=== PATIENT | male | born 1945 | race Hispanic/Latino ===

== ENCOUNTER 2018-02-21 10:23 | Emergency (ER) | payer MEDICARE, MEDICAID ==
[2018-02-21 11:20] LABS: #Basophils 0.1 thou/uL (0.0-0.2); #Eosinphils 3.5 thou/uL (0.0-0.7); #Lymphocytes 2.1 thou/uL (1.20-3.40); #Monocytes 1.3 thou/uL (0.11-0.59); #Neutrophils 7.5 thou/uL (1.40-6.50); %Basophils 0.5 % (0.0-1.0); %Eosinophils 24.3 % (0.0-10.0); %Lymphocytes 14.6 % (21.0-51.0); %Monocytes 8.7 % (0.0-10.0); %Neutrophils 51.9 % (42.0-75.0); Hemoglobin 12.7 g/dL (14.0-18.0); Mean Corpuscular HGB CONC 33.9 g/dL (32.0-36.0); Mean Corpuscular Hemoglobin 29.4 pg (27.0-31.0); Mean Corpuscular Volume 86.8 fl (80.0-94.0); Mean Platelet Volume 8.6 fL (7.4-10.4); Platelet Count 269 thou/uL (130-400); RBC Distribution Width 12.1 % (11.5-14.5); Red Blood Cell (RBC) Count 4.31 mill/uL (4.70-6.10); White Blood Cell (WBC) Count 14.5 thou/uL (4.8-10.8)
[2018-02-21 11:48] LABS: ALT (SGPT) 11 U/L (8-55); AST (SGOT) 15 U/L (5-34); Albumin 3.9 g/dL (3.4-4.8); Alkaline Phosphatase 111 U/L (40-150); Anion Gap 11 mmol/L (10-20); BUN (Urea Nitrogen) 25 mg/dL (8.4-25.7); Bilirubin, Total 0.4 mg/dL (0.2-1.2); Calc. Creatinine Clearance 0 mL/min (70-130); Calcium 9.2 mg/dL (7.8-10.44); Carbon Dioxide 23 mmol/L (23-31); Chloride 106 mmol/L (98-107); Estimated GFR-MDRD 76; Globulin 4.1 g/dL (2.4-3.5); Glucose 124 mg/dL (80-115); Sodium 136 mmol/L (136-145)
== END 2018-02-21 14:20 | disposition home or self-care (01) ==
LOC: ERS 10:23
DX: R19.7 Diarrhea, unspecified (principal); I10 Essential (primary) hypertension; I25.2 Old myocardial infarction; Z79.82 Long term (current) use of aspirin; Z86.73 Personal history of transient ischemic attack (TIA), and cerebral infarction without residual deficits
CPT/HCPCS: 36415; 80053; 82274; 83630; 85025; 87045; 87046; 87324; 87449; 87899; 99284

== ENCOUNTER 2019-02-19 14:50 | Inpatient (IN) | payer MEDICARE, MEDICAID ==
[~2019-02-19 14:50] MED LIST: ISOVUE-370 76%-LOCM 1 ML ONE
--- NOTE | 2019-02-19 16:05 | CT ---
CT THORACIC SPINE WITHOUT CONTRAST: 02/19/19 HISTORY: Patient was cleaning the yard yesterday. Now experiencing significant pain. COMPARISON: None. TECHNIQUE: A noncontrast CT of the thoracic spine is performed in the axial plane. FINDINGS: There appear to be chronic changes involving multiple end plates throughout the thoracic spine due to degenerative disc disease. Multilevel sclerosis and Schmorl's nodes are identified. There is exubera nt osteophyte formation, greatest at the T10-T11 level. There is irregularity involving the end plat es, likely on the basis of degenerative change. There is no significant paraspinal hematoma or swelli ng. Overall, no acute fractures of the thoracic spine. There are varying degrees of central canal nedra nosis and foraminal narrowing due to degenerative change. Evaluation is limited by technique. There a ppears to be at least mild to moderate central canal stenosis at T10-T11. Neural foramina appear to b e grossly patent. Limited evaluation of the mediastinum by the lack of IV contrast. Atherosclerosis of a nonaneurysmal aorta as well as coronary calcifications are identified. No definite mediastinal mass, lymphadenopath y, or hematoma. Surgically absent gallbladder. Dependent atelectatic changes in the lung parenchyma. IMPRESSION: 1. No definite thoracic spine fracture. 2. Extensive multilevel degenerative disc disease with end plate changes and osteophyte formatio n. There appears to be at least to moderate central canal stenosis at T10-T11. Barring any contraindi cations, further evaluation with nonemergent thoracic spine MRI can be performed. POS: [facility]
--- NOTE | 2019-02-19 16:11 | CT ---
CT PELVIS WITHOUT CONTRAST 02/19/19 HISTORY: Left flank pain. Difficulty getting up. Patient did a lot of yard work yesterday. FINDINGS: Slightly prominent urinary bladder. The prostate gland is enlarged. Encouraged spontaneous voiding. C onsider evaluating postvoid residuals to assess for possible bladder outlet syndrome secondary to emily ign prostatic hypertrophy. There is no pelvic mass, lymphadenopathy, free air or free fluid. Extensiv e vascular calcifications are noted. There are degenerative changes in the sacroiliac joints. The left and right sacral ala are preserved. There is pseudoarthrosis of the left and right aspects of the L5 vertebral body with the sacrum. Obturator ring, iliac wing are intact. No bony pelvic fracture. Both femoral heads are maintained. Mi ld loss of joint space height bilaterally. The presacral fat is preserved. The visualized gluteal muscles and overlying soft tissue are unremark able. IMPRESSION: 1. Chronic changes and degenerative changes as described above. 2. No fracture. 3. Prominent urinary bladder. Encourage spontaneous voiding and assess for postvoid residual. 4. Enlarged prostate gland. POS: [facility]
--- NOTE | 2019-02-19 16:21 | CT ---
[facility] lumbar spine noncontrast: 02/19/2019 HISTORY: Acute onset left lumbar radiculopathy. COMPARISON: None FINDINGS: Counting of the ribs on the concurrent CT of the thoracic spine demonstrate 12 paired ribs, and 6 non rib-bearing lumbar type vertebrae. For the purposes of this report, the first nonrib-bearing vertebra will be designated as L1. Consequently, the largest lumbar type vertebra at the lumbosacral junction will be designated as L6. L6 is fused with S1 sacral alar. There is a dextroscoliosis of the lumbar spine with apex of curvature at approximately L3. There are large bridging osteophytes at multiple le vels protruding into the prevertebral space. Urinary bladder is distended. There is multilevel degene rative disc disease, ranging from mild at L5 6 to moderate at multiple levels to severe at L3-4 where there is prominent vacuum disc phenomenon and prominent sclerosis at the left, concave side of the s coliotic curvature. The spinal canal is diffusely small in caliber on a congenital basis due to devel opmentally short pedicles. This is exacerbated by lumbar spondylosis. T12-L1: Mild to moderate central stenosis mostly on developmental basis. [id number] bilateral n eural foraminal stenosis. L1-2: Mild to moderate central stenosis. Moderate bilateral neural foraminal stenosis. L2-3: Thickening of ligamentum flavum plus diffuse disc bulge. Severe central spinal canal stenosis. Moderate right neural foraminal stenosis. Severe left neural foraminal stenosis. L3-4: Severe bilateral facet DJD. Slight grade 1 anterolisthesis of L3 on L4. Prominent diffuse disc bulge. Moderate ligamentum flavum thickening. Ossification at the posterior aspect of spinal canal. E xtremely severe central spinal canal stenosis. Severe bilateral neural foraminal stenosis. L4-5: Moderate ligamentum flavum thickening. Prominent diffuse disc bulge. Mild right facet DJD. Mode rate left facet DJD. Extremely severe central spinal canal stenosis. Severe bilateral neural foramina l stenosis. L5-6: Diffuse disc bulge. Superimposed central and right paracentral and lateral disc herniation. The re is severe central spinal canal stenosis. Moderate ligamentum flavum thickening. Severe bilateral n eural foraminal stenosis. Moderate right facet DJD. Mild left facet DJD. L6-S1: Development of a small caliber spinal canal without exacerbation. No acquired neural foraminal stenosis. IMPRESSION: 1. Severe lumbar spondylosis with multilevel degenerative disc disease and facet osteoarthrosis. 2. Dextroscoliosis. 3. Several levels of extremely severe central spinal canal stenosis due to spondylosis superimposed o n developmentally small caliber spinal canal. 4. Several levels of severe neural foraminal stenosis. 5. Distended urinary bladder, raising the possibility of cauda equina syndrome.
[2019-02-19 17:05] LABS: #Basophils 0.1 thou/uL (0.0-0.2); #Eosinphils 2.7 thou/uL (0.0-0.7); #Lymphocytes 2.5 thou/uL (1.20-3.40); #Monocytes 0.6 thou/uL (0.11-0.59); %Basophils 0.7 % (0.0-1.0); %Eosinophils 20.5 % (0.0-10.0); %Lymphocytes 19.7 % (21.0-51.0); %Monocytes 4.7 % (0.0-10.0); %Neutrophils 54.4 % (42.0-75.0); Hemoglobin 11.9 g/dL (14.0-18.0); Mean Corpuscular HGB CONC 32.2 g/dL (32.0-36.0); Mean Corpuscular Hemoglobin 29.1 pg (27.0-31.0); Mean Corpuscular Volume 90.3 fL (78.0-98.0); Mean Platelet Volume 9.2 fL (7.4-10.4); Platelet Count 300 thou/uL (130-400); RBC Distribution Width 11.9 % (11.5-14.5); White Blood Cell (WBC) Count 12.9 thou/uL (4.8-10.8)
[2019-02-19 17:27] LABS: ALT (SGPT) 8 U/L (8-55); AST (SGOT) 13 U/L (5-34); Albumin 3.7 g/dL (3.4-4.8); Alkaline Phosphatase 95 U/L (40-150); Anion Gap 12 mmol/L (10-20); BUN (Urea Nitrogen) 16 mg/dL (8.4-25.7); Bilirubin, Total 0.3 mg/dL (0.2-1.2); Calc. Creatinine Clearance 0 mL/min (70-130); Calcium 9.4 mg/dL (7.8-10.44); Carbon Dioxide 28 mmol/L (23-31); Chloride 105 mmol/L (98-107); Estimated GFR-MDRD 79; Globulin 3.9 g/dL (2.4-3.5); Glucose 94 mg/dL (83-110); Potassium 4.8 mmol/L (3.5-5.1); Protein, Total 7.6 g/dL (5.8-8.1); Sodium 140 mmol/L (136-145)
[2019-02-19] MEDS ORDERED: Ketorolac Tromethamine 30 MG/ML VIAL ONE (18:13)
[2019-02-19 18:28] LABS: Bilirubin Negative (Negative); Blood, Urine Negative (Negative); Clarity CLEAR (Clear); Glucose, Urine (Dipstick) Negative (Negative); Leukocyte Negative (Negative); Nitrite Negative (Negative); Protein, Urine (Dipstick) 30 mg/dL (Neg-Trace); Specific Gravity, Urine 1.011 (1.002-1.036); pH, Urine 6.5 (5.0-9.0)
[2019-02-19 18:31] LABS: Bacteria/HPF None Seen HPF (None Seen); Hyaline Casts/LPF 0-3 HYALINE CAST LPF (0-3 Hyaline); RBC/HPF None Seen HPF (0-3); Squamous Epithelial None Seen HPF (0-3); WBC/HPF None Seen HPF (0-3)
--- NOTE | 2019-02-19 18:51 | CT ---
CT ARTERIOGRAM CHEST WITH IV CONTRAST AND 3D MIP IMAGING CT ARTERIOGRAM ABDOMEN WITH IV CONTRAST AND 3D MIP IMAGING 02/19/19 HISTORY: Chest and back pain. Abdomen pain. FINDINGS: There is good contrast opacification of the pulmonary arteries and the aorta with normal branching of the great vessels. Moderate calcification throughout the arterial structures, including coronary art eries. Prominent calcification at the origin of the superior mesenteric artery with short segment focus of h igh grade stenosis. Flow is seen more distally. Inferior mesenteric artery is enlarged. Renal arterie s contain calcification without significant stenosis evident. Tiny nonspecific subpleural nodule is noted at the right anterior lung base. Prominent degenerative changes throughout the thoracolumbar spine. Please see separate report. Gallbl adder is surgically absent. IMPRESSION: No evidence of aortic dissection or aneurysm. 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 POS: [facility]
--- NOTE | 2019-02-19 19:53 | ULT ---
VENOUS DUPLEX SONOGRAM RIGHT LOWER EXTREMITY 02/19/19 HISTORY: Right leg pain and edema. FINDINGS: The right common femoral vein and greater saphenous junction were evaluated along with the femoral, d eep femoral, popliteal, and posterior tibial veins. There is good color and spectral doppler flow, co mpression, and augmentation. IMPRESSION: No sonographic evidence of DVT within the right lower extremity. POS: [facility]
[2019-02-19] MEDS ORDERED: Ondansetron PF 4 MG/2 ML Vial IVP PRN (21:21)
[2019-02-19] MEDS ORDERED: Ondansetron ODT 4 MG TAB SL PRN (21:21)
[2019-02-19] MEDS ORDERED: Acetaminophen 325 MG TAB PO PRN (21:21)
[2019-02-19 22:41] VITALS: BMI 21.7
--- NOTE | 2019-02-20 07:19 | CT ---
CT HEAD NONCONTRAST: Date: 02/19/19 COMPARISON: 12/27/11. INDICATION: TIA, CVA, with history of pain. Right facial droop, slurred speech, and right-sided weakness. FINDINGS: There is moderate to severe chronic ischemic disease of the cerebral white matter, progressive from p rior exam. No intracranial hemorrhage, mass effect, or midline shift. There are cavitary lacunar infa rctions of each thalamus. There is scattered paranasal sinus mucosal thickening. IMPRESSION: Moderate to severe chronic ischemic disease with superimposed bilateral lacunar infarctions. No acute intracranial hemorrhage or mass effect. POS: [facility]
--- NOTE | 2019-02-20 07:51 | HP ---
PRIMARY CARE DOCTOR: [facility]. CODE STATUS: Full code. TIME OF EVALUATION: 9:00 p.m. CHIEF COMPLAINT: Slurred speech and generalized weakness. HISTORY OF PRESENT ILLNESS: This is a 73-year-old male patient with past medical history of stroke, hypertension, coronary artery disease, status post acute HI, and diabetes, came to the hospital after having an episode of slurred speech, generalized weakness, with no clear triggers and no alleviating factors. Symptoms were present when the patient woke up in the morning, symptoms have probably getting better. The patient has a history of previous stroke and also has a history of right footdrop that resolved. The patient also has some associated right-sided flank pain. Symptoms were reported as severe on presentation is getting better during the day. REVIEW OF SYSTEMS: CONSTITUTIONAL: No fever, chills, or generalized weakness. RESPIRATORY: No cough, sputum production, or shortness of breath. CARDIOVASCULAR: No chest pain or palpitation. GASTROINTESTINAL: No nausea. No vomiting, diarrhea, or abdominal pain. OPERATOR/ASSISTANT FOREMAN: The patient has slurred speech, slow mentation, difficulty finding words that happened early in the morning. GENITOURINARY: No burning on urination. EXTREMITIES: No leg swelling. All other systems were reviewed and negative except for the findings mentioned above. PAST MEDICAL HISTORY: As mentioned in the HPI. SURGICAL HISTORY: Cholecystectomy. PSYCHIATRIC HISTORY: Denies psych history. FAMILY HISTORY: Reviewed and non contributory to current presentation. SOCIAL HISTORY: The patient drinks socially. No drug use. No smoking history. Lives at home with family. KNOWN ALLERGIES: No known drug allergies reported. MEDICATIONS: Unable to obtain. PHYSICAL EXAMINATION: VITAL SIGNS: On presentation, blood pressure 164/71 with heart rate 50, respiratory rate was 18, temperature 98.6, pain was 4, oxygen saturation was 99 on room air. GENERAL APPEARANCE: The patient is alert, oriented, not in acute distress. HEENT: Eyes, normal conjunctivae. Moist oral mucosa. Anicteric. No JVD. RESPIRATORY: Bilateral air entry. No rales. No wheezes. Symmetric expansion. CARDIOVASCULAR: Normal rate, regular rhythm. No murmurs. No gallop. No edema. ABDOMEN: Soft. Normal bowel sounds. MUSCULOSKELETAL: Baseline range of motion and strength. No tenderness. SKIN: Warm, intact. No pallor. No rash. No redness. Peripheral pulses are present. Capillary refill seems to be intact. NEURO: The patient has right footdrop. No evidence of any new focal weakness during my examination. Symptoms seems to have been improved as per when compared with what family is reporting. Cranial nerves seems to be intact. PSYCH: The patient is in good mood. No anxiety. Optimal judgment. EKG: The patient has sinus bradycardia with first-degree AV block, heart rate 45, LA 240, QRS 104, QT corrected 378. RADIOLOGY: The patient received lumbar spine CT that show severe lumbar spondylosis, multilevel degenerative disk disease, facet osteoarthritis, dextroscoliosis, several level of extremely severe central and spinal canal stenosis due to spondylosis superimposed development small caliber spinal canal, several levels of severe neuroforaminal stenosis, distended urinary bladder raising the possibility of cauda equina syndrome. CT pelvis without contrast. The patient has chronic changes within degenerative changes as described above. No fracture. Prominent urinary bladder, encourage spontaneous voiding and assess for post- void residual, enlarged prostate gland. Thoracic spine CT. No definite thoracic spine fractures, extensive multilevel degenerative disk disease and endplate changes and osteophyte formation. There appears to be a least moderate central canal stenosis at T10 and T11, barring contradications, further evaluation with nonemergent thoracic spine MRI can be performed. CT dissection was done. The patient has no evidence of aortic dissection, had a region of atherosclerosis with short-segment focus of high-grade stenosis involving the origin of the superior mesenteric artery. No sonographic evidence of DVT within the right lower extremity. CT head was done. CT head report was called. The patient has multiple subacute infarct seen as per radiology report. LABORATORY DATA: The labs are reviewed. The patient has a white count of 12.9, hemoglobin 11.9, MCV 90.3, platelet count 300. Chemistry; sodium 140, potassium 4.8, chloride 105, carbon dioxide 28, BUN 16, creatinine 0.94, GFR 79, glucose 94, AST 13, ALT 8, alkaline phosphatase 95. Troponin was 0.010. Serum total protein 7.6, albumin 3.7. Urine was done and was negative. ASSESSMENT AND PLAN: The patient has been placed in the hospital with the following medical problems: 1. Subacute stroke as seen on the CAT scan, we will do a stroke protocol, we will follow neurology recommendations. follow work up, treat accordingly. 2. Possible cauda equina syndrome. The patient has urinary retention, also have some severe spinal stenosis, unclear if the symptoms are from the stroke or from the spinal stenosis. We will consult Neurosurgery for any further recommendation. 3. Leukocytosis of unclear etiology 12.9. We will monitor. No evidence of any infection at this point. 4. Uncontrolled hypertension on presentation, blood pressure was 164 systolic, reconcile home medications. We will adjust treatment as needed. 5. History of coronary artery disease with previous history of acute HI. Reconcile home medications once updated. We will adjust treatment as needed. 6. DVT prophylaxis Job ID: [id number] [facility]
[2019-02-20 08:16] LABS: Anion Gap 11 mmol/L (10-20); BUN (Urea Nitrogen) 17 mg/dL (8.4-25.7); Calc. Creatinine Clearance 66 mL/min (70-130); Calcium 9.2 mg/dL (7.8-10.44); Carbon Dioxide 27 mmol/L (23-31); Cardiac Risk 3.8 (Less than 4.5); Chloride 104 mmol/L (98-107); Cholesterol 192 mg/dl (< 200 Desired); Eosinophils 29 % (0-10); Estimated GFR-MDRD 82; Glucose 105 mg/dL (83-110); HDL Cholesterol 50 mg/dL (>60 Neg Risk); Hemoglobin 12.4 g/dL (14.0-18.0); LDL Cholesterol, Calculated 123 mg/dL; Lymphocytes 12 % (21-51); MDiff Complete? YES; Mean Corpuscular Volume 87.8 fL (78.0-98.0); Mean Platelet Volume 9.5 fL (7.4-10.4); Monocytes 3 % (0-10); Neutrophil 56 % (42-75); Platelet Count 301 thou/uL (130-400); Platelet Morphology Comment Appears Adequate; Potassium 4.3 mmol/L (3.5-5.1); Red Blood Cell (RBC) Count 4.26 mill/uL (4.70-6.10); Sodium 138 mmol/L (136-145); Triglycerides 96 mg/dL (Less than 150); White Blood Cell (WBC) Count 11.1 thou/uL (4.8-10.8)
[2019-02-20] MEDS ORDERED: Enoxaparin Sodium 40 MG/0.4 ML SYRINGE SC SCH (09:00)
[2019-02-20] MEDS ORDERED: Prevnar 13-Val Conj/PF 0.5 ML SYRINGE IM ONE (09:00)
[2019-02-20] MEDS ORDERED: Aspirin 325 mg Enteric Coated Tablet PO SCH (09:00)
--- NOTE | 2019-02-20 11:06 | MRI ---
[facility] lumbar spine noncontrast: 02/20/2019 HISTORY: Acute onset left lumbar radiculopathy. Low back pain. Urinary retention. COMPARISON: No prior MRIs of the lumbar spine. FINDINGS: Counting of the ribs on the recent CT of the thoracic spine demonstrate 12 paired ribs, and 6 nonrib- bearing lumbar type vertebrae. For the purposes of this report, the first nonrib-bearing vertebra bonnie l be designated as L1. Consequently, the lowest lumbar type vertebra at the lumbosacral junction will be designated as L6. L6 is fused with S1 sacral alar. There is a dextroscoliosis of the lumbar spine with apex of curvature at approximately L3. There are large bridging osteophytes at multiple levels protruding into the prevertebral space. Urinary bladder is distended. There is multilevel degenerativ e disc disease, ranging from mild at L5-6 to moderate at multiple levels, to severe at L3-4 where the re is prominent vacuum disc phenomenon, mixed Modic type I, 2, and 3 changes, and prominent sclerosis at the left, concave side of the scoliotic curvature. The spinal canal is diffusely small in caliber on a congenital basis due to developmentally short pedicles. This is exacerbated by lumbar spondylos is. T12-L1: Included on sagittal images but not axial images. Mild to moderate central stenosis mostly on developmental basis. At least moderate bilateral neural foraminal stenosis. L1-2: Mild to moderate central stenosis. Moderate bilateral neural foraminal stenosis. Conus medullar is terminates at upper L2 level. L2-3: Thickening of ligamentum flavum plus diffuse disc bulge. Moderate-severe central spinal canal s tenosis. Moderate right neural foraminal stenosis. Severe left neural foraminal stenosis. L3-4: Severe bilateral facet DJD. Slight grade 1 anterolisthesis of L3 on L4. Prominent diffuse disc bulge. Moderate ligamentum flavum thickening. Ossification at the posterior aspect of spinal canal. E xtremely severe central spinal canal stenosis. Moderate to severe right neural foraminal stenosis. Ve ry severe left neural foraminal stenosis. L4-5: Moderate ligamentum flavum thickening. Prominent diffuse disc bulge. Mild right facet DJD. Mode rate left facet DJD. Extremely severe central spinal canal stenosis. Moderate to severe right neural foraminal stenosis. Very severe left neural foraminal stenosis. L5-6: Diffuse disc bulge. Superimposed central and right paracentral and lateral disc herniation. The re is severe central spinal canal stenosis, and severe lateral recess stenosis bilaterally. Moderate ligamentum flavum thickening. Extremely severe right neural foraminal stenosis. Moderate to severe le ft neural foraminal stenosis. Moderate right facet DJD. Mild left facet DJD. L6-S1: developmentally small caliber spinal canal without exacerbation. No acquired neural foraminal stenosis. Developmentally somewhat hypoplastic facet joints. IMPRESSION: 1. Severe lumbar spondylosis with multilevel degenerative disc disease and facet osteoarthrosis. 2. Dextroscoliosis. 3. Several levels of extremely severe central spinal canal stenosis due to spondylosis superimposed o n developmentally small caliber spinal canal. 4. Several levels of severe neural foraminal stenosis. 5. Distended urinary bladder, suspicious for cauda equina syndrome.
--- NOTE | 2019-02-20 11:17 | MRI ---
[facility] BRAIN WITHOUT CONTRAST: HISTORY: TIA COMPARISON: 12/28/2011 CORRELATION: CT scan from same date. FINDINGS: No restricted diffusion is seen. There are multiple foci of T2 prolongation in the periventricular wh ite matter, consistent with chronic small vessel ischemic disease. The ventricular size is appropriat e and the basilar cisterns are patent. No evidence of acute infarct, hemorrhage, midline shift or abnormal extra-axial fluid collections is seen. There is mucosal disease in the paranasal sinuses. IMPRESSION: No evidence of acute intracranial process.
--- NOTE | 2019-02-20 12:59 | CON ---
DATE OF CONSULTATION: ATTENDING PHYSICIAN: Royal Mejia MD. HISTORY OF PRESENT ILLNESS: The patient is a 73-year-old male with a past medical history of hypertension, prior CVAs, coronary artery disease with prior PA, who presented to the emergency department last night for generalized weakness and slurred speech. The patient reports that the prior weekend he has been working in his yard raking leaves and doing other activities. The following day, he reports he felt very weak, he was having difficulty getting out of bed and ambulating throughout his house. His family also reports that they noticed some changes in his speech, so he was brought to the emergency department last night for further evaluation. Much of these symptoms had improved by this time, but he continues to complain of some weakness in his lower extremities, particularly in the right leg as well as difficulty ambulating. The patient does report that he has had a gradual and progressive history over the last year of progressive weakness in his legs, particularly on the right leg. He reports he has been unable to flex or extend his right foot in approximately 1 year. He previously used a cane for ambulation, but has been primarily using his walker for the past year. He denies any changes in his bowel or bladder habits; however, he was noted to have urinary retention of 600 mL during his admission and [place] catheter was placed. The patient was evaluated with a noncontrast MRI of the lumbar spine, which is notable for multilevel degenerative changes as well as scoliosis with severe central canal stenosis at L3-L4, L4-L5 , and L5-L6, we are calling this transitional segment. PAST MEDICAL HISTORY: Hypertension, coronary artery disease, prior PA, diabetes , CVA. PAST SURGICAL HISTORY: Cholecystectomy. SOCIAL HISTORY: The patient lives with home with his family. He drinks socially. He does not use any drugs. ALLERGIES: HE HAS NO KNOWN DRUG ALLERGIES. MEDICATIONS: The patient was unable to provide a medication list. He denies any anticoagulant use in the last 2 weeks. He was previously taking 81 mg aspirin daily. PHYSICAL EXAMINATION: VITAL SIGNS: Temperature is 98.0, pulse is 63, respiration rate is 17. The patient is 95% on room air. BP is 147/60. CONSTITUTIONAL: Awake, alert, in no acute distress. HEENT: Head, normocephalic and atraumatic. Eyes, PERRLA. Extraocular movements intact. ENT; oral mucosa is pink, intact, and moist. The patient has normal voice. RESPIRATORY: Symmetric chest expansion. No evidence of dyspnea. CARDIOVASCULAR: Regular rate and rhythm. MUSCULOSKELETAL: Free active range of motion of the upper extremities. No focal motor weakness of the upper extremities. No reflex asymmetry in the lower extremities. The patient is unable to dorsi or plantar flex the right foot. He does have 5/5 strength with hip flexion and extension, and flexion and extension of the knee. He has normal reflexes in the lower extremities. Negative Gonsalez. Negative clonus. NEURO: A and O x4. The patient has right footdrop. ASSESSMENT: This is a 73-year-old male with progressive lower extremity weakness, right greater than left, with acute exacerbation of these symptoms and development of urinary retention after working in the yard. His lumbar MRI is notable for multilevel degenerative changes and significant central canal stenosis at L3-L4, L4-L5, and L5-L6 - the patient has a transitional segment. PLAN: Pt has significant multilevel degenerative disease and central canal stenosis. I will review these findings with Dr. Mejia who will also see the patient. We will plan to keep the patient off any anticoagulants at this time. Pt did get aspirin earlier today but will discontinue at this time. Pt is also complicated by significant cardiac history which may require additional clearance by cardiology if surgery was entertained. Job ID: [id number] [facility]
[2019-02-20] MEDS ORDERED: Acetaminophen 500 MG TAB PO PRN (13:06)
[2019-02-20] MEDS ORDERED: Lorazepam 2 MG/ML VIAL SLOW IVP SCH (13:15)
--- NOTE | 2019-02-20 19:03 | PRG ---
DATE OF SERVICE: 02/20/2019 SUBJECTIVE: The patient is a 73-year-old male with past medical history significant for prior CVAs, history of CAD and [place], and hypertension, who presented to the hospital with a host of complaints including temporary slurred speech, back pain, generalized weakness. The patient has undergone extensive imaging of the back and spine, and has been admitted with severe central spinal canal stenosis and question of cauda equina syndrome. His speech is back to normal today. He has had no chest pain or shortness of breath. He denies any dizziness at this time. He has no back pain at this time. OBJECTIVE: VITAL SIGNS: Blood pressure 147/76, pulse is 70, O2 saturation is 95% on room air. Pulse is 55, temperature afebrile. GENERAL: The patient is a male, resting comfortably. No acute distress. Appears stated age. HEENT: Head is atraumatic and normocephalic. Extraocular movements intact. Mucous membranes are moist. NECK: No JVD. No carotid bruits. Trachea is midline. No lymphadenopathy. CV: S1 and S2. Regular rhythm. Mildly bradycardic. Soft systolic murmur grade 1/6. LUNGS: Regular respiratory rate and pattern. Clear to auscultation bilaterally. ABDOMEN: Positive bowel sounds. Soft, nontender. NEUROLOGIC: Patient's cranial nerves 2 through 12 are grossly intact. He has + 5/5 strength in both upper extremities bilaterally. Right foot shows 1/5 strength, findings consistent with right footdrop. 5/5 strength on the left. EXTREMITIES : He has no edema. +2 DP pulses bilaterally. SKIN: Warm and dry. No obvious rashes. LABORATORY DATA: White blood cell count 11.1, hemoglobin 12.4, hematocrit 37.4, sodium 138, potassium 4.3, carbon dioxide 27, BUN 17, creatinine 0.91, GFR 82. AST 13, ALT 8, alkaline phosphatase 95. Troponin is negative. Cholesterol 192, LDL 123, HDL 50, triglycerides are 96. ASSESSMENT: 1. Severe central spinal canal stenosis due to spondylosis, question of cauda equina syndrome, Neurology consulted. 2. Right footdrop. 3. Dextroscoliosis. 4. Urinary retention, question of obstructive versus neurogenic, patient currently refusing [place] placement. 5. Prior cerebrovascular accident. No evidence of stroke this admission. 6. History of coronary artery disease and myocardial infarction. 7. Asymptomatic sinus bradycardia. 8. Hypertension. PLAN: Holding all antiplatelets and anticoagulation at this time for possible surgical intervention. We will add amlodipine for blood pressure control. The patient has a residual 600 mL urinary retention per bladder scan, and has adamantly refused [place] placement. He is continuing to void some. Findings explained to the patient's family and questions answered. Further recommendations based on hospital course. Neurology consult is pending. Job ID: [id number] MTDD
[2019-02-20] MEDS: Atorvastatin Calcium 40 MG TAB PO SCH (21:06)
--- NOTE | 2019-02-20 23:18 | CON ---
DATE OF CONSULTATION: 02/20/2019 CONSULTING PHYSICIAN: Hospitalist Service. IMPRESSION: 1. Severe spinal stenosis with bilateral lower extremity weakness, right greater than left. 2. History of transient ischemic attacks. PLAN: 1. Restart aspirin and a statin. 2. Consult Surgery for opinion on lumbar decompression. HISTORY OF PRESENT ILLNESS: Mr. Camarena is a 73-year-old gentleman who has been having some chronic lower back pain. He has noted some increasing weakness in his right leg. He did not really appreciate any in the left. He has developed a footdrop over the last 2 or 3 weeks, he is a bit vague as to the rate of progression. He was being seen at the [facility]. He had been off all his medications. He decided to come to the emergency room for evaluation. His MRI of the brain shows some extensive white matter ischemic changes that are chronic, but no acute changes were present. MRI of the lumbar spine showed moderate to severe central canal stenosis at L3-L4 and L4-L5. There is mild central stenosis at L5-S1. There is right foraminal stenosis at L5-S1, that looks severe. His laboratory studies were unremarkable. Cholesterol measure ratio of 3.8. PAST MEDICAL HISTORY: Hypertension, coronary artery disease, and diabetes. SOCIAL HISTORY: No tobacco use. FAMILY HISTORY: Noncontributory. MEDICATIONS: None. ALLERGIES: NONE. REVIEW OF SYSTEMS: Ten system review of systems is otherwise negative. PHYSICAL EXAMINATION: GENERAL: He is a thin, elderly man, sitting up in the bed, in no distress. VITAL SIGNS: Stable. He has been afebrile. HEENT: Pupils are equal. Conjunctivae clear. He is without dentition. Normocephalic and atraumatic. NECK: Supple. No lymphadenopathy. EXTREMITIES: No cyanosis, clubbing, or edema. NEUROLOGIC: He is alert and cooperative. Speech is fluent and clear. Cranial nerves II through XII are intact. Motor exam showed good strength in both upper extremities. Lower extremity testing showed good knee extension bilaterally. He had a complete paralysis of movement below the knee on the right. His strength on the left was in the range of 3+/5 for both ankle flexion and plantar flexion. Gait was not tested. No tremor. Dysmetria is present. No abnormal movements were seen. 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 He has no acute neurologic event. He should reestablish treatment of his underlying issues. We will get Neurosurgery's opinion. Job ID: [id number]
[2019-02-21 09:00] LABS: Prothrombin Time 13.7 SEC (12.0-14.7)
[2019-02-21 09:01] LABS: PTT 35.7 SEC (22.9-36.1)
[2019-02-21] MEDS: Amlodipine 5 MG TAB PO SCH (09:35)
[2019-02-21] MEDS ORDERED: Sodium Chloride 0.65% Nasal 44 ML BOT EA NARE PRN (10:53)
[2019-02-21] MEDS ORDERED: HYDROcodone/Acetaminophen 5/325 mg Tablet PO PRN (10:53)
[2019-02-21] MEDS ORDERED: Labetalol HCl 100 MG/20 ML VIAL SLOW IVP PRN (10:53)
[2019-02-21] MEDS ORDERED: Eucerin (Mineral Oil/Petrolatum,White) 30 gm Jar TOP PRN (10:53)
[2019-02-21] MEDS ORDERED: Diabetic Tussin 200 MG/10 ML UDCUP PO PRN (10:53)
[2019-02-21] MEDS ORDERED: Loperamide HCl 2 MG CAP PO PRN (10:53)
[2019-02-21] MEDS ORDERED: Cepastat Lozenges 1 LOZ PO PRN (10:53)
[2019-02-21] MEDS ORDERED: Artificial Tears 18 DROP/0.9 ML EA EYE PRN (10:53)
[2019-02-21] MEDS ORDERED: hydrALAZINE 20 MG/ML VIAL SLOW IVP PRN (10:53)
[2019-02-21] MEDS ORDERED: Senokot S 8.6-50 MG TAB PO PRN (10:53)
[2019-02-21] MEDS ORDERED: Bisacodyl 5 MG TAB PO PRN (10:53)
[2019-02-21] MEDS ORDERED: Loratadine 10 MG TAB PO PRN (10:53)
[2019-02-21] MEDS ORDERED: Temazepam 15 MG CAP PO PRN (10:53)
--- NOTE | 2019-02-21 10:54 | PDOC.PN ---
- Subjective Encounter Start Date: 02/21/19 Encounter Start Time: 09:40 -: old records requested/rev Patient seen and examined. No new complaints. No overnight events - Objective Resuscitation Status - Order Detail: 02/19/19 22:08 Resuscitation Status Routine Resuscitation Status: FULL: Full Resuscitation MAR Reviewed: Yes Vital Signs & Weight: Vital Signs (12 hours) Temp Pulse Resp BP BP Pulse Ox 02/21/19 09:35 58 L 139/68 02/21/19 07:50 96 02/21/19 07:40 97.6 F 58 L 14 139/68 96 02/21/19 04:00 97.6 F 68 16 157/74 H 97 02/21/19 00:00 99.2 F 74 16 134/59 L 96 Weight Weight 138 lb 11.2 oz I&O: 02/20/19 02/21/19 02/22/19 06:59 06:59 06:59 Intake Total 400 Output Total 500 Balance -100 Result Diagrams: 02/20/19 07:29 02/20/19 07:29 Radiology Reviewed by me: Yes (all test reviewed) EKG Reviewed by me: Yes Phys Exam - Physical Examination Constitutional: NAD HEENT: PERRLA, moist MMs, sclera anicteric Neck: no JVD, supple Respiratory: no wheezing, no rales, no rhonchi Cardiovascular: RRR, no significant murmur, no rub Gastrointestinal: soft, non-tender, no distention, positive bowel sounds Musculoskeletal: no edema, pulses present Neurological: non-focal, normal sensation Lymphatic: no nodes Psychiatric: normal affect, A&O x 3 Skin: no rash, normal turgor Dx/Plan (1) Acute urinary retention Code(s): R33.8 - OTHER RETENTION OF URINE Status: Acute (2) BPH (benign prostatic hyperplasia) Code(s): N40.0 - BENIGN PROSTATIC HYPERPLASIA WITHOUT LOWER URINRY TRACT SYMP Status: Chronic (3) CAD (coronary artery disease) Code(s): I25.10 - ATHSCL HEART DISEASE OF [place] CORONARY ARTERY W/O ANG PCTRS Status: Chronic (4) Dextroscoliosis Code(s): M41.80 - OTHER FORMS OF SCOLIOSIS, SITE UNSPECIFIED Status: Chronic (5) Hypertension Code(s): I10 - ESSENTIAL (PRIMARY) HYPERTENSION Status: Chronic (6) Lumbar spinal stenosis Code(s): M48.061 - SPINAL STENOSIS, LUMBAR REGION WITHOUT NEUROGENIC MICK Status: Chronic - Plan cont current plan of care, plan discussed w/ family, PT/OT * neurosurgery will decide about surgery * medication reviewed as below * symptomatic treatment * discussed with son * continue PT * add flomax. Review of Systems - Review of Systems ENT: negative: Ear Pain, Ear Discharge, Nose Pain, Nose Discharge, Nose Congestion, Mouth Pain, Mouth Swelling, Throat Pain, Throat Swelling, Other Respiratory: negative: Cough, Dry, Shortness of Breath, Hemoptysis, SOB with Excertion, Pleuritic Pain, Sputum, Wheezing Cardiovascular: negative: chest pain, palpitations, orthopnea, paroxysmal nocturnal dyspnea, edema, light headedness, other Gastrointestinal: negative: Nausea, Vomiting, Abdominal Pain, Diarrhea, Constipation, Melena, Hematochezia, Other Genitourinary: Retention Musculoskeletal: Back Pain. negative: Neck Pain, Shoulder Pain, Arm Pain, Hand Pain, Leg Pain, Foot Pain, Other - Medications/Allergies Allergies/Adverse Reactions: Allergies Allergy/AdvReac Type Severity Reaction Status Date / Time No Known Allergies Allergy Verified 02/19/19 22:41 Medications: Current Medications Acetaminophen (Tylenol) 650 mg PO Q4H PRN PRN Reason: Headache/Fever or Pain Stop: 02/24/19 06:56 Acetaminophen (Tylenol) 1,000 mg PO Q6H PRN PRN Reason: Mild Pain (1-3) Amlodipine Besylate (Norvasc) 5 mg PO DAILY [facility] Last Admin: 02/21/19 09:35 Dose: 5 mg Atorvastatin Calcium (Lipitor) 40 mg PO HS [facility] Last Admin: 02/20/19 21:06 Dose: 40 mg Ondansetron HCl (Zofran) 4 mg IVP Q6H PRN PRN Reason: Nausea/Vomiting Stop: 02/24/19 06:56 Ondansetron HCl (Zofran Odt) 4 mg SL Q6H PRN PRN Reason: Nausea/Vomiting Stop: 02/23/19 06:56 Sodium Chloride (Flush - Normal Saline) 10 ml IVF PRN PRN PRN Reason: Saline Flush
[2019-02-21] MEDS ORDERED: Tamsulosin HCl 0.4 MG CAP PO SCH (11:00)
--- NOTE | 2019-02-21 12:32 | PRG ---
DATE OF SERVICE: 02/21/2019 The patient is seen and examined. I agree with Bernadette Chirinos's evaluation on 02/20/2019. The patient is a 73-year-old man, who was admitted for constellation of symptoms including progressive walking dysfunction and specifically right leg weakness. He has been evaluated by Medicine and by Neurology and has been found to have lumbar stenosis. No other specific intracranial and neurologic abnormalities were identified by Neurology. The patient's MRI scan shows relatively profound lumbar stenosis from L3 to L6. It should be noted that the patient has an extra lumbar segment. IMPRESSION AND PLAN: I believe the patient would benefit from decompressive laminectomy from L3 to L6 and I discussed the indication risks, benefits, and alternatives of this procedure with him. He expressed understanding. All questions were answered and he wishes to proceed. We will plan to proceed on Sunday. We will hold aspirin until after the surgery. We will defer to the Primary Service regarding preoperative cardiac clearance and whether a Cardiology consult is required. Job ID: [id number]
[2019-02-21] MEDS: Atorvastatin Calcium 40 MG TAB PO SCH (20:55)
[2019-02-22] MEDS: Tamsulosin HCl 0.4 MG CAP PO SCH (08:43)
[2019-02-22] MEDS: Amlodipine 5 MG TAB PO SCH (08:43)
--- NOTE | 2019-02-22 10:15 | PDOC.PN ---
- Subjective Encounter Start Date: 02/22/19 Encounter Start Time: 07:10 Patient seen and examined. No new complaints. No overnight events - Objective Resuscitation Status - Order Detail: 02/19/19 22:08 Resuscitation Status Routine Resuscitation Status: FULL: Full Resuscitation MAR Reviewed: Yes Vital Signs & Weight: Vital Signs (12 hours) Temp Pulse Resp BP BP Pulse Ox 02/22/19 08:43 68 158/77 H 02/22/19 07:50 98.4 F 68 20 158/77 H 97 02/22/19 04:00 97.7 F 65 16 162/67 H 98 02/22/19 00:00 97.9 F 69 16 130/65 93 L Weight Weight 138 lb 11.2 oz I&O: 02/21/19 02/22/19 02/23/19 06:59 06:59 06:59 Intake Total 400 900 300 Output Total 500 200 Balance -100 700 300 Result Diagrams: 02/20/19 07:29 02/20/19 07:29 EKG Reviewed by me: Yes Phys Exam - Physical Examination Constitutional: NAD HEENT: PERRLA, moist MMs, sclera anicteric Neck: no JVD, supple Respiratory: no wheezing, no rales, no rhonchi Cardiovascular: RRR, no significant murmur, no rub Gastrointestinal: soft, non-tender, no distention, positive bowel sounds Musculoskeletal: no edema, pulses present Neurological: non-focal, normal sensation Lymphatic: no nodes Psychiatric: normal affect Skin: no rash, normal turgor Dx/Plan (1) Acute urinary retention Code(s): R33.8 - OTHER RETENTION OF URINE Status: Acute (2) BPH (benign prostatic hyperplasia) Code(s): N40.0 - BENIGN PROSTATIC HYPERPLASIA WITHOUT LOWER URINRY TRACT SYMP Status: Chronic (3) CAD (coronary artery disease) Code(s): I25.10 - ATHSCL HEART DISEASE OF [place] CORONARY ARTERY W/O ANG PCTRS Status: Chronic (4) Dextroscoliosis Code(s): M41.80 - OTHER FORMS OF SCOLIOSIS, SITE UNSPECIFIED Status: Chronic (5) Hypertension Code(s): I10 - ESSENTIAL (PRIMARY) HYPERTENSION Status: Chronic (6) Lumbar spinal stenosis Code(s): M48.061 - SPINAL STENOSIS, LUMBAR REGION WITHOUT NEUROGENIC MICK Status: Chronic - Plan cont current plan of care * surgery on Sunday * cardiology consult for pre operative evaluation * medication reviewed as below * symptomatic treatment. Review of Systems - Review of Systems ENT: negative: Ear Pain, Ear Discharge, Nose Pain, Nose Discharge, Nose Congestion, Mouth Pain, Mouth Swelling, Throat Pain, Throat Swelling, Other Respiratory: negative: Cough, Dry, Shortness of Breath, Hemoptysis, SOB with Excertion, Pleuritic Pain, Sputum, Wheezing Cardiovascular: negative: chest pain, palpitations, orthopnea, paroxysmal nocturnal dyspnea, edema, light headedness, other Gastrointestinal: negative: Nausea, Vomiting, Abdominal Pain, Diarrhea, Constipation, Melena, Hematochezia, Other Genitourinary: negative: Dysuria, Frequency, Incontinence, Hematuria, Retention , Other Musculoskeletal: negative: Neck Pain, Shoulder Pain, Arm Pain, Back Pain, Hand Pain, Leg Pain, Foot Pain, Other Skin: negative: Rash, Lesions, Gus, Bruising, Other - Medications/Allergies Allergies/Adverse Reactions: Allergies Allergy/AdvReac Type Severity Reaction Status Date / Time No Known Allergies Allergy Verified 02/19/19 22:41 Medications: Current Medications Acetaminophen (Tylenol) 1,000 mg PO Q6H PRN PRN Reason: Mild Pain (1-3) Last Admin: 02/22/19 08:43 Dose: 1,000 mg Hydrocodone Bitart/Acetaminophen ([place] 5/325) 1 tab PO Q4H PRN PRN Reason: Moderate Pain (4-6) Amlodipine Besylate (Norvasc) 5 mg PO DAILY [facility] Last Admin: 02/22/19 08:43 Dose: 5 mg Artificial Tears (Tears Naturale) 2 drop EA EYE PRN PRN PRN Reason: Dry Eyes Atorvastatin Calcium (Lipitor) 40 mg PO HS [facility] Last Admin: 02/21/19 20:55 Dose: 40 mg Bisacodyl (Dulcolax) 10 mg PO DAILYPRN PRN PRN Reason: Constipation Guaifenesin (Robitussin Sf) 200 mg PO Q4H PRN PRN Reason: Cough Hydralazine HCl (Apresoline) 10 mg SLOW IVP Q4H PRN PRN Reason: SBP > 180 and HR < 70 Cefazolin Sodium/Dextrose 2 gm (/ Device) 50 mls @ 100 mls/hr IVPB ONCALL-OR WILMA Stop: 02/25/19 10:14 Labetalol HCl (Normodyne) 20 mg SLOW IVP Q4H PRN PRN Reason: SBP > 180 and HR >/= 70 Loperamide HCl (Imodium) 2 mg PO PRN PRN PRN Reason: Diarrhea/Loose Stools Loratadine (Claritin) 10 mg PO DAILYPRN PRN PRN Reason: Sinus Symptoms Mineral Oil/White Petrolatum (Eucerin Cream) 0 gm TOP BIDPRN PRN PRN Reason: Dry Skin Ondansetron HCl (Zofran) 4 mg IVP Q6H PRN PRN Reason: Nausea/Vomiting Stop: 02/24/19 06:56 Ondansetron HCl (Zofran Odt) 4 mg SL Q6H PRN PRN Reason: Nausea/Vomiting Stop: 02/23/19 06:56 Senna/Docusate Sodium (Senokot S) 2 tab PO BID PRN PRN Reason: Constipation Sodium Chloride (Flush - Normal Saline) 10 ml IVF PRN PRN PRN Reason: Saline Flush Sodium Chloride ([place] Nasal [place] 0.65%) 0 ml EA NARE QIDPRN PRN PRN Reason: Nasal Congestion Tamsulosin HCl (Flomax) 0.4 mg PO DAILY [facility] Last Admin: 02/22/19 08:43 Dose: 0.4 mg Temazepam (Restoril) 15 mg PO HSPRN PRN PRN Reason: Insomnia Throat Lozenges (Cepastat Lozenges) 1 curly PO Q2H PRN PRN Reason: Sore Throat
--- NOTE | 2019-02-22 12:46 | CON ---
DATE OF CONSULTATION: 02/22/2019 REASON FOR CONSULTATION: Preoperative evaluation. HISTORY OF PRESENT ILLNESS: Mr. Camarena is a very pleasant 73-year-old gentleman, who is [place]-speaking mostly, who comes to the hospital for what appears to be slurred speech, but he also has lower extremity weakness. He was eventually diagnosed with TIA and severe spinal stenosis with bilateral lower extremity weakness, the right greater than the left, so he is scheduled to have a lumbar decompression on Sunday. He tells me that he has a history of heart attacks in the past. When I asked him when was his last heart attack, he told me it was about 5 years ago here at [facility]. I am looking back at the records and there is no record of this. He tells me that he has had probably 5 heart attacks in the past and I asked him if he has ever had a heart catheterization, he tells me he has never had a stent to his heart, he has never had a heart catheterization, he has never had any procedure like that. I cannot find any evidence of him having any procedures or cardiac issues in the hospital. When I looked back at his records, he has been in the hospital several times. He has had alcohol abuse in the past. Not a smoker. He has been diagnosed with hypertension in the past and has had multiple strokes. He had been on hydrochlorothiazide at one point. He does have a family history of MIs, but never has been documented that he had a personal history of [place]. I think this was perpetuated on an ER note, that said he had a personal history of multiple MIs, this is unclear at this time. Either way, he currently denies any chest pain, tightness, or pressure. No shortness of breath, so he has no active cardiac issues at this time. Most recently, his echocardiogram that was done just 2 days ago showed an EF of 55% to 60% with no major valvular abnormality, only a calcified aortic valve with no significant stenosis or regurgitation. PAST MEDICAL HISTORY: 1. Hypertension. 2. Questionable history of coronary artery disease. 3. Type-2 diabetes. SOCIAL HISTORY: Former alcohol use. No tobacco or drugs. FAMILY HISTORY: History of early coronary artery disease in family members and MIs. OUTPATIENT MEDICATIONS: None. ALLERGIES: NO KNOWN DRUG ALLERGIES. REVIEW OF SYSTEMS: A 12-point review of systems was done and was negative unless stated in history of present illness. PHYSICAL EXAMINATION: VITAL SIGNS: Temperature 98.4, pulse 68, respiratory rate 20, saturating 97% on room air, and blood pressure 158/77. GENERAL: Awake, alert, and oriented x3. No distress. HEENT: Normocephalic, atraumatic. NECK: Supple. LUNGS: Clear. CARDIOVASCULAR: S1 and S2. No S3 or S4. No murmurs. ABDOMEN: Soft. Positive bowel sounds. EXTREMITIES: No edema. SKIN: Warm and dry. LABORATORY AND DIAGNOSTIC DATA: Laboratory work was reviewed. CBC with a white count of 11, hemoglobin of 12, hematocrit of 37, and platelet count of 301. Coags were reviewed. Chemistries were reviewed. Troponin was negative x2, undetectable actually. Triglycerides of 96, cholesterol total 192, LDL of 123, and HDL of 50. UA was unremarkable. ASSESSMENT: 1. Preoperative evaluation. 2. Medication noncompliance. 3. History of alcohol use. PLAN: The patient is at intermediate risk for an intermediate risk procedure. I do not see any evidence of him having had any MIs in the past. His LV is normal without any evidence of previous MIs. I do not see anywhere on his notes that he has had an [place] in the past. It changed from one note in 2011, where he had a family history of MIs and then on an ER visit note, it changed to personal history of multiple MIs. I think this may not be true and may just have been perpetuated in the notes since then. Otherwise, at this time, he should be able to undergo said procedure, intermediate risk for an intermediate risk procedure. Thank you for letting us to participate in the care of your patient. We will follow. Job ID: [id number]
[2019-02-22] MEDS: Atorvastatin Calcium 40 MG TAB PO SCH (20:07)
--- NOTE | 2019-02-22 20:53 | EKG ---
Test Reason : ER INDICATION Blood Pressure : / mmHG Vent. Rate : 045 BPM Atrial Rate : 045 BPM P-R Int : 240 ms QRS Dur : 104 ms QT Int : 438 ms P-R-T Axes : 063 -11 017 degrees QTc Int : 378 ms Marked sinus bradycardia with 1st degree A-V block Abnormal ECG Confirmed by GISELLE ESCOBEDO DO ([id number]), subeditor TANIA BRAVO ([id number] on 02/22/2019 8:53:15 PM Referred By: Confirmed By:GISELLE ESCOBEDO DO
[2019-02-23] MEDS: Amlodipine 5 MG TAB PO SCH (08:38)
[2019-02-23] MEDS: Tamsulosin HCl 0.4 MG CAP PO SCH (08:38)
--- NOTE | 2019-02-23 10:45 | PDOC.PN ---
- Subjective Encounter Start Date: 02/23/19 Encounter Start Time: 07:30 Patient seen and examined. No new complaints. No overnight events - Objective Resuscitation Status - Order Detail: 02/19/19 22:08 Resuscitation Status Routine Resuscitation Status: FULL: Full Resuscitation MAR Reviewed: Yes Vital Signs & Weight: Vital Signs (12 hours) Temp Pulse Resp BP BP Pulse Ox 02/23/19 08:38 50 L 154/66 H 02/23/19 08:30 94 L 02/23/19 07:05 98 F 50 L 16 154/66 H 94 L 02/23/19 03:52 98.5 F 66 18 139/70 98 02/22/19 23:11 98.8 F 70 18 144/68 H 99 02/22/19 22:49 98 Weight Weight 138 lb 11.2 oz I&O: 02/22/19 02/23/19 02/24/19 06:59 06:59 06:59 Intake Total 900 1410 Output Total 200 Balance 700 1410 Result Diagrams: 02/20/19 07:29 02/20/19 07:29 Phys Exam - Physical Examination Constitutional: NAD HEENT: PERRLA, moist MMs, sclera anicteric Neck: no JVD, supple Respiratory: no wheezing, no rales, no rhonchi Cardiovascular: RRR, no significant murmur, no rub Gastrointestinal: soft, non-tender, no distention, positive bowel sounds Musculoskeletal: no edema, pulses present Neurological: non-focal, normal sensation Lymphatic: no nodes Psychiatric: normal affect Skin: no rash, normal turgor Dx/Plan (1) Acute urinary retention Code(s): R33.8 - OTHER RETENTION OF URINE Status: Acute (2) BPH (benign prostatic hyperplasia) Code(s): N40.0 - BENIGN PROSTATIC HYPERPLASIA WITHOUT LOWER URINRY TRACT SYMP Status: Chronic (3) CAD (coronary artery disease) Code(s): I25.10 - ATHSCL HEART DISEASE OF [place] CORONARY ARTERY W/O ANG PCTRS Status: Chronic (4) Dextroscoliosis Code(s): M41.80 - OTHER FORMS OF SCOLIOSIS, SITE UNSPECIFIED Status: Chronic (5) Hypertension Code(s): I10 - ESSENTIAL (PRIMARY) HYPERTENSION Status: Chronic (6) Lumbar spinal stenosis Code(s): M48.061 - SPINAL STENOSIS, LUMBAR REGION WITHOUT NEUROGENIC MICK Status: Chronic - Plan cont current plan of care, PT/OT * medication reviewed as below * symptomatic treatment * tomorrow surgery. Review of Systems - Review of Systems ENT: negative: Ear Pain, Ear Discharge, Nose Pain, Nose Discharge, Nose Congestion, Mouth Pain, Mouth Swelling, Throat Pain, Throat Swelling, Other Respiratory: negative: Cough, Dry, Shortness of Breath, Hemoptysis, SOB with Excertion, Pleuritic Pain, Sputum, Wheezing Cardiovascular: negative: chest pain, palpitations, orthopnea, paroxysmal nocturnal dyspnea, edema, light headedness, other Gastrointestinal: negative: Nausea, Vomiting, Abdominal Pain, Diarrhea, Constipation, Melena, Hematochezia, Other Genitourinary: negative: Dysuria, Frequency, Incontinence, Hematuria, Retention , Other Musculoskeletal: negative: Neck Pain, Shoulder Pain, Arm Pain, Back Pain, Hand Pain, Leg Pain, Foot Pain, Other - Medications/Allergies Allergies/Adverse Reactions: Allergies Allergy/AdvReac Type Severity Reaction Status Date / Time No Known Allergies Allergy Verified 02/19/19 22:41 Medications: Current Medications Acetaminophen (Tylenol) 1,000 mg PO Q6H PRN PRN Reason: Mild Pain (1-3) Last Admin: 02/22/19 08:43 Dose: 1,000 mg Hydrocodone Bitart/Acetaminophen ([place] 5/325) 1 tab PO Q4H PRN PRN Reason: Moderate Pain (4-6) Amlodipine Besylate (Norvasc) 5 mg PO DAILY [facility] Last Admin: 02/23/19 08:38 Dose: 5 mg Artificial Tears (Tears Naturale) 2 drop EA EYE PRN PRN PRN Reason: Dry Eyes Atorvastatin Calcium (Lipitor) 40 mg PO [facility] Last Admin: 02/22/19 20:07 Dose: 40 mg Bisacodyl (Dulcolax) 10 mg PO DAILYPRN PRN PRN Reason: Constipation Guaifenesin (Robitussin Sf) 200 mg PO Q4H PRN PRN Reason: Cough Hydralazine HCl (Apresoline) 10 mg SLOW IVP Q4H PRN PRN Reason: SBP > 180 and HR < 70 Cefazolin Sodium/Dextrose 2 gm (/ Device) 50 mls @ 100 mls/hr IVPB ONCALL-OR WILMA Stop: 02/25/19 10:14 Labetalol HCl (Normodyne) 20 mg SLOW IVP Q4H PRN PRN Reason: SBP > 180 and HR >/= 70 Loperamide HCl (Imodium) 2 mg PO PRN PRN PRN Reason: Diarrhea/Loose Stools Loratadine (Claritin) 10 mg PO DAILYPRN PRN PRN Reason: Sinus Symptoms Mineral Oil/White Petrolatum (Eucerin Cream) 0 gm TOP BIDPRN PRN PRN Reason: Dry Skin Ondansetron HCl (Zofran) 4 mg IVP Q6H PRN PRN Reason: Nausea/Vomiting Stop: 02/24/19 06:56 Senna/Docusate Sodium (Senokot S) 2 tab PO BID PRN PRN Reason: Constipation Sodium Chloride (Flush - Normal Saline) 10 ml IVF PRN PRN PRN Reason: Saline Flush Sodium Chloride ([place] Nasal [place] 0.65%) 0 ml EA NARE QIDPRN PRN PRN Reason: Nasal Congestion Tamsulosin HCl (Flomax) 0.4 mg PO DAILY [facility] Last Admin: 02/23/19 08:38 Dose: 0.4 mg Temazepam (Restoril) 15 mg PO HSPRN PRN PRN Reason: Insomnia Throat Lozenges (Cepastat Lozenges) 1 curly PO Q2H PRN PRN Reason: Sore Throat
[2019-02-23] MEDS: Atorvastatin Calcium 40 MG TAB PO SCH (20:12)
[2019-02-24] MEDS: Amlodipine 5 MG TAB PO SCH (08:14)
[2019-02-24] MEDS: Tamsulosin HCl 0.4 MG CAP PO SCH (08:14)
[2019-02-24] MEDS ORDERED: CEFAZOLIN 2 GM in Premix Bag 1 BAG IVPB SCH (09:45)
--- NOTE | 2019-02-24 10:58 | PDOC.PN ---
- Subjective Encounter Start Date: 02/24/19 Encounter Start Time: 08:10 Patient seen and examined. No new complaints. No overnight events - Objective Resuscitation Status - Order Detail: 02/19/19 22:08 Resuscitation Status Routine Resuscitation Status: FULL: Full Resuscitation MAR Reviewed: Yes Vital Signs & Weight: Vital Signs (12 hours) Temp Pulse Resp BP BP BP Pulse Ox 02/24/19 08:14 56 L 174/79 H 02/24/19 07:41 97.8 F 56 L 20 174/79 H 94 L 02/24/19 04:00 97.8 F 68 20 168/73 H 93 L 02/24/19 00:00 98.3 F 65 20 159/66 H 93 L Weight Weight 138 lb 11.2 oz I&O: 02/23/19 02/24/19 02/25/19 06:59 06:59 06:59 Intake Total 1410 1200 Output Total 425 Balance 1410 775 Result Diagrams: 02/20/19 07:29 02/20/19 07:29 Phys Exam - Physical Examination Constitutional: NAD HEENT: PERRLA, moist MMs, sclera anicteric Neck: no JVD, supple Respiratory: no wheezing, no rales, no rhonchi Cardiovascular: RRR, no significant murmur, no rub Gastrointestinal: soft, non-tender, no distention, positive bowel sounds Musculoskeletal: no edema, pulses present Neurological: non-focal, normal sensation, moves all 4 limbs Lymphatic: no nodes Psychiatric: normal affect Skin: no rash, normal turgor Dx/Plan (1) Acute urinary retention Code(s): R33.8 - OTHER RETENTION OF URINE Status: Acute (2) BPH (benign prostatic hyperplasia) Code(s): N40.0 - BENIGN PROSTATIC HYPERPLASIA WITHOUT LOWER URINRY TRACT SYMP Status: Chronic (3) CAD (coronary artery disease) Code(s): I25.10 - ATHSCL HEART DISEASE OF [place] CORONARY ARTERY W/O ANG PCTRS Status: Chronic (4) Dextroscoliosis Code(s): M41.80 - OTHER FORMS OF SCOLIOSIS, SITE UNSPECIFIED Status: Chronic (5) Hypertension Code(s): I10 - ESSENTIAL (PRIMARY) HYPERTENSION Status: Chronic (6) Lumbar spinal stenosis Code(s): M48.061 - SPINAL STENOSIS, LUMBAR REGION WITHOUT NEUROGENIC MICK Status: Chronic - Plan cont current plan of care, plan discussed w/ family, PT/OT, social studies department chair * medication reviewed as below * symptomatic treatment * today lumbar laminectomy. Review of Systems - Review of Systems Eyes: negative: Pain, Vision Change, Conjunctivae Inflammation, Eyelid Inflammation, Redness, Other ENT: negative: Ear Pain, Ear Discharge, Nose Pain, Nose Discharge, Nose Congestion, Mouth Pain, Mouth Swelling, Throat Pain, Throat Swelling, Other Respiratory: negative: Cough, Dry, Shortness of Breath, Hemoptysis, SOB with Excertion, Pleuritic Pain, Sputum, Wheezing Cardiovascular: negative: chest pain, palpitations, orthopnea, paroxysmal nocturnal dyspnea, edema, light headedness, other Gastrointestinal: negative: Nausea, Vomiting, Abdominal Pain, Diarrhea, Constipation, Melena, Hematochezia, Other Genitourinary: negative: Dysuria, Frequency, Incontinence, Hematuria, Retention , Other Musculoskeletal: negative: Neck Pain, Shoulder Pain, Arm Pain, Back Pain, Hand Pain, Leg Pain, Foot Pain, Other - Medications/Allergies Allergies/Adverse Reactions: Allergies Allergy/AdvReac Type Severity Reaction Status Date / Time No Known Allergies Allergy Verified 02/19/19 22:41 Medications: Current Medications Acetaminophen (Tylenol) 1,000 mg PO Q6H PRN PRN Reason: Mild Pain (1-3) Last Admin: 02/22/19 08:43 Dose: 1,000 mg Hydrocodone Bitart/Acetaminophen ([place] 5/325) 1 tab PO Q4H PRN PRN Reason: Moderate Pain (4-6) Amlodipine Besylate (Norvasc) 5 mg PO DAILY [facility] Last Admin: 02/24/19 08:14 Dose: 5 mg Artificial Tears (Tears Naturale) 2 drop EA EYE PRN PRN PRN Reason: Dry Eyes Atorvastatin Calcium (Lipitor) 40 mg PO HS [facility] Last Admin: 02/23/19 20:12 Dose: 40 mg Bisacodyl (Dulcolax) 10 mg PO DAILYPRN PRN PRN Reason: Constipation Guaifenesin (Robitussin Sf) 200 mg PO Q4H PRN PRN Reason: Cough Hydralazine HCl (Apresoline) 10 mg SLOW IVP Q4H PRN PRN Reason: SBP > 180 and HR < 70 Cefazolin Sodium/Dextrose 2 gm (/ Device) 50 mls @ 100 mls/hr IVPB ONCALL-OR WILMA Stop: 02/25/19 10:14 Labetalol HCl (Normodyne) 20 mg SLOW IVP Q4H PRN PRN Reason: SBP > 180 and HR >/= 70 Loperamide HCl (Imodium) 2 mg PO PRN PRN PRN Reason: Diarrhea/Loose Stools Loratadine (Claritin) 10 mg PO DAILYPRN PRN PRN Reason: Sinus Symptoms Mineral Oil/White Petrolatum (Eucerin Cream) 0 gm TOP BIDPRN PRN PRN Reason: Dry Skin Senna/Docusate Sodium (Senokot S) 2 tab PO BID PRN PRN Reason: Constipation Sodium Chloride (Flush - Normal Saline) 10 ml IVF PRN PRN PRN Reason: Saline Flush Sodium Chloride ([place] Nasal [place] 0.65%) 0 ml EA NARE QIDPRN PRN PRN Reason: Nasal Congestion Tamsulosin HCl (Flomax) 0.4 mg PO DAILY [facility] Last Admin: 02/24/19 08:14 Dose: 0.4 mg Temazepam (Restoril) 15 mg PO HSPRN PRN PRN Reason: Insomnia Throat Lozenges (Cepastat Lozenges) 1 curly PO Q2H PRN PRN Reason: Sore Throat
[2019-02-24] MEDS ORDERED: Sodium Chloride 0.9% 10 ML ONE (12:21)
[2019-02-24] MEDS ORDERED: Fentanyl 250 MCG/5 ML VIAL ONE (12:37)
[2019-02-24] MEDS ORDERED: Morphine 2 MG/ML SYRINGE SLOW IVP PRN (12:45)
[2019-02-24] MEDS ORDERED: Ondansetron HCl/PF 4 MG/2 ML Vial IVP PRN (14:22)
[2019-02-24] MEDS ORDERED: Promethazine HCl 25 MG/ML VIAL IM PRN (14:22)
[2019-02-24] MEDS ORDERED: Promethazine HCl 25 MG/ML VIAL SLOW IVP PRN (14:22)
[2019-02-24] MEDS ORDERED: Fentanyl 100 MCG/2 ML VIAL ONE (14:45)
[2019-02-24] MEDS ORDERED: PROPOFOL 200 MG/20 ML VIAL ONE (16:03)
[2019-02-24] MEDS ORDERED: Glycopyrrolate 0.2 MG/ML 5 ML SYRINGE ONE (16:03)
[2019-02-24] MEDS ORDERED: Lidocaine 1% PF 5 ML VIAL ONE (16:03)
[2019-02-24] MEDS ORDERED: Rocuronium Bromide 10 MG/ML (10ML VIAL) ONE (16:03)
[2019-02-24] MEDS ORDERED: ePHEDrine 50 MG/ML VIAL ONE (16:03)
--- NOTE | 2019-02-24 16:28 | OP ---
DATE OF PROCEDURE: 02/24/2019 REMOTE PILOT OPERATOR: Bernadette Chirinos PA-C PROCEDURE PERFORMED: L3 to L6 laminectomy. DESCRIPTION OF PROCEDURE: The patient was brought to the operating room and intubated. He was rolled in a prone position on gel-filled chest rolls. An incision was made exposing the L3 through L6 and level was confirmed by x-ray. We performed complete L5, complete L4, inferior L3, and superior L6 laminectomies, completely decompressed the neural elements. The wound was extensively irrigated and maximum hemostasis was secured. Vancomycin powder was applied and the wound was closed in anatomic layers. Job ID: [id number]
[2019-02-24] MEDS: Atorvastatin Calcium 40 MG TAB PO SCH (20:22)
[2019-02-24] MEDS: CEFAZOLIN 2 GM in Premix Bag 1 BAG IVPB SCH (22:19)
[2019-02-25] MEDS: CEFAZOLIN 2 GM in Premix Bag 1 BAG IVPB SCH ×3 (05:07→21:17)
--- NOTE | 2019-02-25 06:50 | PRG ---
DATE OF SERVICE: 02/25/2019 SUBJECTIVE: The patient is a 73-year-old male, recent evaluation for progressive leg weakness and found to have severe lumbar stenosis at L3-L6 who underwent L3-L6 laminectomy on 02/24/2019. Following the surgery, he was transitioned to the [facility] floor where his pain has been well controlled with p.o. medications, he is tolerating regular diet without any difficulty. The patient has had some issues with urinary retention since surgery. He is receiving Flomax 0.4 mg daily. He did require one I and O cath overnight. He reports that he feels that his urination is improving as time goes on. He also had a SERGEI drain placed intraoperatively and this had of relatively high output 280 mL overnight. On exam this morning, he is sitting up comfortably. He is awake, alert, in no acute distress. He has free active range of motion of the upper extremities. No focal motor weakness in the lower extremities. He continues to have significant bilateral lower extremity weakness, right greater than left, and this appears unchanged at this time. His dressing has a small amount of dark red blood and there is dark red blood in the SERGEI bulb. We will continue to work on mobilizing the patient here inpatient. SERGEI drain should remain in place at this time. We will continue to monitor the output closely. The patient may benefit from inpatient rehabilitation versus home health PT at some point. Job ID: [id number]
[2019-02-25] MEDS: Tamsulosin HCl 0.4 MG CAP PO SCH (08:40)
[2019-02-25] MEDS: Amlodipine 5 MG TAB PO SCH (08:40)
--- NOTE | 2019-02-25 11:57 | PDOC.PN ---
- Subjective Encounter Start Date: 02/25/19 Encounter Start Time: 08:40 Patient seen and examined. No new complaints. No overnight events - Objective Resuscitation Status - Order Detail: 02/19/19 22:08 Resuscitation Status Routine Resuscitation Status: FULL: Full Resuscitation MAR Reviewed: Yes Vital Signs & Weight: Vital Signs (12 hours) Temp Pulse Resp BP BP BP Pulse Ox 02/25/19 08:40 63 144/61 H 02/25/19 08:11 98.7 F 63 16 114/61 94 L 02/25/19 08:00 94 L 02/25/19 04:31 93 L 02/25/19 03:34 98.4 F 58 L 16 127/64 91 L 02/25/19 00:11 97.9 F 67 16 130/40 L 94 L Weight Weight 138 lb 11.2 oz I&O: 02/24/19 02/25/19 02/26/19 06:59 06:59 06:59 Intake Total 1200 1175 Output Total 425 1145 Balance 775 30 Result Diagrams: 02/20/19 07:29 02/20/19 07:29 Phys Exam - Physical Examination Constitutional: NAD HEENT: PERRLA, moist MMs, sclera anicteric Neck: no JVD, supple Respiratory: no wheezing, no rales, no rhonchi Cardiovascular: RRR, no significant murmur, no rub Gastrointestinal: soft, non-tender, no distention, positive bowel sounds drain in place in back Musculoskeletal: no edema, pulses present Neurological: non-focal, normal sensation Lymphatic: no nodes Psychiatric: normal affect, A&O x 3 Skin: no rash, normal turgor Dx/Plan (1) Acute urinary retention Code(s): R33.8 - OTHER RETENTION OF URINE Status: Acute (2) BPH (benign prostatic hyperplasia) Code(s): N40.0 - BENIGN PROSTATIC HYPERPLASIA WITHOUT LOWER URINRY TRACT SYMP Status: Chronic (3) CAD (coronary artery disease) Code(s): I25.10 - ATHSCL HEART DISEASE OF [place] CORONARY ARTERY W/O ANG PCTRS Status: Chronic (4) Dextroscoliosis Code(s): M41.80 - OTHER FORMS OF SCOLIOSIS, SITE UNSPECIFIED Status: Chronic (5) Hypertension Code(s): I10 - ESSENTIAL (PRIMARY) HYPERTENSION Status: Chronic (6) Lumbar spinal stenosis Code(s): M48.061 - SPINAL STENOSIS, LUMBAR REGION WITHOUT NEUROGENIC MICK Status: Chronic (7) S/P lumbar laminectomy Code(s): Z98.890 - OTHER SPECIFIED POSTPROCEDURAL STATES Status: Acute - Plan cont current plan of care, plan discussed w/ family, PT/OT, adoption social worker * medication reviewed as below * symptomatic treatment * drain care as per surgeon * discharge planning * pain controlled. Review of Systems - Review of Systems ENT: negative: Ear Pain, Ear Discharge, Nose Pain, Nose Discharge, Nose Congestion, Mouth Pain, Mouth Swelling, Throat Pain, Throat Swelling, Other Respiratory: negative: Cough, Dry, Shortness of Breath, Hemoptysis, SOB with Excertion, Pleuritic Pain, Sputum, Wheezing Cardiovascular: negative: chest pain, palpitations, orthopnea, paroxysmal nocturnal dyspnea, edema, light headedness, other Gastrointestinal: negative: Nausea, Vomiting, Abdominal Pain, Diarrhea, Constipation, Melena, Hematochezia, Other Genitourinary: negative: Dysuria, Frequency, Incontinence, Hematuria, Retention , Other Musculoskeletal: negative: Neck Pain, Shoulder Pain, Arm Pain, Back Pain, Hand Pain, Leg Pain, Foot Pain, Other - Medications/Allergies Allergies/Adverse Reactions: Allergies Allergy/AdvReac Type Severity Reaction Status Date / Time No Known Allergies Allergy Verified 02/19/19 22:41 Medications: Current Medications Acetaminophen (Tylenol) 1,000 mg PO Q6H PRN PRN Reason: Mild Pain (1-3) Last Admin: 02/22/19 08:43 Dose: 1,000 mg Hydrocodone Bitart/Acetaminophen ([place] 5/325) 1 tab PO Q4H PRN PRN Reason: Moderate Pain (4-6) Last Admin: 02/24/19 21:38 Dose: 1 tab Amlodipine Besylate (Norvasc) 5 mg PO DAILY [facility] Last Admin: 02/25/19 08:40 Dose: 5 mg Artificial Tears (Tears Naturale) 2 drop EA EYE PRN PRN PRN Reason: Dry Eyes Atorvastatin Calcium (Lipitor) 40 mg PO HS [facility] Last Admin: 02/24/19 20:22 Dose: 40 mg Bisacodyl (Dulcolax) 10 mg PO DAILYPRN PRN PRN Reason: Constipation Guaifenesin (Robitussin Sf) 200 mg PO Q4H PRN PRN Reason: Cough Hydralazine HCl (Apresoline) 10 mg SLOW IVP Q4H PRN PRN Reason: SBP > 180 and HR < 70 Cefazolin Sodium/Dextrose 2 gm (/ Device) 50 mls @ 100 mls/hr IVPB Q8HR [facility] Last Admin: 02/25/19 05:07 Dose: 50 mls Labetalol HCl (Normodyne) 20 mg SLOW IVP Q4H PRN PRN Reason: SBP > 180 and HR >/= 70 Loperamide HCl (Imodium) 2 mg PO PRN PRN PRN Reason: Diarrhea/Loose Stools Loratadine (Claritin) 10 mg PO DAILYPRN PRN PRN Reason: Sinus Symptoms Mineral Oil/White Petrolatum (Eucerin Cream) 0 gm TOP BIDPRN PRN PRN Reason: Dry Skin Morphine Sulfate (Morphine) 2 mg SLOW IVP Q4H PRN PRN Reason: Pain Senna/Docusate Sodium (Senokot S) 2 tab PO BID PRN PRN Reason: Constipation Sodium Chloride (Flush - Normal Saline) 10 ml IVF PRN PRN PRN Reason: Saline Flush Sodium Chloride ([place] Nasal [place] 0.65%) 0 ml EA NARE QIDPRN PRN PRN Reason: Nasal Congestion Tamsulosin HCl (Flomax) 0.4 mg PO DAILY [facility] Last Admin: 02/25/19 08:40 Dose: 0.4 mg Temazepam (Restoril) 15 mg PO HSPRN PRN PRN Reason: Insomnia Throat Lozenges (Cepastat Lozenges) 1 curly PO Q2H PRN PRN Reason: Sore Throat
[2019-02-25] MEDS: Atorvastatin Calcium 40 MG TAB PO SCH (21:17)
[2019-02-26] MEDS: CEFAZOLIN 2 GM in Premix Bag 1 BAG IVPB SCH ×3 (05:24→21:08)
--- NOTE | 2019-02-26 07:35 | PRG ---
DATE OF SERVICE: 02/26/2019 The patient is postoperative day #2, status post L3-L6 laminectomy. His pain has been well-controlled with p.o. medications, he is tolerating regular diet. He is now voiding without any difficulty. He has improved in his lower extremity strength and got up yesterday with physical therapy and was able to walk short distances with his walker. We discussed inpatient rehabilitation versus home with home health. The patient prefers to go home with home health when he is stable. He has a good family support system and Dr. Mejia, I feel that this is an appropriate plan. His SERGEI had 130 mL output overnight. The patient is awake, alert, in no acute distress. His neurologic exam is unchanged and continues to have significant weakness with right foot plantar and dorsiflexion. Will leave SERGEI drain additional day, but I anticipate that will likely be able to be removed tomorrow. The patient may be able to discharge home with home health at that time. Job ID: [id number]
[2019-02-26] MEDS: Tamsulosin HCl 0.4 MG CAP PO SCH (09:00)
[2019-02-26] MEDS: Amlodipine 5 MG TAB PO SCH (09:00)
--- NOTE | 2019-02-26 12:16 | PDOC.PN ---
- Subjective Encounter Start Date: 02/26/19 Encounter Start Time: 08:00 Patient seen and examined. No new complaints. No overnight events - Objective Resuscitation Status - Order Detail: 02/19/19 22:08 Resuscitation Status Routine Resuscitation Status: FULL: Full Resuscitation MAR Reviewed: Yes Vital Signs & Weight: Vital Signs (12 hours) Temp Pulse Resp BP Pulse Ox 02/26/19 04:00 99.1 F 73 20 135/55 L 93 L Weight Weight 138 lb 11.2 oz I&O: 02/25/19 02/26/19 02/27/19 06:59 06:59 06:59 Intake Total 1175 658 Output Total 1145 2600 Balance 30 -1942 Result Diagrams: 02/20/19 07:29 02/20/19 07:29 Phys Exam - Physical Examination Constitutional: NAD HEENT: PERRLA, moist MMs, sclera anicteric Neck: no JVD, supple Respiratory: no wheezing, no rales, no rhonchi Cardiovascular: RRR, no significant murmur, no rub Gastrointestinal: soft, non-tender, no distention, positive bowel sounds Musculoskeletal: no edema, pulses present Neurological: non-focal, normal sensation Lymphatic: no nodes Psychiatric: normal affect Skin: no rash, normal turgor Dx/Plan (1) Acute urinary retention Code(s): R33.8 - OTHER RETENTION OF URINE Status: Acute (2) BPH (benign prostatic hyperplasia) Code(s): N40.0 - BENIGN PROSTATIC HYPERPLASIA WITHOUT LOWER URINRY TRACT SYMP Status: Chronic (3) CAD (coronary artery disease) Code(s): I25.10 - ATHSCL HEART DISEASE OF [place] CORONARY ARTERY W/O ANG PCTRS Status: Chronic (4) Dextroscoliosis Code(s): M41.80 - OTHER FORMS OF SCOLIOSIS, SITE UNSPECIFIED Status: Chronic (5) Hypertension Code(s): I10 - ESSENTIAL (PRIMARY) HYPERTENSION Status: Chronic (6) Lumbar spinal stenosis Code(s): M48.061 - SPINAL STENOSIS, LUMBAR REGION WITHOUT NEUROGENIC MICK Status: Chronic - Plan cont current plan of care, PT/OT, social sciences lecturer * drain for one more day * medication reviewed as below * symptomatic treatment * tomorrow plan for dc to home with home health. Review of Systems - Review of Systems ENT: negative: Ear Pain, Ear Discharge, Nose Pain, Nose Discharge, Nose Congestion, Mouth Pain, Mouth Swelling, Throat Pain, Throat Swelling, Other Respiratory: negative: Cough, Dry, Shortness of Breath, Hemoptysis, SOB with Excertion, Pleuritic Pain, Sputum, Wheezing Cardiovascular: negative: chest pain, palpitations, orthopnea, paroxysmal nocturnal dyspnea, edema, light headedness, other Gastrointestinal: negative: Nausea, Vomiting, Abdominal Pain, Diarrhea, Constipation, Melena, Hematochezia, Other Genitourinary: negative: Dysuria, Frequency, Incontinence, Hematuria, Retention , Other Musculoskeletal: negative: Neck Pain, Shoulder Pain, Arm Pain, Back Pain, Hand Pain, Leg Pain, Foot Pain, Other - Medications/Allergies Allergies/Adverse Reactions: Allergies Allergy/AdvReac Type Severity Reaction Status Date / Time No Known Allergies Allergy Verified 02/19/19 22:41 Medications: Current Medications Acetaminophen (Tylenol) 1,000 mg PO Q6H PRN PRN Reason: Mild Pain (1-3) Last Admin: 02/22/19 08:43 Dose: 1,000 mg Hydrocodone Bitart/Acetaminophen ([place] 5/325) 1 tab PO Q4H PRN PRN Reason: Moderate Pain (4-6) Last Admin: 02/24/19 21:38 Dose: 1 tab Amlodipine Besylate (Norvasc) 5 mg PO DAILY [facility] Last Admin: 02/26/19 09:00 Dose: 5 mg Artificial Tears (Tears Naturale) 2 drop EA EYE PRN PRN PRN Reason: Dry Eyes Atorvastatin Calcium (Lipitor) 40 mg PO [facility] Last Admin: 02/25/19 21:17 Dose: 40 mg Bisacodyl (Dulcolax) 10 mg PO DAILYPRN PRN PRN Reason: Constipation Guaifenesin (Robitussin Sf) 200 mg PO Q4H PRN PRN Reason: Cough Hydralazine HCl (Apresoline) 10 mg SLOW IVP Q4H PRN PRN Reason: SBP > 180 and HR < 70 Cefazolin Sodium/Dextrose 2 gm (/ Device) 50 mls @ 100 mls/hr IVPB Q8HR [facility] Last Admin: 02/26/19 05:24 Dose: 50 mls Labetalol HCl (Normodyne) 20 mg SLOW IVP Q4H PRN PRN Reason: SBP > 180 and HR >/= 70 Loperamide HCl (Imodium) 2 mg PO PRN PRN PRN Reason: Diarrhea/Loose Stools Loratadine (Claritin) 10 mg PO DAILYPRN PRN PRN Reason: Sinus Symptoms Mineral Oil/White Petrolatum (Eucerin Cream) 0 gm TOP BIDPRN PRN PRN Reason: Dry Skin Morphine Sulfate (Morphine) 2 mg SLOW IVP Q4H PRN PRN Reason: Pain Senna/Docusate Sodium (Senokot S) 2 tab PO BID PRN PRN Reason: Constipation Sodium Chloride (Flush - Normal Saline) 10 ml IVF PRN PRN PRN Reason: Saline Flush Sodium Chloride ([place] Nasal [place] 0.65%) 0 ml EA NARE QIDPRN PRN PRN Reason: Nasal Congestion Tamsulosin HCl (Flomax) 0.4 mg PO DAILY [facility] Last Admin: 02/26/19 09:00 Dose: 0.4 mg Temazepam (Restoril) 15 mg PO HSPRN PRN PRN Reason: Insomnia Throat Lozenges (Cepastat Lozenges) 1 curly PO Q2H PRN PRN Reason: Sore Throat
[2019-02-26] MEDS: Atorvastatin Calcium 40 MG TAB PO SCH (21:07)
--- NOTE | 2019-02-27 06:21 | PRG ---
DATE OF SERVICE: 02/27/2019 SUBJECTIVE: The patient is postoperative day #3 status post L3-L6 laminectomy for lumbar stenosis. Following the surgery, he was transitioned back to the [facility] floor where his pain has been well controlled with p.o. medications, he has been tolerating a regular diet. He initially had some urinary retention, but this is improved during his admission course. His SERGEI output has trended down over the last few days and he had only had 70 mL out overnight. We will plan to remove his SERGEI drain this morning. The patient and I discussed inpatient rehabilitation versus home with home health PT. The patient would like to return home and the case management is arranging home health physical therapy. OBJECTIVE: The patient is awake, alert, in no acute distress. He has free active range of motion of all extremities. He does still have weakness with plantar flexion and dorsiflexion of the right foot. He has been ambulating in the department with his walker. PLAN: To remove the patient's SERGEI drain and discontinue his IV antibiotics this morning. From a neurosurgical standpoint, he can be discharged home with home health at any point. Defer any medical issues to the medical team. I will arrange 2-week followup with our office. I have discussed home care precautions. Job ID: [id number]
[2019-02-27] MEDS: CEFAZOLIN 2 GM in Premix Bag 1 BAG IVPB SCH (07:00)
[2019-02-27] MEDS: Tamsulosin HCl 0.4 MG CAP PO SCH (09:15)
[2019-02-27] MEDS: Amlodipine 5 MG TAB PO SCH (09:15)
--- NOTE | 2019-02-27 09:17 | PDOC.PN ---
- Subjective Encounter Start Date: 02/27/19 Encounter Start Time: 07:40 Patient seen and examined. No new complaints. No overnight events - Objective Resuscitation Status - Order Detail: 02/19/19 22:08 Resuscitation Status Routine Resuscitation Status: FULL: Full Resuscitation MAR Reviewed: Yes Vital Signs & Weight: Vital Signs (12 hours) Temp Pulse Resp BP BP Pulse Ox 02/27/19 09:15 72 02/27/19 07:24 99 F 72 16 136/63 91 L 02/27/19 04:17 98.5 F 60 16 161/65 H 92 L 02/27/19 00:05 98.7 F 60 16 133/62 92 L Weight Weight 138 lb 11.2 oz I&O: 02/26/19 02/27/19 02/28/19 06:59 06:59 06:59 Intake Total 658 1300 Output Total 2600 2060 Balance -1942 -760 Result Diagrams: 02/20/19 07:29 02/20/19 07:29 Phys Exam - Physical Examination Constitutional: NAD HEENT: PERRLA, moist MMs, sclera anicteric Neck: no JVD, supple Respiratory: no wheezing, no rales, no rhonchi Cardiovascular: RRR, no significant murmur, no rub Gastrointestinal: soft, non-tender, no distention, positive bowel sounds Musculoskeletal: no edema, pulses present Neurological: non-focal, normal sensation Lymphatic: no nodes Psychiatric: normal affect, A&O x 3 Skin: no rash, normal turgor Dx/Plan (1) Acute urinary retention Code(s): R33.8 - OTHER RETENTION OF URINE Status: Acute (2) BPH (benign prostatic hyperplasia) Code(s): N40.0 - BENIGN PROSTATIC HYPERPLASIA WITHOUT LOWER URINRY TRACT SYMP Status: Chronic (3) CAD (coronary artery disease) Code(s): I25.10 - ATHSCL HEART DISEASE OF [place] CORONARY ARTERY W/O ANG PCTRS Status: Chronic (4) Dextroscoliosis Code(s): M41.80 - OTHER FORMS OF SCOLIOSIS, SITE UNSPECIFIED Status: Chronic (5) Hypertension Code(s): I10 - ESSENTIAL (PRIMARY) HYPERTENSION Status: Chronic (6) Lumbar spinal stenosis Code(s): M48.061 - SPINAL STENOSIS, LUMBAR REGION WITHOUT NEUROGENIC MICK Status: Chronic - Plan cont current plan of care * medication reviewed as below * symptomatic treatment * see discharge jerri. Review of Systems - Review of Systems ENT: negative: Ear Pain, Ear Discharge, Nose Pain, Nose Discharge, Nose Congestion, Mouth Pain, Mouth Swelling, Throat Pain, Throat Swelling, Other Respiratory: negative: Cough, Dry, Shortness of Breath, Hemoptysis, SOB with Excertion, Pleuritic Pain, Sputum, Wheezing Cardiovascular: negative: chest pain, palpitations, orthopnea, paroxysmal nocturnal dyspnea, edema, light headedness, other Gastrointestinal: negative: Nausea, Vomiting, Abdominal Pain, Diarrhea, Constipation, Melena, Hematochezia, Other Genitourinary: negative: Dysuria, Frequency, Incontinence, Hematuria, Retention , Other Musculoskeletal: negative: Neck Pain, Shoulder Pain, Arm Pain, Back Pain, Hand Pain, Leg Pain, Foot Pain, Other - Medications/Allergies Allergies/Adverse Reactions: Allergies Allergy/AdvReac Type Severity Reaction Status Date / Time No Known Allergies Allergy Verified 02/19/19 22:41 Medications: Current Medications Acetaminophen (Tylenol) 1,000 mg PO Q6H PRN PRN Reason: Mild Pain (1-3) Last Admin: 02/22/19 08:43 Dose: 1,000 mg Hydrocodone Bitart/Acetaminophen ([place] 5/325) 1 tab PO Q4H PRN PRN Reason: Moderate Pain (4-6) Last Admin: 02/24/19 21:38 Dose: 1 tab Amlodipine Besylate (Norvasc) 5 mg PO DAILY [facility] Last Admin: 02/27/19 09:15 Dose: 5 mg Artificial Tears (Tears Naturale) 2 drop EA EYE PRN PRN PRN Reason: Dry Eyes Atorvastatin Calcium (Lipitor) 40 mg PO [facility] Last Admin: 02/26/19 21:07 Dose: 40 mg Bisacodyl (Dulcolax) 10 mg PO DAILYPRN PRN PRN Reason: Constipation Guaifenesin (Robitussin Sf) 200 mg PO Q4H PRN PRN Reason: Cough Hydralazine HCl (Apresoline) 10 mg SLOW IVP Q4H PRN PRN Reason: SBP > 180 and HR < 70 Labetalol HCl (Normodyne) 20 mg SLOW IVP Q4H PRN PRN Reason: SBP > 180 and HR >/= 70 Loperamide HCl (Imodium) 2 mg PO PRN PRN PRN Reason: Diarrhea/Loose Stools Loratadine (Claritin) 10 mg PO DAILYPRN PRN PRN Reason: Sinus Symptoms Mineral Oil/White Petrolatum (Eucerin Cream) 0 gm TOP BIDPRN PRN PRN Reason: Dry Skin Morphine Sulfate (Morphine) 2 mg SLOW IVP Q4H PRN PRN Reason: Pain Senna/Docusate Sodium (Senokot S) 2 tab PO BID PRN PRN Reason: Constipation Sodium Chloride (Flush - Normal Saline) 10 ml IVF PRN PRN PRN Reason: Saline Flush Sodium Chloride ([place] Nasal [place] 0.65%) 0 ml EA NARE QIDPRN PRN PRN Reason: Nasal Congestion Tamsulosin HCl (Flomax) 0.4 mg PO DAILY [facility] Last Admin: 02/27/19 09:15 Dose: 0.4 mg Temazepam (Restoril) 15 mg PO HSPRN PRN PRN Reason: Insomnia Throat Lozenges (Cepastat Lozenges) 1 curly PO Q2H PRN PRN Reason: Sore Throat
--- NOTE | 2019-02-27 10:09 | DIS ---
DATE OF ADMISSION: 02/20/2019 DATE OF DISCHARGE: 02/27/2019 PRIMARY CARE PHYSICIAN: [facility] Call Admission. DISCHARGE DISPOSITION: Home with Home Health. PRIMARY DISCHARGE DIAGNOSES: 1. Cauda equina. 2. Status post L3-L6 laminectomy. 3. Acute urinary retention, resolved. SECONDARY DISCHARGE DIAGNOSES: Lumbar spine/stenosis, hypertension, dextroscoliosis, coronary artery disease, benign enlargement of prostate. PRIMARY PROCEDURE/OPERATION: L3-L6 laminectomy. RADIOLOGICAL INVESTIGATION: Lumbar spine CT scan, pelvis CT scan, thoracic spine CT scan, CT dissection, vascular ultrasound, CT brain, MRI brain and lumbar spine MRI, echocardiography. SIGNIFICANT LABORATORY DATA: Hemoglobin 12.4, INR 1.0, and creatinine 0.91. DISCHARGE MEDICATIONS: 1. Amlodipine 5 mg p.o. daily. 2. Aspirin 81 mg p.o. daily. 3. Lipitor 40 mg p.o. at bedtime. 4. Flomax 0.4 mg p.o. daily. CONTRAINDICATION: None. CODE STATUS: Full code. INPATIENT CORPORATE CONCIERGE: Neurology was following while in hospital. Neurosurgeon was consulted while in the hospital. Cardiology was consulted for preoperative clearance. TEST RESULTS PENDING ON DISCHARGE: None. ALLERGIES: NO KNOWN DRUG ALLERGIES. DISCHARGE PLAN: Posthospital, the patient will follow up with primary care physician. HOSPITAL COURSE: A 73-year-old male with above-mentioned medical problem, who was admitted by Dr. Moss. Please see his H and P for further details. The patient was having radicular pain and lower extremity weakness, as well as he had urinary retention. He had bunch of investigation done in the emergency room as well as after admission to find out the problem and ultimately, he was found with lumbar stenosis with cauda equina. The patient was evaluated by neurosurgeon and they also recommended to do surgery. The patient underwent laminectomy and after that, the patient had significant improvement in his condition. The patient does not require any rehab. The patient is going to go home with Home Health. Above-mentioned medication prescription given to him and sent to his pharmacy. The patient is seen and examined at bedside today. Please see my progress note from today for further detail. Job ID: [id number]
[2019-02-27 16:23] VITALS: BP 133/66; TEMP 98.3
== END 2019-02-27 16:20 | disposition home or self-care (01) | DRG 516 ==
LOC: ERS 14:50 → 2SE 19:28 → INTOOBSV 19:28 → 2SE 20:46 → OBSVTOIN 02-20 13:04 → SURG A 02-22 22:43
PROVIDERS: ADMIT Emergency Medicine; ATTEND Emergency Medicine
PROC: 01NB0ZZ Release Lumbar Nerve, Open Approach (ICD-10-PCS; principal; 2019-02-24)
DX: M48.061 Spinal stenosis, lumbar region without neurogenic claudication (principal); G83.4 Cauda equina syndrome; G82.20 Paraplegia, unspecified; M47.816 Spondylosis without myelopathy or radiculopathy, lumbar region; M21.371 Foot drop, right foot; I10 Essential (primary) hypertension; I25.10 Atherosclerotic heart disease of native coronary artery without angina pectoris; E11.9 Type 2 diabetes mellitus without complications; D72.829 Elevated white blood cell count, unspecified; R33.9 Retention of urine, unspecified; M41.86 Other forms of scoliosis, lumbar region; R00.1 Bradycardia, unspecified; N40.1 Benign prostatic hyperplasia with lower urinary tract symptoms; Z91.14 Patient's other noncompliance with medication regimen; Z90.49 Acquired absence of other specified parts of digestive tract; Z86.73 Personal history of transient ischemic attack (TIA), and cerebral infarction without residual deficits
CPT/HCPCS: 36415; 36416; 70450; 70551; 71275; 72128; 72131; 72148; 72192; 76000; 80048; 80053; 80061; 81003; 81015; 84484; 85025; 85610; 85730; 90471; 90662; 90670; 93005; 93306; G0008; G0009; J1650; J1885; J2001; J2704; J3010; J3370; J3490; Q9966

== ENCOUNTER 2019-12-30 11:58 | Outpatient (CLI) | payer MEDICARE, MEDICAID ==
--- NOTE | 2019-12-30 12:23 | RAD ---
XR Foot Rt 3 View STANDARD INDICATION: Cellulitis COMPARISON: None. FINDINGS: Bones: No acute fracture identified. Joints: There is moderate scattered osteoarthrosis of the midfoot and forefoot. Lisfranc alignment: Lisfranc alignment appears within normal limits. Soft tissues: There is scattered Monckeberg calcifications IMPRESSION: No acute osseous abnormality.
== END 2019-12-30 11:59 | disposition home or self-care (01) ==
LOC: BICRAD 11:58
PROVIDERS: ATTEND Family Medicine
DX: L03.115 Cellulitis of right lower limb (principal)
CPT/HCPCS: 36415; 80048; 83036; 85025; 85652; 86140

== ENCOUNTER 2020-01-17 12:18 | Observation (INO) | payer MEDICARE, MEDICAID ==
--- NOTE | 2020-01-17 13:34 | RAD ---
Exam: Right foot 3 views: HISTORY: Right foot swelling and pain COMPARISON: 12/30/2019 FINDINGS: Diffuse soft tissue swelling including dorsal swelling. Prominent arthrosis changes involving the mid foot as well as the first metatarsal phalangeal joint. Inferior calcaneal plantar enthesophyte. Heterogeneous bony demineralization. IMPRESSION: Arthrosis and degenerative change. Bony demineralization. No acute fracture. If there is concern for osteomyelitis, consider nonemergent follow-up MRI.
[2020-01-17 13:44] LABS: Hemoglobin 11.4 g/dL (14.0-18.0); Mean Corpuscular HGB CONC 33.6 g/dL (32.0-36.0); Mean Corpuscular Hemoglobin 29.8 pg (27.0-31.0); Mean Corpuscular Volume 88.8 fL (78.0-98.0); Mean Platelet Volume 9.6 fL (7.4-10.4); Platelet Count 262 thou/uL (130-400); RBC Distribution Width 12.3 % (11.5-14.5); Red Blood Cell (RBC) Count 3.83 mill/uL (4.70-6.10); White Blood Cell (WBC) Count 11.1 thou/uL (4.8-10.8)
[2020-01-17 13:58] LABS: Eosinophils 26 % (0-10); Lymphocytes 20 % (21-51); MDiff Complete? YES; Monocytes 3 % (0-10); Neutrophil 47 % (42-75); Platelet Morphology Comment Appears Adequate; Polychromasia SLIGHT = 2-3 cells (100X) (0-2/hpf); Reactive Lymphocytes 2 % (0-10)
[2020-01-17 14:05] LABS: ALT (SGPT) 7 U/L (8-55); AST (SGOT) 13 U/L (5-34); Albumin 3.8 g/dL (3.4-4.8); Alkaline Phosphatase 82 U/L (40-110); Anion Gap 10 mmol/L (10-20); BUN (Urea Nitrogen) 23 mg/dL (8.4-25.7); Bilirubin, Total 0.2 mg/dL (0.2-1.2); Calc. Creatinine Clearance 0 mL/min (70-130); Calcium 9.2 mg/dL (7.8-10.44); Carbon Dioxide 27 mmol/L (23-31); Chloride 105 mmol/L (98-107); Estimated GFR-MDRD 60; Globulin 3.7 g/dL (2.4-3.5); Glucose 120 mg/dL (83-110); Potassium 4.3 mmol/L (3.5-5.1); Protein, Total 7.5 g/dL (5.8-8.1); Sodium 138 mmol/L (136-145)
[2020-01-17] MEDS ORDERED: Cefepime 2 GM VIAL ONE (14:11)
--- NOTE | 2020-01-17 14:32 | PDOC.FPRHP ---
- History of Present Illness Chief Complaint: R foot swelling History of Present Illness: Pt is a 74 yo male with PMH significant for CVA, CAD s/p [place], HTN, DM II who presents to the emergency department with RLE pain and erythema. He was seen in [facility] clinic recently for his condition and given abx, scheduled for an MRI. His pain, erythema initially became better with abx but upon discontinuation became swollen, painful on admission. He has shooting pains but decreased sensation to touch. He denies fever, chills. [facility] ED Course: In the ED pt was started on cefepime, vanc. He was found to have an incomplete DVT and started on lovenox. - Allergies/Adverse Reactions Allergies Allergy/AdvReac Type Severity Reaction Status Date / Time No Known Allergies Allergy Verified 02/19/19 22:41 - Home Medications Medication Instructions Recorded Confirmed Type Hydrochlorothiazide 12.5 mg PO DAILY 01/17/20 01/17/20 History Lisinopril 10 mg PO DAILY 01/17/20 01/17/20 History metFORMIN [Glucophage] 500 mg PO QAM-WM 01/17/20 01/17/20 History - History PMHx: CAD s/p [place], DM II, HTN, Stroke PSHx: Cholecystectomy, Laminectomy FHx: Mother, Father, Siblings - [place] Social: Denies alcohol, drugs, tobacco - Review of Systems General: denies: fever/chills, weight/appetite/sleep changes Eyes: denies: eye pain, vision changes ENT: denies: nasal congestion, rhinorrhea Respiratory: denies: cough, shortness of breath Cardiovascular: reports: edema. denies: chest pain Gastrointestinal: denies: nausea, vomiting, diarrhea, constipation Genitourinary: denies: incontinence, dysuria Skin: reports: lesions. denies: rashes Musculoskeletal: reports: pain, tenderness Neurological: reports: numbness. denies: syncope Psychological: denies: anxiety, depression - Vital signs BP: 168/78 HR: 62 RR: 18 Tmax: 98.7 Pox: 98% on RA Wt: 63.5 kg - Physical Exam Constitutional: NAD, awake, alert and oriented HEENT: PERRLA, EOMI Neck: FROM, no JVD Chest: no-tender to palpation, no lesions Heart: RRR, normal S1/S2, no edema Lungs: CTAB, no respiratory distress, no wheezing Abdomen: soft, non-tender, bowel sounds present Neurological: CN II-XII intact -Neurological: decreased sensation in bilateral lower extremities -Skin: erythema up to ankle of RLE, decreased sensation, shooting pains, stage I ulcers between 2nd/3rd digits, 3rd/4th digits, 4th/5th digits Heme/Lymphatic: no purpura, no petechia Psychiatric: normal mood and affect, good judgment and insight FMR H&P: Results - Labs Result Diagrams: 01/17/20 13:31 01/17/20 13:31 Lab results: WBC 11.1 thou/uL (4.8-10.8) H 01/17/20 13:31 Hgb 11.4 g/dL (14.0-18.0) L 01/17/20 13:31 Hct 34.0 % (42.0-52.0) L 01/17/20 13:31 MCV 88.8 fL (78.0-98.0) 01/17/20 13:31 Plt Count 262 thou/uL (130-400) 01/17/20 13:31 ESR Westergren 19 mm/hr (Less than 20) 01/17/20 14:00 Sodium 138 mmol/L (136-145) 01/17/20 13:31 Potassium 4.3 mmol/L (3.5-5.1) 01/17/20 13:31 Chloride 105 mmol/L (98-107) 01/17/20 13:31 Carbon Dioxide 27 mmol/L (23-31) 01/17/20 13:31 BUN 23 mg/dL (8.4-25.7) 01/17/20 13:31 Creatinine 1.19 mg/dL (0.7-1.3) 01/17/20 13:31 Glucose 120 mg/dL (83-110) H 01/17/20 13:31 Calcium 9.2 mg/dL (7.8-10.44) 01/17/20 13:31 Total Bilirubin 0.2 mg/dL (0.2-1.2) 01/17/20 13:31 AST 13 U/L (5-34) 01/17/20 13:31 ALT 7 U/L (8-55) L 01/17/20 13:31 Alkaline Phosphatase 82 U/L (40-110) 01/17/20 13:31 Serum Total Protein 7.5 g/dL (5.8-8.1) 01/17/20 13:31 Albumin 3.8 g/dL (3.4-4.8) 01/17/20 13:31 - Radiology Interpretation US - venous Status: report reviewed by me Additional comment: non occlusive DVT in posterior tibial vein Other Status: image reviewed by me Additional comment: Foot xray showed concerns for osteomyelitis FMR H&P: A/P - Problem List (1) DMII (diabetes mellitus, type 2) Current Visit: Yes Status: Acute (2) Charcot foot due to diabetes mellitus Current Visit: Yes Status: Acute Code(s): E11.610 - TYPE 2 DIABETES MELLITUS W DIABETIC NEUROPATHIC ARTHROPATHY (3) Osteomyelitis Current Visit: Yes Status: Acute Code(s): M86.9 - OSTEOMYELITIS, UNSPECIFIED (4) CAD (coronary artery disease) Current Visit: No Status: Chronic Code(s): I25.10 - ATHSCL HEART DISEASE OF [place] CORONARY ARTERY W/O ANG PCTRS (5) Hypertension Current Visit: No Status: Chronic Code(s): I10 - ESSENTIAL (PRIMARY) HYPERTENSION - Plan Pt is a 74 yo male here for: # Osteomyelitis vs Charcot's Foot - MRI pending - LARON pending - Control diabetes - continue cefepime, vanc - tylenol, gabapentin pain control # DVT - below saphinus junction, will not continue anticoag - consider asa # DM - continue home meds # HTN - continue home meds # Hx of CVA - stable # Hx of CAD - stable Fluids: SL Diet: HH VTE: Lovenox Code: Full Dispo: < 48 hr stay FMR H&P: Upper Level - Pertinent history 74 y/o M PMHx DM2, HTN, CAD s/p [place] presents to the ED for right foot pain. He reports the pain has been going on and off for the past month. He took antibiotics for it and it improved a little and the redness went down, but then it has gotten worse since then. He is losing sensation to the plantar aspect of his foot. He denies any fevers or chills. He was seen in clinic recently for this same problem and there was concern for charcot foot and plans for an MRI. In the ED he was given vanc, cefepime, and morphine. - Pertinent findings Vitals: BP: 168/78 HR: 62 RR: 18 Tmax: 98.7 Pox: 98% on RA Wt: 63.5 kg PE: Gen - alert, oriented NAD MSK - swelling in R foot CV - 1+ posterior tibial pulses bilaterally Skin - erythema on R foot, ulceration/skin breakdown in between the 2-3rd, 3-4th , 4-5th toes on R foot Labs: WBC 11.1, Hb 11.4 R foot x-ray: no fracture. Soft tissue swelling, recommend MRI if concern for osteo RLE doppler US: incompletely obstructing thrombus in distal posterior tibial vein - Plan Date/Time: 01/17/20 1432 I, Haily Salamanca MD, PGY-3, have evaluated this patient and agree with findings/ plan as outlined by internet webmaster resident. Pertinent changes/additions are listed here. Charcot Foot vs RLE cellulitis vs osteomyelitis s/p vanc, cefepime, morphine. ESR and CRP WNL. No signs of osteo on x-ray. Doppler US showed incompletely obstructing distal post tibial vein venous thrombus. -Will continue vanc and cefepime -Check R foot MRI -Check LARON -Aspirin for DVT as distal and no indication for th lovenox -Wound care consult DM2 -Continue metformin -Glucose checks -CC diet HTN -Continue home meds CAD s/p [place] -Aspirin Dispo: Obs on medical LOS: < 48 hours
--- NOTE | 2020-01-17 14:39 | ULT ---
EXAM: Right lower extremity venous duplex ultrasound with color and spectral Doppler imaging: HISTORY: Swelling and redness and pain for one month COMPARISON: 02/19/2019 FINDINGS: Exam performed from the groin to the ankle including the visualized greater saphenous, common femoral , superficial femoral, profunda femoral, popliteal, trifurcation, and posterior tibial veins. There is decreased compressibility with some intraluminal thrombus in the distal posterior tibial vei n with some flow. No completely obstructing thrombus. The remainder of the study is unremarkable. IMPRESSION: Evidence for incompletely obstructing thrombus in the distal posterior tibial vein. Findings discussed with Dr. Brower at 2:35 PM CODE CR
[2020-01-17] MEDS ORDERED: Morphine 4 MG/ML VIAL ONE (14:41)
[2020-01-17] MEDS ORDERED: Enoxaparin Sodium 60 MG/0.6 ML SYRINGE ONE (14:41)
[2020-01-17 15:28] LABS: Bacteria/HPF None Seen HPF (None Seen); Bilirubin Negative (Negative); Blood, Urine Negative (Negative); Clarity Clear (Clear); Glucose, Urine (Dipstick) Normal (Negative); Leukocyte Negative Leu/uL (Negative); Nitrite Negative (Negative); Protein, Urine (Dipstick) 50 mg/dL (Neg-Trace); RBC/HPF 0-3 HPF (0-3); Squamous Epithelial 0-3 HPF (0-3); Urobilinogen Normal mg/dL (Less than 2); WBC/HPF 0-3 HPF (0-3)
[2020-01-17] MEDS ORDERED: Dextrose 50% Abboject 50 ML SYRINGE SLOW IVP PRN (16:36)
[2020-01-17] MEDS ORDERED: Dextrose 5% in Water 1,000 ML IV PRN (16:36)
[2020-01-17] MEDS ORDERED: Acetaminophen 325 MG TAB PO PRN (16:36)
[2020-01-17] MEDS ORDERED: HumaLOG 300 UNITS/3 ML VIAL SC PRN ×2 (16:36)
[2020-01-17 16:46] VITALS: BMI 21.4
[2020-01-17] MEDS ORDERED: Acetaminophen 500 MG TAB PO SCH (18:00)
[2020-01-17] MEDS ORDERED: Lisinopril 10 MG TAB PO SCH (18:00)
[2020-01-17] MEDS: Morphine 2 MG/ML SYRINGE SLOW IVP PRN (19:59)
[2020-01-17] MEDS: HYDROcodone/Acetaminophen 5/325 mg Tablet PO PRN (22:04)
--- NOTE | 2020-01-17 22:32 | HP ---
I have examined the patient. I have discussed the case with Dr. Dustin Gonsalez. I agree with his assessment and plan. HISTORY OF PRESENT ILLNESS: Mr. Camarena is a very pleasant 74-year-old male with type 2 diabetes. I first saw Mr. Camarena about 2 weeks ago with minimal swelling and erythema of his right foot. He had no fever, chills, streaking, etc. My concern at that time was for cellulitis versus Charcot's foot. He responded minimally to some oral antibiotics and these were subsequently discontinued. We had set him up for podiatry referral and an MRI of his foot, but these have not yet been done. He presented to the ER today with increased redness and swelling in his right foot. He is still afebrile and having about as much pain as he had before. PHYSICAL EXAMINATION: VITAL SIGNS: His blood pressure is 160/70, his heart rate is 60 and regular. His respirations are 18. He is afebrile. His room air pulse ox is 98%. GENERAL: He is awake, alert, in good spirits. EAR, NOSE, AND THROAT: No erythema or exudate. NECK: Supple. CARDIAC: Heart rhythm regular. No gallop or murmur noted. LUNGS: Clear. No rales or wheezes. ABDOMEN: Flat and soft without guarding or rebound. NEUROLOGIC: No focal deficits. EXTREMITIES: With particular attention to his right foot, the right foot is grossly swollen in the mid forefoot and ankle. He is minimally tender to palpation, slightly warm and slightly erythematous. This swelling and redness extend no further up to just above the ankle. His left foot is normal. Distal pulses are present, but diminished. LABORATORY DATA: CBC; white count 11,100, hemoglobin is 11.4, hematocrit is 34.0 with an MCV of 88.9. Chemistries; sodium 138, potassium 4.3, chloride 105; bicarb 27, BUN 23, creatinine 1.19, glucose is 120. ASSESSMENT: Type 2 diabetes with possible cellulitis of the right foot, possible superficial phlebitis of the right foot, possible Charcot's foot. PLAN: We will admit the patient, begin broad-spectrum antibiotics and get an MRI tomorrow. Further treatment will depend on the findings of these tests. Job ID: [id number]
[2020-01-18] MEDS: Morphine 2 MG/ML SYRINGE SLOW IVP PRN ×2 (00:15→05:18)
[2020-01-18] MEDS: Cefepime 2 GM in Sodium Chloride 0.9% 100 ML IVPB SCH ×2 (02:15→14:45)
[2020-01-18] MEDS: HYDROcodone/Acetaminophen 5/325 mg Tablet PO PRN ×5 (03:19→23:45)
[2020-01-18 05:58] LABS: Anion Gap 15 mmol/L (10-20); BUN (Urea Nitrogen) 20 mg/dL (8.4-25.7); Calc. Creatinine Clearance 65 mL/min (70-130); Calcium 8.9 mg/dL (7.8-10.44); Carbon Dioxide 18 mmol/L (23-31); Chloride 106 mmol/L (98-107); Estimated GFR-MDRD 82; Glucose 95 mg/dL (83-110); Potassium 4.6 mmol/L (3.5-5.1); Sodium 134 mmol/L (136-145)
[2020-01-18 06:46] LABS: Band 1 % (5-11); Eosinophils 17 % (0-10); Hemoglobin 11.5 g/dL (14.0-18.0); Hypochromia SLIGHT = 6-15 cells (100X) (0-5/hpf); Lymphocytes 16 % (21-51); MDiff Complete? YES; Mean Corpuscular HGB CONC 33.4 g/dL (32.0-36.0); Mean Corpuscular Hemoglobin 29.9 pg (27.0-31.0); Mean Corpuscular Volume 89.5 fL (78.0-98.0); Mean Platelet Volume 10.1 fL (7.4-10.4); Monocytes 9 % (0-10); Neutrophil 57 % (42-75); Platelet Count 236 thou/uL (130-400); Platelet Morphology Comment Appears Adequate; RBC Distribution Width 12.4 % (11.5-14.5); Red Blood Cell (RBC) Count 3.86 mill/uL (4.70-6.10); White Blood Cell (WBC) Count 12.6 thou/uL (4.8-10.8)
--- NOTE | 2020-01-18 06:46 | PDOC.FM ---
- Subjective Subjective: Pt is doing well today with occasional foot pain. It is shocking foot pain. He has decreased sensation to the extremity. He otherwise has no complaints. - Objective Vital Signs & Weight: Vital Signs (12 hours) Temp Pulse Resp BP Pulse Ox 01/18/20 03:39 97.7 F 51 L 18 179/73 H 98 01/17/20 23:37 97.5 F L 56 L 18 163/71 H 97 01/17/20 21:10 166/76 H 01/17/20 19:44 98.0 F 57 L 18 191/92 H 98 Weight Weight 62.171 kg I&O: 01/16/20 01/17/20 01/18/20 06:59 06:59 06:59 Intake Total 932 Output Total 775 Balance 157 Result Diagrams: 01/18/20 05:54 01/18/20 05:18 Phys Exam - Physical Examination Constitutional: NAD HEENT: PERRLA, moist MMs Neck: no JVD, full ROM Respiratory: no wheezing, clear to auscultation bilateral Cardiovascular: RRR, no significant murmur Gastrointestinal: soft, non-tender, no distention Musculoskeletal: pulses present trace RLE edema Neurological: moves all 4 limbs decreased sensation to LE Psychiatric: normal affect, A&O x 3 Dx/Plan (1) DMII (diabetes mellitus, type 2) Status: Acute (2) Charcot foot due to diabetes mellitus Code(s): E11.610 - TYPE 2 DIABETES MELLITUS W DIABETIC NEUROPATHIC ARTHROPATHY Status: Acute (3) Osteomyelitis Code(s): M86.9 - OSTEOMYELITIS, UNSPECIFIED Status: Acute (4) CAD (coronary artery disease) Code(s): I25.10 - ATHSCL HEART DISEASE OF [place] CORONARY ARTERY W/O ANG PCTRS Status: Chronic (5) Hypertension Code(s): I10 - ESSENTIAL (PRIMARY) HYPERTENSION Status: Chronic - Plan Plan: Pt is a 74 yo male here for: # Osteomyelitis vs Charcot's Foot vs Cellulitis - MRI pending - LARON needs to be done in outpt due to partial obstructing DVT - Control diabetes - continue cefepime, vanc and if not osteo switch to PO coverage for MSSA, MRSA. Consider doxy, bactrim, or clindamycin - tylenol, gabapentin pain control # DVT - below saphenous vein junction and popliteal space, will not continue anticoag - consider asa # DM - continue home meds # HTN - continue home meds # Hx of CVA - stable # Hx of CAD - stable Fluids: SL Diet: HH VTE: Lovenox Code: Full Dispo: < 48 hr stay
[2020-01-18] MEDS: Hydrochlorothiazide 25 MG TAB PO SCH (07:58)
[2020-01-18] MEDS: Gabapentin 100 MG CAP PO SCH ×3 (08:00→19:52)
[2020-01-18] MEDS: Lisinopril 10 MG TAB PO SCH (08:00)
[2020-01-18] MEDS: Aspirin 325 mg Enteric Coated Tablet PO SCH (08:00)
[2020-01-18] MEDS: metFORMIN 500 MG TAB PO SCH (08:01)
[2020-01-18] MEDS ORDERED: Enoxaparin Sodium 40 MG/0.4 ML SYRINGE SC SCH (09:00)
--- NOTE | 2020-01-18 11:27 | PRG ---
DATE OF SERVICE: 01/18/2020 Mr. Camarena looks and feels much better this morning. The swelling and redness in his foot have greatly diminished. We are awaiting the results of an MRI to determine if there is any evidence of osteo versus Charcot foot. Continue current management for now. Job ID: [id number]
[2020-01-18] MEDS ORDERED: Amlodipine 5 MG TAB PO SCH (14:00)
[2020-01-18] MEDS ORDERED: Morphine 4 MG/ML VIAL ONE (14:15)
--- NOTE | 2020-01-18 14:46 | MRI ---
Exam: Right foot MRI with and without IV contrast: HISTORY: Right foot swelling and pain with clinical concern for osteomyelitis. There is some dorsal soft tissue swelling and subcutaneous fat stranding with a focal area over the s econd metatarsal region. There are some generalized arthrosis changes including the first metatarsal phalangeal joint. There is some increased signal within the intrinsic muscles of the foot, nonspecific but this can be seen in diabetes. Fluid within the flexor hallucis longus tendon sheath. No evidence for osteomyelitis. No evidence for drainable abscess. IMPRESSION: Some focal soft tissue swelling as well as some diffuse subcutaneous edema and fat stranding overlyin g primarily the dorsal aspect of the foot. No evidence for osteomyelitis or drainable abscess. Arthrosis and degenerative change. Evidence for tenosynovitis with fluid within the flexor hallucis l ongus tendon sheath.
[2020-01-18] MEDS ORDERED: Vancomycin HCl 1.25 GM in Sodium Chloride 0.9% 250 ML 250 ML IVPB SCH (15:00)
[2020-01-18] MEDS ORDERED: Morphine 2 MG/ML SYRINGE SLOW IVP SCH (15:15)
[2020-01-18] MEDS ORDERED: hydrALAZINE 20 MG/ML VIAL SLOW IVP PRN (18:13)
[2020-01-18] MEDS ORDERED: Enoxaparin Sodium 60 MG/0.6 ML SYRINGE SC SCH (21:00)
[2020-01-18] MEDS ORDERED: Apixaban 5 MG TAB PO SCH (21:00)
[2020-01-19] MEDS: Cefepime 2 GM in Sodium Chloride 0.9% 100 ML IVPB SCH (03:01)
[2020-01-19 06:21] LABS: Anion Gap 11 mmol/L (10-20); BUN (Urea Nitrogen) 20 mg/dL (8.4-25.7); Calc. Creatinine Clearance 59 mL/min (70-130); Calcium 8.7 mg/dL (7.8-10.44); Carbon Dioxide 25 mmol/L (23-31); Chloride 106 mmol/L (98-107); Estimated GFR-MDRD 74; Glucose 93 mg/dL (83-110); Sodium 138 mmol/L (136-145)
[2020-01-19 06:28] LABS: Hemoglobin 10.6 g/dL (14.0-18.0); Mean Corpuscular HGB CONC 33.1 g/dL (32.0-36.0); Mean Corpuscular Hemoglobin 29.5 pg (27.0-31.0); Mean Platelet Volume 10.1 fL (7.4-10.4); Platelet Count 221 thou/uL (130-400); RBC Distribution Width 12.3 % (11.5-14.5); Red Blood Cell (RBC) Count 3.59 mill/uL (4.70-6.10); White Blood Cell (WBC) Count 11.1 thou/uL (4.8-10.8)
[2020-01-19 06:35] LABS: Eosinophils 28 % (0-10); Lymphocytes 15 % (21-51); MDiff Complete? YES; Monocytes 7 % (0-10); Neutrophil 50 % (42-75); Platelet Morphology Comment Appears Adequate
--- NOTE | 2020-01-19 06:43 | PDOC.FM ---
- Subjective Subjective: Pt is complaining of sharp shooting neuropathic pain this AM. He denies other problems. The pain comes and goes, is not constant. Denies having/seeing a PCP. - Objective MAR Reviewed: Yes Vital Signs & Weight: Vital Signs (12 hours) Temp Pulse Resp BP BP Pulse Ox 01/19/20 03:05 98.5 F 68 18 138/59 L 97 01/18/20 23:40 98.5 F 68 16 103/65 95 01/18/20 19:48 97 01/18/20 19:45 98.0 F 64 18 144/66 H 99 Weight Weight 62.171 kg I&O: 01/17/20 01/18/20 01/19/20 06:59 06:59 06:59 Intake Total 932 2060 Output Total 775 975 Balance 157 1085 Result Diagrams: 01/19/20 05:25 01/19/20 05:25 Phys Exam - Physical Examination Constitutional: NAD Respiratory: no wheezing, clear to auscultation bilateral Cardiovascular: RRR Gastrointestinal: soft, non-tender Musculoskeletal: no edema (pulses weak on LE, R dorsal foot warm and erythematous, MTP joints very TTP) Neurological: non-focal Psychiatric: normal affect, A&O x 3 Dx/Plan (1) Charcot foot due to diabetes mellitus Code(s): E11.610 - TYPE 2 DIABETES MELLITUS W DIABETIC NEUROPATHIC ARTHROPATHY Status: Acute (2) DMII (diabetes mellitus, type 2) Status: Acute (3) BPH (benign prostatic hyperplasia) Code(s): N40.0 - BENIGN PROSTATIC HYPERPLASIA WITHOUT LOWER URINRY TRACT SYMP Status: Chronic (4) CAD (coronary artery disease) Code(s): I25.10 - ATHSCL HEART DISEASE OF [place] CORONARY ARTERY W/O ANG PCTRS Status: Chronic (5) Hypertension Code(s): I10 - ESSENTIAL (PRIMARY) HYPERTENSION Status: Chronic - Plan Plan: Pt is a 74 yo male here for: # Charcot's foot and Cellulitis of R foot. - MRI: no osteomyelitis, soft tissue swelling and subq edema. Arthrosis and degenerative changes along with tenosynovitis of flexor hallucis longus - LARON needs to be done in outpt due to partial obstructing DVT - Control diabetes - d/c vanc and cefepime. Consider doxy, bactrim, or clindamycin for MSSA, MRSA coverage. - tylenol, gabapentin pain control. Titrate gabapentin to effect. # DVT - below saphenous vein junction and popliteal space, will not continue anticoag - consider asa # DM - continue home meds # HTN - continue home meds # Hx of CVA - stable # Hx of CAD - stable Fluids: SL Diet: HH VTE: Lovenox Code: Full Dispo: < 48 hr stay, d/c home likely today. Addendum - Attending - Attending Attestation Date/Time: 01/19/20 3220 I personally evaluated the patient and discussed the management with Dr. Craft I agree with the History, Examination, Assessment and Plan documented above with any addition or exceptions noted below. Patient for dismissal discussed with pt/family at length eliquis therapy x 1 month , po antibiotic and f/u with Ortho/podiatry for consideration offloading Charcot foot with Total contact cast etc. RX for wheelchair, control of diabetes and neurontin with escalating dose adjustment for neuropathic pain. Patient with several family members at bedside advocating for patient to rehab.
[2020-01-19] MEDS: metFORMIN 500 MG TAB PO SCH (07:40)
[2020-01-19] MEDS: Gabapentin 100 MG CAP PO SCH ×2 (07:42→14:58)
[2020-01-19] MEDS: Lisinopril 10 MG TAB PO SCH (07:42)
[2020-01-19] MEDS: HYDROcodone/Acetaminophen 5/325 mg Tablet PO PRN ×2 (07:43→12:37)
[2020-01-19] MEDS: Aspirin 325 mg Enteric Coated Tablet PO SCH (07:45)
[2020-01-19] MEDS: Hydrochlorothiazide 25 MG TAB PO SCH (07:45)
[2020-01-19] MEDS ORDERED: Amlodipine 5 MG TAB PO SCH (09:00)
[2020-01-19] MEDS ORDERED: Apixaban 5 MG TAB PO SCH (09:00)
[2020-01-19] MEDS ORDERED: Doxycycline 100 MG CAP PO SCH ×2 (10:00→21:00)
[2020-01-19 13:39] LABS: Vancomycin, Trough 9.8 ug/mL
[2020-01-19 16:01] VITALS: BP 130/64; TEMP 98.2
[2020-01-26] MEDS ORDERED: Apixaban 5 MG TAB PO SCH (09:00)
== END 2020-01-19 17:01 | disposition home or self-care (01) ==
LOC: ERS 12:18 → T4-A 16:25
PROVIDERS: ADMIT Family Medicine; ATTEND Family Medicine
DX: E11.610 Type 2 diabetes mellitus with diabetic neuropathic arthropathy (principal); L03.115 Cellulitis of right lower limb; I82.441 Acute embolism and thrombosis of right tibial vein; E11.621 Type 2 diabetes mellitus with foot ulcer; L97.511 Non-pressure chronic ulcer of other part of right foot limited to breakdown of skin; I10 Essential (primary) hypertension; I25.10 Atherosclerotic heart disease of native coronary artery without angina pectoris; I25.2 Old myocardial infarction; N40.0 Benign prostatic hyperplasia without lower urinary tract symptoms; Z86.73 Personal history of transient ischemic attack (TIA), and cerebral infarction without residual deficits; Z79.84 Long term (current) use of oral hypoglycemic drugs; Z79.899 Other long term (current) drug therapy
CPT/HCPCS: 73630; 73723; 80048 ×2; 80053; 80202; 82962 ×3; 85025 ×3; 85379; 85652; 86140; 93971; 96365; 96366 ×2; 96367; 96372 ×2; 96375 ×2; 96376 ×2; 97116; 97139 ×4; 99285; G0378 ×4; 36415; 36416; 81003; 81015; J0360; J0692; J1650; J2270; J3370; J3490; J7050

== ENCOUNTER 2020-01-23 10:59 | Inpatient (IN) | payer MEDICARE, MEDICAID ==
[~2020-01-23 10:59] MED LIST changes: -ISOVUE-370 76%-LOCM 1 ML ONE; +Iopamidol-370 76% 500 ML 1 ML ONE
[2020-01-23 12:54] LABS: #Basophils 0.1 thou/uL (0.0-0.2); #Eosinphils 2.7 thou/uL (0.0-0.7); #Monocytes 0.6 thou/uL (0.11-0.59); #Neutrophils 6.6 thou/uL (1.40-6.50); %Basophils 0.6 % (0.0-1.0); %Eosinophils 22.7 % (0.0-10.0); %Lymphocytes 16.7 % (21.0-51.0); %Monocytes 4.9 % (0.0-10.0); %Neutrophils 55.1 % (42.0-75.0); Hemoglobin 10.6 g/dL (14.0-18.0); Mean Corpuscular HGB CONC 34.1 g/dL (32.0-36.0); Mean Corpuscular Hemoglobin 30.6 pg (27.0-31.0); Mean Corpuscular Volume 89.8 fL (78.0-98.0); Mean Platelet Volume 9.3 fL (7.4-10.4); Platelet Count 273 thou/uL (130-400); RBC Distribution Width 12.2 % (11.5-14.5); Red Blood Cell (RBC) Count 3.46 mill/uL (4.70-6.10); White Blood Cell (WBC) Count 11.9 thou/uL (4.8-10.8)
[2020-01-23 13:22] LABS: ALT (SGPT) 17 U/L (8-55); AST (SGOT) 16 U/L (5-34); Albumin 3.6 g/dL (3.4-4.8); Alkaline Phosphatase 79 U/L (40-110); Anion Gap 10 mmol/L (10-20); BUN (Urea Nitrogen) 26 mg/dL (8.4-25.7); Bilirubin, Total 0.2 mg/dL (0.2-1.2); Calc. Creatinine Clearance 0 mL/min (70-130); Calcium 9.2 mg/dL (7.8-10.44); Carbon Dioxide 27 mmol/L (23-31); Chloride 106 mmol/L (98-107); Estimated GFR-MDRD 77; Globulin 3.7 g/dL (2.4-3.5); Glucose 144 mg/dL (83-110); Potassium 4.2 mmol/L (3.5-5.1); Protein, Total 7.3 g/dL (5.8-8.1); Sodium 139 mmol/L (136-145)
--- NOTE | 2020-01-23 13:28 | RAD ---
Right foot 3 views: 01/23/2020 COMPARISON: 01/17/2020 HISTORY: Cellulitis, blood clot FINDINGS: There is atherosclerotic calcification of the mid foot and forefoot. Degenerative changes n oted at the first metatarsal-phalangeal joint. The bones are demineralized. There is enthesophyte formation at the origin of the plantar aponeurosis. Anterior and posterior atherosclerotic calcificat ion noted at the level of the ankle. No acute fracture or dislocation. IMPRESSION: Atherosclerotic disease and degenerative change. No acute fracture or dislocation.
--- NOTE | 2020-01-23 14:48 | PDOC.FPRHP ---
- History of Present Illness Chief Complaint: right foot pain, swelling History of Present Illness: Noah Camarena is a 74 year old M with a PMH of DM2, HTN, PAD, CAD, hx of CVA who presented to the ED with worsening right foot pain, redness and swelling. He was recently discharged from [facility] for similar complaints and treatment of cellulitis. He was discharged on doxy and has been adhering to regimen. During previous hospitalization, he had MRI of foot that showed no osteo, only soft tissue edema and tenosynovitis. His redness, swelling and pain improved during that hospitalization with IV abx. He denies any new fever , chills, chest pain, dyspnea, palpitations, n/v, abd pain. In the ED, he had an elevated CRP and ESR that was higher than prev admission, Lactic acid of 1.1, wbc 11.9. He was started on vanc, cefepime and blood cultures were drawn. - Allergies/Adverse Reactions Allergies Allergy/AdvReac Type Severity Reaction Status Date / Time No Known Allergies Allergy Verified 02/19/19 22:41 - Home Medications Medication Instructions Recorded Confirmed Type Hydrochlorothiazide 12.5 mg PO DAILY 01/17/20 01/23/20 History Lisinopril 10 mg PO DAILY 01/17/20 01/23/20 History metFORMIN [Glucophage] 500 mg PO QAM- 01/17/20 01/23/20 History Acetaminophen [Tylenol Regular 650 mg PO Q4H PRN tab 01/19/20 01/23/20 Rx Strength] Amlodipine [Norvasc] 5 mg PO DAILY tab 01/19/20 01/23/20 Rx Apixaban [Eliquis] 5 mg PO BID #60 tab 01/19/20 01/23/20 Rx Apixaban [Eliquis] 10 mg PO BID #13 tab 01/19/20 01/23/20 Rx Aspirin [Adult Aspirin Regimen] 81 mg PO DAILY #30 tab 01/19/20 01/23/20 Rx Doxycycline [Vibramycin] 100 mg PO BID 14 Days #28 cap 01/19/20 01/23/20 Rx Gabapentin [Neurontin] 200 mg PO TID 30 Days #180 cap 01/19/20 01/23/20 Rx Acetaminophen With Codeine 1 tablet PO Q6HR PRN 01/23/20 01/23/20 History [Tylenol with Codeine #3] - History PMHx: hx of CVA, CAD s/p CO, HTN, DM, BPH PSHx: cholecystectomy, laminectomy FHx: CAD Social: denies drugs, alcohol, tobacco - Review of Systems General: denies: fever/chills, weight/appetite/sleep changes, fatigue Eyes: denies: eye pain, vision changes ENT: denies: nasal congestion, rhinorrhea Respiratory: denies: cough, congestion, shortness of breath Cardiovascular: denies: chest pain, palpitation, edema Gastrointestinal: denies: nausea, vomiting, diarrhea Genitourinary: denies: incontinence, dysuria Skin: reports: rashes, other (redness, swelling of distal right foot) Musculoskeletal: reports: pain, tenderness. denies: stiffness Neurological: denies: numbness, syncope, seizure Psychological: denies: anxiety, depression - Vital signs BP: 145/57 HR: 57 RR: 19 Tmax: 98.7 Pox: 99% on RA Wt: 63 kg - Physical Exam Constitutional: NAD, awake, alert and oriented HEENT: normocephalic and atraumatic, PERRLA, EOMI, normal nasal mucosa, MMM Neck: supple, FROM, trachea midline, no LAD, no JVD Chest: no-tender to palpation Heart: RRR, normal S1/S2, no murmurs/rubs/gallops -Heart: diminished dorsalis pedis pulses Lungs: CTAB, no respiratory distress, good air movement, no rales/rhonchi, no wheezing Abdomen: soft, non-tender, bowel sounds present, no masses/distention Musculoskeletal: normal structure, normal tone -Musculoskeletal: unable to move toes and foot at ankle, states has been present for last several months. Neurological: no focal deficit, CN II-XII intact Skin: capillary refill <2 seconds -Skin: right erythema around lateral 3 digits on right foot, erythema and ttp extends up to mid foot, no fluctuance Heme/Lymphatic: no unusual bruising or bleeding, no purpura, no petechia Psychiatric: normal mood and affect, good judgment and insight, intact recent and remote memory FMR H&P: Results - Labs Result Diagrams: 01/24/20 05:53 01/24/20 05:53 Lab results: WBC 11.9 thou/uL (4.8-10.8) H 01/23/20 12:41 Hgb 10.6 g/dL (14.0-18.0) L 01/23/20 12:41 Hct 31.0 % (42.0-52.0) L 01/23/20 12:41 MCV 89.8 fL (78.0-98.0) 01/23/20 12:41 Plt Count 273 thou/uL (130-400) 01/23/20 12:41 Neutrophils % 55.1 % (42.0-75.0) 01/23/20 12:41 ESR Westergren 52 mm/hr (Less than 20) 01/23/20 12:40 Sodium 139 mmol/L (136-145) 01/23/20 12:41 Potassium 4.2 mmol/L (3.5-5.1) 01/23/20 12:41 Chloride 106 mmol/L (98-107) 01/23/20 12:41 Carbon Dioxide 27 mmol/L (23-31) 01/23/20 12:41 BUN 26 mg/dL (8.4-25.7) H 01/23/20 12:41 Creatinine 0.96 mg/dL (0.7-1.3) 01/23/20 12:41 Glucose 144 mg/dL (83-110) H 01/23/20 12:41 Lactic Acid 1.1 mmol/L (0.5-2.2) 01/23/20 13:43 Calcium 9.2 mg/dL (7.8-10.44) 01/23/20 12:41 Total Bilirubin 0.2 mg/dL (0.2-1.2) 01/23/20 12:41 AST 16 U/L (5-34) 01/23/20 12:41 ALT 17 U/L (8-55) 01/23/20 12:41 Alkaline Phosphatase 79 U/L (40-110) 01/23/20 12:41 C-Reactive Protein 1.70 mg/dL (= or < 0.5) H 01/23/20 12:41 Serum Total Protein 7.3 g/dL (5.8-8.1) 01/23/20 12:41 Albumin 3.6 g/dL (3.4-4.8) 01/23/20 12:41 - Radiology Interpretation Other Status: image reviewed by me, report reviewed by me (Right foot xray: atherosclerosis, arthritic changes) FMR H&P: A/P - Problem List (1) Cellulitis Current Visit: No Status: Acute Code(s): L03.90 - CELLULITIS, UNSPECIFIED (2) Charcot foot due to diabetes mellitus Current Visit: No Status: Chronic Code(s): E11.610 - TYPE 2 DIABETES MELLITUS W DIABETIC NEUROPATHIC ARTHROPATHY (3) DMII (diabetes mellitus, type 2) Current Visit: No Status: Chronic (4) S/P lumbar laminectomy Current Visit: No Status: Chronic Code(s): Z98.890 - OTHER SPECIFIED POSTPROCEDURAL STATES (5) BPH (benign prostatic hyperplasia) Current Visit: No Status: Chronic Code(s): N40.0 - BENIGN PROSTATIC HYPERPLASIA WITHOUT LOWER URINRY TRACT SYMP (6) CAD (coronary artery disease) Current Visit: No Status: Chronic Code(s): I25.10 - ATHSCL HEART DISEASE OF [place] CORONARY ARTERY W/O ANG PCTRS (7) Hypertension Current Visit: No Status: Chronic Code(s): I10 - ESSENTIAL (PRIMARY) HYPERTENSION - Plan 1) cellulitis: distal aspect of right foot - cellulitis vs osteo vs charcot foot - elevated CRP and ESR, higher than previous admission - WBC 11.9 - will order MRI of foot to eval for developing osteo - continue empiric IV abx - blood cultures pending - admit to medical 2) DM with peripheral neuropathy - hold home metformin - SSI with ACHD accuchecks - continue gabapentin for neuropathy 3) CAD - continue ASA, ACEI 4) HTN - continue home antihypertensive regimen - BP 145/57 in ED Code status: FULL Addendum - Attending - Attending Attestation Date/Time: 01/24/20 1127 I personally evaluated the patient and discussed the management with Dr. Bal I agree with the History, Examination, Assessment and Plan documented above with any addition or exceptions noted below. Patient with DVT below knee found last hospitalization continue eliquis x 1 month. Concern with patient rapid improvement with IV antibiotics and postdischarge rapid deterioration need Orthopedic evaluation opinion for deeper infection charcot verse true infection given MRI finding of tenosynovitis to extensor hallucis tendon and significant pain and forefoot tenderness. Continue pain control and BS control continue current IV antibiotic and consider ID consultation pending opinion orthopedics for any need operative intervention.
[2020-01-23 15:41] LABS: Bacteria/HPF None Seen HPF (None Seen); Bilirubin Negative (Negative); Blood, Urine Negative (Negative); Clarity Clear (Clear); Glucose, Urine (Dipstick) 30 mg/dL (Negative); Leukocyte Negative Leu/uL (Negative); Nitrite Negative (Negative); Protein, Urine (Dipstick) 100 mg/dL (Neg-Trace); RBC/HPF 0-3 HPF (0-3); Squamous Epithelial 0-3 HPF (0-3); Urobilinogen Normal mg/dL (Less than 2); WBC/HPF 0-3 HPF (0-3)
[2020-01-23] MEDS ORDERED: Acetaminophen 325 MG TAB PO PRN ×2 (15:57→16:25)
[2020-01-23] MEDS ORDERED: Dextrose 50% Abboject 50 ML SYRINGE SLOW IVP PRN (16:25)
[2020-01-23] MEDS ORDERED: Dextrose 5% in Water 1,000 ML IV PRN (16:25)
[2020-01-23] MEDS ORDERED: Ondansetron PF 4 MG/2 ML Vial IVP PRN (16:25)
[2020-01-23] MEDS ORDERED: Ondansetron ODT 4 MG TAB PO PRN (16:25)
[2020-01-23] MEDS ORDERED: HumaLOG 300 UNITS/3 ML VIAL SC PRN (16:25)
--- NOTE | 2020-01-23 16:26 | PDOC.FPRHP ---
- Allergies/Adverse Reactions Allergies Allergy/AdvReac Type Severity Reaction Status Date / Time No Known Allergies Allergy Verified 02/19/19 22:41 - Home Medications Medication Instructions Recorded Confirmed Type Hydrochlorothiazide 12.5 mg PO DAILY 01/17/20 01/23/20 History Lisinopril 10 mg PO DAILY 01/17/20 01/23/20 History metFORMIN [Glucophage] 500 mg PO QAM-WM 01/17/20 01/23/20 History Acetaminophen [Tylenol Regular 650 mg PO Q4H PRN tab 01/19/20 01/23/20 Rx Strength] Amlodipine [Norvasc] 5 mg PO DAILY tab 01/19/20 01/23/20 Rx Apixaban [Eliquis] 5 mg PO BID #60 tab 01/19/20 01/23/20 Rx Apixaban [Eliquis] 10 mg PO BID #13 tab 01/19/20 01/23/20 Rx Aspirin [Adult Aspirin Regimen] 81 mg PO DAILY #30 tab 01/19/20 01/23/20 Rx Doxycycline [Vibramycin] 100 mg PO BID 14 Days #28 cap 01/19/20 01/23/20 Rx Gabapentin [Neurontin] 200 mg PO TID 30 Days #180 cap 01/19/20 01/23/20 Rx - History PMHx: PSHx: FHx: Social: - Vital signs BP: [] HR: [] RR: [] Tmax: [] Pox: []% on [] Wt: [] FMR H&P: Results - Labs Result Diagrams: 01/23/20 12:41 01/23/20 12:41 Lab results: WBC 11.9 thou/uL (4.8-10.8) H 01/23/20 12:41 Hgb 10.6 g/dL (14.0-18.0) L 01/23/20 12:41 Hct 31.0 % (42.0-52.0) L 01/23/20 12:41 MCV 89.8 fL (78.0-98.0) 01/23/20 12:41 Plt Count 273 thou/uL (130-400) 01/23/20 12:41 Neutrophils % 55.1 % (42.0-75.0) 01/23/20 12:41 ESR Westergren 52 mm/hr (Less than 20) 01/23/20 12:40 Sodium 139 mmol/L (136-145) 01/23/20 12:41 Potassium 4.2 mmol/L (3.5-5.1) 01/23/20 12:41 Chloride 106 mmol/L (98-107) 01/23/20 12:41 Carbon Dioxide 27 mmol/L (23-31) 01/23/20 12:41 BUN 26 mg/dL (8.4-25.7) H 01/23/20 12:41 Creatinine 0.96 mg/dL (0.7-1.3) 01/23/20 12:41 Glucose 144 mg/dL (83-110) H 01/23/20 12:41 Lactic Acid 1.1 mmol/L (0.5-2.2) 01/23/20 13:43 Calcium 9.2 mg/dL (7.8-10.44) 01/23/20 12:41 Total Bilirubin 0.2 mg/dL (0.2-1.2) 01/23/20 12:41 AST 16 U/L (5-34) 01/23/20 12:41 ALT 17 U/L (8-55) 01/23/20 12:41 Alkaline Phosphatase 79 U/L (40-110) 01/23/20 12:41 C-Reactive Protein 1.70 mg/dL (= or < 0.5) H 01/23/20 12:41 Serum Total Protein 7.3 g/dL (5.8-8.1) 01/23/20 12:41 Albumin 3.6 g/dL (3.4-4.8) 01/23/20 12:41 Urine Ketones Negative mg/dL (Negative) 01/23/20 15:28 Urine Blood Negative (Negative) 01/23/20 15:28 Urine Nitrite Negative (Negative) 01/23/20 15:28 Ur Leukocyte Esterase Negative Laina/uL (Negative) 01/23/20 15:28 Urine RBC 0-3 HPF (0-3) 01/23/20 15:28 Urine WBC 0-3 HPF (0-3) 01/23/20 15:28 Ur Squamous Epith Cells 0-3 HPF (0-3) 01/23/20 15:28 Urine Bacteria None Seen HPF (None Seen) 01/23/20 15:28 FMR H&P: Upper Level - Plan Date/Time: 01/23/20 0927 I, [], have evaluated this patient and agree with findings/plan as outlined by internet developer resident. Pertinent changes/additions are listed here.
[2020-01-23 17:16] VITALS: BMI 21.9
[2020-01-23] MEDS: Cefepime 2 GM in Sodium Chloride 0.9% 100 ML IVPB SCH (18:02)
--- NOTE | 2020-01-23 19:46 | CT ---
EXAM: CT angiogram abdomen and pelvis and bilateral lower extremities with IV contrast and three-dimensiona l reconstructions PROVIDED CLINICAL HISTORY: Right foot pain COMPARISON: None FINDINGS: The visualized lung bases are free of significant opacity. The solid abdominal organs are suboptimall y evaluated in the arterial phase of IV contrast but demonstrate an unremarkable CT appearance for the phase of contrast in which the study was acquired. There is conspicuous colonic fecal retention. No bowel dilatation, inflammatory fat stranding, free fluid or lymph node enlargement apparent. The abdominal aorta appears nonaneurysmal. There is severe calcified stenosis of the proximal superio r mesenteric artery. The celiac artery demonstrates a moderate stenosis on the basis of vascular calcification and weblike stenosis. At least moderate right renal artery origin stenosis due to calci fication. The inferior mesenteric artery appears patent. The common and external iliac arteries appear patent bilaterally. Atherosclerotic vascular calcification is seen involving the internal ruby c system bilaterally with areas of mild to moderate stenoses multifocally. On the right, the common femoral and profunda femoral arteries demonstrate atherosclerotic vascular c alcification without high-grade stenosis. The right superficial femoral artery demonstrates multifocal atherosclerotic vascular calcification with a few areas of mild to moderate stenosis dista lly. There is focal high-grade stenosis involving the SFA-popliteal junction on the right. The remainder of the popliteal artery demonstrates multifocal atherosclerotic calcified and noncalcified plaque and appears diminutive distally with focal nonopacification and its distalmost extent. There is extensive atherosclerotic vascular calcification involving the runoff vessels with limited evaluat ion for contrast opacification on this basis. On the left, the common femoral artery demonstrates no high-grade stenosis. There is occlusion of the profunda femoral artery in the mid thigh. Multifocal atherosclerotic vascular calcification with scattered mild stenoses involving the mid to distal superficial femoral artery. Multifocal moderate s tenoses involving popliteal artery distally with occlusion at its distal extent. There is nonopacification of the proximal runoff vessels and extensive vascular calcification includes evaluat ion for patency distally. IMPRESSION: Advanced atherosclerotic vascular disease as described.
[2020-01-23] MEDS: Gabapentin 100 MG CAP PO SCH (20:16)
[2020-01-23] MEDS: Famotidine 20 MG TAB PO SCH (20:16)
[2020-01-23] MEDS: Vancomycin HCl 750 MG in Sodium Chloride 0.9% 250 ML 250 ML IVPB SCH (20:18)
[2020-01-23] MEDS: Acetaminophen 325 MG TAB PO PRN (20:18)
[2020-01-23] MEDS: Apixaban 5 MG TAB PO SCH (20:19)
[2020-01-23] MEDS ORDERED: Gabapentin 100 MG CAP PO SCH (21:00)
[2020-01-23] MEDS ORDERED: Apixaban 5 MG TAB PO SCH ×2 (21:00)
[2020-01-23] MEDS ORDERED: Cefepime 2 GM in Sodium Chloride 0.9% 100 ML IVPB SCH (22:00)
--- NOTE | 2020-01-23 22:19 | HP ---
I personally evaluated this patient and discussed management with Drs. Bal and Manuel. Please refer to the resident history and physical for further details. HISTORY OF PRESENT ILLNESS: This is a 74-year-old male who was recently hospitalized from 01/17 to 01/19 with cellulitis of the left lower extremity with questionable Charcot's changes. He responded well to IV vancomycin when hospitalized and was dismissed on doxycycline. The patient on the day of admission complained that he had extreme pain during the night to the forefoot and developed recurrent redness to the right foot, presented to the emergency room with swollen, tender erythematous right foot and readmitted for concern of a deeper infection. PAST MEDICAL HISTORY: Notable for hypertension with questionable CVA, diabetes mellitus. PAST SURGICAL HISTORY: Include cholecystectomy and in January of 2019, he underwent lumbar spinal decompression for cauda equina syndrome. The patient prior to hospitalization had DVT below the knee in his right lower extremity and was elected to be placed on Eliquis for 1 month. PHYSICAL EXAMINATION: GENERAL: The patient denies any fever or chills. He is alert, responsive, and oriented x3. HEENT: Atraumatic, normocephalic. NECK: Supple. No JVD. LUNGS: Clear. CARDIAC: Has normal sinus rhythm. There is no ectopy, no murmur appreciated. ABDOMEN: Soft without no guarding, rebound, or tenderness. EXTREMITIES: Notable for the right lower extremity with footdrop, marked edema to the forefoot with excoriated interdigital ulcerations between the fourth and third, first and seconds digits. The patient is tender to palpation on the great toe. Passive flexion and extension does not increase his pain. There is marked erythema and warmth to the entire foot. ASSESSMENT: Cellulitis, failed outpatient management, questionable Charcot's changes, history of deep venous thrombosis of the right lower extremity. Review of the MRI from prior admission shows tenosynovitis to the flexor hallucis longus tendon. The patient will be readmitted, placed on broad-spectrum antibiotics and consultation with Orthopedics with concern for a deeper infection. The pulse was diminished. Prior MRI showed no evidence of osteomyelitis, but did show the tenosynovitis. The patient will be admitted and reinitiated intravenous antibiotics and consultation with Orthopedics for any further evaluation of deeper infection. Job ID: [id number]
[2020-01-23] MEDS ORDERED: Morphine 2 MG/ML SYRINGE SLOW IVP SCH (23:45)
[2020-01-24] MEDS: Acetaminophen 325 MG TAB PO PRN ×2 (00:09→08:38)
[2020-01-24] MEDS: Cefepime 2 GM in Sodium Chloride 0.9% 100 ML IVPB SCH ×3 (01:34→17:18)
[2020-01-24] MEDS ORDERED: Ibuprofen 600 MG TAB PO PRN (02:38)
[2020-01-24] MEDS ORDERED: Morphine 2 MG/ML SYRINGE SLOW IVP SCH (02:45)
[2020-01-24] MEDS ORDERED: Ibuprofen 600 MG TAB PO SCH (02:45)
[2020-01-24] MEDS ORDERED: Vancomycin HCl 750 MG in Sodium Chloride 0.9% 250 ML 250 ML IVPB SCH (04:00)
[2020-01-24 06:39] LABS: Anion Gap 12 mmol/L (10-20); BUN (Urea Nitrogen) 24 mg/dL (8.4-25.7); Calc. Creatinine Clearance 69 mL/min (70-130); Calcium 8.7 mg/dL (7.8-10.44); Carbon Dioxide 24 mmol/L (23-31); Chloride 107 mmol/L (98-107); Estimated GFR-MDRD 86; Glucose 96 mg/dL (83-110); Potassium 4.3 mmol/L (3.5-5.1); Sodium 139 mmol/L (136-145)
--- NOTE | 2020-01-24 06:53 | PDOC.FM ---
- Subjective Subjective: Pt continues with RLE pain. He required morphine x 2 overnight. He continued with pain this morning which are sharp and shooting in nature. He denies fever, chills. He has no sensation bilaterally. - Objective Vital Signs & Weight: Vital Signs (12 hours) Temp Pulse Resp BP Pulse Ox 01/24/20 05:00 98.7 F 57 L 16 155/66 H 94 L 01/24/20 00:51 98.7 F 66 18 155/65 H 96 01/23/20 19:28 97 01/23/20 19:10 97.9 F 69 18 168/69 H 97 Weight Weight 63.503 kg I&O: 01/22/20 01/23/20 01/24/20 06:59 06:59 06:59 Intake Total 850 Output Total 650 Balance 200 Result Diagrams: 01/24/20 05:53 01/24/20 05:53 Phys Exam - Physical Examination Constitutional: NAD HEENT: PERRLA, moist MMs Neck: no JVD, full ROM Respiratory: no wheezing, no rales Cardiovascular: RRR, no significant murmur Gastrointestinal: soft, non-tender decreased sensation, pulses bilaterally. No risng erythema to RLE. He does have significant wasting. Neurological: non-focal, moves all 4 limbs Psychiatric: normal affect, A&O x 3 Dx/Plan (1) Cellulitis Code(s): L03.90 - CELLULITIS, UNSPECIFIED Status: Acute (2) CAD (coronary artery disease) Code(s): I25.10 - ATHSCL HEART DISEASE OF [place] CORONARY ARTERY W/O ANG PCTRS Status: Chronic (3) Charcot foot due to diabetes mellitus Code(s): E11.610 - TYPE 2 DIABETES MELLITUS W DIABETIC NEUROPATHIC ARTHROPATHY Status: Chronic (4) DMII (diabetes mellitus, type 2) Status: Chronic (5) Hypertension Code(s): I10 - ESSENTIAL (PRIMARY) HYPERTENSION Status: Chronic - Plan Plan: 1) cellulitis: distal aspect of right foot - cellulitis vs osteo vs charcot foot - elevated CRP and ESR, higher than previous admission - WBC 11.9 - continue empiric IV abx - blood cultures pending - admit to IP medical - Ortho consulted; appreciate recs 2) DM with peripheral neuropathy - hold home metformin - SSI with ACHD accuchecks - continue gabapentin for neuropathy, add tramadol, d/c ibuprofen with artery disease. 3) CAD - continue ASA, ACEI 4) HTN - continue home antihypertensive regimen - BP 145/57 in ED Code status: FULL Addendum - Attending - Attending Attestation Date/Time: 01/24/20 6131 I personally evaluated the patient and discussed the management with Dr. Gonsalez I agree with the History, Examination, Assessment and Plan documented above with any addition or exceptions noted below. Appreciate recommendation Orthopedics. Patient continues with significant pain will adjust pain meds.
[2020-01-24 07:11] LABS: Eosinophils 17 % (0-10); Lymphocytes 16 % (21-51); MDiff Complete? YES; Mean Corpuscular HGB CONC 33.7 g/dL (32.0-36.0); Mean Corpuscular Hemoglobin 30.1 pg (27.0-31.0); Mean Corpuscular Volume 89.4 fL (78.0-98.0); Mean Platelet Volume 9.6 fL (7.4-10.4); Monocytes 7 % (0-10); Neutrophil 60 % (42-75); Platelet Count 251 thou/uL (130-400); RBC Distribution Width 12.3 % (11.5-14.5); Red Blood Cell (RBC) Count 3.33 mill/uL (4.70-6.10); White Blood Cell (WBC) Count 11.6 thou/uL (4.8-10.8)
[2020-01-24] MEDS ORDERED: metFORMIN 500 MG TAB PO SCH (08:00)
[2020-01-24] MEDS: Vancomycin HCl 750 MG in Sodium Chloride 0.9% 250 ML 250 ML IVPB SCH ×2 (08:33→20:20)
[2020-01-24] MEDS: Lisinopril 10 MG TAB PO SCH (08:34)
[2020-01-24] MEDS: Famotidine 20 MG TAB PO SCH ×2 (08:34→20:20)
[2020-01-24] MEDS: Aspirin 81 mg Enteric Coated Tablet PO SCH (08:34)
[2020-01-24] MEDS: Hydrochlorothiazide 25 MG TAB PO SCH (08:35)
[2020-01-24] MEDS: Gabapentin 100 MG CAP PO SCH ×3 (08:35→20:20)
[2020-01-24] MEDS: metFORMIN 500 MG TAB PO SCH (08:35)
[2020-01-24] MEDS: Apixaban 5 MG TAB PO SCH ×2 (08:36→20:19)
[2020-01-24] MEDS ORDERED: Hydrochlorothiazide 25 MG TAB PO SCH (09:00)
[2020-01-24] MEDS ORDERED: Lisinopril 10 MG TAB PO SCH (09:00)
[2020-01-24] MEDS ORDERED: Aspirin 81 mg Enteric Coated Tablet PO SCH (09:00)
--- NOTE | 2020-01-24 12:48 | MRI ---
MRI Lower Ext Jt Rt W WO Con History: DVT and failed outpatient treatment of cellulitis Comparison: MRI 6 days prior Findings: Bones: On the T1 weighted imaging sequence there are no abnormal focal areas of marrow sign al replacement. Old osteochondral defect medial talar dome. Lisfranc interval is maintained. Muscles: Mild intrinsic muscle atrophy low-grade edema suggesting chronic diabetic myositis. Tendons: Mild increased tenosynovial fluid of the flexor pollicis longus proximal to the knot of Henr y. Soft tissues: Mild soft tissue swelling at the region of marker dorsal aspect of the midfoot. No drai nable collection. Impression: No evidence for osteomyelitis nor enhancing drainable fluid collection.
[2020-01-24] MEDS: traMADol HCl 50 MG TAB PO PRN (13:10)
--- NOTE | 2020-01-24 19:43 | CON ---
DATE OF CONSULTATION: 01/24/2020 REQUESTING PHYSICIAN: Dustin Gonsalez DO CONSULTING PHYSICIAN: Shon Arriaga MD REASON FOR CONSULTATION: Right foot pain. BRIEF CLINICAL HISTORY: Ria is a 74-year-old male who has been admitted by the [facility] team for intractable right foot pain. The patient was recently discharged for similar complaints and last week had an MRI of the right foot, which was essentially unremarkable. He bounced back with intense foot pain, which appears to be neuropathic in origin. An MRI has been obtained and our service has been consulted for evaluation of the intractable foot pain and discomfort and the patient's inability to walk due to this. The pain comes and goes. At odd times, it has been ameliorated with oral medications to include tramadol, ibuprofen, and morphine. I believe gabapentin has also been added, I do not know how long he has been on this medication. The patient's daughters are accompanying him and they augment the history. He has not had any significant constitutional symptoms or sepsis that I am aware of, but brief chart review does demonstrate that he has had a couple of admissions recently. The pain tends to originate in the foot. He can sometimes even be sitting when he has very intense episodes, which tend to last for a few minutes. They would alleviate with medicine. He denies any significant drainage, but has had a chronic interdigital web space maceration for the last 2 admissions and the photo documentation of this is on the chart. He has been started on Maxipime IV for cellulitis. Historically, the patient had a multilevel L3 through L6 lumbar decompression about a year ago and prior to this, he had a drop foot on the right, which has been persistent since surgery and he has had weakness on the left, which was detectable on today's examination. PHYSICAL EXAMINATION: Visual inspection of the patient demonstrates he is a frail, cachectic appearing elderly male. He is sitting up comfortable and responds appropriately with examiner. He is interactive with the examination. The right lower extremity demonstrates atrophic muscles in the leg. The right foot is a little larger than the left in terms of diffuse swelling, but no edema is detected. Skin appears normal. Turgor is normal. He cannot dorsiflex the right foot, but he has 3 to 4/5 on the left. Plantar flexion is also weak on the right. Digital excursion is minimal, but present. Pulses are trace, but palpable dorsalis pedis and posterior tibialis. He has interdigital maceration between the 2nd, 3rd, and 4th digits. I do not see any appreciable erythema or cellulitis in the dorsum or plantar aspect of the foot. There are no open ulcers that I am aware of or can detect visually on the plantar aspect of the foot. Skin appears intact. IMAGING STUDIES: Plain radiographs of the right foot demonstrate normal bony landmarks. Radiographically, this does not appear to be a Charcot joint. He has adequate alignment and joint preservation of the hindfoot, midfoot, and forefoot. I do not see any fractures or acute processes. Calcific changes of the vasculature are noted on lateral view, but again, there is preservation of the arch and for a man of this age, appropriate changes in the foot radiographically. MRI, pending interpretation, but I do not see any loculation or abscesses. There is some signal intensity noted at the plantar aspect in the soft tissues under the forefoot, but with the examination, I cannot reproduce intense pain. Again, no loculations are identified by my read. No large effusions are seen. No fractures or significant bony edema is noted. IMPRESSION: 1. Foot drop, which is chronic in nature. 2. The neuropathic pain as described by the patient appears to be subjectively disproportionate with clinical findings. The patient's radiograph does not demonstrate a full progression of true Charcot foot, but rather degenerative changes which are consistent for age. The interdigital maceration in the web space may be a combination of bacterial, but also yeast and fungal infections, need to be strongly considered. PLAN: From an orthopedic standpoint, if preservation of the foot is the goal, then he should be fitted with an AFO and give consideration to a total contact cast, but eradication of what is possibly a fungal interdigital infection. I do not see a surgical lesion at this point. If the neuropathic pain has been fully treated as an outpatient to include neuroleptics and other modalities to include pain management and have failed, then consideration of below-knee amputation may be an option. I have taken the liberty of consulting with Dr. Plata on Sunday to discuss this, but at this point, no surgical recommendations for now. We will follow up with the patient tomorrow. I had a long discussion with the patient's family and they are amenable to talking with Dr. Plata. Job ID: [id number]
[2020-01-25] MEDS: Cefepime 2 GM in Sodium Chloride 0.9% 100 ML IVPB SCH ×3 (01:29→17:34)
--- NOTE | 2020-01-25 06:43 | PDOC.FM ---
- Subjective Subjective: Pt is unchanged today. He remains with R foot pain. He denies fever, chills. No overnight events. - Objective Vital Signs & Weight: Vital Signs (12 hours) Temp Pulse Resp BP Pulse Ox 01/24/20 20:00 96 01/24/20 19:51 98.4 F 60 16 149/62 H 96 Weight Admit Weight 63.503 kg Weight 63.503 kg I&O: 01/23/20 01/24/20 01/25/20 06:59 06:59 06:59 Intake Total 850 610 Output Total 650 525 Balance 200 85 Result Diagrams: 01/24/20 05:53 01/24/20 05:53 Phys Exam - Physical Examination Constitutional: NAD HEENT: PERRLA, moist MMs Neck: no JVD, full ROM Respiratory: no wheezing, clear to auscultation bilateral Cardiovascular: RRR, no significant murmur Gastrointestinal: soft, non-tender Musculoskeletal: no edema decreased pulses bilaterally Neurological: non-focal, moves all 4 limbs Psychiatric: normal affect, A&O x 3 Dx/Plan (1) Cellulitis Code(s): L03.90 - CELLULITIS, UNSPECIFIED Status: Acute (2) CAD (coronary artery disease) Code(s): I25.10 - ATHSCL HEART DISEASE OF [place] CORONARY ARTERY W/O ANG PCTRS Status: Chronic (3) Charcot foot due to diabetes mellitus Code(s): E11.610 - TYPE 2 DIABETES MELLITUS W DIABETIC NEUROPATHIC ARTHROPATHY Status: Chronic (4) DMII (diabetes mellitus, type 2) Status: Chronic (5) Hypertension Code(s): I10 - ESSENTIAL (PRIMARY) HYPERTENSION Status: Chronic - Plan Plan: # cellulitis: distal aspect of right foot vs charcot foot - elevated CRP and ESR, higher than previous admission - WBC 11.9 - continue empiric IV abx - blood cultures pending - admit to IP medical - Ortho consulted; appreciate recs and will have Dr. Plata see him on Sunday to discuss possible amputation. Otherwise pt will need a boot to prevent further damage. # DM with peripheral neuropathy - hold home metformin - SSI with ACHD accuchecks - continue gabapentin for neuropathy, add tramadol, d/c ibuprofen with artery disease. # CAD # Peripheral Vascular Disease - continue ASA, ACEI - will need to discuss statin therapy # HTN - continue home antihypertensive regimen Code status: FULL Addendum - Attending - Attending Attestation Date/Time: 01/25/20 4200 I personally evaluated the patient and discussed the management with Dr. Gonsalez I agree with the History, Examination, Assessment and Plan documented above with any addition or exceptions noted below. Although no severe midfoot collapse c/w charcot foot looks like progressing that way. Patient to have surgical evaluation to discuss option for amputation verse boot placement. Continue IV antibiotic pain control adjust neurotin.
[2020-01-25 08:14] LABS: Vancomycin, Trough 12.1 ug/mL
[2020-01-25] MEDS: Aspirin 81 mg Enteric Coated Tablet PO SCH (09:01)
[2020-01-25] MEDS: Hydrochlorothiazide 25 MG TAB PO SCH (09:01)
[2020-01-25] MEDS: Famotidine 20 MG TAB PO SCH ×2 (09:02→20:17)
[2020-01-25] MEDS: Apixaban 5 MG TAB PO SCH ×2 (09:03→20:17)
[2020-01-25] MEDS: Gabapentin 100 MG CAP PO SCH ×3 (09:04→20:17)
[2020-01-25] MEDS: metFORMIN 500 MG TAB PO SCH (09:05)
[2020-01-25] MEDS: Lisinopril 10 MG TAB PO SCH (09:05)
[2020-01-25] MEDS: Vancomycin HCl 750 MG in Sodium Chloride 0.9% 250 ML 250 ML IVPB SCH (09:05)
[2020-01-25] MEDS: traMADol HCl 50 MG TAB PO PRN (10:08)
[2020-01-25] MEDS: Acetaminophen 325 MG TAB PO PRN (12:53)
[2020-01-25] MEDS: Vancomycin HCl 1 GM in Premix Bag 1 BAG IVPB SCH (20:19)
[2020-01-26] MEDS: Cefepime 2 GM in Sodium Chloride 0.9% 100 ML IVPB SCH ×2 (01:24→11:00)
--- NOTE | 2020-01-26 05:51 | PDOC.FM ---
- Subjective Subjective: Pt says he is feeling "good" this morning. He understands they may need to amputate his leg. He is waiting for his family to arrive today. He states his pain is improved. - Objective MAR Reviewed: Yes Vital Signs & Weight: Vital Signs (12 hours) Temp Pulse Resp BP Pulse Ox 01/25/20 19:40 98.4 F 62 16 122/61 96 Weight Admit Weight 63.503 kg Weight 63.503 kg I&O: 01/24/20 01/25/20 01/26/20 06:59 06:59 06:59 Intake Total 850 610 Output Total 650 525 Balance 200 85 Result Diagrams: 01/26/20 05:18 01/26/20 05:18 Phys Exam - Physical Examination Constitutional: NAD Respiratory: clear to auscultation bilateral Cardiovascular: RRR, no significant murmur Gastrointestinal: soft, no distention Musculoskeletal: no edema pulses weak, warm R foot compared to L Dx/Plan (1) Cellulitis Code(s): L03.90 - CELLULITIS, UNSPECIFIED Status: Acute (2) BPH (benign prostatic hyperplasia) Code(s): N40.0 - BENIGN PROSTATIC HYPERPLASIA WITHOUT LOWER URINRY TRACT SYMP Status: Chronic (3) CAD (coronary artery disease) Code(s): I25.10 - ATHSCL HEART DISEASE OF [place] CORONARY ARTERY W/O ANG PCTRS Status: Chronic (4) Charcot foot due to diabetes mellitus Code(s): E11.610 - TYPE 2 DIABETES MELLITUS W DIABETIC NEUROPATHIC ARTHROPATHY Status: Chronic (5) DMII (diabetes mellitus, type 2) Status: Chronic (6) Hypertension Code(s): I10 - ESSENTIAL (PRIMARY) HYPERTENSION Status: Chronic - Plan Plan: # Cellulitis: distal aspect of right foot vs charcot foot - elevated CRP and ESR, higher than previous admission - WBC 11.9 - continue empiric IV abx - blood cultures NG48H - CT of vessels lower extremity resulted. - admit to IP medical - Ortho consulted; appreciate recs and will have Dr. Plata see him on today to discuss possible amputation. Otherwise pt will need a boot to prevent further damage. # DM with peripheral neuropathy - hold home metformin - SSI with ACHD accuchecks - continue gabapentin for neuropathy, add tramadol, d/c ibuprofen with artery disease. # CAD # Peripheral Vascular Disease - continue ASA, ACEI - will need to discuss statin therapy # HTN - continue home antihypertensive regimen Code status: FULL
[2020-01-26 05:53] LABS: Hemoglobin 9.9 g/dL (14.0-18.0); Platelet Count 262 thou/uL (130-400)
[2020-01-26] MEDS: Aspirin 81 mg Enteric Coated Tablet PO SCH (08:42)
[2020-01-26] MEDS: metFORMIN 500 MG TAB PO SCH (08:43)
[2020-01-26] MEDS: Famotidine 20 MG TAB PO SCH ×2 (08:44→20:17)
[2020-01-26] MEDS: Lisinopril 10 MG TAB PO SCH (08:44)
[2020-01-26] MEDS: Gabapentin 100 MG CAP PO SCH ×3 (08:44→20:17)
[2020-01-26] MEDS: Apixaban 5 MG TAB PO SCH (08:44)
[2020-01-26] MEDS: Hydrochlorothiazide 25 MG TAB PO SCH (08:45)
[2020-01-26] MEDS: Vancomycin HCl 1 GM in Premix Bag 1 BAG IVPB SCH (08:46)
[2020-01-26] MEDS: traMADol HCl 50 MG TAB PO PRN ×3 (08:54→20:17)
[2020-01-26] MEDS ORDERED: Acetaminophen 500 MG TAB PO PRN (14:18)
--- NOTE | 2020-01-26 18:14 | CON ---
DATE OF CONSULTATION: HISTORY OF PRESENT ILLNESS: Geena Camarena is admitted to hospitalist service, has chronic footdrop right, has had lumbar surgery. When he had a lumbar surgery, he had footdrop and he was told his footdrop probably would not improve. He has continued ankle and foot pain. The patient and family request amputation [id number], so he will have a prosthesis to improve his quality of life and alleviate his foot pain, which I think is reasonable. We will plan this tomorrow. ALLERGIES: NONE. SOCIAL HISTORY: Tobacco, none. Alcohol, none. The patient lives with his sister. PAST MEDICAL HISTORY: Diabetes mellitus type 2, hypertension, coronary artery disease, history of stroke. The patient had MRI on foot x-ray noting absence of cellulitis. He has strongly dopplerable pedal pulses. He has been seen by Dr. Jaime Mckeon and felt there is pain, it is nonvascular. History of BPH. PAST SURGICAL HISTORY: Cholecystectomy, lumbar surgery, and long history of footdrop. MEDICATIONS: 1. . 2. Eliquis. 3. Amlodipine. 4. Metformin. 5. Lisinopril. 6. Hydrochlorothiazide. 7. Gabapentin. 8. Doxycycline. 9. Aspirin. REVIEW OF SYSTEMS: Noncontributory otherwise. PHYSICAL EXAMINATION: VITAL SIGNS: Height 5 feet 7 inches, weight 140 pounds, 21 BMI. Temperature 98.7 and blood pressure 157/66. HEAD, EARS, EYES, NOSE, AND THROAT: Unremarkable. LUNGS: Clear to auscultation. CARDIAC: Regular rate and rhythm without murmur or gallop. ABDOMEN: Soft and nontender. EXTREMITIES: Unremarkable. Strongly palpable femoral pulses. Popliteal pulses. Foot warm and well perfused in appearance. There is slight redness over the dorsum of the foot. He has strongly palpable pedal pulses. He cannot move his right toes dorsally or plantar flex his right foot. On 02/24/2019, Dr. Mejia performed L3-L6 laminectomy. Dr. Lee saw the patient on 02/22/2019, noted a prior history of TIAs; although, the patient was told he had an NC. Dr. Lee could not find any record of the patient had an NC. The patient reports never having had a stenting or heart catheterization. It seems these confusing stroke with cardiac problems. Echocardiogram, 01/2019, 55% to 60% ejection fraction, no significant valvular disease. LABORATORY DATA: White count 11, hemoglobin 10. Basic metabolic profile, unremarkable. ASSESSMENT AND PLAN: Lumbar radicular pain with chronic pain in right ankle and foot, probably neurogenic, not vascular. We would recommend right below-knee amputation. Family and the patient desire this. We will plan this tomorrow. The patient can be discharged home 2 days postoperatively, to rehab for mobility and transfer training. We will ask therapy to see him now. Risks and benefits explained. He consents. Job ID: [id number]
[2020-01-26] MEDS: Doxycycline 100 MG CAP PO SCH (20:17)
[2020-01-26] MEDS: Atorvastatin Calcium 40 MG TAB PO SCH (20:17)
--- NOTE | 2020-01-27 05:50 | PDOC.FM ---
- Subjective Subjective: Pt is feeling well this morning. He states he did have some R foot pain overnight, but is feeling alright today. He is a bit groggy this AM as he just woke up. He denies having any questions today. Understands he is scheduled for surgery today and signed consent yesterday. - Objective MAR Reviewed: Yes Vital Signs & Weight: Vital Signs (12 hours) Temp Pulse Resp BP Pulse Ox 01/27/20 05:25 97.6 F 46 L 20 137/62 94 L 01/26/20 21:00 98.3 F 59 L 18 148/69 H 95 01/26/20 20:01 98.3 F 59 L 18 148/69 H 95 01/26/20 20:00 95 Weight Admit Weight 63.503 kg Weight 63.503 kg I&O: 01/25/20 01/26/20 01/27/20 06:59 06:59 06:59 Intake Total 199 698 5190 Output Total 525 825 220 Balance 85 25 820 Result Diagrams: 01/27/20 05:20 01/27/20 05:20 Phys Exam - Physical Examination Constitutional: NAD Respiratory: no wheezing, clear to auscultation bilateral Cardiovascular: RRR, no significant murmur Gastrointestinal: soft, no distention, positive bowel sounds Musculoskeletal: no edema R foot erythematous, DP pulses 1+ b/l Neurological: non-focal Psychiatric: normal affect, A&O x 3 Dx/Plan (1) Cellulitis Code(s): L03.90 - CELLULITIS, UNSPECIFIED Status: Acute (2) BPH (benign prostatic hyperplasia) Code(s): N40.0 - BENIGN PROSTATIC HYPERPLASIA WITHOUT LOWER URINRY TRACT SYMP Status: Chronic (3) CAD (coronary artery disease) Code(s): I25.10 - ATHSCL HEART DISEASE OF [place] CORONARY ARTERY W/O ANG PCTRS Status: Chronic (4) Charcot foot due to diabetes mellitus Code(s): E11.610 - TYPE 2 DIABETES MELLITUS W DIABETIC NEUROPATHIC ARTHROPATHY Status: Ruled-out (5) DMII (diabetes mellitus, type 2) Status: Chronic (6) Hypertension Code(s): I10 - ESSENTIAL (PRIMARY) HYPERTENSION Status: Chronic - Plan Plan: 74 yo male w/ pmhx of diabetes: # Cellulitis: distal aspect of right foot # chronic R foot drop s/p L3-L6 back surgery - elevated CRP and ESR, higher than previous admission - switched to oral abx yesterday since main problem seems to be the pain and not necessarily the infection - blood cultures NG48H - CT of vessels lower extremity resulted. High grade stenosis of SFA-popliteal on R leg. - Ortho consulted; appreciate recs. - Ortho consulted Dr. Plata of general surgery. Dr. Plata had discussion w/ patient and pt has agreed to proceed w/ BKA for resolution of pain and improved quality of life due to foot drop which resulted from prior back surgery and expected to be permanent. Surgery is scheduled for 2 PM today; Dr. Plata has held the eliquis. - [place] Texted consulting intern CV Surg Dr. Mckeon (who also was consulting intern when pt was admitted on 01/23). Per Dr. Mckeon, he was unfamiliar w/ patient. There is no documentation I can find of discussion of pt w/ CV surg by the ER on admission. However, after discussing case w/ Dr. Mckeon, he agrees w/ Dr. Plata proceeding w/ BKA and willing to see pt if needed after surgery for any vascular issues that may arise. # DM with peripheral neuropathy - hold home metformin - SSI with ACHD accuchecks - continue gabapentin for neuropathy, add tramadol. We may titrate gabapentin to effect as needed after surgery. # CAD # Peripheral Vascular Disease - continue ASA, ACEI - began high intensity statin yesterday. Will monitor for adverse side effects. Supplementation w/ CoQ10 started/ # HTN - continue home antihypertensive regimen Code status: FULL Diet: NPO for surgery today.
[2020-01-27 05:55] LABS: Hemoglobin 9.9 g/dL (14.0-18.0); Mean Corpuscular HGB CONC 33.8 g/dL (32.0-36.0); Mean Corpuscular Hemoglobin 30.1 pg (27.0-31.0); Mean Corpuscular Volume 89.2 fL (78.0-98.0); Mean Platelet Volume 9.6 fL (7.4-10.4); Platelet Count 256 thou/uL (130-400); RBC Distribution Width 12.2 % (11.5-14.5); White Blood Cell (WBC) Count 11.1 thou/uL (4.8-10.8)
[2020-01-27 06:00] LABS: Band 1 % (5-11); Eosinophils 35 % (0-10); Lymphocytes 14 % (21-51); MDiff Complete? YES; Monocytes 8 % (0-10); Neutrophil 42 % (42-75)
[2020-01-27 06:01] LABS: Anion Gap 10 mmol/L (10-20); BUN (Urea Nitrogen) 26 mg/dL (8.4-25.7); Calc. Creatinine Clearance 62 mL/min (70-130); Carbon Dioxide 26 mmol/L (23-31); Chloride 105 mmol/L (98-107); Estimated GFR-MDRD 77; Glucose 81 mg/dL (83-110); Potassium 4.1 mmol/L (3.5-5.1); Sodium 137 mmol/L (136-145)
--- NOTE | 2020-01-27 07:31 | PRG ---
DATE OF SERVICE: 01/26/2020 ADDENDUM: Please add this as an addendum to the note of Dr. Antoinette Craft. I have discussed the case with Dr. Craft and agree with her assessment and plan. Mr. Camarena is a 74-year-old patient well known to me with a possible chronic intermittent cellulitis of his right foot. He was admitted with an exacerbation of this problem. There is likely, however, an element of DVT which he was found to have at last hospitalization. There is also an element of PVD given he has greatly diminished pulses in both feet and is a diabetic with neuropathy. I would suggest we consult CV Surgery regarding his PVD and then proceed based on their recommendations as well as those of Dr. Plata. Job ID: [id number]
[2020-01-27] MEDS: Doxycycline 100 MG CAP PO SCH ×2 (07:40→20:59)
[2020-01-27] MEDS: Famotidine 20 MG TAB PO SCH ×2 (07:40→20:59)
[2020-01-27] MEDS: Hydrochlorothiazide 25 MG TAB PO SCH (07:40)
[2020-01-27] MEDS: Gabapentin 100 MG CAP PO SCH (07:41)
[2020-01-27] MEDS: traMADol HCl 50 MG TAB PO PRN (07:41)
[2020-01-27] MEDS: Aspirin 81 mg Enteric Coated Tablet PO SCH (07:41)
[2020-01-27] MEDS: metFORMIN 500 MG TAB PO SCH (07:41)
[2020-01-27] MEDS: Lisinopril 10 MG TAB PO SCH (07:42)
[2020-01-27] MEDS: Sodium Chloride 0.9% 1,000 ML IV SCH ×2 (07:46→13:52)
[2020-01-27] MEDS: Ubidecarenone 50 MG CAP PO SCH (07:46)
[2020-01-27] MEDS ORDERED: Apixaban 5 MG TAB PO SCH (09:00)
[2020-01-27] MEDS ORDERED: Fentanyl 100 MCG/2 ML VIAL ONE ×2 (10:39→10:55)
[2020-01-27] MEDS ORDERED: Ropivacaine 0.2% HCl/PF (40 MG/20 ML VIAL) ONE (11:08)
[2020-01-27] MEDS ORDERED: EPHEDRINE 25 MG/5 ML SYRINGE ONE (11:08)
[2020-01-27] MEDS ORDERED: Ondansetron PF 4 MG/2 ML Vial ONE (11:08)
[2020-01-27] MEDS ORDERED: Ropivacaine 0.5% HCl/PF (150 MG/30 ML VIAL) ONE (11:08)
[2020-01-27] MEDS ORDERED: Bupivacaine HCl 0.5%/Epinephrine 1:200,000/PF 30 ml Vial ONE (11:08)
[2020-01-27] MEDS ORDERED: Glycopyrrolate 0.2 MG/ML 5 ML SYRINGE ONE (11:08)
[2020-01-27] MEDS ORDERED: Lidocaine 1% PF 5 ML VIAL ONE (11:08)
[2020-01-27] MEDS ORDERED: PROPOFOL 200 MG/20 ML VIAL ONE (11:08)
[2020-01-27] MEDS ORDERED: CEFAZOLIN 2 GM in Premix Bag 1 BAG IVPB SCH (11:15)
--- NOTE | 2020-01-27 11:54 | PRG ---
DATE OF SERVICE: 01/27/2020 Mr. Camarena has been seen in consultation by Dr. Plata, who will take the patient for a right BKA today. It was determined that his pain was mostly neuropathic and not vascular. Previous study had shown some stenosis in his branches of the popliteal artery, but he has good pulses distally. We will continue to follow with the Surgery Service postop. Job ID: [id number]
[2020-01-27] MEDS ORDERED: Promethazine HCl 25 MG/ML VIAL SLOW IVP PRN (12:32)
[2020-01-27] MEDS ORDERED: Ondansetron HCl/PF 4 MG/2 ML Vial IVP PRN (12:32)
[2020-01-27] MEDS ORDERED: Promethazine HCl 25 MG/ML VIAL IM PRN (12:32)
--- NOTE | 2020-01-27 13:49 | OP ---
DATE OF PROCEDURE: 01/26/2020 PREOPERATIVE DIAGNOSIS: Footdrop with right with neurogenic pain and some element of peripheral arterial disease. ANESTHESIA: Regional plus general LMA. PROCEDURE PERFORMED: Right below-knee amputation. DESCRIPTION OF PROCEDURE: The patient was taken to the operating room, where under above-mentioned anesthesia in supine position, right lower extremity was prepared with ChloraPrep and draped in routine fashion. An incision was made for a long posterior flap below-knee amputation, making a skin incision circumferentially, and divided the muscular layers with cautery and vascular bundles between clamps, ligating with 2-0 silk ties. Tibia cleared, periosteum reflected cephalad, tibia transected with a Gigli saw, beveling anterior edge cephalad, smoothened the edges with a rasp. Fibula cut an inch above the cut edge of the tibia with a bone cutter. Wound irrigated. Good hemostasis obtained with cautery and 2-0 Vicryl [id number] sutures. Fascia was approximated with continuous suture of a 2-0 Vicryl and skin with gavin. Sterile dressing applied. Job ID: [id number]
[2020-01-27] MEDS: Gabapentin 300 MG CAP PO SCH ×2 (14:50→20:59)
[2020-01-27] MEDS: HYDROcodone/Acetaminophen 5/325 mg Tablet PO PRN (17:24)
[2020-01-27] MEDS: Atorvastatin Calcium 40 MG TAB PO SCH (20:59)
[2020-01-27] MEDS: Enoxaparin Sodium 40 MG/0.4 ML SYRINGE SC SCH (21:00)
--- NOTE | 2020-01-28 05:47 | PDOC.FM ---
- Subjective Subjective: Pt says his pain is well controlled this AM. He is going to work with PT today. Denies fevers. Ate a little bit for breakfast. - Objective MAR Reviewed: Yes Vital Signs & Weight: Vital Signs (12 hours) Temp Pulse Resp BP Pulse Ox 01/28/20 04:09 98 F 57 L 18 161/68 H 96 01/27/20 23:57 97.7 F 46 L 20 134/60 98 01/27/20 20:00 92 L 01/27/20 19:31 97.7 F 59 L 20 113/62 92 L Weight Admit Weight 63.503 kg Weight 63.503 kg I&O: 01/26/20 01/27/20 01/28/20 06:59 06:59 06:59 Intake Total 850 1040 1600 Output Total 825 220 520 Balance 25 820 1080 Result Diagrams: 01/28/20 05:46 01/28/20 05:46 Phys Exam - Physical Examination Constitutional: NAD Respiratory: no wheezing, clear to auscultation bilateral Cardiovascular: RRR Gastrointestinal: soft, non-tender R LE wrapped in rodo bandage, dressing not disturbed Dx/Plan (1) Cellulitis Code(s): L03.90 - CELLULITIS, UNSPECIFIED Status: Acute (2) BPH (benign prostatic hyperplasia) Code(s): N40.0 - BENIGN PROSTATIC HYPERPLASIA WITHOUT LOWER URINRY TRACT SYMP Status: Chronic (3) CAD (coronary artery disease) Code(s): I25.10 - ATHSCL HEART DISEASE OF [place] CORONARY ARTERY W/O ANG PCTRS Status: Chronic (4) DMII (diabetes mellitus, type 2) Status: Chronic (5) Hypertension Code(s): I10 - ESSENTIAL (PRIMARY) HYPERTENSION Status: Chronic - Plan Plan: 74 yo male w/ pmhx of diabetes: # Cellulitis: distal aspect of right foot # chronic R foot drop s/p L3-L6 back surgery - continue doxycyclin - CT of vessels lower extremity resulted. High grade stenosis of SFA-popliteal on R leg. - Ortho consulted; appreciate recs. - Gen surg Boni, appreciate recs. S/p R BKA. - CV surg available if needed. Not consulted. # DM with peripheral neuropathy - holding home metformin - SSI with ACHD accuchecks - continue gabapentin for neuropathy, tramadol and norco for pain post-op # CAD # Peripheral Vascular Disease - continue ASA, ACEI - high intensity statin yesterday. Supplementation w/ CoQ10 started # HTN - continue home antihypertensive regimen Code status: FULL Diet: CC, HH diet
[2020-01-28] MEDS: HYDROcodone/Acetaminophen 5/325 mg Tablet PO PRN ×3 (06:10→17:43)
[2020-01-28] MEDS: Sodium Chloride 0.9% 1,000 ML IV SCH ×2 (06:11→12:21)
[2020-01-28 06:24] LABS: #Eosinphils 2.5 thou/uL (0.0-0.7); #Lymphocytes 1.3 thou/uL (1.20-3.40); #Monocytes 0.9 thou/uL (0.11-0.59); #Neutrophils 8.3 thou/uL (1.40-6.50); %Basophils 0.4 % (0.0-1.0); %Monocytes 7.1 % (0.0-10.0); %Neutrophils 63.5 % (42.0-75.0); Hemoglobin 9.6 g/dL (14.0-18.0); Mean Corpuscular Hemoglobin 29.6 pg (27.0-31.0); Mean Corpuscular Volume 89.8 fL (78.0-98.0); Mean Platelet Volume 9.5 fL (7.4-10.4); Platelet Count 266 thou/uL (130-400); RBC Distribution Width 12.3 % (11.5-14.5); Red Blood Cell (RBC) Count 3.24 mill/uL (4.70-6.10)
[2020-01-28 06:40] LABS: Anion Gap 11 mmol/L (10-20); BUN (Urea Nitrogen) 24 mg/dL (8.4-25.7); Calc. Creatinine Clearance 60 mL/min (70-130); Calcium 8.8 mg/dL (7.8-10.44); Carbon Dioxide 26 mmol/L (23-31); Chloride 106 mmol/L (98-107); Estimated GFR-MDRD 73; Glucose 98 mg/dL (83-110); Potassium 4.3 mmol/L (3.5-5.1); Sodium 139 mmol/L (136-145)
[2020-01-28] MEDS: metFORMIN 500 MG TAB PO SCH (08:27)
[2020-01-28] MEDS: Doxycycline 100 MG CAP PO SCH ×2 (08:29→20:26)
[2020-01-28] MEDS: Gabapentin 300 MG CAP PO SCH ×3 (08:29→20:26)
[2020-01-28] MEDS: Famotidine 20 MG TAB PO SCH ×2 (08:30→20:26)
[2020-01-28] MEDS: Lisinopril 10 MG TAB PO SCH (08:30)
[2020-01-28] MEDS: Hydrochlorothiazide 25 MG TAB PO SCH (08:31)
[2020-01-28] MEDS: Amlodipine 5 MG TAB PO SCH (08:32)
[2020-01-28] MEDS: Aspirin 81 mg Enteric Coated Tablet PO SCH (08:32)
[2020-01-28] MEDS: Ubidecarenone 50 MG CAP PO SCH (08:33)
[2020-01-28] MEDS: Polyethylene Glycol 3350 17 GM Packet PO SCH (09:53)
--- NOTE | 2020-01-28 11:52 | PRG ---
DATE OF SERVICE: 01/28/2020 Mr. Camarena had his right BKA yesterday. This is postop day one. He is awake and alert this morning, but did not eat much breakfast. His hemoglobin this morning is 9.6, hematocrit is 29.1, white count is 13,000. BMP is normal. We have encouraged diet. He will begin rehab and we will continue to follow with Surgery. Job ID: [id number]
--- NOTE | 2020-01-28 14:58 | PRG ---
DATE OF SERVICE: 01/28/2020 SUBJECTIVE: Mr. Camarena is doing well today. His BKA stump is dressed and is dry. OBJECTIVE: VITAL SIGNS: Temperature 98.3 degrees, heart rate 59, blood pressure 133/62. LABORATORY DATA: This morning, his hemoglobin is 9.6, essentially unchanged from preoperative level. Basic metabolic profile is normal. ASSESSMENT AND PLAN: Doing well, status post right below-knee amputation. I will plan to look at his wound tomorrow. The patient can be discharged home in the next day or 2 to a rehab or assisted care for mobility and transfers. Physical Therapy has seen him regarding transfers and mobility and ambulation with a walker. Stump sports official should be available tomorrow. The patient probably will be discharged home tomorrow. Job ID: [id number]
[2020-01-28] MEDS: Atorvastatin Calcium 40 MG TAB PO SCH (20:26)
[2020-01-28] MEDS: Ibuprofen 600 MG TAB PO PRN (20:27)
[2020-01-28] MEDS: Enoxaparin Sodium 40 MG/0.4 ML SYRINGE SC SCH (20:27)
[2020-01-29 06:11] LABS: Platelet Count 238 thou/uL (130-400)
--- NOTE | 2020-01-29 06:24 | PDOC.FM ---
- Subjective Subjective: Pt reports he slept well "thank, God." Ate and drank w/o difficulty yesterday. Worked w/ PT. Required 2 tabs [place] last night ~1800. Otherwise, pain well controlled. - Objective MAR Reviewed: Yes Vital Signs & Weight: Vital Signs (12 hours) Temp Pulse Resp BP Pulse Ox 01/29/20 04:00 97.5 F L 52 L 18 146/56 H 95 01/29/20 00:00 97.9 F 64 16 144/67 H 96 01/28/20 20:00 93 L 01/28/20 19:36 98.6 F 67 16 115/56 L 93 L Weight Admit Weight 63.503 kg Weight 63.503 kg I&O: 01/27/20 01/28/20 01/29/20 06:59 06:59 06:59 Intake Total 1040 1600 Output Total 220 520 Balance 820 1080 Result Diagrams: 01/29/20 05:30 01/28/20 05:46 Dx/Plan (1) Cellulitis Code(s): L03.90 - CELLULITIS, UNSPECIFIED Status: Acute (2) BPH (benign prostatic hyperplasia) Code(s): N40.0 - BENIGN PROSTATIC HYPERPLASIA WITHOUT LOWER URINRY TRACT SYMP Status: Chronic (3) CAD (coronary artery disease) Code(s): I25.10 - ATHSCL HEART DISEASE OF [place] CORONARY ARTERY W/O ANG PCTRS Status: Chronic (4) DMII (diabetes mellitus, type 2) Status: Chronic (5) Hypertension Code(s): I10 - ESSENTIAL (PRIMARY) HYPERTENSION Status: Chronic - Plan Plan: 74 yo male w/ pmhx of diabetes: # Cellulitis: distal aspect of right foot, resolved # chronic R foot drop s/p L3-L6 back surgery # s/p R BKA - discontinue doxycyclin. Pt has received 11 days of abx in total for R foot cellulitis, which now is gone 2/2 BKA. - Ortho consulted; appreciate recs. - Gen surg Boni, appreciate recs. S/p R BKA. - CV surg available if needed. Not consulted. - PT/OT recommend rehab. # DM with peripheral neuropathy - continue home metformin. glucose checks ACHS. - continue gabapentin for neuropathy. [place] for pain post-op. D/c tramadol. # CAD # Peripheral Vascular Disease - continue ASA, ACEI - high intensity statin. Supplementation w/ CoQ10 started # HTN - continue home antihypertensive regimen. - added amlodipine Code status: FULL Diet: CC, HH diet Dispo: pending rehab placement today. Pt is stable medically.
[2020-01-29 08:03] VITALS: TEMP 97.9
--- NOTE | 2020-01-29 08:25 | EKG ---
Test Reason : PREOP Blood Pressure : / mmHG Vent. Rate : 051 BPM Atrial Rate : 051 BPM P-R Int : 248 ms QRS Dur : 112 ms QT Int : 442 ms P-R-T Axes : 006 011 045 degrees QTc Int : 407 ms Sinus bradycardia with 1st degree A-V block Otherwise normal ECG When compared with ECG of 19-FEB-2019 17:07, No significant change was found Confirmed by DR. Althea ADAMS ([id number]) on 01/29/2020 8:24:52 AM Referred By: ANIA Confirmed By:DR. Althea ADAMS
[2020-01-29] MEDS: metFORMIN 500 MG TAB PO SCH (08:27)
[2020-01-29] MEDS: Aspirin 81 mg Enteric Coated Tablet PO SCH (08:27)
[2020-01-29] MEDS: Famotidine 20 MG TAB PO SCH (08:27)
[2020-01-29] MEDS: Lisinopril 10 MG TAB PO SCH (08:27)
[2020-01-29] MEDS: Ubidecarenone 50 MG CAP PO SCH (08:27)
[2020-01-29] MEDS: Hydrochlorothiazide 25 MG TAB PO SCH (08:27)
[2020-01-29] MEDS: Doxycycline 100 MG CAP PO SCH (08:27)
[2020-01-29] MEDS: HYDROcodone/Acetaminophen 5/325 mg Tablet PO PRN ×2 (08:29→15:32)
[2020-01-29] MEDS: Amlodipine 5 MG TAB PO SCH (08:29)
[2020-01-29] MEDS: Gabapentin 300 MG CAP PO SCH ×2 (08:29→15:32)
[2020-01-29 08:31] VITALS: BP 166/64
[2020-01-29] MEDS: Sodium Chloride 0.9% 1,000 ML IV SCH ×2 (09:35→09:39)
[2020-01-29] MEDS: Polyethylene Glycol 3350 17 GM Packet PO SCH (09:35)
[2020-01-29] MEDS: Ibuprofen 600 MG TAB PO PRN (12:33)
[2020-01-29] MEDS ORDERED: Triple Antibiotic Oint 1 GM Packet TOP SCH (12:45)
--- NOTE | 2020-01-29 15:29 | PRG ---
DATE OF SERVICE: 01/29/2020 ADDENDUM: This is an addendum to the note of Dr. Antoinette Craft. Mr. Camarena is in excellent spirits this morning and enjoyed a complete breakfast. He is nearing time for discharge to a skilled facility for some recovery. Clinically; however, he is doing fine. His blood glucose levels are being managed well between 150 and 100. Job ID: [id number]
--- NOTE | 2020-01-29 17:01 | PRG ---
DATE OF SERVICE: 01/29/2020 Mr. Camarena is doing well today. His right BKA stump dressings were removed. His stump looks excellent. There were no wound problems. There was no evidence of infection. He is very compliant and maintained in knee extension. He is able to raise his leg and flex his knee and extend his knee fully. At this point, I would recommend he wash the stump daily with soap and water in the shower with a shower chair, apply antibiotic ointment and a stump development coordinator. This can be acquired in the hospital prior to transfer or after transfer at the rehab. The patient should follow up in my office in 2 to 3 weeks for staple removal. At that time, we will assess the stump and make future plans for referral for prosthesis. Overall, the patient is complaining of some phantom limb pain. He is on gabapentin that I have increased from 200 to 300 mg three times a day. He thanks the healthcare providers for the amputation to help get on with his life, and overall his pain is much better than before the operation. The patient is stable for transfer to rehab. Job ID: [id number]
--- NOTE | 2020-01-30 07:34 | PQF ---
MAULIK SCHWARZ RICHARD D MD [id number] CLINICAL DOCUMENTATION CLARIFICATION FORM: POST DISCHARGE Addendum to original discharge summary date: ____ Late entry note date: __ DATE:01/30/2020 ATTN: Marshall Breen Please exercise your independent, professional judgment in responding to the clarification form. Clinical indicators are provided on the bottom of this form for your review Please check appropriate box(s): [ ] Right foot Cellulitis related to DM [ ] Right foot Cellulitis not related to DM [ ] Other diagnosis [ ] Unable to determine For continuity of documentation, please document condition throughout progress notes and discharge summary. Thank You. CLINICAL INDICATORS - SIGNS / SYMPTOMS / LABS Laboratory WBC 11.9; 13.0, Lactic acid 1.1, Glucose 144, POC Glucose 125; 68; 135; 131; 139; 124 Pathology report p1 01/26 Diagnosis: Ischemic Ulceration (gangrene) H&P p1 01/23 Dr Kilpatrick the pt on the day of admission complained that he had extreme pain during the night to the forefoot and developed recurrent redness to the right foot, presented ti ER with swollen, tender erythematous right foot and readmitted for concern of a deeper infection H&P p1 01/23 Dr Kilpatrick Cellulitis, failed outpatient management PN p2 01/23 Dr Kilpatrick Cellulitis vs osteo vs Charcot foot RISKS: H&P p1 01/23 74-year-old male H&P p1 01/23 DM H&P p1 01/23 HTN Hospitalist PN p2 Cellulitis distal aspect of right foot Hospitalist PN p3 DM with peripheral neuropathy Hospitalist PN p3 CAD Operative report p1 01/26 - PVD TREATMENT: Right BKA 01/26 Marshall Breen JAN 25 IV Cefepime 2gm JAN 25 Insulin 3unot subq JAN 25 Neurotin 200mg po JAN 25 IV Vancomycin 1gm JAN 25 IVF NS 1L JAN 25 IV Morphine 2mg JAN 25 Glucophage 500mg po JAN 25 Motrin 600 mg JAN 26 Vibramycin 100 mg po JAN 26 IV Triple Antibiotics 1gm GS consult 01/25 Marshall Breen Collected 01/23 Foot Xray (This form is maintained as a part of the permanent medical record) 2014 [employer]. All Rights Reserved [email or web address]
--- NOTE | 2020-01-30 07:37 | PQF ---
MAULIK SCHWARZ RICHARD D MD [id number] CLINICAL DOCUMENTATION CLARIFICATION FORM: POST DISCHARGE Addendum to original discharge summary date: ____ Late entry note date: __ DATE:01/30/2020 ATTN: Marshall Breen Please exercise your independent, professional judgment in responding to the clarification form. Clinical indicators are provided on the bottom of this form for your review Final Diagnosis on the Pathology report: Ischemic Ulceration (gangrene) Clarification of Pathology report: Please check appropriate box(s): [ ] Agree w the pathology finding of Ischemic Ulceration (gangrene) [ ] Other explanation of pathology findings (please specify) [ ] Other diagnosis [ ] Unable to determine For continuity of documentation, please document condition throughout progress notes and discharge summary. Thank You. CLINICAL INDICATORS - SIGNS / SYMPTOMS / LABS Laboratory WBC 11.9; 13.0, Lactic acid 1.1, Glucose 144, POC Glucose 125; 68; 135; 131; 139; 124 Pathology report p1 01/26 Diagnosis: Ischemic Ulceration (gangrene) H&P p1 01/23 Dr Kilpatrick the pt on the day of admission complained that he had extreme pain during the night to the forefoot and developed recurrent redness to the right foot, presented ti ER with swollen, tender erythematous right foot and readmitted for concern of a deeper infection H&P p1 01/23 Dr Kilpatrick Cellulitis, failed outpatient management RISKS: H&P p1 01/23 74-year-old male H&P p1 01/23 DM H&P p1 01/23 HTN Hospitalist PN p2 Cellulitis distal aspect of right foot Hospitalist PN p3 DM with peripheral neuropathy Hospitalist PN p3 CAD Operative report p1 01/26 - PVD TREATMENT: Right BKA 01/26 Marshall Breen JAN 25 IV Cefepime 2gm JAN 25 Insulin 3unot subq JAN 25 Neurotin 200mg po JAN 25 IV Vancomycin 1gm JAN 25 IVF NS 1L JAN 25 IV Morphine 2mg JAN 25 Glucophage 500mg po JAN 25 Motrin 600 mg JAN 26 Vibramycin 100 mg po JAN 26 IV Triple Antibiotics 1gm GS consult 01/25 Marshall Breen Collected 01/23 Foot Xray (This form is maintained as a part of the permanent medical record) 2014 [employer] All Rights Reserved [email or web address]
--- NOTE | 2020-01-30 10:59 | DIS ---
DATE OF ADMISSION: 01/23/2020 DATE OF DISCHARGE: 01/29/2020 ADMITTING ATTENDING: Conrado Kilpatrick MD DISCHARGE ATTENDING: Moose Maciel MD CONSULTS: Orthopedic Surgery and General Surgery. PROCEDURES: 1. Right leg fbpbm-mrr-qupu amputation performed on 01/27/2020. 2. Right foot x-ray. 3. Right foot MRI. 4. Aorta with runoff, CT angiogram. PRIMARY DIAGNOSES: 1. Cellulitis of right foot. 2. Right foot drop, status post history of lumbar spinal surgery. 3. Intractable neuropathic right foot pain. SECONDARY DIAGNOSES: Type 2 diabetes, hypertension, benign prostatic hyperplasia, coronary artery disease, and history of cerebrovascular accident. DISCHARGE MEDICATIONS: 1. Tylenol 1000 mg p.o. q.6 hours p.r.n. 2. Atorvastatin 40 mg p.o. at bedtime. 3. Gabapentin 300 mg p.o. t.i.d. 4. Ibuprofen 600 mg p.o. q.6 hours as needed. 5. Zofran 4 mg p.o. q.6 hours as needed. 6. MiraLAX 17 g p.o. daily. 7. Coenzyme Q10 100 mg p.o. daily. 8. Hydrochlorothiazide 12.5 mg p.o. daily. 9. Lisinopril 10 mg p.o. daily. 10. Metformin 500 mg p.o. every morning with breakfast. 11. Aspirin 81 mg p.o. daily. Discontinued medications: 1. Amlodipine. 2. Eliquis. 3. Doxycycline. 4. Gabapentin 200 mg p.o. t.i.d. 5. Tylenol with codeine No.3 one tablet p.o. q.6 hours p.r.n. HISTORY OF PRESENT ILLNESS AND HOSPITAL COURSE: Geena Camarena is a 74-year-old male with past medical history of type 2 diabetes, hypertension, peripheral arterial disease, coronary artery disease, and history of cerebrovascular accident. He presented to the emergency room with worsening right foot pain, redness, and swelling after recently being discharged on 01/19/2020. The patient had been adhering to the doxycycline he was discharged on. The patient denied any other symptoms besides intractable foot pain and swelling. In the emergency room, the patient's ESR and CRP were elevated higher than previously on his last admission. He was started on vancomycin and cefepime. The patient's blood cultures resulted and were negative. An x-ray of his right foot again showed degenerative change without fracture. An MRI of his right lower extremity showed no evidence for osteomyelitis. CT angiogram bilaterally with runoff showed advanced atherosclerotic vascular disease, but only focal high-grade stenosis in the superficial femoral artery and popliteal junction on the right. Orthopedic Surgery was consulted for evaluation of the right foot, they deemed that the patient had not fully progressed to a true Charcot foot. From their opinion, the patient had 2 options for his chronic footdrop and neuropathic pain, he could either have a boot and consider total contact cast or consider qbbgt-yel-rhze amputation by a general surgeon. Dr. lPata was then consulted and assessed that the patient's chronic pain in his right ankle was most likely neurogenic from lumbar radiculopathy. He recommended ythwi-kku-ssqh amputation, which the patient agreed with. We of the primary team reached out to the Cardiovascular Surgery in order to see if any vascular intervention could be done, which they did not recommend, although they were not officially consulted. The patient underwent a right ywymv-kev-brkt amputation on January 27, 2020. He tolerated the procedure well. Physical Therapy and Occupational Therapy worked with him during his stay and he was recommended to go to inpatient rehab. His antibiotics and Eliquis were discontinued given that the offending extremity had been removed. DISPOSITION: Stable. DISCHARGE INSTRUCTIONS: Location: Inpatient rehab. Diet: Diabetic diet, heart healthy. Activity: As tolerated with physical and occupational therapy. Followup: Follow up with Dr. Plata of General Surgery in 2 to 3 weeks for staple removal. Follow up with primary care provider and followup for assessment of . Job ID: [id number]
[2020-01-30] MEDS ORDERED: Apixaban 5 MG TAB PO SCH (21:00)
[2020-01-31] MEDS ORDERED: Apixaban 5 MG TAB PO SCH (09:00)
== END 2020-01-29 16:11 | DRG 580 ==
LOC: ERS 10:59 → T4-B 16:08
PROVIDERS: ADMIT Family Medicine; ATTEND Family Medicine
PROC: 0Y6H0Z3 Detachment at Right Lower Leg, Low, Open Approach (ICD-10-PCS; principal; 2020-01-26)
DX: L03.115 Cellulitis of right lower limb (principal); R64 Cachexia; E11.51 Type 2 diabetes mellitus with diabetic peripheral angiopathy without gangrene; I25.10 Atherosclerotic heart disease of native coronary artery without angina pectoris; M21.371 Foot drop, right foot; N40.0 Benign prostatic hyperplasia without lower urinary tract symptoms; E11.40 Type 2 diabetes mellitus with diabetic neuropathy, unspecified; I25.2 Old myocardial infarction; Z90.49 Acquired absence of other specified parts of digestive tract; Z79.899 Other long term (current) drug therapy; Z79.01 Long term (current) use of anticoagulants; Z79.82 Long term (current) use of aspirin; Z79.84 Long term (current) use of oral hypoglycemic drugs; Z86.73 Personal history of transient ischemic attack (TIA), and cerebral infarction without residual deficits; Z86.718 Personal history of other venous thrombosis and embolism; Z68.21 Body mass index [BMI] 21.0-21.9, adult
CPT/HCPCS: 36415; 36416; 75635; 80048; 80053; 80202; 81003; 81015; 82565; 83605; 84550; 85014; 85018; 85025; 85049; 85652; 86140; 86850; 86900; 86901; 87040; 88307; 88311; 93005; 93010; J0670; J0690; J0692; J1650; J2001; J2270; J2405; J2704; J2795; J3010; J3370; J3490; J7050; Q9967

== ENCOUNTER 2020-02-28 20:39 | Inpatient (IN) | payer MEDICARE, MEDICAID ==
[~2020-02-28 20:39] MED LIST changes: +Heparin 1,000 UNITS/ML VIAL ONE; -Iopamidol-370 76% 500 ML 1 ML ONE
[2020-02-28] MEDS ORDERED: Vancomycin 1 GM/200 ML BAG ONE (20:58)
[2020-02-28] MEDS ORDERED: Cefepime 2 GM VIAL ONE (20:58)
[2020-02-28 21:11] LABS: Hemoglobin 8.5 g/dL (14.0-18.0); Mean Corpuscular HGB CONC 32.6 g/dL (32.0-36.0); Mean Corpuscular Hemoglobin 29.4 pg (27.0-31.0); Mean Corpuscular Volume 90.1 fL (78.0-98.0); Mean Platelet Volume 10.2 fL (7.4-10.4); Platelet Count 275 thou/uL (130-400); White Blood Cell (WBC) Count 21.4 thou/uL (4.8-10.8)
[2020-02-28 21:24] LABS: Band 40 % (5-11); Lymphocytes 2 % (21-51); MDiff Complete? YES; Monocytes 2 % (0-10); Neutrophil 56 % (42-75); Platelet Morphology Comment Appears Adequate
[2020-02-28 21:27] LABS: ALT (SGPT) 21 U/L (8-55); AST (SGOT) 40 U/L (5-34); Alkaline Phosphatase 123 U/L (40-110); Anion Gap 15 mmol/L (10-20); BUN (Urea Nitrogen) 42 mg/dL (8.4-25.7); Bilirubin, Total 0.4 mg/dL (0.2-1.2); Calc. Creatinine Clearance 0 mL/min (70-130); Calcium 8.6 mg/dL (7.8-10.44); Carbon Dioxide 21 mmol/L (23-31); Chloride 100 mmol/L (98-107); Estimated GFR-MDRD 39; Globulin 4.7 g/dL (2.4-3.5); Glucose 191 mg/dL (83-110); Potassium 3.7 mmol/L (3.5-5.1); Protein, Total 7.7 g/dL (5.8-8.1); Sodium 132 mmol/L (136-145)
[2020-02-28] MEDS ORDERED: Acetaminophen 500 MG TAB ONE (21:49)
--- NOTE | 2020-02-28 22:07 | PDOC.FPRHP ---
- History of Present Illness Chief Complaint: R leg pain History of Present Illness: Patient is a 74 yo male who presents with complaint of right leg pain. The patient recently had an amputation on the right below the knee done at [facility] on January 27, 2020. The patient states that this morning around 0900 he began to have pain in his right leg at the stump site that has become more severe throughout the day. Currently rates pain 15 out of scale of 1-10. His son noted blood on his wound dressing and some purulent drainage from the incision in this area. Later in the day the patient had gotten up and was trying to use the bathroom when he fell down. He denies hitting his head, and says that he did not feel weak, dizzy, or lightheaded when he fell. He was quickly helped up by his son and it was at that time they decided to come to the ED for further evaluation. The patient denies any cough, chest pain, shortness of breath, abdominal pain, nausea, vomiting, or diarrhea. ED Course: The patient was evaluated in the ED by Dr. Ansari and was found to be septic with BKA infection and was given vanc 1g, cefepime 2g, 2L NS and 1g tylenol. His knee imaging was found to have gas and so Dr. Ansari called general surgery, Dr. Whitman who will eval patient. - Allergies/Adverse Reactions Allergies Allergy/AdvReac Type Severity Reaction Status Date / Time No Known Allergies Allergy Verified 02/28/20 23:38 - Home Medications Medication Instructions Recorded Confirmed Type Hydrochlorothiazide 12.5 mg PO DAILY 01/17/20 01/23/20 History Lisinopril 10 mg PO DAILY 01/17/20 01/23/20 History metFORMIN [Glucophage] 500 mg PO QAM- 01/17/20 01/23/20 History Aspirin [Adult Aspirin Regimen] 81 mg PO DAILY #30 tab 01/19/20 01/23/20 Rx Acetaminophen [Tylenol Extra 1,000 mg PO Q6H PRN tab 01/29/20 Rx Strength] Atorvastatin Calcium [Lipitor] 40 mg PO HS tab 01/29/20 Rx Gabapentin [Neurontin] 300 mg PO TID cap 01/29/20 Rx Ibuprofen [Motrin] 600 mg PO Q6H PRN tab 01/29/20 Rx Ondansetron [Zofran ODT] 4 mg PO Q6H PRN tab 01/29/20 Rx Polyethylene Glycol 3350 [Miralax] 17 gm PO DAILY pk 01/29/20 Rx Ubidecarenone [Coenzyme Q10] 100 mg PO DAILY cap 01/29/20 Rx - History PMHx: CAD s/p [place], DM II, HTN, h/o CVA, PVD PSHx: Cholecystectomy, Laminectomy, R BKA FHx: Mother, Father, Siblings - [place], T2DM Social: Denies drugs, tobacco. He reports former alcohol use, but stopped about 15 years ago - Review of Systems General: denies: fever/chills, fatigue Eyes: denies: eye pain, vision changes ENT: denies: nasal congestion, rhinorrhea Respiratory: denies: cough, congestion, shortness of breath Cardiovascular: denies: chest pain Gastrointestinal: denies: nausea, diarrhea, constipation, abdominal pain Genitourinary: denies: dysuria Skin: denies: rashes, lesions Musculoskeletal: reports: pain, swelling Neurological: denies: numbness, syncope, weakness Psychological: denies: anxiety, depression - Vital signs BP: 141/63 HR: 95 RR: 21 Tmax: 101.3F Pox: 98% on RA Wt: 63.5 kg - Physical Exam Constitutional: NAD, awake, alert and oriented -Constitutional: ill appearing HEENT: normocephalic and atraumatic, EOMI, grossly normal vision, grossly normal hearing -HEENT: dry mucous membranes Neck: supple, trachea midline, no JVD Chest: no-tender to palpation, no lesions Heart: RRR, normal S1/S2, no murmurs/rubs/gallops -Heart: pulses diminished in bilateral lower extremities Lungs: CTAB, no respiratory distress, good air movement, no rales/rhonchi, no wheezing Abdomen: soft, non-tender, bowel sounds present -Musculoskeletal: right BKA stump with purulent drainage and blood oozing from open incision, surrounding warmth and erythema extending to just above knee, significantly TTP. -Neurological: decreased sensation in lower extremities Skin: no jaundice Psychiatric: normal mood and affect, intact recent and remote memory FMR H&P: Results - Labs Result Diagrams: 02/28/20 20:52 02/28/20 20:52 Lab results: WBC 21.4 thou/uL (4.8-10.8) H 02/28/20 20:52 Hgb 8.5 g/dL (14.0-18.0) L 02/28/20 20:52 Hct 26.1 % (42.0-52.0) L 02/28/20 20:52 MCV 90.1 fL (78.0-98.0) 02/28/20 20:52 Plt Count 275 thou/uL (130-400) 02/28/20 20:52 Band Neuts % (Manual) 40 % (5-11) H 02/28/20 20:52 Sodium 132 mmol/L (136-145) L 02/28/20 20:52 Potassium 3.7 mmol/L (3.5-5.1) 02/28/20 20:52 Chloride 100 mmol/L (98-107) 02/28/20 20:52 Carbon Dioxide 21 mmol/L (23-31) L 02/28/20 20:52 BUN 42 mg/dL (8.4-25.7) H 02/28/20 20:52 Creatinine 1.72 mg/dL (0.7-1.3) H 02/28/20 20:52 Glucose 191 mg/dL (83-110) H 02/28/20 20:52 Lactic Acid 2.6 mmol/L (0.5-2.2) H 02/28/20 20:52 Calcium 8.6 mg/dL (7.8-10.44) 02/28/20 20:52 Total Bilirubin 0.4 mg/dL (0.2-1.2) 02/28/20 20:52 AST 40 U/L (5-34) H 02/28/20 20:52 ALT 21 U/L (8-55) 02/28/20 20:52 Alkaline Phosphatase 123 U/L (40-110) H 02/28/20 20:52 Serum Total Protein 7.7 g/dL (5.8-8.1) 02/28/20 20:52 Albumin 3.0 g/dL (3.4-4.8) L 02/28/20 20:52 - EKG Interpretation EKG: NSR, no ST/T wave changes - Radiology Interpretation Other Status: report reviewed by me (Knee XR shows air within soft tissues along medial side of tibia.) Chest x-ray Status: image reviewed by me (no acute pathology), report reviewed by me CT scan - head Status: report reviewed by me (no acute pathology) FMR H&P: A/P - Problem List (1) Sepsis Current Visit: Yes Status: Acute Code(s): A41.9 - SEPSIS, UNSPECIFIED ORGANISM Qualifiers: Sepsis type: sepsis due to unspecified organism Sepsis acute organ dysfunction status: with acute organ dysfunction Severe sepsis acute organ dysfunction type: acute renal failure Acute renal failure type: unspecified Severe sepsis shock status: without septic shock Qualified Code(s): A41.9 - Sepsis, unspecified organism; R65.20 - Severe sepsis without septic shock; N17.9 - Acute kidney failure, unspecified (2) Right BKA infection Current Visit: Yes Status: Acute Code(s): T87.43 - INFECTION OF AMPUTATION STUMP, RIGHT LOWER EXTREMITY (3) Wound dehiscence Current Visit: Yes Status: Acute Code(s): T81.30XA - DISRUPTION OF WOUND, UNSPECIFIED, INITIAL ENCOUNTER (4) ANDERS (acute kidney injury) Current Visit: Yes Status: Acute Code(s): N17.9 - ACUTE KIDNEY FAILURE, UNSPECIFIED - Plan Patient is a 74 yo male who presents with right LE pain is admitted for right BKA infection: #Sepsis 2/2 Right BKA Infection #Wound Dehiscence of right BKA -s/p Vancomycin 1g and Cefepime 2 g in ED, will plan to continue -add on Clindamycin 900 mg IV for additional coverage and toxin binding properties -R Knee XR concerning for air in soft issues of medial tibia -CT head neg, CXR neg -Consult General Surgery--Dr. Whitman, appreciate recs -Blood and Wound cx obtained in ED -Lactic acid 2.6, repeat in 2 hours -Check Procal, ESR, CRP, CK -s/p 2 L NS IVF bolus in ED, will continue maintenance IVF LR @ 125 ml/hr -Morphine 2 mg prn for pain control, 4 mg for breakthrough pain #ANDERS -GFR 39, BUN 42, Cr 1.72, all above baseline from January 2020 labs -will hold home NSAIDs, Metformin -LR @ 125 IVF per above -monitor on AM CMP #Anemia, normocytic -admission Hgb 8.5 (decreased from January 2020 Hgb of 10.0) -monitor on AM CBC #Elevated Transaminases -AST 40, ALT 21, Alk Phos 123 -monitor on AM CMP #T2DM -hold home Metformin -start mild SSI & bedtime SSI -accuchecks ACHS -hyperglycemia protocol placed #HTN -hold home BP meds for now given sepsis clinical picture, consider restarting in AM #CAD, s/p [place] #PVD -continue home meds #S/P Fall at home -denies hitting head -Brain CT normal -continue to monitor Diet: NPO pending surgical eval VTE: hold ppx given current bleeding and surgical decision Code status: FULL Dispo: Stable, admit to inpatient on medical unit. Continue broad antibiotics, await culture results. Anticipate LOS > 2 days. Contact: ARINA SCHWARZ (PATIENTS SON)--[phone] FMR H&P: Upper Level - Pertinent history 74 y/o M PMHx DM2, HTN, CAD presents to the ED due to R leg pain. The patient had BKA on 01/26 and reports that the stump started hurting around 9am and then his son came to check on him and told him his wound was oozing blood so he came to the ER. He reports the pain was 15/10. He also reports a fall where he stumbled this morning. He did not feel lightheaded or dizzy. Denies any weakness. He did not hit his head, denies LOC. - Pertinent findings Vitals: BP 141/63, HR 91, RR 21, Temp 101.3, O2 sat 98% on RA Gen - alert, oriented, NAD CV - 2/6 systolic murmur MSK - R BKA Skin - R stump erythematous, warm, and tender up to knee. Prior surgical incision dehiscence with oozing blood and pus, no crepitus noted Labs: WBC 21.4, 40% bands, Hb 8.5, lactic acid 2.6, BUN 42, Cr 1.72, GFR 39 R leg x-ray - report pending, but Dr. Ansari received call from radiologist that there was gas noted in the soft tissues. - Plan Date/Time: 02/28/20 6482 I, Haily Salamanca MD, PGY-3, have evaluated this patient and agree with findings/ plan as outlined by wireless internet installer resident. Pertinent changes/additions are listed here. 1. Sepsis 2/2 Right BKA stump infection DDx: necrotizing fasciitis, wound abscess, gas gangrene X-ray showed gas in soft tissue of medial aspect of the knee -Blood Cx -Wound Cx prelim growing many gram + cocci in clusters and pairs -Dr. Whitman with Gen surgery consulted by ER, appreciate recs -Continue cefepime and vanc, will add clinda -Check ESR, CRP, CK, procal -LR @ 125 -Repeat lactic acid -NPO pending surgical eval 2. ANDERS Likely 2/2 sepsis. s/p 2L NS bolus -Continue IVF with LR @ 125 -Monitor 3. s/p fall No apparent injuries from fall. Brain CT done by ER that was normal -PT/OT 4. Normocytic Anemia Appears acute on chronic -Monitor, consider workup 5. DM2 -Hold metformin -SSI -Accuchecks 6. HTN -Monitor BP's closely as pt at risk for decompensating into septic shock -Restart BP medications for the AM Dispo: Admit to medical Code Status: Full VTE ppx: SCD's, will hold on pharmacologic until eval by surgeon Addendum - Attending - Attending Attestation Date/Time: 02/28/20 3253 I personally evaluated the patient and discussed the management with Dr. Jaimes. I agree with the History, Examination, Assessment and Plan documented above with any addition or exceptions noted below.
--- NOTE | 2020-02-28 22:28 | CT ---
CT OF BRAIN PERFORMED WITHOUT CONTRAST ENHANCEMENT: 02/28/20 HISTORY: Fall hitting head. COMPARISON: 02/20/19 exam. FINDINGS: Generalized ventricular and sulcal prominence. Prominent decreased attenuation to the periventricular white matter consistent with chronic white matter change. No signs of intracerebral hemorrhage or ex tra-axial fluid collections. Mastoid air cells are clear. There is mucosal changes in both maxillary sinuses. IMPRESSION: No acute intracranial abnormalities. POS: TAWNYA
--- NOTE | 2020-02-28 22:30 | RAD ---
RIGHT KNEE TWO VIEWS: 02/28/20 HISTORY: Right leg pain. The patient has undergoing a below the knee amputation. Extensive vascular calcifications are seen. N o joint effusion. No evidence for osteomyelitis. There re findings suspicious for some air density al skyler the medial side of the tibia. This was discussed with Dr. Ansari who said the patient is showing e vidence of dehiscence of the wound. IMPRESSION: Findings very suspicious for some air within the soft tissues along the medial side of the tibia. POS: TAWNYA
--- NOTE | 2020-02-28 22:31 | RAD ---
PORTABLE CHEST: 02/28/20 HISTORY: Fever. COMPARISON: 02/12/20 exam. Heart size within normal limits. There are atherosclerotic changes of the aorta. The lungs are clear of any infiltrative process. IMPRESSION: No active intrathoracic disease. POS: TAWNYA
[2020-02-28] MEDS ORDERED: Ondansetron ODT 4 MG TAB SL PRN (23:20)
[2020-02-28] MEDS ORDERED: Acetaminophen 325 MG TAB PO PRN ×2 (23:20→23:27)
[2020-02-28] MEDS ORDERED: Ondansetron PF 4 MG/2 ML Vial IVP PRN ×2 (23:20→23:27)
[2020-02-28] MEDS ORDERED: Morphine 4 MG/ML VIAL SLOW IVP PRN (23:27)
[2020-02-28] MEDS ORDERED: Ondansetron ODT 4 MG TAB PO PRN (23:27)
[2020-02-28] MEDS ORDERED: Morphine 2 MG/ML SYRINGE SLOW IVP PRN (23:27)
[2020-02-28] MEDS ORDERED: Acetaminophen 650 MG Suppository PR PRN (23:27)
[2020-02-28] MEDS ORDERED: Dextrose 5% in Water 1,000 ML IV PRN (23:27)
[2020-02-28] MEDS ORDERED: HumaLOG 300 UNITS/3 ML VIAL SC PRN (23:27)
[2020-02-28] MEDS ORDERED: Senokot S 8.6-50 MG TAB PO PRN (23:27)
[2020-02-28] MEDS ORDERED: Dextrose 50% Abboject 50 ML SYRINGE SLOW IVP PRN (23:27)
[2020-02-28] MEDS: Lactated Ringer's 1,000 ML IV SCH (23:51)
[2020-02-29] MEDS: Clindamycin/D5W 900 MG in Premix Bag 1 BAG IVPB SCH ×4 (00:03→23:28)
[2020-02-29 00:04] LABS: Lactic Acid 1.6 mmol/L (0.5-2.2)
[2020-02-29 00:20] LABS: CRP (Inflammatory) 37.92 mg/dL (= or < 0.5)
[2020-02-29] MEDS ORDERED: Lactated Ringer's 500 ML IV SCH ×2 (00:30→01:00)
[2020-02-29 06:08] LABS: Band 37 % (5-11); Eosinophils 1 % (0-10); Hemoglobin 7.1 g/dL (14.0-18.0); Lymphocytes 6 % (21-51); MDiff Complete? YES; Mean Corpuscular HGB CONC 32.7 g/dL (32.0-36.0); Mean Corpuscular Hemoglobin 29.6 pg (27.0-31.0); Mean Corpuscular Volume 90.5 fL (78.0-98.0); Mean Platelet Volume 9.9 fL (7.4-10.4); Monocytes 2 % (0-10); Neutrophil 54 % (42-75); Platelet Count 220 thou/uL (130-400); Platelet Morphology Comment Appears Adequate; RBC Distribution Width 12.9 % (11.5-14.5); White Blood Cell (WBC) Count 18.1 thou/uL (4.8-10.8)
[2020-02-29 06:10] LABS: ALT (SGPT) 23 U/L (8-55); AST (SGOT) 49 U/L (5-34); Albumin 2.2 g/dL (3.4-4.8); Alkaline Phosphatase 105 U/L (40-110); Anion Gap 10 mmol/L (10-20); BUN (Urea Nitrogen) 36 mg/dL (8.4-25.7); Bilirubin, Total 0.3 mg/dL (0.2-1.2); Calc. Creatinine Clearance 48 mL/min (70-130); Carbon Dioxide 22 mmol/L (23-31); Chloride 106 mmol/L (98-107); Estimated GFR-MDRD 56; Globulin 3.6 g/dL (2.4-3.5); Glucose 114 mg/dL (83-110); Protein, Total 5.8 g/dL (5.8-8.1); Sodium 135 mmol/L (136-145)
[2020-02-29 06:14] LABS: Potassium 2.9 mmol/L (3.5-5.1)
--- NOTE | 2020-02-29 06:28 | PDOC.FM ---
- Subjective Subjective: Pt says his pain is improved this morning. Recounts his admission story to me this AM. AxO x3. - Objective MAR Reviewed: Yes Vital Signs & Weight: Vital Signs (12 hours) Temp Pulse Resp BP Pulse Ox 02/29/20 04:00 97.7 F 70 18 105/57 L 96 02/28/20 23:30 95 02/28/20 23:27 99.5 F 81 18 107/48 L 95 02/28/20 23:15 99.1 F 87 20 114/53 L 95 Weight Weight 64.127 kg Result Diagrams: 02/29/20 04:55 02/29/20 04:55 Phys Exam - Physical Examination Constitutional: NAD Respiratory: clear to auscultation bilateral Cardiovascular: RRR Gastrointestinal: soft, non-tender, no distention, positive bowel sounds Musculoskeletal: no edema, pulses present Psychiatric: A&O x 3 Deviation from normal: Tefla on BKA wound. Pus draining. Dx/Plan (1) Right BKA infection Code(s): T87.43 - INFECTION OF AMPUTATION STUMP, RIGHT LOWER EXTREMITY Status : Acute (2) Sepsis Code(s): A41.9 - SEPSIS, UNSPECIFIED ORGANISM Status: Acute Qualifiers: Sepsis type: sepsis due to unspecified organism Sepsis acute organ dysfunction status: with acute organ dysfunction Severe sepsis acute organ dysfunction type: acute renal failure Acute renal failure type: unspecified Severe sepsis shock status: without septic shock Qualified Code(s): A41.9 - Sepsis, unspecified organism; R65.20 - Severe sepsis without septic shock; N17.9 - Acute kidney failure, unspecified (3) Wound dehiscence Code(s): T81.30XA - DISRUPTION OF WOUND, UNSPECIFIED, INITIAL ENCOUNTER Status : Acute - Plan Plan: Patient is a 74 yo male who presents with right LE pain is admitted for right BKA infection: #Sepsis 2/2 Right BKA Infection #Wound Dehiscence of right BKA -on clindamycin, vanc, and cefepime -R Knee XR concerning for air in soft issues of medial tibia -Consult General Surgery--Dr. Whitman, appreciate recs. Will speak w/ Dr. Plata, wound debridement vs more likely AKA -Blood cx pending - wound gram stain: gm+ cocci in pairs/clusters -procal, ESR, CRP elevated -Morphine IV for pain -NPO, strict # Hypokalemia - replace IV - magnesium lab ordered #ANDERS -GFR 39, BUN 42, Cr 1.72, all above baseline from January 2020 labs -will hold home NSAIDs, Metformin -LR @ 125 IVF per above -monitor on AM CMP #Anemia, normocytic -7.1 this AM - type and screen. #Elevated Transaminases -monitor on AM CMP #T2DM -hold home Metformin -start mild SSI & bedtime SSI -accuchecks ACHS -hyperglycemia protocol placed #HTN -hold home BP meds #CAD, s/p [place] #PVD -continue home meds when PO status after surgery #S/P Fall at home -denies hitting head -Brain CT normal -continue to monitor Diet: NPO, strict VTE: SCDs Code status: FULL Dispo: Stable, admit to inpatient on medical unit. Continue broad antibiotics, await culture results. Anticipate LOS > 2 days. Contact: ARINA SCHWARZ (PATIENTS SON)--[phone] Addendum - Attending - Attending Attestation Date/Time: 02/29/20 3419 I personally evaluated the patient and discussed the management with Dr. Craft. I agree with the History, Examination, Assessment and Plan documented above with any addition or exceptions noted below. Patient here for post op infection and wound dehiscence. Continue abx and await general surgery input. Control chronic conditions as needed.
[2020-02-29] MEDS ORDERED: Potassium Chloride 20 MEQ TAB PO SCH (06:30)
[2020-02-29] MEDS ORDERED: Potassium Chloride 20 MEQ in Premix Bag 1 BAG IVPB SCH (07:00)
[2020-02-29] MEDS: Lactated Ringer's 1,000 ML IV SCH (07:03)
--- NOTE | 2020-02-29 08:09 | CON ---
DATE OF CONSULTATION: 02/29/2020 HISTORY OF PRESENT ILLNESS: Mr. Camarena is a 74-year-old male, who had a right suixa-wtl-eskd amputation done by Dr. Plata on January 27, 2020. Recently, he began having pain in the stump. He says he also fell, I am not sure if there was any trauma caused to the stump from that fall. There was noted by his family to be blood on the dressing as well as some purulent drainage. He was brought to the emergency room and admitted with evidence of infection of the right ewjnx-qru-lxuj stump. PAST MEDICAL HISTORY: Significant for cholecystectomy and laminectomy as well as history of myocardial infarction, diabetes mellitus, hypertension, CVA, and peripheral vascular disease. SOCIAL HISTORY: He does have family who live locally. He denies any use of tobacco. No current use of any alcohol. MEDICATIONS: Include; 1. Hydrochlorothiazide. 2. Lisinopril. 3. Glucophage. 4. Aspirin. 5. Atorvastatin. 6. Gabapentin. 7. Ibuprofen. ALLERGIES: NONE KNOWN. PHYSICAL EXAMINATION: VITAL SIGNS: Blood pressure 105/57, pulse 70, temperature 97.7. GENERAL: He is somewhat emaciated. He does respond appropriately. HEAD, EYES, EARS, NOSE, AND THROAT: He appears to be edentulous. Questionable mild icterus of the sclerae. NECK: Without masses. CHEST: Clear. ABDOMEN: Nontender without any distention. EXTREMITIES: The left lower extremity is viable. The femoral pulses are palpable. There is a right nzmls-mjg-vnjb amputation. The lateral aspect of the incision has some necrotic tissue with some purulence. No fluctuance noted. There is some ecchymotic appearance of the skin anteriorly as well as edema that extends up to the level of the knee with some erythema also extending to the level of the knee. No crepitance noted, not a significant amount of tenderness to palpation of the stump. LABORATORY STUDIES: Hemoglobin 7.1 g, hematocrit 21.7%, white count 18,000, 54 neutrophils, 37 bands, and 6 lymphocytes. Chemistry shows sodium of 135, potassium 2.9, chloride 26, CO2 of 22, BUN 36, creatinine 1.27, glucose 114. His lactic acid when he came in was 2.6, a repeat was 1.6. Creatinine kinase and C-reactive protein were both elevated. His albumin is 2.2. Procalcitonin level 7.70. IMPRESSION: The right hhege-tif-hgum stump is showing evidence of infection and tissue necrosis. My feeling would be that this is not going to heal as it is. RECOMMENDATIONS: One could open up the stump and debride any infected necrotic tissue. I have serious doubts that this would be successful in the terminal operations manager as I do not think this wound is ever going to heal. I think it is more likely that an yziwe-hky-syaf amputation would be recommended. I am going to discuss this later on this morning with Dr. Plata to find out if he wants to proceed with definitive therapy or if he wants me to take care of the problem today. Job ID: [id number]
[2020-02-29] MEDS ORDERED: Potassium Chloride 20 MEQ/100 ML PREMIX BAG IVPB SCH (08:15)
[2020-02-29] MEDS: Cefepime 2 GM in Sodium Chloride 0.9% 100 ML IVPB SCH ×2 (08:38→20:23)
[2020-02-29] MEDS: Famotidine 20 MG TAB PO SCH (08:39)
[2020-02-29] MEDS: Polyethylene Glycol 3350 17 GM Packet PO SCH (08:39)
[2020-02-29] MEDS: Gabapentin 300 MG CAP PO SCH ×3 (08:39→20:23)
[2020-02-29] MEDS ORDERED: Vancomycin HCl 1 GM in Sodium Chloride 0.9% 250 ML 300 ML IVPB SCH (09:00)
[2020-02-29] MEDS ORDERED: Acetaminophen 500 MG TAB PO PRN (12:49)
[2020-02-29] MEDS ORDERED: Potassium Chloride 40 MEQ in Sodium Chloride 0.9% 250 ML 250 ML IVPB SCH (16:00)
--- NOTE | 2020-02-29 17:09 | CON ---
DATE OF CONSULTATION: 02/29/2020 HISTORY OF PRESENT ILLNESS: Geena Camarena was admitted to the hospital yesterday. 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 He had this dysfunction prior to the surgery and never recovered because it was so long-lasting. He was having such neuropathic pain, footdrop, dysfunction, and nonuse of his leg, and we did a pmsex-tdr-xozr amputation. He did have some degree of PAD. It was felt that his adppf-idn-jrnc amputation wound would heal. He has no financial resources and was sent home. The patient, however, went home without a wheelchair, without a shower chair, without a walker. I saw him in my office in followup 3 to 4 days ago. The patient had fallen injuring his right BKA stump prior. He was a month out from his amputation. His stump was cellulitic and indurated. [place] were removed. Steri-Strips were applied. After leaving my office, he states he has fallen at least once if not twice injuring his BKA stump. He presents to the emergency room and admitted by [facility]. X-rays obtained were unremarkable. Brain CAT scan obtained on 02/28/2020, on admission did not reveal any acute abnormalities. X-rays of his knee and chest, no acute abnormality. He was admitted to the hospital with vancomycin and cefepime. I am seen today, 02/29/2020. The right BKA stump does not have a dressing. There is an opening in the lateral stump. Dehiscence of the skin and subcutaneous tissue. The fascia appears to be intact. The wound is open by digital probing medially. The fascia seems to be intact. The redness that was present last week in my office has resolved. Blood cultures are negative today. Cultures of left leg reveal Staphylococcus. He is on vancomycin and cefepime. On admission, his white count was 21,000, this morning at 18,000. He did have a left shift. When I walked in the room, I saw although there is no dressing on the wound, he has a pillow under his thigh with his knee flexed. I have reminded him to maintain right knee extension and prevent BKA stump contracture by keeping a pillow or blanket beneath the stump and below the knee to promote extension. I repositioned the elevation padding. I placed a gauze dressing and wrap on the wound. ASSESSMENT AND PLAN: Dehiscence of skin and subcutaneous tissues with resolving cellulitis. Continue vancomycin and cefepime at this time. I reviewed cultures, could probably discontinue the cefepime. I expect that we will change him to oral antibiotics on discharge. In my office last week, I did arrange for him to have a wheelchair. We will need behavioral health case manager to assure that he has a walker and a shower chair. I will look at the wound tomorrow. Debride it sharply at bedside. Ask Wound Care to place a wound VAC and ask the case finisher to arrange outpatient wound VAC, [facility] Wound Care appointment [facility], changing it twice a week. The patient states he does have family for transportation to provide this care. We will need to promote right knee extension by placing pillows or blankets beneath his below-knee amputation stump, below his knee. Avoid placing these blankets and pillows at or above the knee to prevent contracture. Follow CBC. His white count should diminish that the wound is open and antibiotics. There does not appear to be a deep infection, and he should be able to go home later in the week with oral antibiotics and outpatient wound care and follow up in my office. Job ID: [id number]
[2020-02-29 17:29] LABS: Potassium 3.6 mmol/L (3.5-5.1)
[2020-02-29] MEDS: Tamsulosin HCl 0.4 MG CAP PO SCH (20:23)
[2020-02-29] MEDS: Atorvastatin Calcium 40 MG TAB PO SCH (20:23)
[2020-02-29] MEDS: Vancomycin 1 GM in Premix Bag 1 BAG IVPB SCH (21:01)
[2020-02-29 22:55] LABS: Chloride 105 mmol/L (98-107); Potassium 4.1 mmol/L (3.5-5.1); Sodium 134 mmol/L (136-145)
[2020-02-29 22:56] LABS: Calcium 8.1 mg/dL (7.8-10.44); Glucose 146 mg/dL (83-110)
[2020-02-29 22:58] LABS: Anion Gap 9 mmol/L (10-20); Carbon Dioxide 24 mmol/L (23-31)
[2020-02-29 22:59] LABS: Calc. Creatinine Clearance 43 mL/min (70-130); Estimated GFR-MDRD 49
[2020-02-29 23:00] LABS: BUN (Urea Nitrogen) 34 mg/dL (8.4-25.7)
[2020-03-01 05:40] LABS: Band 18 % (5-11); Hemoglobin 7.1 g/dL (14.0-18.0); Hypochromia SLIGHT = 6-15 cells (100X) (0-5/hpf); Lymphocytes 8 % (21-51); MDiff Complete? YES; Mean Corpuscular HGB CONC 31.9 g/dL (32.0-36.0); Mean Corpuscular Volume 90.8 fL (78.0-98.0); Mean Platelet Volume 9.9 fL (7.4-10.4); Metamyelocyte 1 % (0-0); Monocytes 6 % (0-10); Neutrophil 67 % (42-75); Platelet Count 253 thou/uL (130-400); Platelet Morphology Comment Appears Adequate; RBC Distribution Width 13.1 % (11.5-14.5); Red Blood Cell (RBC) Count 2.45 mill/uL (4.70-6.10); White Blood Cell (WBC) Count 18.2 thou/uL (4.8-10.8)
[2020-03-01 05:41] LABS: Anion Gap 10 mmol/L (10-20); BUN (Urea Nitrogen) 34 mg/dL (8.4-25.7); Calc. Creatinine Clearance 48 mL/min (70-130); Calcium 8.1 mg/dL (7.8-10.44); Carbon Dioxide 23 mmol/L (23-31); Chloride 106 mmol/L (98-107); Estimated GFR-MDRD 57; Glucose 121 mg/dL (83-110); Potassium 3.7 mmol/L (3.5-5.1); Sodium 135 mmol/L (136-145)
--- NOTE | 2020-03-01 06:24 | PDOC.FM ---
- Subjective Subjective: Patient doing well this morning, reports pain is improved. Discussed plans for bedside wound debridement and continued antibiotics. Patient agreeable with plan of care. - Objective Vital Signs & Weight: Vital Signs (12 hours) Temp Pulse Resp BP Pulse Ox 03/01/20 03:50 97.8 F 68 18 118/62 94 L 02/29/20 23:57 98.1 F 74 18 111/60 98 02/29/20 20:00 98.4 F 78 18 126/65 94 L Weight Weight 64.127 kg I&O: 02/28/20 02/29/20 03/01/20 06:59 06:59 06:59 Intake Total 650 Output Total 2280 Balance -1630 Result Diagrams: 03/09/20 06:01 03/09/20 06:01 Phys Exam - Physical Examination Constitutional: NAD HEENT: moist MMs, sclera anicteric Neck: supple, full ROM Respiratory: no wheezing, clear to auscultation bilateral Cardiovascular: RRR, no significant murmur Gastrointestinal: no distention, positive bowel sounds Musculoskeletal: no edema R BKA wound dressing c/d/i. Neurological: normal sensation, moves all 4 limbs Psychiatric: normal affect, A&O x 3 Skin: no rash, normal turgor Dx/Plan (1) ANDERS (acute kidney injury) Code(s): N17.9 - ACUTE KIDNEY FAILURE, UNSPECIFIED Status: Acute (2) Right BKA infection Code(s): T87.43 - INFECTION OF AMPUTATION STUMP, RIGHT LOWER EXTREMITY Status : Acute (3) Sepsis Code(s): A41.9 - SEPSIS, UNSPECIFIED ORGANISM Status: Acute Qualifiers: Sepsis type: sepsis due to unspecified organism Sepsis acute organ dysfunction status: with acute organ dysfunction Severe sepsis acute organ dysfunction type: acute renal failure Acute renal failure type: unspecified Severe sepsis shock status: without septic shock Qualified Code(s): A41.9 - Sepsis, unspecified organism; R65.20 - Severe sepsis without septic shock; N17.9 - Acute kidney failure, unspecified (4) Wound dehiscence Code(s): T81.30XA - DISRUPTION OF WOUND, UNSPECIFIED, INITIAL ENCOUNTER Status : Acute (5) Cellulitis Code(s): L03.90 - CELLULITIS, UNSPECIFIED Status: Acute - Plan Plan: Patient is a 74 yo male who presents with right LE pain is admitted for right BKA infection: #Sepsis 2/2 Right BKA Infection #Wound Dehiscence of right BKA -on clindamycin, vanc, and cefepime -R Knee XR concerning for air in soft issues of medial tibia -Consult General Surgery--Dr. Whitman, appreciate recs. -Dr. Plata consulted, rec bedside wound debridement today with placement of wound vac, following CBC -Blood cx 1/2 MRSA, 1/2 gram + cocci - wound gram stain: gm+ cocci in pairs/clusters, MRSA -procal, ESR, CRP elevated -Morphine IV for pain -NPO, strict # Hypokalemia, resolved - replaced IV #ANDERS -GFR 39, BUN 42, Cr 1.72, > GFR 58, BUN 24, Cr 1.25, improving -LR @ 125 IVF per above -monitor on AM CMP #Anemia, normocytic -7.1 this AM - type and screen. #Elevated Transaminases -monitor on AM CMP #T2DM -continue home Metformin -mild SSI & bedtime SSI -accuchecks ACHS -hyperglycemia protocol placed #HTN -hold home BP meds #CAD, s/p [place] #PVD -continue home meds #S/P Fall at home -denies hitting head -Brain CT normal -continue to monitor Diet: NPO, strict pending bedside debridement today VTE: SCDs Code status: FULL Dispo: Stable, admitted to inpatient on medical unit. Continue antibiotics, wound and blood cultures demonstrated MRSA at this time, plan for bedside wound debridement today. Anticipate LOS > 2 days. Contact: ARINA SCHWARZ (PATIENTS SON)--[phone] Addendum - Attending - Attending Attestation Date/Time: 03/09/20 9042 I personally evaluated the patient and discussed the management with Dr. Rivera on 03/01/20. I agree with the History, Examination, Assessment and Plan documented above with any addition or exceptions noted below. Sepsis due to Wound dehiscence with secondary infection. Pt. was noncompliant with postop recovery plan of care. Blood Cultures positive MRSA. Dementia suspected in conversation.
[2020-03-01] MEDS: Clindamycin/D5W 900 MG in Premix Bag 1 BAG IVPB SCH (07:55)
[2020-03-01] MEDS: metFORMIN 500 MG TAB PO SCH ×2 (08:15→13:45)
[2020-03-01] MEDS: traMADol HCl 50 MG TAB PO PRN ×2 (09:43→22:58)
[2020-03-01] MEDS: Aspirin 81 mg Enteric Coated Tablet PO SCH ×2 (09:45→13:42)
[2020-03-01] MEDS: Cefepime 2 GM in Sodium Chloride 0.9% 100 ML IVPB SCH (09:45)
[2020-03-01] MEDS: Gabapentin 300 MG CAP PO SCH ×3 (09:45→20:32)
[2020-03-01] MEDS: Famotidine 20 MG TAB PO SCH ×2 (09:45→13:44)
[2020-03-01] MEDS: Ubidecarenone 50 MG CAP PO SCH ×2 (09:48→13:45)
[2020-03-01] MEDS: Polyethylene Glycol 3350 17 GM Packet PO SCH ×2 (09:48→13:44)
[2020-03-01] MEDS: Hydrochlorothiazide 25 MG TAB PO SCH ×2 (09:48→13:42)
[2020-03-01] MEDS: Lisinopril 10 MG TAB PO SCH ×2 (09:48→13:44)
--- NOTE | 2020-03-01 11:49 | PRG ---
DATE OF SERVICE: 03/01/2020 Wound is evaluated today. Yesterday when I evaluated the wound, it appeared to be superficial, but as I further evaluated there was dark colored fluid evacuating from the medial aspect of the wound from the deep fascia. This was opened and the underlying wound had abundant material not healing at all. The skin and subcutaneous tissue, eschar debrided sharply. There was no bleeding. Plan at this time is for wound care to place a wound VAC on the wound. Continue intravenous antibiotics 48 hours for now. We will plan bccxc-bzw-kxap amputation. He should continue vancomycin and cefepime till then. His hemoglobin is 7. We will type and cross. Sunday morning, plan transfusion intraoperatively. I would not transfuse him before. I asked Physical Therapy to see him to aid in transfers and mobility training. Ask heel caser to see him regarding evaluation [facility] re[facility] as his wound has dehisced because of multiple falls at home. Job ID: [id number]
[2020-03-01] MEDS: Tamsulosin HCl 0.4 MG CAP PO SCH (20:32)
[2020-03-01] MEDS: Atorvastatin Calcium 40 MG TAB PO SCH (20:32)
[2020-03-01 22:02] LABS: Vancomycin, Trough 10.6 ug/mL
[2020-03-01] MEDS: Vancomycin 1 GM in Premix Bag 1 BAG IVPB SCH (22:50)
[2020-03-01] MEDS: Vancomycin HCl 1.25 GM in Sodium Chloride 0.9% 250 ML 250 ML IVPB SCH (22:51)
[2020-03-02 05:21] LABS: Band 13 % (5-11); Hemoglobin 7.1 g/dL (14.0-18.0); Lymphocytes 11 % (21-51); MDiff Complete? YES; Mean Corpuscular HGB CONC 32.1 g/dL (32.0-36.0); Mean Corpuscular Hemoglobin 29.1 pg (27.0-31.0); Mean Corpuscular Volume 90.5 fL (78.0-98.0); Mean Platelet Volume 9.5 fL (7.4-10.4); Metamyelocyte 2 % (0-0); Monocytes 7 % (0-10); Neutrophil 67 % (42-75); Platelet Count 303 thou/uL (130-400); Platelet Morphology Comment Appears Adequate; RBC Distribution Width 13.1 % (11.5-14.5); Red Blood Cell (RBC) Count 2.43 mill/uL (4.70-6.10); White Blood Cell (WBC) Count 18.4 thou/uL (4.8-10.8)
--- NOTE | 2020-03-02 05:25 | PDOC.FM ---
- Subjective Subjective: Patient doing well this morning. Discussed Dr. Plata's discussion with him yesterday about plans for AKA on Sunday. Patient agreeable with plan of care. - Objective Vital Signs & Weight: Vital Signs (12 hours) Temp Pulse Resp BP Pulse Ox 03/02/20 03:38 98.3 F 71 18 138/73 96 03/02/20 00:00 98.7 F 73 18 131/63 94 L 03/01/20 20:00 98.3 F 81 18 132/71 93 L Weight Admit Weight 64.127 kg Weight 64.127 kg I&O: 02/29/20 03/01/20 03/02/20 06:59 06:59 06:59 Intake Total 650 560 Output Total 2280 700 Balance -1630 -140 Result Diagrams: 03/02/20 05:07 03/02/20 05:07 Phys Exam - Physical Examination Constitutional: NAD HEENT: moist MMs, sclera anicteric Neck: supple, full ROM Respiratory: no wheezing, clear to auscultation bilateral Cardiovascular: RRR, no significant murmur Gastrointestinal: soft, non-tender Musculoskeletal: no edema R BKA, dressing c/d/i Neurological: non-focal, moves all 4 limbs Psychiatric: normal affect Skin: no rash, normal turgor Dx/Plan (1) ANDERS (acute kidney injury) Code(s): N17.9 - ACUTE KIDNEY FAILURE, UNSPECIFIED Status: Acute (2) Right BKA infection Code(s): T87.43 - INFECTION OF AMPUTATION STUMP, RIGHT LOWER EXTREMITY Status : Acute (3) Sepsis Code(s): A41.9 - SEPSIS, UNSPECIFIED ORGANISM Status: Acute Qualifiers: Sepsis type: sepsis due to unspecified organism Sepsis acute organ dysfunction status: with acute organ dysfunction Severe sepsis acute organ dysfunction type: acute renal failure Acute renal failure type: unspecified Severe sepsis shock status: without septic shock Qualified Code(s): A41.9 - Sepsis, unspecified organism; R65.20 - Severe sepsis without septic shock; N17.9 - Acute kidney failure, unspecified (4) Wound dehiscence Code(s): T81.30XA - DISRUPTION OF WOUND, UNSPECIFIED, INITIAL ENCOUNTER Status : Acute (5) Cellulitis Code(s): L03.90 - CELLULITIS, UNSPECIFIED Status: Acute - Plan Plan: Patient is a 74 yo male who presents with right LE pain is admitted for right BKA infection: #Sepsis 2/2 Right BKA Infection #Wound Dehiscence of right BKA -on clindamycin, vanc, and cefepime -R Knee XR concerning for air in soft issues of medial tibia -Consult General Surgery--Dr. Whitman, appreciate recs. -Dr. Plata consulted, bedside wound debridement 03/01 with placement of wound vac, following CBC -plans for AKA this week, possibly Saturday 03/03 due to the extent of the infection -Blood cx 2/2 MRSA -Dr. Yadav, ID, consulted, appreciate recs; rec at least 2-4 weeks of IV abx for MRSA bacteremia, PICC line order placed -wound gram stain: gm+ cocci in pairs/clusters, MRSA -procal, ESR, CRP elevated -Morphine IV for pain # Hypokalemia, resolved - replaced IV #ANDERS, resolved -GFR 39, BUN 42, Cr 1.72, > GFR 69, BUN 32, Cr 1.06 -LR @ 125 IVF per above #Anemia, normocytic -7.1 this AM - type and screen. -Dr. Plata plans to give 1u pRBC during the AKA procedure #Elevated Transaminases -monitor on AM CMP #T2DM -continue home Metformin -mild SSI & bedtime SSI -accuchecks ACHS -hyperglycemia protocol placed #HTN -hold home BP meds #CAD, s/p [place] #PVD -continue home meds #S/P Fall at home -denies hitting head -Brain CT normal -continue to monitor Diet: CC VTE: SCDs Code status: FULL Dispo: Stable, admitted to inpatient on medical unit. Continue antibiotics, wound and blood cultures demonstrated MRSA at this time, wound vac in place, plan for AKA on 03/03. Contact: ARINA SCHWARZ (PATIENTS SON)--[phone]
[2020-03-02 05:36] LABS: Anion Gap 10 mmol/L (10-20); BUN (Urea Nitrogen) 32 mg/dL (8.4-25.7); Calc. Creatinine Clearance 57 mL/min (70-130); Calcium 8.4 mg/dL (7.8-10.44); Carbon Dioxide 24 mmol/L (23-31); Chloride 108 mmol/L (98-107); Estimated GFR-MDRD 69; Glucose 97 mg/dL (83-110); Potassium 3.7 mmol/L (3.5-5.1); Sodium 138 mmol/L (136-145)
[2020-03-02] MEDS: Hydrochlorothiazide 25 MG TAB PO SCH (08:52)
[2020-03-02] MEDS: Lisinopril 10 MG TAB PO SCH (08:52)
[2020-03-02] MEDS: Famotidine 20 MG TAB PO SCH (08:52)
[2020-03-02] MEDS: metFORMIN 500 MG TAB PO SCH (08:52)
[2020-03-02] MEDS: Gabapentin 300 MG CAP PO SCH ×3 (08:52→20:39)
[2020-03-02] MEDS: Cefepime 2 GM in Sodium Chloride 0.9% 100 ML IVPB SCH ×3 (08:53→11:34)
[2020-03-02] MEDS: Polyethylene Glycol 3350 17 GM Packet PO SCH (08:53)
[2020-03-02] MEDS: Ubidecarenone 50 MG CAP PO SCH (09:03)
[2020-03-02] MEDS: Aspirin 81 mg Enteric Coated Tablet PO SCH (11:26)
--- NOTE | 2020-03-02 11:59 | SPC ---
Ultrasound and Fluoroscopic guided left upper extremity PICC placement HISTORY: Right lower extremity infection. Patient needs long-term IV antibiotics FINDINGS: Informed consent obtained prior to the procedure. An appropriate access site was determined with ultrasound guidance. The area was then meticulously pr epped and draped in usual sterile fashion. Skin overlying the left basilic vein anesthetized with 1% buffered lidocaine. Utilizing direct sonogr aphic guidance, vascular access is obtained via the left basilic vein, and an 0.018in guidewire was advanced to the SVC. Intravascular length is calculated at 40.5 cm, and the PICC is cut accordingly. Needle is removed and replaced with a peel-away sheath. The PICC was advanced over the wire. Wire and peel-away sheath were removed. The tip of the catheter overlies the SVC. The catheter was accessed and aspirated/flushed easily. Exposure data: 0.6 minutes of fluoroscopic time 3757 mGy centimeter squared FINDINGS: Technically successful placement of a 40.5 centimeter single lumen 4French left upper extremity PICC line. IMPRESSION: Successful ultrasound guided placement of a left upper extremity PICC.
--- NOTE | 2020-03-02 12:07 | PRG ---
DATE OF SERVICE: Geena Camarena is doing well. He is scheduled for rdrek-rsq-njfk amputation tomorrow. Cultures revealed MRSA positive blood cultures. Wound VAC is applied to his open wound, right BKA with intravenous antibiotics. Plan for AKA tomorrow. Note, patient is anemic. He is typed and crossed for 2 units. We will plan to give 1 or 2 units intraoperatively. Job ID: [id number]
[2020-03-02] MEDS: traMADol HCl 50 MG TAB PO PRN (15:56)
--- NOTE | 2020-03-02 16:46 | SPC ---
Exam: Left upper extremity PICC line placement with ultrasound guidance HISTORY: Patient removed PICC line placed earlier today for antibiotic administration. EXPOSURE: 0.4 minutes. 2902 mGy/cm2. FINDINGS: Successful replacement of a left upper extremity PICC line. Distal tip is in the cavoatrial junction. 40 cm trim length. Single lumen catheter does flush and aspirate without difficulty. TECHNIQUE: Consent obtained to perform a replacement of a left upper extremity PICC line placed [place] today. Left arm was prepped and draped in sterile fashion. Lidocaine, buffered with sodium bicarbonate, was used for local anesthesia. Micropuncture needle was used to recannulate the basilic vein, at the site of previous PICC line placement. 0.018 guidewire was advanced through the needle to level of the cavoatrial junction. Tract was again dilated. A 4 Somali single-lumen catheter was ad vanced over the wire. Catheter flushes and aspirates without difficulty. IMPRESSION: Successful replacement of a 4 Somali single-lumen PICC line. Transcribed Date/Time: 03/02/2020 5:42 PM
--- NOTE | 2020-03-02 16:59 | CON ---
DATE OF CONSULTATION: 03/02/2020 REASON FOR CONSULTATION: Bacteremia. HISTORY OF PRESENT ILLNESS: A 74-year-old patient, who has a history of type 2 diabetes, neuropathy, coronary artery disease with prior [place], and a previous BKA in January 2020, the patient had the procedure done on January [address] Plata, and it looks like the indication was right footdrop with neurogenic pain and element of peripheral vascular disease. An MRI of the right lower extremity was done on December and it did not show any evidence of osteomyelitis or enhancing drainable fluid collection. The surgeon discussed with the family and the family requested amputation to improve his functional capacity and mobility with the prosthesis, so that was carried out on January 26. The patient developed dehiscence of the stump site associated with worsening pain and purulent drainage. He also had a fall, which appeared to have been a mechanical fall, not related to altered mental status. He was able to get up by himself. On arrival, he had a temperature of 101.3 and blood pressure of 141/63. There was evidence of purulent drainage at the right BKA stump. The patient underwent revision of the site with I and D by Dr. Plata and cultures have yielded MRSA from the wound as well as 2 sets of blood cultures. Currently, Mr. Camarena is awake. He is lying in bed. He denies any headaches. No visual symptoms, sore throat, odynophagia, or dysphagia. Appears chronically ill, but in no acute distress. No cough, sputum production, or chest pain. No abdominal pain. Voiding without difficulty. No diarrhea. The patient has moderate pain at the right BK stump site, which has a negative pressure dressing at this time. No neurological symptoms. PAST MEDICAL HISTORY: Includes type 2 diabetes, neuropathy, spinal surgery with right footdrop, mobility impairment, myocardial infarction, and hypertension. PAST SURGICAL HISTORY: Cholecystectomy and laminectomy. FAMILY HISTORY: Type 2 diabetes, coronary artery disease. SOCIAL HISTORY: Former excessive alcoholic beverage use, but not recently. Never smoker. Lives in town with his sons. CURRENT MEDICATIONS: 1. Ecotrin. 2. Lipitor. 3. Cefepime. 4. Dextrose. 5. Pepcid. 6. Glucagon. 7. Insulin. 8. Glucophage. 9. MiraLAX. 10. Senokot. 11. Vancomycin. 12. Tramadol. PHYSICAL EXAMINATION: VITAL SIGNS: T-max 99.5, BP 170/62, pulse 64, respirations 18, and O2 saturation 93 to 94. SKIN: Shows the lateral aspect of the BKA with an area of dehiscence measuring about 3 cm with packing. There is a mild erythema surrounding this area, and there is a small little stage II ulcer at the presacral region, very small right at the coccyx overlying the skin. There is a picture from the stump after the surgical I and D with packing, although the whole stump was re-opened from end-to-end. HEENT: Ocular movements are conjugate. Pupils are about 2 mm and reactive. Oral cavity with no [place] teeth remaining. Oral mucosa is normal. NECK: Supple. No jugular venous distention. LUNGS: Symmetric. Clear breath sounds. HEART: S1 and S2, regular rate. No S3 or S4. ABDOMEN: Soft. Not distended or tender. No ascites. He has a [place] catheter in place. ASSESSMENT: Type 2 diabetes, coronary artery disease, right footdrop, status post below-knee amputation, presumably done for mobility reasons. Now, the patient has had dehiscence, has an infection there. The surgeon is planning above-knee amputation. DISCUSSION: In view of the bacteremia and the persistence of infection, we will recommend at least 4 weeks of IV antimicrobial therapy with vancomycin, decrease the risks of persistence of infection and distant dissemination. We will go ahead and place orders for the case planner. Job ID: [id number]
[2020-03-02] MEDS ORDERED: Haloperidol Lactate 5 MG/ML VIAL SLOW IVP SCH (19:00)
[2020-03-02] MEDS: Tamsulosin HCl 0.4 MG CAP PO SCH (20:39)
[2020-03-02] MEDS: Atorvastatin Calcium 40 MG TAB PO SCH (20:39)
[2020-03-03] MEDS: Vancomycin HCl 1.25 GM in Sodium Chloride 0.9% 250 ML 250 ML IVPB SCH ×2 (00:11→23:55)
[2020-03-03 05:43] LABS: Chloride 104 mmol/L (98-107); Potassium 3.9 mmol/L (3.5-5.1); Sodium 136 mmol/L (136-145)
[2020-03-03 05:44] LABS: Calcium 8.4 mg/dL (7.8-10.44); Glucose 82 mg/dL (83-110)
--- NOTE | 2020-03-03 05:45 | PDOC.FM ---
- Subjective Subjective: Patient tried to pull out his PICC line again last night, haldol was administered which seemed to help. Discussed plans for surgery with patient today. Patient has reportedly been waxing/waning with his mentation. A&Ox1 this morning. He does report that his leg pain is improved. - Objective Vital Signs & Weight: Vital Signs (12 hours) Temp Pulse Resp BP Pulse Ox 03/02/20 23:15 98.2 F 71 16 165/75 H 95 03/02/20 20:00 95 03/02/20 19:09 98.1 F 72 12 176/72 H 96 Weight Admit Weight 64.127 kg Weight 64.127 kg I&O: 03/01/20 03/02/20 03/03/20 06:59 06:59 06:59 Intake Total 650 1010 340 Output Total 2280 700 1300 Balance -1630 310 -960 Result Diagrams: 03/03/20 05:12 03/03/20 05:12 Phys Exam - Physical Examination Constitutional: NAD HEENT: moist MMs Neck: supple, full ROM Respiratory: no wheezing, clear to auscultation bilateral Cardiovascular: RRR, no significant murmur Gastrointestinal: soft, non-tender Musculoskeletal: no edema R BKA, wound vac attached draining some blood Neurological: normal sensation, moves all 4 limbs Psychiatric: normal affect Deviation from normal: A&Ox1 Skin: normal turgor Dx/Plan (1) ANDERS (acute kidney injury) Code(s): N17.9 - ACUTE KIDNEY FAILURE, UNSPECIFIED Status: Acute (2) Right BKA infection Code(s): T87.43 - INFECTION OF AMPUTATION STUMP, RIGHT LOWER EXTREMITY Status : Acute (3) Sepsis Code(s): A41.9 - SEPSIS, UNSPECIFIED ORGANISM Status: Acute Qualifiers: Sepsis type: sepsis due to unspecified organism Sepsis acute organ dysfunction status: with acute organ dysfunction Severe sepsis acute organ dysfunction type: acute renal failure Acute renal failure type: unspecified Severe sepsis shock status: without septic shock Qualified Code(s): A41.9 - Sepsis, unspecified organism; R65.20 - Severe sepsis without septic shock; N17.9 - Acute kidney failure, unspecified (4) Wound dehiscence Code(s): T81.30XA - DISRUPTION OF WOUND, UNSPECIFIED, INITIAL ENCOUNTER Status : Acute (5) Cellulitis Code(s): L03.90 - CELLULITIS, UNSPECIFIED Status: Acute - Plan Plan: Patient is a 74 yo male who presents with right LE pain is admitted for right BKA infection: #Sepsis 2/2 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 Whitman, appreciate recs. -Dr. Plata consulted, bedside wound debridement 03/01 with placement of wound vac, following CBC -plans for AKA today -Blood cx 2/2 MRSA -Dr. Yadav, ID, consulted, appreciate recs; rec 4 weeks of IV vancomycin for MRSA bacteremia, PICC line placed 03/02 -patient to have weekly CBC, CRP, CMP, and vanc troughs -wound gram stain: gm+ cocci in pairs/clusters, MRSA -procal, ESR, CRP elevated -Morphine IV for pain -letter sent to [facility] for placement after AKA # Hypokalemia, resolved - replaced IV #ANDERS, resolved -GFR 39, BUN 42, Cr 1.72, > GFR 69, BUN 32, Cr 1.06 -LR @ 125 IVF per above #Anemia, normocytic -7.7 this AM - type and screen. -Dr. Plata plans to give 1-2u pRBC during the AKA procedure #Elevated Transaminases -monitor on AM CMP #T2DM -continue home Metformin -mild SSI & bedtime SSI -accuchecks ACHS -hyperglycemia protocol placed #HTN -restart home BP meds after surgery #CAD, s/p [place] #PVD -continue home meds #S/P Fall at home -denies hitting head -Brain CT normal -continue to monitor Diet: CC VTE: SCDs Code status: FULL Dispo: Stable, admitted to inpatient on medical unit. Continue antibiotics, wound and blood cultures demonstrated MRSA at this time, wound vac in place, plan for AKA today; patient letter sent to [facility] for placement after the surgery. Contact: ARINA SCHWARZ (PATIENTS SON)--[phone]
[2020-03-03 05:46] LABS: Anion Gap 11 mmol/L (10-20); Carbon Dioxide 25 mmol/L (23-31)
[2020-03-03 05:48] LABS: Calc. Creatinine Clearance 72 mL/min (70-130); Estimated GFR-MDRD 90
[2020-03-03 05:49] LABS: BUN (Urea Nitrogen) 27 mg/dL (8.4-25.7)
[2020-03-03 06:17] LABS: Band 36 % (5-11); Eosinophils 1 % (0-10); Hemoglobin 7.7 g/dL (14.0-18.0); Hypochromia SLIGHT = 6-15 cells (100X) (0-5/hpf); Lymphocytes 5 % (21-51); MDiff Complete? YES; Mean Corpuscular HGB CONC 31.9 g/dL (32.0-36.0); Mean Corpuscular Hemoglobin 28.9 pg (27.0-31.0); Mean Corpuscular Volume 90.6 fL (78.0-98.0); Mean Platelet Volume 9.3 fL (7.4-10.4); Monocytes 3 % (0-10); Neutrophil 55 % (42-75); Platelet Count 364 thou/uL (130-400); Platelet Morphology Comment Appears Adequate; RBC Distribution Width 13.3 % (11.5-14.5); Red Blood Cell (RBC) Count 2.67 mill/uL (4.70-6.10); White Blood Cell (WBC) Count 22.7 thou/uL (4.8-10.8)
[2020-03-03] MEDS ORDERED: Fentanyl 250 MCG/5 ML VIAL ONE (06:24)
[2020-03-03] MEDS ORDERED: Lidocaine 2% Jelly 5 ML TUBE ONE (06:24)
[2020-03-03] MEDS ORDERED: Lidocaine 1% PF 5 ML VIAL ONE (07:36)
[2020-03-03] MEDS: Famotidine 20 MG TAB PO SCH (09:08)
[2020-03-03] MEDS: Gabapentin 300 MG CAP PO SCH ×3 (09:08→21:57)
[2020-03-03] MEDS: Lisinopril 10 MG TAB PO SCH (09:08)
[2020-03-03] MEDS: Aspirin 81 mg Enteric Coated Tablet PO SCH (09:08)
[2020-03-03] MEDS: Hydrochlorothiazide 25 MG TAB PO SCH (09:08)
[2020-03-03] MEDS: Polyethylene Glycol 3350 17 GM Packet PO SCH (09:08)
[2020-03-03] MEDS: metFORMIN 500 MG TAB PO SCH (09:08)
[2020-03-03] MEDS: Ubidecarenone 50 MG CAP PO SCH (09:09)
[2020-03-03] MEDS ORDERED: Ondansetron HCl/PF 4 MG/2 ML Vial IVP PRN (09:37)
[2020-03-03] MEDS ORDERED: Promethazine HCl 25 MG/ML VIAL SLOW IVP PRN (09:37)
[2020-03-03] MEDS ORDERED: Promethazine HCl 25 MG/ML VIAL IM PRN (09:37)
--- NOTE | 2020-03-03 10:11 | OP ---
DATE OF PROCEDURE: 03/03/2020 PREOPERATIVE DIAGNOSES: Right dlcnm-vku-jclu amputation wound dehiscence and infection, methicillin-resistant Staphylococcus aureus, peripheral arterial disease, and diabetes. POSTOPERATIVE DIAGNOSES: Right tgzoi-vif-oitv amputation wound dehiscence and infection methicillin-resistant Staphylococcus aureus, peripheral arterial disease, and diabetes. PROCEDURE PERFORMED: Right hviim-mhs-mowi amputation. ANESTHESIA: ESTIMATED BLOOD LOSS: 400 mL. BLOOD TRANSFUSION: 2 units of blood. Preoperative hemoglobin 7. DESCRIPTION OF PROCEDURE: The patient was taken to the operating room, where under anesthesia, right lower extremity was prepared with ChloraPrep and draped in routine fashion. Right npxlv-jeo-nolg amputation performed with a fishmouth type incision, dividing skin, subcutaneous tissue, fascia sharply, muscle layers with cautery, and vascular bundles divided between clamps, ligating with 2-0 silk ties. Femur cleared the periosteum proximally, divided with a Gigli saw, was thoroughly irrigated with saline solution. Good hemostasis was obtained with cautery and 2-0 Vicryl. Fascia approximated with 2-0 Vicryl, skin with gavin. Sterile dressing applied. Job ID: [id number]
[2020-03-03] MEDS ORDERED: Glycopyrrolate 0.2 MG/ML 5 ML SYRINGE ONE (11:07)
[2020-03-03] MEDS ORDERED: Rocuronium Bromide 10 MG/ML (10ML VIAL) ONE (11:07)
[2020-03-03] MEDS ORDERED: PROPOFOL 200 MG/20 ML VIAL ONE (11:07)
[2020-03-03] MEDS ORDERED: PHENYLEPHRINE-NS 100 MCG/ML 10 ML SYRINGE ONE (11:07)
[2020-03-03] MEDS ORDERED: Ondansetron PF 4 MG/2 ML Vial ONE (11:07)
[2020-03-03] MEDS ORDERED: Bupivacaine HCl 0.5%/Epinephrine 1:200,000/PF 30 ml Vial ONE (11:08)
[2020-03-03] MEDS: Cefepime 2 GM in Sodium Chloride 0.9% 100 ML IVPB SCH (12:05)
[2020-03-03] MEDS: hydrALAZINE 20 MG/ML VIAL SLOW IVP PRN (12:31)
[2020-03-03] MEDS: Morphine 2 MG/ML SYRINGE SLOW IVP PRN ×2 (13:43→16:38)
--- NOTE | 2020-03-03 13:56 | EKG ---
Test Reason : SEPSIS ALERT Blood Pressure : / mmHG Vent. Rate : 089 BPM Atrial Rate : 089 BPM P-R Int : 200 ms QRS Dur : 110 ms QT Int : 384 ms P-R-T Axes : 035 023 053 degrees QTc Int : 467 ms Normal sinus rhythm Normal ECG Confirmed by GISELLE ESCOBEDO DO ([id number]), order editor TANIA BRAVO ([id number]) on 03/03/2020 1:55:43 PM Referred By: GREGG Confirmed By:GISELLE ESCOBEDO DO
[2020-03-03] MEDS: Tamsulosin HCl 0.4 MG CAP PO SCH (21:57)
[2020-03-03] MEDS: Atorvastatin Calcium 40 MG TAB PO SCH (21:58)
[2020-03-03] MEDS: Triple Antibiotic Ointment 15 GM TUBE TOP SCH (23:03)
[2020-03-03 23:10] LABS: Vancomycin, Trough 12.8 ug/mL
--- NOTE | 2020-03-04 06:10 | PDOC.FM ---
- Subjective Subjective: Patient doing okay this morning, tolerated the AKA well yesterday. A&Ox2. Night team reported that they got a call that patient pulled out his PICC line. Re- scheduled PICC. Will try seroquel today. Discussed the importance of leaving the PICC line in place for his antibiotics using a dance therapist, patient stated he understood. - Objective Vital Signs & Weight: Vital Signs (12 hours) Temp Pulse Resp BP Pulse Ox 03/04/20 05:01 97.7 F 54 L 18 165/74 H 94 L 03/04/20 00:00 98.0 F 58 L 18 178/66 H 97 03/03/20 20:58 98.8 F 78 18 160/71 H 97 03/03/20 20:00 97 Weight Admit Weight 64.127 kg Weight 64.127 kg I&O: 03/02/20 03/03/20 03/04/20 06:59 06:59 06:59 Intake Total 1010 340 200 Output Total 700 1300 1000 Balance 310 960 -800 Result Diagrams: 03/04/20 07:06 03/04/20 07:06 Phys Exam - Physical Examination Constitutional: NAD HEENT: moist MMs, sclera anicteric Neck: supple, full ROM Respiratory: no wheezing, clear to auscultation bilateral Cardiovascular: RRR, no significant murmur Gastrointestinal: soft, positive bowel sounds Musculoskeletal: no edema, pulses present R AKA wrapped, c/d/i Neurological: moves all 4 limbs Deviation from normal: A&Ox2 Skin: no rash, normal turgor Dx/Plan (1) ANDERS (acute kidney injury) Code(s): N17.9 - ACUTE KIDNEY FAILURE, UNSPECIFIED Status: Acute (2) Right BKA infection Code(s): T87.43 - INFECTION OF AMPUTATION STUMP, RIGHT LOWER EXTREMITY Status : Acute (3) Sepsis Code(s): A41.9 - SEPSIS, UNSPECIFIED ORGANISM Status: Acute Qualifiers: Sepsis type: sepsis due to unspecified organism Sepsis acute organ dysfunction status: with acute organ dysfunction Severe sepsis acute organ dysfunction type: acute renal failure Acute renal failure type: unspecified Severe sepsis shock status: without septic shock Qualified Code(s): A41.9 - Sepsis, unspecified organism; R65.20 - Severe sepsis without septic shock; N17.9 - Acute kidney failure, unspecified (4) Wound dehiscence Code(s): T81.30XA - DISRUPTION OF WOUND, UNSPECIFIED, INITIAL ENCOUNTER Status : Acute (5) Cellulitis Code(s): L03.90 - CELLULITIS, UNSPECIFIED Status: Acute - Plan Plan: Patient is a 74 yo male who presents with right LE pain is admitted for right BKA infection: #Sepsis 2/2 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 Whitman, appreciate recs. -Dr. Plata consulted, bedside wound debridement 03/01 with placement of wound vac, following CBC -AKA on 03/03 -Blood cx 12/28 MRSA -Dr. Yadav, ID, consulted, appreciate recs; rec 4 weeks of IV vancomycin for MRSA bacteremia, PICC line placed 03/02 -patient to have weekly CBC, CRP, CMP, and vanc troughs -wound gram stain: gm+ cocci in pairs/clusters, MRSA -procal, ESR, CRP elevated -Morphine IV for pain -letter sent to [facility] for placement after AKA # Hypokalemia, resolved - replaced IV #ANDERS, resolved -GFR 39, BUN 42, Cr 1.72, > GFR 69, BUN 32, Cr 1.06 -LR @ 125 IVF per above #Anemia, normocytic -7.7 this AM - type and screen. -Dr. Plata gave 2u pRBC during the AKA procedure 03/03 #Elevated Transaminases -monitor on AM CMP #T2DM -continue home Metformin -mild SSI & bedtime SSI -accuchecks ACHS -hyperglycemia protocol placed #HTN -restarted home BP meds after surgery -increase HCTZ from 12.5 to 25mg today #CAD, s/p [place] #PVD -continue home meds #S/P Fall at home -denies hitting head -Brain CT normal -continue to monitor Diet: CC VTE: SCDs Code status: FULL Dispo: Stable, admitted to inpatient on medical unit. Continue antibiotics, wound and blood cultures demonstrated MRSA at this time, wound vac in place; post-op day 1 for AKA; patient letter sent to [facility] for placement Contact: ARINA CHONG (PATIENTS SON)--[phone]
[2020-03-04 07:35] LABS: Hemoglobin 7.7 g/dL (14.0-18.0); Mean Corpuscular HGB CONC 32.5 g/dL (32.0-36.0); Mean Corpuscular Hemoglobin 29.1 pg (27.0-31.0); Mean Corpuscular Volume 89.6 fL (78.0-98.0); Mean Platelet Volume 9.2 fL (7.4-10.4); Platelet Count 425 thou/uL (130-400); RBC Distribution Width 13.4 % (11.5-14.5); Red Blood Cell (RBC) Count 2.65 mill/uL (4.70-6.10); White Blood Cell (WBC) Count 20.9 thou/uL (4.8-10.8)
[2020-03-04 07:37] LABS: Anion Gap 14 mmol/L (10-20); BUN (Urea Nitrogen) 25 mg/dL (8.4-25.7); Calc. Creatinine Clearance 74 mL/min (70-130); Calcium 8.3 mg/dL (7.8-10.44); Carbon Dioxide 23 mmol/L (23-31); Chloride 105 mmol/L (98-107); Estimated GFR-MDRD Greater than 90; Glucose 121 mg/dL (83-110); Potassium 4.6 mmol/L (3.5-5.1); Sodium 137 mmol/L (136-145)
[2020-03-04] MEDS: Aspirin 81 mg Enteric Coated Tablet PO SCH (08:10)
[2020-03-04] MEDS: Hydrochlorothiazide 25 MG TAB PO SCH (08:10)
[2020-03-04] MEDS: Gabapentin 300 MG CAP PO SCH ×4 (08:10→21:26)
[2020-03-04] MEDS: Lisinopril 10 MG TAB PO SCH (08:10)
[2020-03-04] MEDS: Ubidecarenone 50 MG CAP PO SCH (08:10)
[2020-03-04] MEDS: Polyethylene Glycol 3350 17 GM Packet PO SCH (08:10)
[2020-03-04] MEDS: metFORMIN 500 MG TAB PO SCH (08:10)
[2020-03-04] MEDS: Famotidine 20 MG TAB PO SCH ×4 (08:11→21:26)
[2020-03-04] MEDS: Triple Antibiotic Ointment 15 GM TUBE TOP SCH ×2 (09:23→19:59)
[2020-03-04 09:48] LABS: Band 20 % (5-11); Eosinophils 1 % (0-10); Lymphocytes 15 % (21-51); MDiff Complete? YES; Metamyelocyte 1 % (0-0); Monocytes 4 % (0-10); Neutrophil 59 % (42-75); Platelet Morphology Comment Appears Increased; Polychromasia SLIGHT = 2-3 cells (100X) (0-2/hpf)
--- NOTE | 2020-03-04 11:01 | SPC ---
Sonographic guided left upper extremity PICC placement HISTORY: MRSA. FINDINGS: After explaining the procedure and answering all questions, the left upper extremity PICC a nd draped in usual sterile fashion. Sonographic evaluation showed noncompressibility and internal echoes within the basilic vein at the mid to distal upper arm. Sterile technique, buffered local anesthesia, sonographic guidance, and a 22-gauge needle were used t o carefully access the left basilic vein above the level of thrombus. Standard technique was used to place the tip of a 4 [place] single lumen PICC so that the tip lies at the level of the superior ve na cava. Catheter was flushed and secured externally. Patient tolerated the procedure well and was returned in unchanged condition. Fluoroscopy time 0 seconds. IMPRESSION : Left upper extremity PICC is ready for use. Occlusive thrombus within the left basilic vein at the level of the mid to distal humerus.
[2020-03-04] MEDS: hydrALAZINE 20 MG/ML VIAL SLOW IVP PRN (11:47)
[2020-03-04] MEDS: Vancomycin HCl 750 MG in Sodium Chloride 0.9% 250 ML 250 ML IVPB SCH ×2 (11:47→22:43)
[2020-03-04] MEDS: Morphine 2 MG/ML SYRINGE SLOW IVP PRN (14:32)
--- NOTE | 2020-03-04 15:14 | PQF ---
CLINICAL DOCUMENTATION IMPROVEMENT CLARIFICATION FORM: ICD-10 Updated PLEASE DO AN ADDENDUM TO THE PROGRESS NOTE WITH ANY DOCUMENTATION UPDATES OR ADDITIONS AND CARRY THROUGH TO DC SUMMARY. THANK YOU. DATE: 03/04/2020 ATTN: Dr. Rivera/ Attending: Dr. العراقي Please exercise your independent, professional judgment in responding to the clarification form. Clinical indicators are provided on the bottom of this form for your review Please check appropriate box(s): [ ] Encephalopathy: Type: [x] Acute [ ] Subacute [ ] Chronic Etiology: [ ] Septic [ ] Hypertensive [ ] Metabolic [ ] Toxic [ ] Drug induced: [ ] Unspecified [x] in the setting of underlying dementia [ ] Other (please specify) [ ] Transient Alteration of Awareness [ ] Other diagnosis [ ] Unable to determine In addition, please specify: Present on Admission (POA): [ ] Yes [ ] No [x] Unable to determine For continuity of documentation, please document condition throughout progress notes and discharge summary. Thank You. CLINICAL INDICATORS - SIGNS / SYMPTOMS / LABS / RESULTS AND LOCATION IN EMR 03/01 (Miguel) VS: pulse 68, BP 118/62 PE: normal affect, A&O x3 03/03 (Miguel) Subjective: Pt tried to pull out his PICC line again last night, haldol was administered which seemed to help. Pt has reportedly been waxing / waning with his mentation. A&O x1 this morning. VS: 03/02 @ 2315: Pulse 71, BP 165/75 03/04 (Miguel) Subjective: A&O x2. Night team reported that they got a call that patient pulled out his PICC line. RISKS: H&P 02/27: PMH: CAD s/p [place]; DM II, HTN, h/o CVA, PVD. 03/02 (Miguel) Blood cx 2/2 MRSA. 03/04 (Miguel) Sepsis 2/2 R BKA Infection. Wound dehiscence of R BKA. AKA on 03/03. TREATMENT: MAR: Order 03/01-03/04: Vancomycin HCL 1.25 gm IV Order 03/02: Haldol 0.5 mg slow IVP now MAR: Order 4/9: Seroquel 25 mg po Daily Thank you, Radha (This form is maintained as a part of the permanent medical record) 2014 [employer] All Rights Reserved Radha Lindo RN, BSN [email or web address]
--- NOTE | 2020-03-04 17:40 | PRG ---
DATE OF SERVICE: 03/04/2020 SUBJECTIVE: Mr. Camarena is a little bit dysarthric and confused. He states that he wants to go home. Apparently, he is being transferred to a skilled unit to finish his treatment. He removed his second PICC line, and he denies any chest pain, no abdominal pain, no temperature elevation. OBJECTIVE: VITAL SIGNS: Blood pressure 170/65, pulse 70, respirations 20, and O2 saturation 94. GENERAL: Does not appear in distress. HEENT: A little bit pale conjunctivae. LUNGS: Symmetric air entry. ABDOMEN: Soft. EXTREMITIES: Left arm with a third PICC line now. LABORATORY DATA: His white cell count is 20.9, hemoglobin 7.7, platelets 425. Creatinine 0.82. Microbiology with MRSA. ASSESSMENT AND DISCUSSION: Type 2 diabetes, coronary artery disease, right footdrop, below-knee amputation reasons to fit him with a prosthesis because of his footdrop and now has developed this complications, dehiscence, and has ended up with an [id number] amputation, and now he has bacteremia with organism that infected the below-knee amputation. We will continue with vancomycin for at least 2 weeks. An alternate approach would be to switch him to oral medication, but that would have to be either linezolid or a combination of rifampin and Bactrim, and I am afraid he would not tolerate it very well medication and we would end up having to readmit him, so I think we need to continue the vancomycin. One option is to place the device that they have at the [facility] , where they have those metal clips that attached to the skin and makes it difficult for the patient to remove it because it tugs the skin and causes pain. We will see if the Radiology can replace by this device that they have at the [facility]. Job ID: [id number] MTDD
[2020-03-04] MEDS: Atorvastatin Calcium 40 MG TAB PO SCH ×2 (19:58→21:26)
[2020-03-04] MEDS: Tamsulosin HCl 0.4 MG CAP PO SCH ×2 (19:58→21:25)
[2020-03-04] MEDS: traMADol HCl 50 MG TAB PO PRN (19:58)
[2020-03-05] MEDS: Morphine 2 MG/ML SYRINGE SLOW IVP PRN ×2 (00:10→11:23)
--- NOTE | 2020-03-05 06:30 | PDOC.FM ---
- Subjective Subjective: Patient A&Ox1 this am. In soft restraints to prevent him from pulling out his PICC line. He refused physical exam today. Upon talking with nursing, Vi, she mentioned that she cared for patient when he was admitted before for his BKA and his behavior was very similar at that time to how he is now behaving. She reports that she talked with family yesterday, and they commented that they were afraid but possibly expecting restraints because he is very stubborn and impulsive. They were also agreeable with restraining the patient if needed to prevent him from pulling out his PICC. - Objective Vital Signs & Weight: Vital Signs (12 hours) Temp Pulse Resp BP Pulse Ox 03/05/20 03:56 98.7 F 74 18 164/78 H 97 03/04/20 19:39 98.3 F 73 16 155/83 H 94 L Weight Admit Weight 64.127 kg Weight 64.127 kg I&O: 03/03/20 03/04/20 03/05/20 06:59 06:59 06:59 Intake Total 340 200 Output Total 1300 1000 Balance -960 -800 Result Diagrams: 03/05/20 07:11 03/05/20 07:11 Phys Exam - Physical Examination non-cooperative for and resistant to the physical exam HEENT: moist MMs, sclera anicteric Neck: full ROM Musculoskeletal: no edema R AKA dressing c/d/i Neurological: moves all 4 limbs Deviation from normal: A&Ox1, non-cooperative Dx/Plan (1) ANDERS (acute kidney injury) Code(s): N17.9 - ACUTE KIDNEY FAILURE, UNSPECIFIED Status: Acute (2) Right BKA infection Code(s): T87.43 - INFECTION OF AMPUTATION STUMP, RIGHT LOWER EXTREMITY Status : Acute (3) Sepsis Code(s): A41.9 - SEPSIS, UNSPECIFIED ORGANISM Status: Acute Qualifiers: Sepsis type: sepsis due to unspecified organism Sepsis acute organ dysfunction status: with acute organ dysfunction Severe sepsis acute organ dysfunction type: acute renal failure Acute renal failure type: unspecified Severe sepsis shock status: without septic shock Qualified Code(s): A41.9 - Sepsis, unspecified organism; R65.20 - Severe sepsis without septic shock; N17.9 - Acute kidney failure, unspecified (4) Wound dehiscence Code(s): T81.30XA - DISRUPTION OF WOUND, UNSPECIFIED, INITIAL ENCOUNTER Status : Acute (5) Cellulitis Code(s): L03.90 - CELLULITIS, UNSPECIFIED Status: Acute - Plan Plan: Patient is a 74 yo male who presents with right LE pain is admitted for right BKA infection: #Sepsis 2/2 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 Whitman, appreciate recs. -Dr. Plata consulted, bedside wound debridement 03/01 with placement of wound vac, following CBC -AKA on 03/03 -Blood cx 12/28 MRSA -Dr. Yadav, ID, consulted, appreciate recs; rec 2-4 weeks of IV vancomycin for MRSA bacteremia, PICC line placed 03/02 x 2 and again 03/04 as patient keeps pulling them out -patient to have weekly CBC, CRP, CMP, and vanc troughs -rec possible metal clip placement for compliance with PICC and vancomycin -wound gram stain: gm+ cocci in pairs/clusters, MRSA -procal, ESR, CRP elevated -Morphine IV for pain -letter sent to [facility] for placement after AKA #Delirium -patient has been having waxing and waning mentation -has pulled out his PICC line twice -started PO seroquel 03/04 -speech consulted to perform mental status exam, appreciate recs -constant re-orientation, keeping drapes open -will try mittens instead of restraints to see if this can help improve patient' s attitude # Hypokalemia, resolved - replaced IV #ANDERS, resolved -GFR 39, BUN 42, Cr 1.72, > GFR 69, BUN 32, Cr 1.06 -LR @ 125 IVF per above #Anemia, normocytic -8.3 this AM -Dr. Plata gave 2u pRBC during the AKA procedure 03/03 #Elevated Transaminases -aware #T2DM -continue home Metformin -mild SSI & bedtime SSI -accuchecks ACHS -hyperglycemia protocol placed #HTN -restarted home BP meds after surgery -increased HCTZ from 12.5 to 25mg -increase lisinopril from 10 to 20mg today #CAD, s/p [place] #PVD -continue home meds #S/P Fall at home -denies hitting head -Brain CT normal -continue to monitor Diet: CC VTE: SCDs Code status: FULL Dispo: Stable, admitted to inpatient on medical unit. Continue antibiotics, wound and blood cultures demonstrated MRSA at this time, wound vac in place; post-op day 2 for AKA; patient letter sent to [facility] for placement Contact: ARINA SCHWARZ (PATIENTS SON)--[phone]
[2020-03-05 07:27] LABS: Hemoglobin 8.3 g/dL (14.0-18.0); Mean Corpuscular HGB CONC 33.2 g/dL (32.0-36.0); Mean Corpuscular Hemoglobin 29.8 pg (27.0-31.0); Mean Corpuscular Volume 89.6 fL (78.0-98.0); Mean Platelet Volume 8.6 fL (7.4-10.4); Platelet Count 411 thou/uL (130-400); RBC Distribution Width 13.2 % (11.5-14.5); Red Blood Cell (RBC) Count 2.79 mill/uL (4.70-6.10); White Blood Cell (WBC) Count 21.3 thou/uL (4.8-10.8)
[2020-03-05 07:42] LABS: Anion Gap 13 mmol/L (10-20); BUN (Urea Nitrogen) 20 mg/dL (8.4-25.7); Calc. Creatinine Clearance 80 mL/min (70-130); Calcium 7.9 mg/dL (7.8-10.44); Carbon Dioxide 24 mmol/L (23-31); Chloride 102 mmol/L (98-107); Estimated GFR-MDRD Greater than 90; Glucose 86 mg/dL (83-110); Potassium 4.1 mmol/L (3.5-5.1); Sodium 135 mmol/L (136-145)
[2020-03-05 07:44] LABS: Band 17 % (5-11); Eosinophils 1 % (0-10); Lymphocytes 8 % (21-51); MDiff Complete? YES; Metamyelocyte 2 % (0-0); Monocytes 4 % (0-10); Neutrophil 68 % (42-75); Platelet Morphology Comment Appears Increased; Polychromasia SLIGHT = 2-3 cells (100X) (0-2/hpf)
[2020-03-05] MEDS: metFORMIN 500 MG TAB PO SCH (07:57)
[2020-03-05] MEDS: Lisinopril 20 MG TAB PO SCH (07:57)
[2020-03-05] MEDS: Aspirin 81 mg Enteric Coated Tablet PO SCH (07:58)
[2020-03-05] MEDS: Famotidine 20 MG TAB PO SCH ×2 (07:58→20:56)
[2020-03-05] MEDS: Hydrochlorothiazide 25 MG TAB PO SCH (07:58)
[2020-03-05] MEDS: Triple Antibiotic Ointment 15 GM TUBE TOP SCH ×2 (07:58→20:56)
[2020-03-05] MEDS: Gabapentin 300 MG CAP PO SCH ×3 (07:58→20:56)
[2020-03-05] MEDS: Polyethylene Glycol 3350 17 GM Packet PO SCH (07:59)
[2020-03-05] MEDS: Ubidecarenone 50 MG CAP PO SCH (07:59)
[2020-03-05 10:27] LABS: Vancomycin, Trough 20.4 ug/mL
[2020-03-05] MEDS: Vancomycin HCl 750 MG in Sodium Chloride 0.9% 250 ML 250 ML IVPB SCH ×2 (11:24→23:02)
--- NOTE | 2020-03-05 13:49 | PDOC.BPN ---
- Brief Progress Note Spoke to patient's daughter, Vandana Landry. She states that since the patient's BKA she has started to notice that he has had declining memory, sometimes slurring his speech, and at times participating inappropriately in conversations. Her mother has Alzheimer's dementia so she has been wondering if he has some underlying dementia as well. Discussed with Vandana that we believe patient has been having episodes of delirium while he has been in the hospital, likely related to underlying dementia. We recommend that a family member come to the hospital to re-orient the patient so that he can see and visit with a familiar face. Discussed that he is wearing mittens to help prevent him from pulling out his PICC line. Discussed plans that we are waiting for [facility] approval for placement for continued IV abx. Vandana stated that she was agreeable with the plan of care and one of her brothers would likely be coming to visit the patient in the hospital today.
--- NOTE | 2020-03-05 16:00 | PRG ---
DATE OF SERVICE: 03/05/2020 Geena Camarena is doing well. He underwent amputation above the knee, right leg. The dressing has been removed. Dressing changed, cleaned, stump wheelchair van driver applied by [employer]. Wound is reported to look good. The patient is interacting with Therapy. Plans are being made for discharge. The patient is felt probably not to be able to cooperate with rehab for 3 hours of therapy per day. Other outpatient arrangements are being made. At this point, he is ready for discharge anytime from my standpoint. I will see him in the office in 2 to 3 weeks to remove his gavin. He should clean his stump everyday with soap and water, and with shower chair in the shower, and apply antibiotic ointment, Telfa, and a stump wheelchair van driver. I will see him as needed this hospitalization. Please call if necessary. I will see him in the office in 2 to 3 weeks for staple removal. Job ID: [id number]
[2020-03-05] MEDS: Atorvastatin Calcium 40 MG TAB PO SCH (20:56)
[2020-03-05] MEDS: Tamsulosin HCl 0.4 MG CAP PO SCH (20:56)
[2020-03-06] MEDS: Morphine 2 MG/ML SYRINGE SLOW IVP PRN (03:40)
--- NOTE | 2020-03-06 05:45 | PDOC.FM ---
- Subjective Subjective: Patient cooperative this morning. He was able to tell me his name, that he was in the hospital, and he was in the hospital because he had another surgery on his leg. He was unable to accurately answer date questions. He also repeatedly told me he wanted to pay me for my help. We agreed upon cooperative behavior and kind words. - Objective Vital Signs & Weight: Vital Signs (12 hours) Temp Pulse Resp BP Pulse Ox 03/06/20 04:47 98 F 69 18 163/66 H 93 L 03/06/20 00:00 98.4 F 67 18 160/64 H 97 03/05/20 19:08 97.8 F 69 18 152/69 H 96 Weight Admit Weight 64.127 kg Weight 64.127 kg I&O: 03/04/20 03/05/20 03/06/20 06:59 06:59 06:59 Intake Total 200 500 Output Total 1000 1550 Balance -800 -1050 Result Diagrams: 03/06/20 05:40 03/06/20 05:40 Phys Exam - Physical Examination Constitutional: NAD in restraints HEENT: moist MMs, sclera anicteric Neck: supple, full ROM Respiratory: no wheezing, clear to auscultation bilateral Cardiovascular: RRR, no significant murmur Gastrointestinal: soft, non-tender Musculoskeletal: no edema R AKA, dressing c/d/i Neurological: non-focal, moves all 4 limbs Psychiatric: normal affect Deviation from normal: A&Ox3/4, cont to say phrases that are inappropriate for the conversation Skin: no rash, normal turgor Dx/Plan (1) ANDERS (acute kidney injury) Code(s): N17.9 - ACUTE KIDNEY FAILURE, UNSPECIFIED Status: Acute (2) Right BKA infection Code(s): T87.43 - INFECTION OF AMPUTATION STUMP, RIGHT LOWER EXTREMITY Status : Acute (3) Sepsis Code(s): A41.9 - SEPSIS, UNSPECIFIED ORGANISM Status: Acute Qualifiers: Sepsis type: sepsis due to unspecified organism Sepsis acute organ dysfunction status: with acute organ dysfunction Severe sepsis acute organ dysfunction type: acute renal failure Acute renal failure type: unspecified Severe sepsis shock status: without septic shock Qualified Code(s): A41.9 - Sepsis, unspecified organism; R65.20 - Severe sepsis without septic shock; N17.9 - Acute kidney failure, unspecified (4) Wound dehiscence Code(s): T81.30XA - DISRUPTION OF WOUND, UNSPECIFIED, INITIAL ENCOUNTER Status : Acute (5) Cellulitis Code(s): L03.90 - CELLULITIS, UNSPECIFIED Status: Acute - Plan Plan: Patient is a 74 yo male who presents with right LE pain is admitted for right BKA infection: #Sepsis 2/2 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 Whitman, appreciate recs. -Dr. Plata consulted, bedside wound debridement 03/01 with placement of wound vac, following CBC -AKA on 03/03 -Blood cx 12/28 MRSA -Dr. Yadav, ID, consulted, appreciate recs; rec 2-4 weeks of IV vancomycin for MRSA bacteremia, PICC line placed 03/02 x 2 and again 03/04 as patient keeps pulling them out -patient to have weekly CBC, CRP, CMP, and vanc troughs -rec possible metal clip placement for compliance with PICC and vancomycin , will follow up on this today -wound gram stain: gm+ cocci in pairs/clusters, MRSA -procal, ESR, CRP elevated -Morphine IV for pain -[facility] denied placement, pending placement at the [place] and [facility] after AKA #Delirium -patient has been having waxing and waning mentation -has pulled out his PICC line twice -started PO seroquel 03/04 -speech consulted to perform mental status exam, appreciate recs -constant re-orientation, keeping drapes open -transitioned to mittens instead of restraints 03/05 to see if this can help improve patient's attitude, put back in restraints last night as patient continued to try to remove his PICC -he is A&Ox3/4 for me this morning, where he has been A&Ox1 in the past, more consistent with the waxing/waning process of delirium -had lengthy conversation with patient's daughter Vandana 03/05; she reports that he has had declining mentation throughout the last weeks-months and has been concerned for dementia; discussed helpfulness of having family member at bedside , Vandana said she would talk to her brothers to see if one of them could come to visit patient #Anemia, normocytic -7.2 this AM -Dr. Plata gave 2u pRBC during the AKA procedure 03/03 #Elevated Transaminases -aware #T2DM -continue home Metformin -mild SSI & bedtime SSI -accuchecks ACHS -hyperglycemia protocol placed #HTN -restarted home BP meds after surgery -increased HCTZ from 12.5 to 25mg -increased lisinopril from 10 to 20mg 03/05 #CAD, s/p [place] #PVD -continue home meds #S/P Fall at home -denies hitting head -Brain CT normal -continue to monitor # Hypokalemia, resolved - replaced IV #ANDERS, resolved -GFR 39, BUN 42, Cr 1.72, > GFR 69, BUN 32, Cr 1.06> Gfr >90, BUN 18, Cr 0.73 -LR @ 125 IVF per above Diet: CC VTE: SCDs Code status: FULL Dispo: Stable, admitted to inpatient on medical unit. Continue antibiotics, wound and blood cultures demonstrated MRSA at this time; post-op day 3 for AKA; pending placement at [facility] or the [place]
[2020-03-06 06:11] LABS: Hemoglobin 7.2 g/dL (14.0-18.0); Mean Corpuscular HGB CONC 32.4 g/dL (32.0-36.0); Mean Corpuscular Hemoglobin 29.2 pg (27.0-31.0); Mean Corpuscular Volume 90.2 fL (78.0-98.0); Mean Platelet Volume 8.7 fL (7.4-10.4); Platelet Count 457 thou/uL (130-400); RBC Distribution Width 13.2 % (11.5-14.5); Red Blood Cell (RBC) Count 2.47 mill/uL (4.70-6.10); White Blood Cell (WBC) Count 21.6 thou/uL (4.8-10.8)
[2020-03-06 06:22] LABS: Band 12 % (5-11); Eosinophils 2 % (0-10); Lymphocytes 6 % (21-51); MDiff Complete? YES; Metamyelocyte 1 % (0-0); Monocytes 2 % (0-10); Myelocyte 1 % (0-0); Neutrophil 76 % (42-75)
[2020-03-06 06:26] LABS: Anion Gap 12 mmol/L (10-20); BUN (Urea Nitrogen) 18 mg/dL (8.4-25.7); Calc. Creatinine Clearance 83 mL/min (70-130); Calcium 7.9 mg/dL (7.8-10.44); Carbon Dioxide 27 mmol/L (23-31); Chloride 100 mmol/L (98-107); Estimated GFR-MDRD Greater than 90; Glucose 72 mg/dL (83-110); Potassium 3.9 mmol/L (3.5-5.1); Sodium 135 mmol/L (136-145)
[2020-03-06] MEDS: Gabapentin 300 MG CAP PO SCH ×3 (09:44→20:07)
[2020-03-06] MEDS: Lisinopril 20 MG TAB PO SCH (09:44)
[2020-03-06] MEDS: Aspirin 81 mg Enteric Coated Tablet PO SCH (09:44)
[2020-03-06] MEDS: Famotidine 20 MG TAB PO SCH ×2 (09:44→20:07)
[2020-03-06] MEDS: Hydrochlorothiazide 25 MG TAB PO SCH (09:44)
[2020-03-06] MEDS: Ubidecarenone 50 MG CAP PO SCH (09:45)
[2020-03-06] MEDS: Polyethylene Glycol 3350 17 GM Packet PO SCH (09:45)
[2020-03-06] MEDS: Triple Antibiotic Ointment 15 GM TUBE TOP SCH ×2 (09:45→20:08)
[2020-03-06] MEDS: Vancomycin HCl 750 MG in Sodium Chloride 0.9% 250 ML 250 ML IVPB SCH ×2 (11:39→23:36)
[2020-03-06] MEDS: Atorvastatin Calcium 40 MG TAB PO SCH (20:07)
[2020-03-06] MEDS: Tamsulosin HCl 0.4 MG CAP PO SCH (20:07)
[2020-03-06 22:15] LABS: Vancomycin, Trough 23.3 ug/mL
--- NOTE | 2020-03-07 05:26 | PDOC.FM ---
- Subjective Subjective: Patient sleeping soundly this morning. No acute events overnight. - Objective Vital Signs & Weight: Vital Signs (12 hours) Temp Pulse Resp BP Pulse Ox 03/06/20 20:00 93 L 03/06/20 19:10 98.4 F 63 18 150/65 H 93 L Weight Admit Weight 64.127 kg Weight 64.127 kg I&O: 03/05/20 03/06/20 03/07/20 06:59 06:59 06:59 Intake Total 990 Output Total 2550 800 Balance -1560 -800 Result Diagrams: 03/07/20 05:30 03/07/20 05:30 Phys Exam - Physical Examination Constitutional: NAD HEENT: PERRLA, moist MMs Neck: supple, full ROM Respiratory: no wheezing, clear to auscultation bilateral Cardiovascular: RRR, no significant murmur Gastrointestinal: no distention, positive bowel sounds Musculoskeletal: no edema R AKA wound c/d/i, gavin present Neurological: moves all 4 limbs Skin: no rash, normal turgor Dx/Plan (1) ANDERS (acute kidney injury) Code(s): N17.9 - ACUTE KIDNEY FAILURE, UNSPECIFIED Status: Acute (2) Right BKA infection Code(s): T87.43 - INFECTION OF AMPUTATION STUMP, RIGHT LOWER EXTREMITY Status : Acute (3) Sepsis Code(s): A41.9 - SEPSIS, UNSPECIFIED ORGANISM Status: Acute Qualifiers: Sepsis type: sepsis due to unspecified organism Sepsis acute organ dysfunction status: with acute organ dysfunction Severe sepsis acute organ dysfunction type: acute renal failure Acute renal failure type: unspecified Severe sepsis shock status: without septic shock Qualified Code(s): A41.9 - Sepsis, unspecified organism; R65.20 - Severe sepsis without septic shock; N17.9 - Acute kidney failure, unspecified (4) Wound dehiscence Code(s): T81.30XA - DISRUPTION OF WOUND, UNSPECIFIED, INITIAL ENCOUNTER Status : Acute (5) Cellulitis Code(s): L03.90 - CELLULITIS, UNSPECIFIED Status: Acute - Plan Plan: Patient is a 74 yo male who presents with right LE pain is admitted for right BKA infection: #Sepsis 2/2 Right BKA Infection #Wound Dehiscence of right BKA #MRSA bacteremia -on vanc and cefepime -R Knee XR concerning for air in soft issues of medial tibia -Consult General Surgery--Dr. Whitman, appreciate recs. -Dr. Plata consulted, bedside wound debridement 03/01 with placement of wound vac, following CBC -AKA on 03/03 -Blood cx 12/28 MRSA -Dr. Yadav, ID, consulted, appreciate recs; rec 2-4 weeks of IV vancomycin for MRSA bacteremia, PICC line placed 03/02 x 2 and again 03/04 as patient keeps pulling them out -patient to have weekly CBC, CRP, CMP, and vanc troughs -rec possible metal clip placement for compliance with PICC and vancomycin vs 600mg linezolid po BID x 4 weeks with weekly CBC; this may be a better option for the patient as he continues to pull out his PICC line, though he does continue to reject PO meds at times so it is questionable whether he would participate in PO medical therapy as needed for his MRSA bacteremia -wound gram stain: gm+ cocci in pairs/clusters, MRSA -procal, ESR, CRP elevated -Morphine IV for pain -[facility] denied placement, pending placement at the [facility] after AKA #Delirium -patient has been having waxing and waning mentation -has pulled out his PICC line twice -started PO seroquel 03/04 -speech consulted to perform mental status exam, appreciate recs -constant re-orientation, keeping drapes open -transitioned to mittens instead of restraints 03/05 to see if this can help improve patient's attitude, put back in restraints 03/05 evening as patient continued to try to remove his PICC -he has been A&Ox3/4 and then A&Ox1 at other times, more consistent with the waxing/waning process of delirium -had lengthy conversation with patient's daughter Vandana 03/05; she reports that he has had declining mentation throughout the last weeks-months and has been concerned for dementia; discussed helpfulness of having family member at bedside , Vandana said she would talk to her brothers to see if one of them could come to visit patient #Anemia, normocytic -6.9u this AM, will transfuse 1u prbc and f/u with 4-hr post CBC -iron studies pending -Dr. Plata gave 2u pRBC during the AKA procedure 4/8 #Elevated Transaminases -aware #T2DM -continue home Metformin -mild SSI & bedtime SSI -accuchecks ACHS -hyperglycemia protocol placed #HTN -restarted home BP meds after surgery -increased HCTZ from 12.5 to 25mg -increased lisinopril from 10 to 20mg 03/05 -PRN hydralazine as patient often rejects his PO meds #CAD, s/p [place] #PVD -continue home meds #S/P Fall at home -denies hitting head -Brain CT normal -continue to monitor # Hypokalemia, resolved - replaced IV #ANDERS, resolved -GFR 39, BUN 42, Cr 1.72, > GFR 69, BUN 32, Cr 1.06> Gfr >90, BUN 18, Cr 0.73 -LR @ 125 IVF per above Diet: CC VTE: SCDs Code status: FULL Dispo: Stable, admitted to inpatient on medical unit. Continue antibiotics, wound and blood cultures demonstrated MRSA at this time; post-op day 4 for AKA; transfuse 1u prbc and f/u with 4-hr post cbc; pending placement at [facility] or [facility]
[2020-03-07 05:50] LABS: #Eosinphils 0.6 thou/uL (0.0-0.7); #Lymphocytes 1.9 thou/uL (1.20-3.40); #Neutrophils 16.3 thou/uL (1.40-6.50); %Basophils 0.1 % (0.0-1.0); %Eosinophils 3.3 % (0.0-10.0); %Lymphocytes 9.5 % (21.0-51.0); %Monocytes 4.9 % (0.0-10.0); %Neutrophils 82.3 % (42.0-75.0); Hemoglobin 6.9 g/dL (14.0-18.0); Mean Corpuscular HGB CONC 33.4 g/dL (32.0-36.0); Mean Corpuscular Hemoglobin 30.1 pg (27.0-31.0); Mean Corpuscular Volume 90.1 fL (78.0-98.0); Mean Platelet Volume 8.7 fL (7.4-10.4); Platelet Count 458 thou/uL (130-400); RBC Distribution Width 13.2 % (11.5-14.5); White Blood Cell (WBC) Count 19.8 thou/uL (4.8-10.8)
[2020-03-07 06:09] LABS: Anion Gap 13 mmol/L (10-20); BUN (Urea Nitrogen) 18 mg/dL (8.4-25.7); Calc. Creatinine Clearance 85 mL/min (70-130); Calcium 7.9 mg/dL (7.8-10.44); Carbon Dioxide 26 mmol/L (23-31); Chloride 102 mmol/L (98-107); Estimated GFR-MDRD Greater than 90; Glucose 71 mg/dL (83-110); Potassium 3.9 mmol/L (3.5-5.1); Sodium 137 mmol/L (136-145)
[2020-03-07 07:58] LABS: Iron 25 ug/dL (65-175); Iron Binding Capacity, Total 105 mcg/dL (261-462); Transferrin, Serum 84 mg/dL (163-344)
[2020-03-07] MEDS: Famotidine 20 MG TAB PO SCH ×2 (08:45→21:17)
[2020-03-07] MEDS: Lisinopril 20 MG TAB PO SCH (08:45)
[2020-03-07] MEDS ORDERED: Ferrous Sulfate 325 MG TAB PO SCH (08:45)
[2020-03-07] MEDS: Polyethylene Glycol 3350 17 GM Packet PO SCH (08:45)
[2020-03-07] MEDS: Aspirin 81 mg Enteric Coated Tablet PO SCH (08:45)
[2020-03-07] MEDS: Hydrochlorothiazide 25 MG TAB PO SCH (08:46)
[2020-03-07] MEDS: Triple Antibiotic Ointment 15 GM TUBE TOP SCH ×2 (08:46→21:17)
[2020-03-07] MEDS: Gabapentin 300 MG CAP PO SCH ×3 (08:46→21:17)
[2020-03-07] MEDS: Ubidecarenone 50 MG CAP PO SCH (08:47)
[2020-03-07] MEDS: Vancomycin HCl 750 MG in Sodium Chloride 0.9% 250 ML 250 ML IVPB SCH ×2 (11:55→23:30)
--- NOTE | 2020-03-07 16:06 | PRG ---
DATE OF SERVICE: 03/07/2020 SUBJECTIVE: Little bit confused. Denies any pain at the moment. No respiratory symptoms. He is urinating with an indwelling catheter. OBJECTIVE: VITAL SIGNS: T-max 98.8, blood pressure 130/60, pulse 63, respirations 18, and O2 saturation 93% to 98%. GENERAL: Awake, follows commands. HEENT: A little bit dry oral cavity mucosa. LUNGS: Symmetric. Clear breath sounds. HEART: S1 and S2. Regular rate. No S3 or S4. ABDOMEN: Soft, not distended. EXTREMITIES: Right AK amputation site with gavin and no drainage. No inflammatory changes. LABORATORY DATA: White cell count 19.8, hemoglobin 6.9, platelets 458. Creatinine 0.71, iron 25, ferritin 743. Vancomycin trough 23. Microbiology with MRSA in 2 sets of blood cultures. Blood cultures need to be repeated. ASSESSMENT AND DISCUSSION: Type 2 diabetes, coronary artery disease, right foot drop, below-knee amputation with complications, and now above-knee amputation bacteremia due to methicillin-resistant Staphylococcus aureus. The patient to continue on vancomycin or switch him to oral Zyvox for discharge planning. Looks like his oral intake is going to be a difficult proposition for his antimicrobial therapy due to unreliable intake. The options are I guess to insert the PICC line with the retention device that is available at [facility]. I am sure that they could replace the current PICC line with the one that has the retention device or put a central line like a Claros catheter or something similar, which would be harder to remove accidentally by the patient. Job ID: [id number]
[2020-03-07] MEDS: Nystatin 500,000 UNITS/5 ML UDCUP SSW SCH ×2 (16:24→21:20)
[2020-03-07 16:26] LABS: Hemoglobin 8.9 g/dL (14.0-18.0); Mean Corpuscular HGB CONC 33.4 g/dL (32.0-36.0); Mean Corpuscular Hemoglobin 30.3 pg (27.0-31.0); Mean Corpuscular Volume 90.9 fL (78.0-98.0); Mean Platelet Volume 9.1 fL (7.4-10.4); Platelet Count 517 thou/uL (130-400); RBC Distribution Width 13.4 % (11.5-14.5); Red Blood Cell (RBC) Count 2.94 mill/uL (4.70-6.10); White Blood Cell (WBC) Count 20.5 thou/uL (4.8-10.8)
[2020-03-07 16:44] LABS: Band 22 % (5-11); Eosinophils 4 % (0-10); Lymphocytes 4 % (21-51); MDiff Complete? YES; Metamyelocyte 1 % (0-0); Monocytes 4 % (0-10); Neutrophil 63 % (42-75); Platelet Morphology Comment Appears Increased; Polychromasia SLIGHT = 2-3 cells (100X) (0-2/hpf); Reactive Lymphocytes 2 % (0-10)
[2020-03-07] MEDS: Atorvastatin Calcium 40 MG TAB PO SCH (21:17)
[2020-03-07] MEDS: Tamsulosin HCl 0.4 MG CAP PO SCH (21:17)
[2020-03-07 22:44] LABS: Vancomycin, Trough 21.6 ug/mL
[2020-03-08 06:12] LABS: #Basophils 0.1 thou/uL (0.0-0.2); #Eosinphils 1.2 thou/uL (0.0-0.7); #Lymphocytes 2.9 thou/uL (1.20-3.40); #Monocytes 0.8 thou/uL (0.11-0.59); #Neutrophils 14.2 thou/uL (1.40-6.50); %Basophils 0.3 % (0.0-1.0); %Eosinophils 6.4 % (0.0-10.0); %Monocytes 4.2 % (0.0-10.0); %Neutrophils 74.1 % (42.0-75.0); Hemoglobin 8.5 g/dL (14.0-18.0); Mean Corpuscular HGB CONC 32.4 g/dL (32.0-36.0); Mean Corpuscular Hemoglobin 29.8 pg (27.0-31.0); Mean Corpuscular Volume 91.8 fL (78.0-98.0); Mean Platelet Volume 8.8 fL (7.4-10.4); Platelet Count 563 thou/uL (130-400); RBC Distribution Width 13.5 % (11.5-14.5); Red Blood Cell (RBC) Count 2.85 mill/uL (4.70-6.10); White Blood Cell (WBC) Count 19.1 thou/uL (4.8-10.8)
--- NOTE | 2020-03-08 06:12 | PDOC.FM ---
- Subjective Subjective: Did well overnight, one of his better nights per nursing staff, no acute events , slept comfortably. Pleasant this morning, no concerns. Eager to see his sons. No fever/chills, tolerating PO well. No SOB, CP, n/v. - Objective MAR Reviewed: Yes Vital Signs & Weight: Vital Signs (12 hours) Temp Pulse Resp BP Pulse Ox 03/07/20 19:35 95 03/07/20 19:19 98.0 F 59 L 16 122/56 L 95 Weight Admit Weight 64.127 kg Weight 64.127 kg I&O: 03/06/20 03/07/20 03/08/20 06:59 06:59 06:59 Intake Total 990 350 Output Total 2550 800 1600 Balance -1560 800 -1250 Result Diagrams: 03/08/20 05:55 03/08/20 05:55 Phys Exam - Physical Examination Constitutional: NAD (resting comfortably, A/O x2 not to time) HEENT: moist MMs Neck: supple Respiratory: no wheezing, no rales, no rhonchi, clear to auscultation bilateral Cardiovascular: RRR, no significant murmur, no rub Gastrointestinal: soft, non-tender, no distention, positive bowel sounds Musculoskeletal: no edema R AKA, no erythema or warmth, dressing c/d/i Deviation from normal: A/O x2 not to time Dx/Plan (1) MRSA bacteremia Code(s): R78.81 - BACTEREMIA; B95.62 - METHICILLIN RESIS STAPH INFCT CAUSING DISEASES CLASSD ELSWHR Status: Acute (2) Right BKA infection Code(s): T87.43 - INFECTION OF AMPUTATION STUMP, RIGHT LOWER EXTREMITY Status : Acute (3) Sepsis Code(s): A41.9 - SEPSIS, UNSPECIFIED ORGANISM Status: Acute Qualifiers: Sepsis type: sepsis due to unspecified organism Sepsis acute organ dysfunction status: with acute organ dysfunction Severe sepsis acute organ dysfunction type: acute renal failure Acute renal failure type: unspecified Severe sepsis shock status: without septic shock Qualified Code(s): A41.9 - Sepsis, unspecified organism; R65.20 - Severe sepsis without septic shock; N17.9 - Acute kidney failure, unspecified (4) Wound dehiscence Code(s): T81.30XA - DISRUPTION OF WOUND, UNSPECIFIED, INITIAL ENCOUNTER Status : Acute (5) Acute urinary retention Code(s): R33.8 - OTHER RETENTION OF URINE Status: Acute - Plan Plan: 74 yo male with h/o DMII, HTN, CAD admitted for right BKA infection and MRSA bacteremia now s/p R AKA POD #5 #Sepsis 2/2 Right BKA Infection and MRSA bacteremia - on vanc Day 6. S/p cefepime and clinda - R Knee XR concerning for air in soft issues of medial tibia at admission - Consulted General Surgery, Dr. Plata- bedside wound debridement 03/01 with placement of wound vac. AKA on 03/03 - Blood cx 2/2 MRSA - Dr. Yadav, ID, consulted, appreciate recs; rec 2-4 weeks of IV vancomycin for MRSA bacteremia, PICC line placed 03/02 x 2 and again 03/04 as patient keeps pulling them out - ID recs - patient to have weekly CBC, CRP, CMP, and vanc troughs - Rec possible metal clip placement for compliance with PICC and vancomycin vs 600mg linezolid po BID x 4 weeks with weekly CBC; this may be a better option for the patient as he continues to pull out his PICC line, though he does continue to reject PO meds at times so it is questionable whether he would participate in PO medical therapy as needed for his MRSA bacteremia - wound gram stain: gm+ cocci in pairs/clusters, MRSA - procal, ESR, CRP elevated - Morphine IV for pain - [facility] denied placement, pending placement at the [facility] and [facility] vs [facility] bed for continued tx #Delirium - patient has been having waxing and waning mentation, has pulled out his PICC line twice - started PO seroquel 03/04 - speech consulted to perform mental status exam, appreciate recs - constant re-orientation, keeping drapes open - transitioned to mittens instead of restraints 03/05 to see if this can help improve patient's attitude, put back in restraints 03/05 evening as patient continued to try to remove his PICC - he has been A&Ox3/4 and then A&Ox1 at other times, more consistent with the waxing/waning process of delirium. A/O x2 this AM - had lengthy conversation with patient's daughter Vandana 03/05; she reports that he has had declining mentation throughout the last weeks-months and has been concerned for dementia; discussed helpfulness of having family member at bedside , Vandana said she would talk to her brothers to see if one of them could come to visit patient #Anemia, normocytic - 6.9 Hb on 03/07 AM, s/p 1u pRBC with improved to 8.9, AM labs pending - iron studies pending demonstrate normal ferritin, and %sat - Dr. Plata gave 2u pRBC during the AKA procedure 03/03 - likely acute blood loss anemia from surgery #Urinary retention - Gipson placed during this admission - add flomax and monitor - bladder training to try and remove gipson as appropriate vs possible urology consult #T2DM - continue home Metformin - mild SSI & bedtime SSI - accuchecks ACHS - hyperglycemia protocol placed #HTN - restarted home BP meds after surgery - increased HCTZ from 12.5 to 25mg - increased lisinopril from 10 to 20mg 03/05 - PRN hydralazine as patient often rejects his PO meds #CAD, s/p [place] and PVD - continue home meds #S/P Fall at home - denies hitting head - Brain CT normal - continue to monitor #Prerenal ANDERS, resolved - Cr 1.72, > Cr 0.73 s/p fluid hydration and tx of MRSA bacteremia, will cont to monitor Diet: CC IVF: SL VTE: SCDs Code status: FULL Dispo: Stable, admitted to inpatient on medical unit. Continue antibiotics, wound and blood cultures demonstrated MRSA at this time; post-op day 5 for AKA; transfused 1u prbc on 03/08, cont to monitor; pending placement at [facility] or the [facility] or to swing bed. Addendum - Attending - Attending Attestation Date/Time: 03/08/20 [id number] I personally evaluated the patient and discussed the management with Dr. Contreras. I agree with the History, Examination, Assessment and Plan documented above with any addition or exceptions noted below. Patient with some improved mentation. Continue residential IV abx and await placement. Consider swing bed. Seroquel and redirection as needed for delirium.
[2020-03-08 06:30] LABS: Anion Gap 9 mmol/L (10-20); BUN (Urea Nitrogen) 16 mg/dL (8.4-25.7); Calc. Creatinine Clearance 82 mL/min (70-130); Carbon Dioxide 29 mmol/L (23-31); Chloride 104 mmol/L (98-107); Estimated GFR-MDRD Greater than 90; Glucose 94 mg/dL (83-110); Potassium 3.9 mmol/L (3.5-5.1); Sodium 138 mmol/L (136-145)
[2020-03-08] MEDS: Ubidecarenone 50 MG CAP PO SCH (08:18)
[2020-03-08] MEDS: Ferrous Sulfate 325 MG TAB PO SCH (08:18)
[2020-03-08] MEDS: Polyethylene Glycol 3350 17 GM Packet PO SCH (08:18)
[2020-03-08] MEDS: Nystatin 500,000 UNITS/5 ML UDCUP SSW SCH ×4 (08:18→20:04)
[2020-03-08] MEDS: Gabapentin 300 MG CAP PO SCH ×3 (08:19→20:03)
[2020-03-08] MEDS: Aspirin 81 mg Enteric Coated Tablet PO SCH (08:19)
[2020-03-08] MEDS: Lisinopril 20 MG TAB PO SCH (08:19)
[2020-03-08] MEDS: Hydrochlorothiazide 25 MG TAB PO SCH (08:19)
[2020-03-08] MEDS: Triple Antibiotic Ointment 30 GM TUBE TOP SCH ×2 (12:23→20:04)
[2020-03-08] MEDS: Vancomycin HCl 750 MG in Sodium Chloride 0.9% 250 ML 250 ML IVPB SCH ×2 (12:26→23:44)
--- NOTE | 2020-03-08 13:37 | PDOC.BPN ---
- Brief Progress Note This is a transition of care note for the duration of 03/01-03/07. The patient is a 74M with a PMHx of HTN, DM2, CAD, PVD, R BKA for R foot drop and neuropathy who was admitted for sepsis 2/2 R BKA. He was started on vancomycin, cefepime, and clindamycin. His blood and wound cultures were positive for MRSA and Dr. Yadav was consulted. He recommended 2-4 weeks of IV abx with monitoring of CBC. Dr. Plata from general surgery was consulted, and he performed an AKA on 03/03/20, during which the patient received 2u pRBC for anemia. Cefepime and clindamycin were discontinued. The patient had 3 PICC lines placed, the first 2 of which he pulled out during episodes of delirium. After the 3rd PICC line was placed the patient was started on PO seroquel and placed in restraints. Mittens were attempted, but the patient continued to grab at his PICC line with the mittens. During a discussion with the patient's daughter Vandana, it was discovered that the patient's mentation has been declining over the last several months with decreased memory and inappropriate speech at times. It was recommended to her that someone from his family come to visit, after which one of his sons came to visit him during the hospitalization. His visit appeared to improve the patient' s mentation and he was more lucid. Speech therapy has tried twice to perform a cognitive evaluation on the patient, both times the patient being unable to participate due to his mentation. [employer] had consulted, and they had recommended increasing his diet to 2000 calorie diet with shakes, which were added. The patient appears to have improved PO intake during the times when he is more lucid. The patient received 1u pRBC on 03/09 for a hgb of 6.9, after which his hgb improved to 8.9. His iron studies appear to reflect anemia of chronic disease, but with low iron, ferrous sulfate was started. The patient's home metformin was discontinued due to fluctuations of his blood sugars, at times being somewhat low due to his poor intake. The patient is currently awaiting placement for continued IV abx for 2-4 weeks. had sent a referral to [facility], which was denied. Referrals to [facility] and the [facility] are pending. It was also suggested to CM to consider a swingbed for the patient, to which a CM response is still pending.
[2020-03-08] MEDS: Tamsulosin HCl 0.4 MG CAP PO SCH (20:03)
[2020-03-08] MEDS: Atorvastatin Calcium 40 MG TAB PO SCH (20:03)
[2020-03-08] MEDS ORDERED: Apixaban 5 MG TAB PO SCH (21:00)
[2020-03-09 06:21] LABS: #Eosinphils 1.3 thou/uL (0.0-0.7); #Lymphocytes 2.4 thou/uL (1.20-3.40); #Monocytes 0.7 thou/uL (0.11-0.59); #Neutrophils 14.1 thou/uL (1.40-6.50); %Basophils 0.2 % (0.0-1.0); %Monocytes 3.5 % (0.0-10.0); %Neutrophils 76.3 % (42.0-75.0); Mean Corpuscular HGB CONC 32.2 g/dL (32.0-36.0); Mean Corpuscular Hemoglobin 29.8 pg (27.0-31.0); Mean Corpuscular Volume 92.7 fL (78.0-98.0); Mean Platelet Volume 8.7 fL (7.4-10.4); Platelet Count 525 thou/uL (130-400); RBC Distribution Width 13.6 % (11.5-14.5); Red Blood Cell (RBC) Count 2.68 mill/uL (4.70-6.10); White Blood Cell (WBC) Count 18.5 thou/uL (4.8-10.8)
--- NOTE | 2020-03-09 06:24 | PDOC.FM ---
- Subjective Subjective: Doing well this morning. Overall had a good night, did have 1 short episode of confusion and agitation per nurse report. Was reoriented and calmed down. Gipson was replaced overnight due to bladder scan >250cc and no urge to urinate. Tolerating PO intake. No N/v, fever/chills. Pain well-controlled. Eager for discharge. - Objective MAR Reviewed: Yes Vital Signs & Weight: Vital Signs (12 hours) Temp Pulse Resp BP Pulse Ox 03/09/20 04:00 98.6 F 64 18 120/61 93 L 03/08/20 20:00 92 L 03/08/20 19:57 99.0 F 71 18 114/62 89 L Weight Admit Weight 64.127 kg Weight 55.928 kg I&O: 03/07/20 03/08/20 03/09/20 06:59 06:59 06:59 Intake Total 350 970 Output Total 800 1600 1700 Balance -800 -2845 -730 Result Diagrams: 03/09/20 06:01 03/09/20 06:01 Phys Exam - Physical Examination Constitutional: NAD (resting comfortably) HEENT: moist MMs Neck: supple Respiratory: no wheezing, no rales, no rhonchi, clear to auscultation bilateral Cardiovascular: RRR, no significant murmur, no rub Gastrointestinal: soft, non-tender, no distention, positive bowel sounds Musculoskeletal: no edema R AKA Neurological: non-focal Deviation from normal: A/O x2, not to year but yes to month, improved mentation this AM Dx/Plan (1) MRSA bacteremia Code(s): R78.81 - BACTEREMIA; B95.62 - METHICILLIN RESIS STAPH INFCT CAUSING DISEASES CLASSD ELSWHR Status: Acute (2) Right BKA infection Code(s): T87.43 - INFECTION OF AMPUTATION STUMP, RIGHT LOWER EXTREMITY Status : Acute (3) Sepsis Code(s): A41.9 - SEPSIS, UNSPECIFIED ORGANISM Status: Acute Qualifiers: Sepsis type: sepsis due to unspecified organism Sepsis acute organ dysfunction status: with acute organ dysfunction Severe sepsis acute organ dysfunction type: acute renal failure Acute renal failure type: unspecified Severe sepsis shock status: without septic shock Qualified Code(s): A41.9 - Sepsis, unspecified organism; R65.20 - Severe sepsis without septic shock; N17.9 - Acute kidney failure, unspecified (4) Wound dehiscence Code(s): T81.30XA - DISRUPTION OF WOUND, UNSPECIFIED, INITIAL ENCOUNTER Status : Acute (5) Acute urinary retention Code(s): R33.8 - OTHER RETENTION OF URINE Status: Acute - Plan Plan: 74 yo male with h/o DMII, HTN, CAD admitted for right BKA infection and MRSA bacteremia now s/p R AKA POD #6 #Sepsis 2/2 Right BKA Infection and MRSA bacteremia - on vanc Day 7. S/p cefepime and clinda - R Knee XR concerning for air in soft issues of medial tibia at admission - Consulted General Surgery, Dr. Plata- bedside wound debridement 03/01 with placement of wound vac. AKA on 03/03 - Blood cx /2 MRSA - Dr. Yadav, ID, consulted, appreciate recs; rec 2-4 weeks of IV vancomycin for MRSA bacteremia, PICC line placed 03/02 x 2 and again 03/04 as pt pulled out - ID recs - patient to have weekly CBC, CRP, CMP, and vanc troughs - Rec possible metal clip placement for compliance with PICC and vancomycin vs 600mg linezolid po BID x 4 weeks with weekly CBC; this may be a better option for the patient as he continues to pull out his PICC line, though he does continue to reject PO meds at times so it is questionable whether he would participate in PO medical therapy as needed for his MRSA bacteremia. Overall mentation improved and thus will cont with PICC and Vanc - wound gram stain: gm+ cocci in pairs/clusters, MRSA - procal, ESR, CRP elevated - [facility] denied placement, pending placement at the [facility] vs [facility] vs [facility] bed for continued tx - incentive spirometry at bedside for pulm rehab #Delirium - patient has been having waxing and waning mentation, has pulled out his PICC line twice - started PO seroquel 03/04, will up titrate as needed - constant re-orientation, keeping drapes open - transitioned to mittens instead of restraints 03/05, put back in restraints evening as patient continued to try to remove his PICC, will try to remove restraints when possible - he has been A&Ox3/4 and then A&Ox1 at other times, more consistent with the waxing/waning process of delirium. A/O x2 this AM, overall improving - Conversation with patient's daughter Vandana 03/05; she reports that he has had declining mentation throughout the last weeks-months and has been concerned for dementia; discussed helpfulness of having family member at bedside, Vandana said she would talk to her brothers to see if one of them could come to visit patient #Anemia, normocytic, stable and improved - 6.9 Hb on 03/07 AM, s/p 1u pRBC with improved to 8.9, AM Hb 8.0 - iron studies demonstrate normal ferritin, and %sat - s/p 2u pRBC during the AKA procedure 03/03 - likely acute blood loss anemia from surgery, cont to monitor #Urinary retention - Gipson placed during this admission, bladder training and gipson removed 03/08. Replaced 03/09 - on flomax. Consider urology consult. #T2DM - continue home Metformin - mild SSI & bedtime SSI - accuchecks ACHS - hyperglycemia protocol placed. BG at goal. #HTN - restarted home BP meds after surgery - increased HCTZ from 12.5 to 25mg - increased lisinopril from 10 to 20mg 03/05 - PRN hydralazine as patient often rejects his PO meds - BP at goal #CAD, s/p [place] and PVD - continue home meds #S/P Fall at home - denies hitting head - Brain CT normal - continue to monitor #Prerenal ANDERS, resolved - Cr 1.72, > Cr 0.73 s/p fluid hydration and tx of MRSA bacteremia, will cont to monitor Diet: CC IVF: SL VTE: SCDs Code status: FULL Dispo: Stable, admitted to inpatient on medical unit. Continue antibiotics, wound and blood cultures MRSA; post-op day 6 for AKA, cont to monitor; pending placement at [facility] or [facility] or to swing bed. Cont to treat hospital delirium. Addendum - Attending - Attending Attestation Date/Time: 03/09/20 1023 I personally evaluated the patient and discussed the management with Dr. Contreras. I agree with the History, Examination, Assessment and Plan documented above with any addition or exceptions noted below. Patient overall stable. Working on improving mentation and decreasing delirium through re-direction and Seroquel. Continue IV abx and work with CM on placement.
[2020-03-09 06:36] LABS: Anion Gap 10 mmol/L (10-20); BUN (Urea Nitrogen) 21 mg/dL (8.4-25.7); Calc. Creatinine Clearance 66 mL/min (70-130); Calcium 7.8 mg/dL (7.8-10.44); Carbon Dioxide 28 mmol/L (23-31); Chloride 105 mmol/L (98-107); Estimated GFR-MDRD Greater than 90; Glucose 149 mg/dL (83-110); Potassium 4.1 mmol/L (3.5-5.1); Sodium 139 mmol/L (136-145)
[2020-03-09] MEDS ORDERED: Senokot S 8.6-50 MG TAB PO SCH (07:15)
[2020-03-09] MEDS: Ferrous Sulfate 325 MG TAB PO SCH (08:51)
[2020-03-09] MEDS: Nystatin 500,000 UNITS/5 ML UDCUP SSW SCH ×4 (08:51→19:38)
[2020-03-09] MEDS: Hydrochlorothiazide 25 MG TAB PO SCH (08:52)
[2020-03-09] MEDS: Ubidecarenone 50 MG CAP PO SCH (08:54)
[2020-03-09] MEDS: Gabapentin 300 MG CAP PO SCH ×3 (08:54→19:37)
[2020-03-09] MEDS: Aspirin 81 mg Enteric Coated Tablet PO SCH (08:54)
[2020-03-09] MEDS: Lisinopril 20 MG TAB PO SCH (08:54)
[2020-03-09] MEDS: Polyethylene Glycol 3350 17 GM Packet PO SCH (08:55)
[2020-03-09] MEDS: Triple Antibiotic Ointment 30 GM TUBE TOP SCH ×2 (08:55→19:37)
[2020-03-09 11:06] LABS: Vancomycin, Trough 22.8 ug/mL
[2020-03-09] MEDS: Vancomycin HCl 750 MG in Sodium Chloride 0.9% 250 ML 250 ML IVPB SCH (11:23)
[2020-03-09] MEDS: HumaLOG 300 UNITS/3 ML VIAL SC PRN ×2 (12:40→17:41)
[2020-03-09 13:03] VITALS: BMI 19.8
[2020-03-09] MEDS: Vancomycin HCl 500 MG in Sodium Chloride 0.9% 100 ML IVPB SCH ×2 (13:39→23:13)
[2020-03-09] MEDS: Tamsulosin HCl 0.4 MG CAP PO SCH (19:37)
[2020-03-09] MEDS: Atorvastatin Calcium 40 MG TAB PO SCH (19:37)
[2020-03-10 06:29] LABS: #Basophils 0.1 thou/uL (0.0-0.2); #Eosinphils 1.2 thou/uL (0.0-0.7); #Lymphocytes 2.6 thou/uL (1.20-3.40); #Monocytes 0.7 thou/uL (0.11-0.59); #Neutrophils 14.8 thou/uL (1.40-6.50); %Basophils 0.3 % (0.0-1.0); %Eosinophils 6.1 % (0.0-10.0); %Lymphocytes 13.6 % (21.0-51.0); %Monocytes 3.7 % (0.0-10.0); %Neutrophils 76.3 % (42.0-75.0); Hemoglobin 8.2 g/dL (14.0-18.0); Mean Corpuscular HGB CONC 32.5 g/dL (32.0-36.0); Mean Corpuscular Hemoglobin 30.2 pg (27.0-31.0); Mean Platelet Volume 9.4 fL (7.4-10.4); Platelet Count 609 thou/uL (130-400); RBC Distribution Width 13.7 % (11.5-14.5); Red Blood Cell (RBC) Count 2.72 mill/uL (4.70-6.10); White Blood Cell (WBC) Count 19.4 thou/uL (4.8-10.8)
--- NOTE | 2020-03-10 06:31 | PDOC.FM ---
- Subjective Subjective: Doing well, no acute events overnight. Had 1 episode of waking up and disoriented but easily redirected. This morning he is in good spirits, cooperative, and A/O x2. He denies any fever/chills, CP, SOB. Tolerating PO well. States he has had BM's. He is eager for discharge to retirement. - Objective MAR Reviewed: Yes Vital Signs & Weight: Vital Signs (12 hours) Temp Pulse Resp BP Pulse Ox 03/10/20 04:00 97.7 F 66 16 134/68 96 03/09/20 20:32 92 L 03/09/20 19:29 97.8 F 66 18 110/62 92 L Weight Admit Weight 64.127 kg Weight 56.064 kg I&O: 03/08/20 03/09/20 03/10/20 06:59 06:59 06:59 Intake Total 350 970 500 Output Total 1600 1700 600 Balance -1250 -730 -100 Result Diagrams: 03/10/20 05:44 03/09/20 06:01 Phys Exam - Physical Examination Constitutional: NAD (resting comfortably, A/O x2, good spirits) HEENT: moist MMs Neck: supple Respiratory: no wheezing, no rales, no rhonchi, clear to auscultation bilateral Cardiovascular: RRR, no significant murmur, no rub Gastrointestinal: soft, non-tender, no distention, positive bowel sounds Musculoskeletal: no edema R AKA, dressing c/d/i Neurological: non-focal Psychiatric: normal affect Dx/Plan (1) MRSA bacteremia Code(s): R78.81 - BACTEREMIA; B95.62 - METHICILLIN RESIS STAPH INFCT CAUSING DISEASES CLASSD [id number] Status: Acute (2) Right BKA infection Code(s): T87.43 - INFECTION OF AMPUTATION STUMP, RIGHT LOWER EXTREMITY Status : Acute (3) Sepsis Code(s): A41.9 - SEPSIS, UNSPECIFIED ORGANISM Status: Acute Qualifiers: Sepsis type: sepsis due to unspecified organism Sepsis acute organ dysfunction status: with acute organ dysfunction Severe sepsis acute organ dysfunction type: acute renal failure Acute renal failure type: unspecified Severe sepsis shock status: without septic shock Qualified Code(s): A41.9 - Sepsis, unspecified organism; R65.20 - Severe sepsis without septic shock; N17.9 - Acute kidney failure, unspecified (4) Wound dehiscence Code(s): T81.30XA - DISRUPTION OF WOUND, UNSPECIFIED, INITIAL ENCOUNTER Status : Acute (5) Acute urinary retention Code(s): R33.8 - OTHER RETENTION OF URINE Status: Acute - Plan Plan: 74 yo male with h/o DMII, HTN, CAD admitted for right BKA infection and MRSA bacteremia now s/p R AKA POD #7 #Sepsis 2/2 Right BKA Infection and MRSA bacteremia - R Knee XR concerning for air in soft issues of medial tibia at admission - Consulted General Surgery, Dr. Plata- bedside wound debridement 03/01 with placement of wound vac. AKA on 03/03 - Blood cx 12/28 MRSA - Dr. Yadav, ID, consulted, appreciate recs; rec 2-4 weeks of IV vancomycin for MRSA bacteremia, PICC line placed 03/02 x 2 and again 03/04 as pt pulled out - Negative BCX from 03/07, thus on vanc Day 02/06. S/p cefepime and clinda - ID recs - patient to have weekly CBC, CRP, CMP, and vanc troughs at SNF - Mentation overall improved, no longer in restraints or pulling at PICC. PO improved. - wound gram stain: gm+ cocci in pairs/clusters, MRSA - procal, ESR, CRP elevated - accepted to [facility] for SNF - incentive spirometry at bedside for pulm rehab #Delirium, improved - patient has been having waxing and waning mentation, has pulled out his PICC line twice - started PO seroquel 03/04, will up titrate as needed - constant re-orientation, keeping drapes open - off restraints for almost 24 hours, tolerating well overnight, mentation improved and A/O x2 - Conversation with patient's daughter Vandana 03/05; she reports that he has had declining mentation throughout the last weeks-months and has been concerned for dementia; discussed helpfulness of having family member at bedside #Anemia, normocytic, stable and improved - 6.9 Hb on 12 AM, s/p 1u pRBC with improved to 8.9, AM Hb 8.0 - iron studies demonstrate normal ferritin, and %sat - s/p 2u pRBC during the AKA procedure 03/03 - likely acute blood loss anemia from surgery, cont to monitor #Urinary retention - Gipson placed during this admission, bladder training and gipson removed 03/08. Replaced 03/09 - On Flomax BID, Uro rec keep gipson in place for 1 week to contact office for OP appt with Dr. Franklin #T2DM - continue home Metformin - mild SSI & bedtime SSI - accuchecks ACHS - hyperglycemia protocol placed. BG at goal. #HTN - restarted home BP meds after surgery - increased HCTZ from 12.5 to 25mg - increased lisinopril from 10 to 20mg 03/05 - PRN hydralazine as patient often rejects his PO meds - BP at goal #CAD, s/p NM and PVD - continue home meds #S/P Fall at home - denies hitting head - Brain CT normal - continue to monitor #Prerenal ANDERS, resolved - Cr 1.72, > Cr 0.73 s/p fluid hydration and tx of MRSA bacteremia, will cont to monitor Diet: CC IVF: SL VTE: SCDs Code status: FULL Dispo: Stable, admitted to inpatient on medical unit. Continue antibiotics, wound and blood cultures MRSA; post-op day 7 for AKA, cont to monitor; Accepted to [facility]. Off restraints ~24hrs. Discharge to SNF today. Addendum - Attending - Attending Attestation Date/Time: 03/10/20 1111 I personally evaluated the patient and discussed the management with Dr. Contreras. I agree with the History, Examination, Assessment and Plan documented above with any addition or exceptions noted below. Patient stable for discharge to SNF for continued abx and therapy. Mentation at baseline and no agitation >24 hours.
[2020-03-10 07:52] VITALS: TEMP 97.4
[2020-03-10] MEDS: Ferrous Sulfate 325 MG TAB PO SCH (08:16)
[2020-03-10] MEDS: Lisinopril 20 MG TAB PO SCH (08:16)
[2020-03-10] MEDS: Hydrochlorothiazide 25 MG TAB PO SCH (08:16)
[2020-03-10] MEDS: Aspirin 81 mg Enteric Coated Tablet PO SCH (08:16)
[2020-03-10] MEDS: Polyethylene Glycol 3350 17 GM Packet PO SCH (08:16)
[2020-03-10] MEDS: Tamsulosin HCl 0.4 MG CAP PO SCH (08:16)
[2020-03-10] MEDS: Gabapentin 300 MG CAP PO SCH (08:16)
[2020-03-10] MEDS: Nystatin 500,000 UNITS/5 ML UDCUP SSW SCH ×2 (08:17→12:47)
[2020-03-10] MEDS: Ubidecarenone 50 MG CAP PO SCH (08:17)
[2020-03-10] MEDS: Vancomycin HCl 500 MG in Sodium Chloride 0.9% 100 ML IVPB SCH (11:08)
[2020-03-10] MEDS: Triple Antibiotic Ointment 30 GM TUBE TOP SCH (11:23)
[2020-03-10 12:44] VITALS: BP 132/68
--- NOTE | 2020-03-11 03:26 | DIS ---
DATE OF ADMISSION: 02/28/2020 DATE OF DISCHARGE: 03/10/2020 RESIDENT: Murray Contreras MD ADMITTING ATTENDING: Hermes Ernandez MD DISCHARGE ATTENDING: Guille العراقي MD CONSULTS: 1. Dr. Yadav, Infectious Disease. 2. Dr. Plata, General Surgery. PROCEDURES: 1. Murrieta catheter placed on 02/29/2020. 2. PICC line placed on 03/02/2020, 03/02/2020, and again on 03/04/2020. 3. Cciel-pen-guhc amputation on the right, performed on 03/03/2020. 4. Two units of packed red blood cells, given on 03/03/2020. 5. One unit of packed red blood cells, given on 03/07/2020. 6. Right knee x-ray performed on 02/28/2020, demonstrating very suspicious for some air within the soft tissue along the medial side of the tibia. 7. Chest x-ray on 02/28/2020, demonstrating no intrathoracic disease acutely. 8. Brain CT on 02/28/2020, demonstrating no acute intracranial abnormality. PRIMARY DIAGNOSES: 1. Sepsis secondary to right below-knee amputation infection and methicillin-resistant Staphylococcus aureus bacteremia. 2. Delirium, improved. 3. Acute blood loss anemia, improved. 4. Urinary retention. SECONDARY DIAGNOSES: 1. Type 2 diabetic. 2. Hypertension. 3. Coronary artery disease status post myocardial infarction and peripheral vascular disease. 4. Status post fall at home. 5. Prerenal acute kidney injury, resolved. DISCHARGE MEDICATIONS: 1. Metformin 500 mg p.o. q.a.m. 2. Aspirin 81 mg p.o. daily. 3. Tylenol 1000 mg p.o. q.6 hours p.r.n. 4. Atorvastatin 40 mg p.o. at bedtime. 5. Gabapentin 300 mg p.o. t.i.d. 6. Zofran 4 mg p.o. q.6 hours p.r.n. 7. MiraLAX 17 g p.o. daily. 8. CoQ10 100 mg p.o. daily. 9. Hydrochlorothiazide 25 mg p.o. daily. 10. Lisinopril 20 mg p.o. daily. 11. Seroquel 25 mg p.o. at bedtime until delirium and mentation improved. 12. Flomax 0.4 mg p.o. b.i.d. until following up with Urology. 13. Vancomycin 500 mg IV piggyback given at 1200 hours and 2359 hours for a total of 12 additional days ending on 03/14/2020. DISCONTINUED MEDICATIONS: 1. Lisinopril 10 mg p.o. daily. 2. Hydrochlorothiazide 12.5 mg p.o. daily. 3. Ibuprofen 400 mg p.o. q.6 hours p.r.n. HISTORY OF PRESENT ILLNESS AND HOSPITAL COURSE: The patient is a 74-year-old male with a history of type 2 diabetes, hypertension, coronary artery disease, peripheral vascular disease, who was admitted for a right BKA infection with wound dehiscence, found to have MRSA bacteremia. He initially presented with fever and pain, swelling of the area. X-ray was suspicious for infection. General Surgery was consulted who ultimately performed a wound debridement on 03/01/2020, with placement of a wound VAC. Infectious Disease was consulted, who started the patient on IV antibiotics. Ultimately, the patient required an AKA and this was performed on 03/03/2020. Blood cultures returned, 2/2 positive for MRSA. Thus, IV vancomycin was continued and dosed appropriately. Blood cultures were repeated on 03/07/2020 and were negative. Thus, the patient will require two weeks of IV vancomycin from date of negative cultures, thus ending the complete course on 03/21/2020. Per ID recommendations , the patient should also have a weekly CBC, CRP, CMP, and vancomycin trough while on IV vancomycin and follow up with Dr. Yadav as directed. The patient tolerated the procedure well. However, did have onset of hospital-acquired delirium. Initially, his delirium caused him to pull out his PICC line multiple times and thus the need for replacement. Ultimately, the patient was placed into soft restraints for his protection. Seroquel was initiated for patient with much improvement of mentation and ultimately, the patient was able to be kept off restraints for >24hrs prior to transfer to the medical facility for [facility]. Throughout his hospitalization, the patient's mentation continued to improve. By the time of discharge, he was A and O x2, having fluid conversations with memory intact. The patient also had acute blood loss anemia. His hemoglobin was 6.9 on 03/07 status post AKA. He was given 2 units of packed red blood cells during his procedure and an additional 1 unit on 03/07. Hemoglobin improved to 8.9 by the time of discharge. The patient also developed urinary retention secondary to his hospitalization. A Murrieta was placed. Bladder training and Flomax were initiated, and Murrieta was able to be removed. However, the patient continued to have urinary retention, thus the Murrieta was replaced. Dr. Franklin's office was contacted with recommendations to continue Flomax and established with them for a followup appointment one week after discharge. Instructions were given for bladder training, to follow up with them as directed. Regarding the patient's chronic medical conditions, medications were continued for type 2 diabetes. Hypertension was initially uncontrolled. Medications were adjusted per above and discharge medications were continued at the time of discharge. The patient also presented with prerenal ANDERS that resolved with IV fluids. At the time of discharge, the patient was A and O x2, very near his baseline mentation. He was moderately deconditioned from his hospitalization, still having urinary retention requiring IV antibiotics. Discharge plan was then discussed with patient at bedside including need to go to [facility] facility for rehab and medical management. The patient voiced understanding and agreement of discharge plan, was eager to be discharged home. All questions were answered appropriately. DISPOSITION: Stable. DISCHARGE INSTRUCTIONS: 1. Location: snf facility. 2. Diet: Consistent carb. 3. Activity: As tolerated with orthopedic limitations, to advance per physical therapy recommendations. 4. Followup: a. The patient is to follow up with Dr. Yadav within a week of discharge for further recommendations. b. The patient is to follow up with Urology within 1 week. c. The patient is to follow up with primary care physician within 1 week of discharge. d. The patient is to follow up with Dr. Plata in 2-3 weeks. Job ID: [id number] [facility]
--- NOTE | 2020-03-12 13:02 | PQF ---
MAULIK SCHWARZ RICHARD D MD [id number] CLINICAL DOCUMENTATION CLARIFICATION FORM: POST DISCHARGE Addendum to original discharge summary date: ____ Late entry note date: __ DATE:03/12/2020 ATTN: Marshall Breen Please exercise your independent, professional judgment in responding to the clarification form. Clinical indicators are provided on the bottom of this form for your review Please check appropriate box(s): [ yes ] Excisional Debridement: [ yes] Excised [ yes] Cut away [ ] Other: Depth / layer: (deepest layer of debridement): [ yes ] Skin[ yes] SubQ Tissue [ ] Fascia [ ] Muscle [ ] Tendon [ ] Bone Appearance of wound: (e.g., down to fresh bleeding tissue, etc.)___ Margins: (please specify): / x x Instruments used: [ ] Scissors [ yes] Scalpel [ ] Curette [ ] Soft tissue clipper [ ] Other: [ ] Non-excisional Debridement: (Removal by flushing, brushing, chemical, or washing) Depth / layer: (deepest layer of debridement): [ ] Skin[ ] Subcutaneous [ ] Fascia [ ] Muscle [ ] Tendon [ ] Bone [ ] Incision and Drainage only (No Debridement): Depth:[ ] Skin [ ] Subcutaneous [ ] Fascia [ ] Muscle [ ] Tendon [ ] Bone [ ] Other procedure diagnosis please specify: [ ] Unable to determine For continuity of documentation, please document condition throughout progress notes and discharge summary. Thank You. CLINICAL INDICATORS - SIGNS / SYMPTOMS / LABS HP 02/[address] Ernandez blood on his wound dressing and some purulent drainage from the incision PN 03/[address] Plata when I evaluated the wound it appeared to be superficial, but as I further evaluated there was dark colored fluid evacuating from the medial aspect of the wound from the deep fascia PN 03/[address] Plata underlying wound had abundant material not healing at all PN 03/[address] Plata The skin and subcutaneous tissue, eschar debrided sharply PN 03/[address] Plata Culture revealed MRSA positive blood cultures PN 03/[address] Plata Wound is reported to look good RISK FACTORS: History Right BKA done at [facility] on January 2020- HP 02/27 Dr. Ernandez HP 02/27 Dr. Ernandez Right BKA infection-HP 02/27 Dr. Ernandez Type 2 DM- 02/27 Dr. Ernandez Sepsis secondary to Right BKA infection- 02/27 Dr. Ernandez Wound Dehiscence- 02/27 Dr. Ernandez TREATMENTS: PICC placement- 03/02 Dr. Higgins Wound debridement and wound VAC-03/01 Dr. Plata Right AKA- 03/03 Dr. Plata Vancomycin IV 1 gm- JAN 27 Cefepime IV 2 gms- JAN 27 (This form is maintained as a part of the permanent medical record) 2014 [employer] All Rights Reserved [email or web address]
== END 2020-03-10 14:22 | DRG 463 ==
LOC: ERS 20:39 → T4-A 22:15
PROVIDERS: ADMIT Internal Medicine; ATTEND Family Medicine
PROC: 0JBN0ZZ Excision of Right Lower Leg Subcutaneous Tissue and Fascia, Open Approach (ICD-10-PCS; 2020-03-01)
PROC: 02HV33Z Insertion of Infusion Device into Superior Vena Cava, Percutaneous Approach (ICD-10-PCS; 2020-03-02)
PROC: B548ZZA Ultrasonography of Superior Vena Cava, Guidance (ICD-10-PCS; 2020-03-02)
PROC: 0Y6C0Z1 Detachment at Right Upper Leg, High, Open Approach (ICD-10-PCS; principal; 2020-03-03)
PROC: 30233N1 Transfusion of Nonautologous Red Blood Cells into Peripheral Vein, Percutaneous Approach (ICD-10-PCS; 2020-03-03)
PROC: B548ZZA Ultrasonography of Superior Vena Cava, Guidance (ICD-10-PCS; 2020-03-04)
PROC: 02HV33Z Insertion of Infusion Device into Superior Vena Cava, Percutaneous Approach (ICD-10-PCS; 2020-03-04)
PROC: 0T9B70Z Drainage of Bladder with Drainage Device, Via Natural or Artificial Opening (ICD-10-PCS; 2020-03-05)
DX: T87.43 Infection of amputation stump, right lower extremity (principal); A41.02 Sepsis due to Methicillin resistant Staphylococcus aureus; R65.20 Severe sepsis without septic shock; N17.9 Acute kidney failure, unspecified; L03.115 Cellulitis of right lower limb; F05 Delirium due to known physiological condition; D62 Acute posthemorrhagic anemia; T87.81 Dehiscence of amputation stump; I25.10 Atherosclerotic heart disease of native coronary artery without angina pectoris; I10 Essential (primary) hypertension; E11.51 Type 2 diabetes mellitus with diabetic peripheral angiopathy without gangrene; R74.0 Nonspecific elevation of levels of transaminase and lactic acid dehydrogenase [LDH]; E11.40 Type 2 diabetes mellitus with diabetic neuropathy, unspecified; M21.371 Foot drop, right foot; F02.80 Dementia in other diseases classified elsewhere, unspecified severity, without behavioral disturbance, psychotic disturbance, mood disturbance, and anxiety; W18.30XA Fall on same level, unspecified, initial encounter; E87.6 Hypokalemia; R33.8 Other retention of urine; Z91.19 Patient's noncompliance with other medical treatment and regimen; Z79.899 Other long term (current) drug therapy; Z79.82 Long term (current) use of aspirin; Z79.84 Long term (current) use of oral hypoglycemic drugs; Z86.73 Personal history of transient ischemic attack (TIA), and cerebral infarction without residual deficits; I25.2 Old myocardial infarction; Z90.49 Acquired absence of other specified parts of digestive tract; Y83.8 Other surgical procedures as the cause of abnormal reaction of the patient, or of later complication, without mention of misadventure at the time of the procedure; G30.9 Alzheimer's disease, unspecified
CPT/HCPCS: 36415; 36416; 36430; 36569; 70450; 71045; 80048; 80053; 80202; 82550; 82728; 83540; 83550; 83605; 83735; 84145; 84466; 85025; 85652; 86140; 86850; 86900; 86901; 87040; 87070; 87077; 87149; 87186; 87205; 88307; 93005; 96361; 96365; 96366; 99211; C1751; G0463; J0360; J0670; J0692; J1630; J1644; J2001; J2270; J2405; J2704; J3010; J3370; J3480; J3490; J7050; L8460; P9016

== ENCOUNTER 2020-04-23 09:29 | Outpatient (CLI) | payer MEDICARE, MEDICAID ==
--- NOTE | 2020-04-23 13:50 | MRI ---
EXAM: RIGHT LOWER EXTREMITY MRI WITH AND WITHOUT IV CONTRAST: 04/23/20 HISTORY: Continued chronic drainage from amputation site of right AK amputation. Multiplanar and multisequence MRI examination of the right lower extremity is performed from the righ t hip down to the level of the AK amputation site. There is some fairly extensive lateral skin thicke karey and edema as well as subcutaneous edema and/or cellulitis overlying the lateral aspect of the ri ght upper thigh and extending down to the amputation site. There is some fluid noted between the late ral fascia and the underlying vastus lateralis muscle. There is abnormal T2 hyperintensity and T1 hyp ointensity within the vastus lateralis as well as the vastus intermedius muscle evidence for myositis without evidence for focal intramuscular myonecrosis. There is a 1.2 x 2.8 cm lipoma within the post erior aspect of the vastus intermedius muscle. There is an irregular area of abnormal signal involvin g the soft tissues at the distal femur amputation site. This irregularly shaped fluid collection sunshine ures approximately 4.8 x 6.1 x 7.2 cm and has surrounding enhancing wall as well as some enhancement around this fluid collection more diffusely, evidence for an abscess. There is surrounding cellulitis . No evidence for overt osteomyelitis, although this abnormal enhancing rim of this abscess is in dir ect contact with the distal amputated femur. The abscess does have an extension which extends to the level of the subdermal region distally. IMPRESSION: Large irregularly shaped abscess distal to the amputated femur with an extension that extends to near the subdermal region at the distal amputation site. There is surrounding enhancing phlegmon and a so mewhat thick enhancing wall. Abnormal signal within the vastus lateralis and vastus intermedius muscl es, evidence for myositis without focal intramuscular myonecrosis. Small lipoma within the posterior vastus intermedius. Fairly marked lateral skin thickening and subcutaneous fat stranding from the hip down to the amputated site laterally with some fluid density between the lateral fascia and the late ral aspect of the vastus lateralis muscle. Evidence for cellulitis and superficial fasciitis. No evid ence for fernando osteomyelitis. POS: [facility]
== END 2020-04-23 09:30 | disposition home or self-care (01) ==
LOC: MRI 09:29
PROVIDERS: ATTEND Internal Medicine Infectious Disease
DX: T87.43 Infection of amputation stump, right lower extremity (principal); M60.9 Myositis, unspecified; L03.115 Cellulitis of right lower limb; L02.415 Cutaneous abscess of right lower limb; M72.9 Fibroblastic disorder, unspecified

== ENCOUNTER 2020-04-25 05:34 | Emergency (ER) | payer MEDICARE, MEDICAID | END 2020-04-25 05:56 | disposition home or self-care (01) | LOC: ERS 05:34 | DX: R41.82 Altered mental status, unspecified (principal); E11.9 Type 2 diabetes mellitus without complications; I10 Essential (primary) hypertension; I25.2 Old myocardial infarction; Z79.899 Other long term (current) drug therapy | CPT/HCPCS: 99281 ==

== ENCOUNTER 2020-09-02 11:10 | Inpatient (IN) | payer MEDICARE, MEDICAID, OTHER ==
--- NOTE | 2020-09-02 11:54 | RAD ---
XR Femur Rt 2 View STANDARD INDICATION: History of right BKA with right amputation site pain COMPARISON: MRI of the right lower extremity dated April 23, 2020. FINDINGS: Bones: There is some heterotopic ossification and chronic periosteal reaction surrounding the right A KA femoral stump. No destructive osteolytic is seen to suggest presence of osteomyelitis. Soft tissues: There are prominent Monckeberg calcifications within the soft tissues. Joints: There is mild right hip osteoarthrosis. IMPRESSION: No radiographic evidence of osteomyelitis.
[2020-09-02 12:02] LABS: #Basophils 0.1 thou/uL (0.0-0.2); #Eosinphils 2.2 thou/uL (0.0-0.7); #Lymphocytes 1.7 thou/uL (1.20-3.40); #Monocytes 1.1 thou/uL (0.11-0.59); #Neutrophils 10.7 thou/uL (1.40-6.50); %Basophils 0.4 % (0.0-1.0); %Eosinophils 13.9 % (0.0-10.0); %Lymphocytes 10.6 % (21.0-51.0); %Monocytes 6.8 % (0.0-10.0); %Neutrophils 68.2 % (42.0-75.0); Hemoglobin 10.4 g/dL (14.0-18.0); Mean Corpuscular HGB CONC 32.4 g/dL (32.0-36.0); Mean Corpuscular Hemoglobin 29.2 pg (27.0-31.0); Mean Platelet Volume 9.9 fL (7.4-10.4); Platelet Count 347 thou/uL (130-400); RBC Distribution Width 13.4 % (11.5-14.5); Red Blood Cell (RBC) Count 3.56 mill/uL (4.70-6.10); White Blood Cell (WBC) Count 15.7 thou/uL (4.8-10.8)
[2020-09-02 12:39] LABS: ALT (SGPT) 8 U/L (8-55); AST (SGOT) 16 U/L (5-34); Albumin 3.3 g/dL (3.4-4.8); Alkaline Phosphatase 108 U/L (40-110); Anion Gap 14 mmol/L (10-20); BUN (Urea Nitrogen) 27 mg/dL (8.4-25.7); Bilirubin, Total Less than 0.2 mg/dL (0.2-1.2); Calc. Creatinine Clearance 0 mL/min (70-130); Calcium 8.6 mg/dL (7.8-10.44); Carbon Dioxide 24 mmol/L (23-31); Chloride 104 mmol/L (98-107); Estimated GFR-MDRD 53; Globulin 4.9 g/dL (2.4-3.5); Glucose 163 mg/dL (83-110); Potassium 4.3 mmol/L (3.5-5.1); Protein, Total 8.2 g/dL (5.8-8.1); Sodium 138 mmol/L (136-145)
[2020-09-02] MEDS ORDERED: Vancomycin 1 GM/200 ML BAG ONE (15:44)
[2020-09-02] MEDS ORDERED: Morphine 4 MG/ML VIAL ONE (15:44)
[2020-09-02] MEDS ORDERED: Ondansetron PF 4 MG/2 ML Vial ONE (15:44)
--- NOTE | 2020-09-02 15:44 | PDOC.FPRHP ---
- History of Present Illness History of Present Illness: 74 yo M with history of DMII, HTN, and right sided AKA in January. Patient first began feeling cramping, pulsating pain in this leg yesterday morning. The pain increased this morning. It was momentarily relieved by placing pressure on the wound. While in the ED waiting room the wound began bleeding onto the floor. Patient denies fever, chills, nausea, vomiting, SOB, or CP. He has a home health nurse that comes weekly to care for his wound. ED Course: 1L NS, carranza, cefepime, morphine, zofran - Allergies/Adverse Reactions Allergies Allergy/AdvReac Type Severity Reaction Status Date / Time No Known Allergies Allergy Verified 09/02/20 19:19 - Home Medications Medication Instructions Recorded Confirmed Type metFORMIN [Glucophage] 500 mg PO QAM-WM 01/17/20 09/02/20 History Aspirin [Adult Aspirin Regimen] 81 mg PO DAILY #30 tab 01/19/20 09/02/20 Rx Acetaminophen [Tylenol Extra 1,000 mg PO Q6H PRN tab 01/29/20 09/02/20 Rx Strength] Atorvastatin Calcium [Lipitor] 40 mg PO HS tab 01/29/20 09/02/20 Rx Gabapentin [Neurontin] 300 mg PO TID cap 01/29/20 09/02/20 Rx Ondansetron [Zofran ODT] 4 mg PO Q6H PRN tab 01/29/20 09/02/20 Rx Polyethylene Glycol 3350 [Miralax] 17 gm PO DAILY pk 01/29/20 09/02/20 Rx Ubidecarenone [Coenzyme Q10] 100 mg PO DAILY cap 01/29/20 09/02/20 Rx Hydrochlorothiazide 25 mg PO DAILY #30 tab 03/10/20 09/02/20 Rx Lisinopril [Zestril] 20 mg PO DAILY #30 tab 03/10/20 09/02/20 Rx QUEtiapine Fumarate [SEROquel] 25 mg PO HS #30 tab 03/10/20 09/02/20 Rx Tamsulosin HCl [Flomax] 0.4 mg PO BID #60 cap 03/10/20 09/02/20 Rx Vancomycin HCl 500 mg IVPB 1200,2359 12 Days #20 04/15/20 10/08/20 Rx vial Amlodipine [Norvasc] 5 mg PO DAILY 09/02/20 09/02/20 History Ferrous Sulfate 325 mg PO MWF 09/02/20 09/02/20 History - History PMHx: MIx3, stroke, HTN, DMII PSHx: R AKA (January 2020) FHx: Non-contributory Social: can't read, 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 Never smoker, denies drinking, marijuana, and drug use - Review of Systems General: denies: fever/chills Cardiovascular: denies: chest pain, palpitation Gastrointestinal: denies: nausea, vomiting Genitourinary: denies: dysuria Skin: denies: rashes Musculoskeletal: reports: pain, tenderness, arthritis/arthralgias Neurological: denies: syncope, weakness - Vital signs BP: 171/87 HR: 75 RR: 18 Tmax: 98.6 Pox: 99% on RA Wt: 79kg - Physical Exam Constitutional: NAD, awake, alert and oriented HEENT: normocephalic and atraumatic, EOMI, no scleral icterus, grossly normal vision, grossly normal hearing Neck: FROM Heart: RRR, no murmurs/rubs/gallops Lungs: CTAB, no respiratory distress Abdomen: soft, non-tender, bowel sounds present Musculoskeletal: ROM grossly normal Neurological: no focal deficit -Skin: erythematous and warm right LE stump. purulent drainage from dehiscence of R side of wound Psychiatric: normal mood and affect, good judgment and insight, intact recent and remote memory FMR H&P: Results - Labs Result Diagrams: 09/03/20 04:53 09/03/20 04:52 Lab results: WBC 15.7 thou/uL (4.8-10.8) H 09/02/20 11:52 Hgb 10.4 g/dL (14.0-18.0) L 09/02/20 11:52 Hct 32.0 % (42.0-52.0) L 09/02/20 11:52 MCV 90.0 fL (78.0-98.0) 09/02/20 11:52 Plt Count 347 thou/uL (130-400) 09/02/20 11:52 Neutrophils % 68.2 % (42.0-75.0) 09/02/20 11:52 Sodium 138 mmol/L (136-145) 09/02/20 11:52 Potassium 4.3 mmol/L (3.5-5.1) 09/02/20 11:52 Chloride 104 mmol/L (98-107) 09/02/20 11:52 Carbon Dioxide 24 mmol/L (23-31) 09/02/20 11:52 BUN 27 mg/dL (8.4-25.7) H 09/02/20 11:52 Creatinine 1.32 mg/dL (0.7-1.3) H 09/02/20 11:52 Glucose 163 mg/dL (83-110) H 09/02/20 11:52 Lactic Acid 1.2 mmol/L (0.5-2.2) 09/02/20 11:52 Calcium 8.6 mg/dL (7.8-10.44) 09/02/20 11:52 Total Bilirubin Less than 0.2 mg/dL (0.2-1.2) L 09/02/20 11:52 AST 16 U/L (5-34) 09/02/20 11:52 ALT 8 U/L (8-55) 09/02/20 11:52 Alkaline Phosphatase 108 U/L (40-110) 09/02/20 11:52 Serum Total Protein 8.2 g/dL (5.8-8.1) H 09/02/20 11:52 Albumin 3.3 g/dL (3.4-4.8) L 09/02/20 11:52 - Radiology Interpretation Other Status: report reviewed by me (femur xray: no evidence of osteomyelitis) FMR H&P: A/P - Problem List (1) Cellulitis Current Visit: No Status: Acute Code(s): L03.90 - CELLULITIS, UNSPECIFIED (2) Wound dehiscence Current Visit: No Status: Acute Code(s): T81.30XA - DISRUPTION OF WOUND, UNSPECIFIED, INITIAL ENCOUNTER (3) CAD (coronary artery disease) Current Visit: No Status: Chronic Code(s): I25.10 - ATHSCL HEART DISEASE OF [place] CORONARY ARTERY W/O ANG PCTRS (4) DMII (diabetes mellitus, type 2) Current Visit: No Status: Chronic (5) Hypertension Current Visit: No Status: Chronic Code(s): I10 - ESSENTIAL (PRIMARY) HYPERTENSION - Plan 74 yo M with history of R AKA presenting for pain and redness surrounding wound. Cellulitis 2/2 dehiscence of R AKA incision Erythematous and warm skin surrounding incision. Purulent drainage from R side of wound site. -WBC 15.7 -lactic 1.2 -Received cefepime, vanc, and morphine in ED -femur XR: no signs of osteomyelitis -Continue vanc, start rocephin -BCx, wound culture, procal, ESR, CRP pending Wound dehiscence AKA in January 2020. Dehiscence on right side of wound with purulent discharge -see above -consult wound care, PT, OT DMII -SSI -continue home meds HTN -hydralazine prn -continue home meds Hx of CAD -prior MIs -aware, continue home meds Diet: HH DVT: lovenox PCP: ARIEL Code: FULL Dispo: Admit to medical to IV abx therapy. eLOS >48hours. FMR H&P: Upper Level - Plan Date/Time: 09/02/20 1544 ICintia, have evaluated this patient and agree with findings/plan as outlined by summer intern resident. Pertinent changes/additions are listed here. 74 yo M with PMH CAD, DM2, HTN presents to ED for R AKA erythema, drainage with concern for infection. He lives at home with services. He had R AKA 03/03/2020 after infection of BKA and MRSA bacteremia requiring >2 wks antibiotics. Vicenta managed this. He also has history of urinary retention, and poor compliance with medications. VS: 166/87, 75, 18, 98.7, 100% on RA PE: Gen: NAD, very poor hygiene, thin HEENT: Moist MM Heart: RRR, no murmurs or extra sounds Lungs: CTAB, no wheezing. No increased work of breathing Abd: soft, nontender, BS+, no masses or hernias Ext: no cyanosis or edema. R AKA with surrounding erythema, warmth, bloody purulent discharge Skin: no rashes Psych: AOx3 Pertinent Labs/Imaging: WBC 15, femur XR-no osteo R AKA cellulitis/dehiscence - Vital signs stable, afebrile - With hx prior MRSA bacteremia due to infection of R leg that resulted in BKA- >AKA - No osteo on XR, will check ESR/CRP - WBC 15, lymphocyte predominance - Given cefepime and vanc in ED (09/02), continue vanc, rocephin - Pending wound and blood cultures - Consult wound care PMH includes DM2-check A1c, will need tight glycemic control. Hx PVD, HTN, CAD as well. CKD3 at baseline Dispo: admit to medical inpatient for IV antibiotics, expected LOS >48hrs Addendum - Attending - Attending Attestation Date/Time: 09/03/20 1152 I personally evaluated the patient and discussed the management with Dr. King/Ashlyn. I agree with the History, Examination, Assessment and Plan documented above with any addition or exceptions noted below.
[2020-09-02] MEDS ORDERED: Ondansetron PF 4 MG/2 ML Vial IVP PRN (16:14)
[2020-09-02] MEDS ORDERED: Ondansetron ODT 4 MG TAB PO PRN (16:14)
[2020-09-02] MEDS ORDERED: HumaLOG 300 UNITS/3 ML VIAL SC PRN (16:37)
[2020-09-02] MEDS ORDERED: Dextrose 5% in Water 1,000 ML IV PRN (16:37)
[2020-09-02] MEDS ORDERED: Dextrose 50% Abboject 50 ML SYRINGE SLOW IVP PRN (16:37)
[2020-09-02] MEDS ORDERED: cefTRIAXone\\ROCEPHIN 1 GM in Sodium Chloride 0.9% 100 ML IVPB SCH (17:00)
[2020-09-02] MEDS ORDERED: Cefepime 2 GM VIAL ONE (17:08)
[2020-09-02 18:10] LABS: Hemoglobin A1c 5.6 % (4.0-6.0)
[2020-09-02 19:19] VITALS: BMI 19.5
[2020-09-02] MEDS: Atorvastatin Calcium 40 MG TAB PO SCH (20:42)
[2020-09-02] MEDS: Gabapentin 300 MG CAP PO SCH (20:42)
[2020-09-02] MEDS: cefTRIAXone\\ROCEPHIN 1 GM in Sodium Chloride 0.9% 100 ML IVPB SCH (20:43)
[2020-09-02] MEDS ORDERED: Vancomycin HCl 1 GM in Sodium Chloride 0.9% 250 ML 250 ML IVPB SCH (21:00)
[2020-09-03 05:02] LABS: #Basophils 0.1 thou/uL (0.0-0.2); #Eosinphils 2.8 thou/uL (0.0-0.7); #Lymphocytes 2.1 thou/uL (1.20-3.40); #Monocytes 0.9 thou/uL (0.11-0.59); #Neutrophils 6.5 thou/uL (1.40-6.50); %Basophils 0.5 % (0.0-1.0); %Eosinophils 22.6 % (0.0-10.0); %Lymphocytes 17.1 % (21.0-51.0); %Monocytes 7.6 % (0.0-10.0); %Neutrophils 52.2 % (42.0-75.0); Hemoglobin 8.7 g/dL (14.0-18.0); Mean Corpuscular HGB CONC 33.8 g/dL (32.0-36.0); Mean Corpuscular Hemoglobin 30.6 pg (27.0-31.0); Mean Corpuscular Volume 90.5 fL (78.0-98.0); Mean Platelet Volume 9.1 fL (7.4-10.4); Platelet Count 283 thou/uL (130-400); RBC Distribution Width 13.3 % (11.5-14.5); Red Blood Cell (RBC) Count 2.83 mill/uL (4.70-6.10); White Blood Cell (WBC) Count 12.3 thou/uL (4.8-10.8)
[2020-09-03 05:22] LABS: Anion Gap 8 mmol/L (10-20); BUN (Urea Nitrogen) 25 mg/dL (8.4-25.7); Calc. Creatinine Clearance 44 mL/min (70-130); Calcium 8.2 mg/dL (7.8-10.44); Carbon Dioxide 28 mmol/L (23-31); Chloride 107 mmol/L (98-107); Estimated GFR-MDRD 61; Glucose 90 mg/dL (83-110); Potassium 4.4 mmol/L (3.5-5.1); Sodium 139 mmol/L (136-145)
--- NOTE | 2020-09-03 06:19 | PDOC.FM ---
- Subjective Subjective: Mr. Camarena is feeling well this morning. He says his leg is not hurting. Denies fever, chills, nausea, vomiting. - Objective Vital Signs & Weight: Vital Signs (12 hours) Temp Pulse Resp BP BP Pulse Ox 09/03/20 04:00 97.7 F 59 L 12 163/72 H 100 09/03/20 02:15 99 09/02/20 23:43 98.2 F 55 L 16 138/63 99 09/02/20 20:00 99 09/02/20 19:14 98.3 F 56 L 18 131/62 99 Weight Weight 55.083 kg Result Diagrams: 09/03/20 04:53 09/03/20 04:52 Additional Labs: A1C - 5.6 CRP - 11.04 ESR - 89 Procal - 0.1 Lactic 1.2 Phys Exam - Physical Examination Constitutional: NAD HEENT: moist MMs, sclera anicteric Neck: full ROM Respiratory: no wheezing, clear to auscultation bilateral Cardiovascular: RRR, no significant murmur Gastrointestinal: soft, non-tender, no distention, positive bowel sounds Musculoskeletal: no edema, pulses present R AKA, end of stump covered with wound dressing Neurological: moves all 4 limbs Psychiatric: normal affect, A&O x 3 Skin: no rash Dx/Plan (1) Cellulitis Code(s): L03.90 - CELLULITIS, UNSPECIFIED Status: Acute (2) Wound dehiscence Code(s): T81.30XA - DISRUPTION OF WOUND, UNSPECIFIED, INITIAL ENCOUNTER Status: Acute (3) CAD (coronary artery disease) Code(s): I25.10 - ATHSCL HEART DISEASE OF [place] CORONARY ARTERY W/O ANG PCTRS Status: Chronic (4) DMII (diabetes mellitus, type 2) Status: Chronic (5) Hypertension Code(s): I10 - ESSENTIAL (PRIMARY) HYPERTENSION Status: Chronic - Plan Plan: 74 yo M with history of R AKA presenting for pain and redness surrounding wound. Cellulitis 2/2 dehiscence of R AKA incision Erythematous and warm skin surrounding incision. Purulent drainage from R side of wound site. -WBC 15.7, lactic 1.2 -procal 0.1, ESR 89, CRP 11.04 -Received cefepime, vanc, and morphine in ED -femur XR: no signs of osteomyelitis -Continue vanc, start rocephin -BCx, wound culture pending -Consider MRI to further investigate osteomyelitis. ESR >60, 74% sensitivity and 56% specificity. CRP >7.9, 49% sensitivity and 80% specificity. Wound dehiscence AKA in January 2020. Dehiscence on right side of wound with purulent discharge -see above -consult wound care, PT, OT Iron deficiency anemia -Hgb 10.4 > 8.7 -Blood work in February suggested iron deficiency -Ferrous sulfate home med -Continue to monitor DMII -A1c 5.6 -SSI -continue home meds HTN -hydralazine prn -continue home meds Hx of CAD -prior MIs -aware, continue home meds Diet: HH - mechanical soft DVT: lovenox PCP: ARIEL Code: FULL Dispo: Admit to medical to IV abx therapy. eLOS >48hours. Addendum - Attending - Attending Attestation Date/Time: 09/03/20 3027 I personally evaluated the patient and discussed the management with Dr. King. I agree with the History, Examination, Assessment and Plan documented above with any addition or exceptions noted below.
[2020-09-03] MEDS ORDERED: FLU VACC QS2020-21(65YR UP)/PF 240 MCG/0.7 ML SYRINGE IM ONE (09:00)
[2020-09-03] MEDS: Gabapentin 300 MG CAP PO SCH ×3 (09:55→19:33)
[2020-09-03] MEDS: metFORMIN 500 MG TAB PO SCH (09:55)
[2020-09-03] MEDS: Hydrochlorothiazide 25 MG TAB PO SCH (09:55)
[2020-09-03] MEDS: Lisinopril 20 MG TAB PO SCH (09:55)
[2020-09-03] MEDS: Aspirin 81 mg Enteric Coated Tablet PO SCH (09:56)
[2020-09-03] MEDS: Enoxaparin Sodium 40 MG/0.4 ML SYRINGE SC SCH (09:56)
[2020-09-03] MEDS: Ubidecarenone 50 MG CAP PO SCH (09:56)
[2020-09-03] MEDS: Ferrous Sulfate 325 MG TAB PO SCH (09:56)
[2020-09-03] MEDS: Amlodipine 5 MG TAB PO SCH (09:56)
--- NOTE | 2020-09-03 10:30 | CON ---
DATE OF CONSULTATION: HISTORY OF PRESENT ILLNESS: Geena Camarena is a 74-year-old male lives at home with his sons. 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 His sons used to carry him to the bathroom. Now, the patient is able to transfer himself and get to the bathroom himself. The patient had a right BKA, subsequent AKA in February 2020. Apparently, culture from his right AKA stump on 04/21/2020 revealed MRSA. The wound healed. The patient is admitted by the [facility]. The patient showed up on my list and I visited him. He had a wound on his right AKA stump that is open about thumb size and penetrates towards the femur. There is an open space in this with purulent discharge. Cultures obtained on 09/02/2020 revealed gram-negative rods, also gram-positive rods and gram-positive cocci. Final cultures pending. The patient remains afebrile and his white count is 15 on admission, 12 today. He is currently on vancomycin and ceftriaxone. Met with wound care on the wound and they will treat this with a wound VAC. He will need case management assistant to arrange outpatient wound VAC care. We will consult Dr. Yadav for outpatient antibiotics and we will have to await sensitivities. I will follow this wound as an outpatient. Once arrangements were made for outpatient wound care and antibiotics, the patient can be discharged home with outpatient care. Await Dr. Yadav' recommendations, pending culture results and sensitivities. ALLERGIES: NONE. SOCIAL HISTORY: Tobacco, none. Alcohol, none. PAST MEDICAL HISTORY: Diabetes mellitus, hypertension, coronary artery disease, history of stroke, history of BPH. PAST SURGICAL HISTORY: Cholecystectomy; lumbar surgery; long history of footdrop, right. The patient on 01/27/2020 underwent right below-knee amputation. He was taken back to the operating room on 03/03/2020 for a wound dehiscence MRSA infection and underwent right [id number]-bmr-zyrw amputation. HOME MEDICATIONS: 1. Ferrous sulfate. 2. Amlodipine. 3. Metformin. 4. . 5. Flomax. 6. MiraLAX. 7. Lisinopril. 8. Hydrochlorothiazide. 9. Gabapentin. 10. Atorvastatin. 11. Aspirin. 12. Acetaminophen. PHYSICAL EXAMINATION: VITAL SIGNS: 5 feet 6, 121 pounds, 19 BMI. 97.8, 58, 143/67. LUNGS: Clear to auscultation. CARDIAC: Regular rate and rhythm without murmur or gallop. ABDOMEN: Soft, nontender. EXTREMITIES: Left leg intact. Right AKA wound with posterior stump opening about 2.5 to 3 cm in diameter, undermining towards the femur, opening into a large cavity with purulent bloody discharge. LABORATORY DATA: Basic metabolic profile normal. ASSESSMENT AND PLAN: Right AKA stump infection, methicillin-resistant Staphylococcus aureus grew in March. Cultures pending this hospitalization. Currently on antibiotics, vancomycin and Rocephin. Would recommend consultation with Dr. Yadav. Wound VAC care arrange outpatient wound VAC. I will see him as an outpatient in the next few weeks to follow this wound. Hopefully, this will heal without further surgical intervention. Job ID: [id number]
[2020-09-03] MEDS ORDERED: Vancomycin HCl 750 MG in Sodium Chloride 0.9% 250 ML 250 ML IVPB SCH (16:00)
[2020-09-03] MEDS: Atorvastatin Calcium 40 MG TAB PO SCH (19:33)
[2020-09-03] MEDS: cefTRIAXone\\ROCEPHIN 1 GM in Sodium Chloride 0.9% 100 ML IVPB SCH (19:33)
--- NOTE | 2020-09-03 22:52 | CON ---
DATE OF CONSULTATION: 09/03/2020 REASON FOR CONSULTATION: Right AKA site disruption with inflammatory process. HISTORY OF PRESENT ILLNESS: A 74-year-old whom I had seen a few months ago in February of this year when he presented with a history of type 2 diabetes, neuropathy, coronary artery disease and prior BKA in January 2020. The patient sustained a dehiscence with infection and had a revision to above knee level. He did have bacteremia at the time, so we continued IV vancomycin for a protracted period of time and the area healed reportedly until about a week ago when he noticed disruption and inflammatory change. There was a persistence of erythema and purulent drainage with redness. He did not have any fever or chills. He otherwise felt well. No respiratory symptoms. No diarrhea. No genitourinary symptoms. Initial findings, his temperature was normal. His O2 saturations are good. He is not tachycardic. He has a little bit systolic elevation. LABORATORY DATA: Other findings included a white cell count of 15.7, hemoglobin 10.4, platelets 347, 68% neutrophils, 13.9% eosinophils, so most of the elevation in the total WBC count is due to eosinophilia. A chemistry showed elevation of creatinine of 1.32 and that has improved thus far. His CRP was 11.04. X-ray of the femur on 09/02 showed no evidence of osteomyelitis. There was some heterotopic ossification and chronic periosteal reaction surrounding the right AKA femoral stump. He had a wound VAC placed and has been started on antimicrobial therapy. Thus far the culture revealed a gram-negative ramirez. Also in the Gram stain, there was gram-positive cocci in chains and clusters, so it looks like a polymicrobial perla. PAST MEDICAL HISTORY: Includes type 2 diabetes, coronary artery disease, foot drop, right BKA, right AKA revision due to infection, myocardial infarction and hypertension. PAST SURGICAL HISTORY: Cholecystectomy and laminectomy. FAMILY HISTORY: Type 2 diabetes and coronary artery disease. SOCIAL HISTORY: History of alcohol dependency syndrome, but abstinent for few years. Never smoker. Lives with son in town. PHYSICAL EXAMINATION: VITAL SIGNS: T-max 98.2, blood pressure 120/60, heart rate 71, respiratory rate 16 and O2 saturation 96. SKIN: Shows the area of inflammatory change at the tip of the right AKA. The surgeon looked at this area and did a probing of the area. There was undermining towards the femur about 2.5 x 3 cm in diameter opening into a large cavity with purulent bloody discharge. GENERAL: Awake, alert oriented. HEENT: Ocular movements conjugate. Oral cavity, no remaining teeth. NECK: Supple. No jugular venous distention. LUNGS: Symmetric, clear breath sounds. HEART: S1 and S2. Regular rate. No S3 or S4. ABDOMEN: Soft, not distended or tender. No ascites. No bladder distention. EXTREMITIES: Pulses 1+ left popliteal, 1+ right and left femoral. NEUROLOGIC: Nonfocal. He is oriented, follows commands. Speech is normal. Good recollection. LABORATORY DATA: The latest creatinine is down to 1.17. The latest white cell count down to 12.3, hemoglobin 8.7, platelets 283. Microbiology, negative blood cultures thus far. Bacterial culture with gram-negative ramirez, yet to be identified, susceptibility tested. The sample is a swab from the wound. The Gram stain showed a polymicrobial perla. ASSESSMENT: 1. Type 2 diabetes. 2. Foot drop. 3. Ptpfz-jbbj-bgqvpgrymw converted to cdrxq-ppjn-jqtzcacvcy and then this complication developing now. Prior episode of Methicillin-resistant Staphylococcus aureus bacteremia treated for protracted period of time with IV vancomycin and now the disruption of the bbgal-tdcu-dahgvyqqxq site with a large area of abscess, which is draining. No surgical intervention has been recommended by Dr. Plata. The mechanism that led to this may be related to trauma from patient using the stump site as a lever to get him on top of certain places such as the toilet seat for example. We will wait for the final identification, susceptibility profile of the organism before we plan long-term antimicrobial therapy. The possibility of osteomyelitis is not completely ruled out. May consider MRI of the area to of further stage the inflammatory process. Job ID: [id number]
--- NOTE | 2020-09-04 05:22 | PDOC.FM ---
- Subjective Subjective: Mr. Camarena is doing well this morning. He has no complaints. His leg is pain free and he is thankful for our care. - Objective Vital Signs & Weight: Vital Signs (12 hours) Temp Pulse Resp BP Pulse Ox 09/04/20 00:28 97 09/03/20 19:57 98.6 F 61 16 135/58 L 97 Weight Admit Weight 55.083 kg Weight 55.083 kg I&O: 09/02/20 09/03/20 09/04/20 06:59 06:59 06:59 Intake Total 610 1250 Output Total 650 225 Balance -40 1025 Result Diagrams: 09/04/20 06:01 09/03/20 04:52 Phys Exam - Physical Examination Constitutional: NAD HEENT: moist MMs, sclera anicteric Neck: full ROM Respiratory: no wheezing, clear to auscultation bilateral Cardiovascular: RRR, no significant murmur Gastrointestinal: soft, non-tender, no distention, positive bowel sounds Musculoskeletal: pulses present R AKA, wound vac in place Neurological: moves all 4 limbs Psychiatric: normal affect, A&O x 3 Dx/Plan (1) Cellulitis Code(s): L03.90 - CELLULITIS, UNSPECIFIED Status: Acute (2) Wound dehiscence Code(s): T81.30XA - DISRUPTION OF WOUND, UNSPECIFIED, INITIAL ENCOUNTER Status: Acute (3) CAD (coronary artery disease) Code(s): I25.10 - ATHSCL HEART DISEASE OF [place] CORONARY ARTERY W/O ANG PCTRS Status: Chronic (4) DMII (diabetes mellitus, type 2) Status: Chronic (5) Hypertension Code(s): I10 - ESSENTIAL (PRIMARY) HYPERTENSION Status: Chronic - Plan Plan: 74 yo M with history of R AKA presenting for pain and redness surrounding wound. Cellulitis 2/2 dehiscence of R AKA incision Erythematous and warm skin surrounding incision. Purulent drainage from R side of wound site. -WBC 15.7, lactic 1.2, procal 0.1, ESR 89, CRP 11.04 -Received cefepime, vanc, and morphine in ED -femur XR: no signs of osteomyelitis -Continue vanc, start rocephin -BCx, wound culture showing gram negative rods and many gram positive -Consider MRI to further investigate osteomyelitis. ESR >60, 74% sensitivity and 56% specificity. CRP >7.9, 49% sensitivity and 80% specificity. -Consult Gen Surg (Boni) - wound vac placed, CM to set up outpatient wound vac -Consult ID (Vicenta) - continue current abx, wait for wound culture sensitivities to decide outpatient therapy. Cannot rule out MRI. Wound dehiscence AKA in January 2020. Dehiscence on right side of wound with purulent discharge -see above -consult wound care, PT, OT Iron deficiency anemia -Hgb 10.4 > 8.7 -Blood work in February suggested iron deficiency -Continue ferrous sulfate home med -Continue to monitor DMII -A1c 5.6 -SSI -continue home meds HTN -hydralazine prn -continue home meds Hx of CAD -prior MIs -aware, continue home meds Diet: HH - mechanical soft, glucerna, juvena DVT: lovenox PCP: ARIEL Code: FULL Dispo: Admit to medical to IV abx therapy. eLOS >48hours. Addendum - Attending - Attending Attestation Date/Time: 09/04/20 7509 I personally evaluated the patient and discussed the management with Dr. King. I agree with the History, Examination, Assessment and Plan documented above with any addition or exceptions noted below. The patient has a wound vac in place. Continue antibiotics. Awaiting cultures. Appreciate specialist recs.
[2020-09-04 06:12] LABS: #Basophils 0.1 thou/uL (0.0-0.2); #Eosinphils 3.2 thou/uL (0.0-0.7); #Lymphocytes 2.1 thou/uL (1.20-3.40); #Monocytes 0.7 thou/uL (0.11-0.59); #Neutrophils 6.8 thou/uL (1.40-6.50); %Basophils 0.7 % (0.0-1.0); %Eosinophils 24.7 % (0.0-10.0); %Lymphocytes 16.1 % (21.0-51.0); %Monocytes 5.6 % (0.0-10.0); %Neutrophils 52.8 % (42.0-75.0); Hemoglobin 9.2 g/dL (14.0-18.0); Mean Corpuscular HGB CONC 33.1 g/dL (32.0-36.0); Mean Corpuscular Hemoglobin 29.7 pg (27.0-31.0); Mean Corpuscular Volume 89.8 fL (78.0-98.0); Mean Platelet Volume 9.3 fL (7.4-10.4); Platelet Count 313 thou/uL (130-400); RBC Distribution Width 13.1 % (11.5-14.5); Red Blood Cell (RBC) Count 3.11 mill/uL (4.70-6.10); White Blood Cell (WBC) Count 12.8 thou/uL (4.8-10.8)
[2020-09-04] MEDS: Hydrochlorothiazide 25 MG TAB PO SCH (09:46)
[2020-09-04] MEDS: Ubidecarenone 50 MG CAP PO SCH (09:46)
[2020-09-04] MEDS: Aspirin 81 mg Enteric Coated Tablet PO SCH (09:46)
[2020-09-04] MEDS: Gabapentin 300 MG CAP PO SCH ×3 (09:46→19:59)
[2020-09-04] MEDS: metFORMIN 500 MG TAB PO SCH (09:46)
[2020-09-04] MEDS: Lisinopril 20 MG TAB PO SCH (09:47)
[2020-09-04] MEDS: Enoxaparin Sodium 40 MG/0.4 ML SYRINGE SC SCH (09:47)
[2020-09-04] MEDS: Amlodipine 5 MG TAB PO SCH (09:47)
[2020-09-04 15:16] LABS: Vancomycin, Trough 10.6 ug/mL
[2020-09-04] MEDS: Vancomycin 1 GM in Premix Bag 1 BAG IVPB SCH (15:43)
[2020-09-04] MEDS: cefTRIAXone\\ROCEPHIN 1 GM in Sodium Chloride 0.9% 100 ML IVPB SCH (19:58)
[2020-09-04] MEDS: Atorvastatin Calcium 40 MG TAB PO SCH (19:59)
--- NOTE | 2020-09-05 05:33 | PDOC.FM ---
- Subjective Subjective: Mr. Camarena is very pleasant this morning. He has been praying daily and feels encouraged. - Objective Vital Signs & Weight: Vital Signs (12 hours) Temp Pulse Resp BP Pulse Ox 09/05/20 00:00 98 09/04/20 19:23 97.6 F 63 16 141/60 H 98 Weight Admit Weight 55.083 kg Weight 55.083 kg I&O: 09/03/20 09/04/20 09/05/20 06:59 06:59 06:59 Intake Total 610 1600 590 Output Total 650 525 510 Balance -40 1075 80 Result Diagrams: 09/04/20 06:01 09/03/20 04:52 Phys Exam - Physical Examination Constitutional: NAD HEENT: moist MMs, sclera anicteric Neck: full ROM Respiratory: no wheezing, clear to auscultation bilateral Cardiovascular: RRR, no significant murmur Gastrointestinal: soft, non-tender, no distention, positive bowel sounds Musculoskeletal: no edema, pulses present R AKA, wound vac in place Neurological: moves all 4 limbs Psychiatric: normal affect, A&O x 3 Dx/Plan (1) Cellulitis Code(s): L03.90 - CELLULITIS, UNSPECIFIED Status: Acute (2) Wound dehiscence Code(s): T81.30XA - DISRUPTION OF WOUND, UNSPECIFIED, INITIAL ENCOUNTER Status: Acute (3) CAD (coronary artery disease) Code(s): I25.10 - ATHSCL HEART DISEASE OF [place] CORONARY ARTERY W/O ANG PCTRS Status: Chronic (4) DMII (diabetes mellitus, type 2) Status: Chronic (5) Hypertension Code(s): I10 - ESSENTIAL (PRIMARY) HYPERTENSION Status: Chronic - Plan Plan: 74 yo M with history of R AKA presenting for pain and redness surrounding wound. Cellulitis 2/2 dehiscence of R AKA incision Erythematous and warm skin surrounding incision. Purulent drainage from R side of wound site. -WBC 15.7, lactic 1.2, procal 0.1, ESR 89, CRP 11.04 -Received cefepime, vanc, and morphine in ED -femur XR: no signs of osteomyelitis -Continue vanc, start rocephin -BCx neg -wound culture MRSA and E.Coli - -Consider MRI to further investigate osteomyelitis. ESR >60, 74% sensitivity and 56% specificity. CRP >7.9, 49% sensitivity and 80% specificity. -Consult Gen Surg (Boni) - wound vac placed, CM to set up outpatient wound vac -Consult ID (Vicenta) - continue current abx, wait for wound culture sensitivities to decide outpatient therapy. Cannot rule out MRI. Wound dehiscence AKA in January 2020. Dehiscence on right side of wound with purulent discharge -see above -consult wound care, PT, OT Iron deficiency anemia -Hgb 10.4 > 8.7 -Blood work in February suggested iron deficiency -Continue ferrous sulfate home med -Continue to monitor Constipation -hasn't had bowel movement since he's been here -colace BID DMII -A1c 5.6 -SSI -continue home meds HTN -hydralazine prn -continue home meds Hx of CAD -prior MIs -aware, continue home meds Diet: HH - mechanical soft, glucerna, juvena DVT: lovenox PCP: ARIEL Code: FULL Dispo: Admit to medical to IV abx therapy. eLOS >48hours. Addendum - Attending - Attending Attestation Date/Time: 09/05/20 7126 I personally evaluated the patient and discussed the management with Dr. King. I agree with the History, Examination, Assessment and Plan documented above with any addition or exceptions noted below. Pt's wound culture has resulted with multiple organisms. Will f/u with recs from Dr. Yadav on long-term antibiotics. Pt awaiting wound vac set up.
[2020-09-05] MEDS: metFORMIN 500 MG TAB PO SCH (08:15)
[2020-09-05] MEDS: Amlodipine 5 MG TAB PO SCH (08:16)
[2020-09-05] MEDS: Aspirin 81 mg Enteric Coated Tablet PO SCH (08:17)
[2020-09-05] MEDS: Gabapentin 300 MG CAP PO SCH ×3 (08:18→19:36)
[2020-09-05] MEDS: Hydrochlorothiazide 25 MG TAB PO SCH (08:18)
[2020-09-05] MEDS: Lisinopril 20 MG TAB PO SCH (08:18)
[2020-09-05] MEDS: Enoxaparin Sodium 40 MG/0.4 ML SYRINGE SC SCH (08:18)
[2020-09-05] MEDS: Ubidecarenone 50 MG CAP PO SCH (08:19)
[2020-09-05] MEDS: Docusate 100 MG CAP PO SCH ×2 (08:20→19:36)
[2020-09-05] MEDS: Vancomycin 1 GM in Premix Bag 1 BAG IVPB SCH (16:43)
[2020-09-05] MEDS: Atorvastatin Calcium 40 MG TAB PO SCH (19:36)
[2020-09-05] MEDS: Ciprofloxacin 500 MG TAB PO SCH (19:36)
[2020-09-06] MEDS: Ciprofloxacin 500 MG TAB PO SCH ×2 (05:16→21:08)
--- NOTE | 2020-09-06 06:09 | PDOC.FM ---
- Subjective Subjective: Mr. Camarena has no complaints this morning. He denies any pain in his leg and says he's ready to go home. - Objective Vital Signs & Weight: Vital Signs (12 hours) Temp Pulse Resp BP Pulse Ox 09/05/20 20:00 98.7 F 88 20 108/59 L 95 Weight Admit Weight 55.083 kg Weight 55.083 kg I&O: 09/04/20 09/05/20 09/06/20 06:59 06:59 06:59 Intake Total 3981 267 7871 Output Total 525 510 925 Balance 1075 80 145 Result Diagrams: 09/04/20 06:01 09/03/20 04:52 Phys Exam - Physical Examination Constitutional: NAD HEENT: moist MMs, sclera anicteric Neck: full ROM Respiratory: no wheezing, clear to auscultation bilateral Cardiovascular: RRR, no significant murmur Gastrointestinal: soft, non-tender, positive bowel sounds Musculoskeletal: no edema, pulses present R AKA Neurological: moves all 4 limbs Psychiatric: A&O x 3 Dx/Plan (1) Cellulitis Code(s): L03.90 - CELLULITIS, UNSPECIFIED Status: Acute (2) Wound dehiscence Code(s): T81.30XA - DISRUPTION OF WOUND, UNSPECIFIED, INITIAL ENCOUNTER Status: Acute (3) CAD (coronary artery disease) Code(s): I25.10 - ATHSCL HEART DISEASE OF [place] CORONARY ARTERY W/O ANG PCTRS Status: Chronic (4) DMII (diabetes mellitus, type 2) Status: Chronic (5) Hypertension Code(s): I10 - ESSENTIAL (PRIMARY) HYPERTENSION Status: Chronic - Plan Plan: 74 yo M with history of R AKA presenting for pain and redness surrounding wound. Cellulitis 2/2 dehiscence of R AKA incision Erythematous and warm skin surrounding incision. Purulent drainage from R side of wound site. -WBC 15.7, lactic 1.2, procal 0.1, ESR 89, CRP 11.04 -Received cefepime, vanc, and morphine in ED -femur XR: no signs of osteomyelitis -Continue vanc, start rocephin -BCx neg -wound culture MRSA, Escherichia hermanii, strep pyogenes -Consider MRI to further investigate osteomyelitis. ESR >60, 74% sensitivity and 56% specificity. CRP >7.9, 49% sensitivity and 80% specificity. -Consult Gen Surg (Boni) - wound vac placed, CM to set up outpatient wound vac -Consult ID (Vicenta) - continue current abx, awaiting recs on outpatient abx based on wound culture sensitivities Wound dehiscence AKA in January 2020. Dehiscence on right side of wound with purulent discharge -see above -consult wound care, PT, OT Iron deficiency anemia -Hgb 10.4 > 8.7 -Blood work in February suggested iron deficiency -Continue ferrous sulfate home med -Continue to monitor Constipation -hasn't had bowel movement since he's been here -colace BID DMII -A1c 5.6 -SSI -continue home meds HTN -hydralazine prn -continue home meds Hx of CAD -prior MIs -aware, continue home meds Diet: HH - mechanical soft, glucerna, juvena DVT: lovenox PCP: ARIEL Code: FULL Dispo: Admit to medical to IV abx therapy. eLOS >48hours.
[2020-09-06] MEDS: metFORMIN 500 MG TAB PO SCH (08:09)
[2020-09-06] MEDS: Aspirin 81 mg Enteric Coated Tablet PO SCH (08:10)
[2020-09-06] MEDS: Enoxaparin Sodium 40 MG/0.4 ML SYRINGE SC SCH (08:10)
[2020-09-06] MEDS: Ferrous Sulfate 325 MG TAB PO SCH (08:10)
[2020-09-06] MEDS: Gabapentin 300 MG CAP PO SCH ×3 (08:10→21:08)
[2020-09-06] MEDS: Docusate 100 MG CAP PO SCH ×2 (08:10→21:08)
[2020-09-06] MEDS: Lisinopril 20 MG TAB PO SCH (08:11)
[2020-09-06] MEDS: Ubidecarenone 50 MG CAP PO SCH (08:11)
[2020-09-06] MEDS: Hydrochlorothiazide 25 MG TAB PO SCH (08:12)
[2020-09-06] MEDS: Amlodipine 5 MG TAB PO SCH (08:12)
--- NOTE | 2020-09-06 13:40 | PRG ---
DATE OF SERVICE: 09/06/2020 Mr. Camarena is in good spirits this morning. Given the fact that he has had recent areas of significant cellulitis and wound dehiscence/infection in the proximity to bone, I feel it would be a good idea to go and get an MRI of bone to ensure that there is or is not osteomyelitis, which will certainly alter his intravenous antibiotic course. We will proceed with this, after which he can be discharged depending on the results. Job ID: [id number]
[2020-09-06] MEDS: Vancomycin 1 GM in Premix Bag 1 BAG IVPB SCH (15:30)
[2020-09-06] MEDS: Atorvastatin Calcium 40 MG TAB PO SCH (21:08)
[2020-09-07] MEDS: Ciprofloxacin 500 MG TAB PO SCH ×2 (06:00→20:55)
--- NOTE | 2020-09-07 06:21 | PDOC.FM ---
- Subjective Subjective: Mr. Camarena is doing well this morning. He is feeling blessed and thankful for our care. - Objective Vital Signs & Weight: Vital Signs (12 hours) Temp Pulse Resp BP Pulse Ox 09/06/20 20:00 98.5 F 63 20 93/55 L 95 Weight Admit Weight 55.083 kg Weight 55.083 kg I&O: 09/05/20 09/06/20 09/07/20 06:59 06:59 06:59 Intake Total 590 1070 830 Output Total 510 925 200 Balance 80 145 630 Result Diagrams: 09/04/20 06:01 09/03/20 04:52 Phys Exam - Physical Examination Constitutional: NAD HEENT: moist MMs, sclera anicteric Neck: no nodes, supple, full ROM Respiratory: no wheezing, no rales, no rhonchi, clear to auscultation bilateral Cardiovascular: RRR, no significant murmur Gastrointestinal: soft, non-tender, no distention, positive bowel sounds Musculoskeletal: no edema, pulses present R AKA Neurological: moves all 4 limbs Psychiatric: normal affect, A&O x 3 Dx/Plan (1) Cellulitis Code(s): L03.90 - CELLULITIS, UNSPECIFIED Status: Acute (2) Wound dehiscence Code(s): T81.30XA - DISRUPTION OF WOUND, UNSPECIFIED, INITIAL ENCOUNTER Status: Acute (3) CAD (coronary artery disease) Code(s): I25.10 - ATHSCL HEART DISEASE OF [place] CORONARY ARTERY W/O ANG PCTRS Status: Chronic (4) DMII (diabetes mellitus, type 2) Status: Chronic (5) Hypertension Code(s): I10 - ESSENTIAL (PRIMARY) HYPERTENSION Status: Chronic - Plan Plan: 74 yo M with history of R AKA presenting for pain and redness surrounding wound. Cellulitis 2/2 dehiscence of R AKA incision Erythematous and warm skin surrounding incision. Purulent drainage from R side of wound site. -WBC 15.7, lactic 1.2, procal 0.1, ESR 89, CRP 11.04 on admission. WBC improved to 12.8. -Received cefepime, vanc, and morphine in ED -femur XR: no signs of osteomyelitis -Continue vanc, rocephin discontinued on 09/05, started cipro -BCx neg -Wound Cx: MRSA, Escherichia hermanii, strep pyogenes -MRI pending to investigate osteomyelitis. ESR >60, 74% sensitivity and 56% s pecificity. CRP >7.9, 49% sensitivity and 80% specificity. -Consult Gen Surg (Boni) - wound vac placed, CM set up outpatient wound vac -Consult ID (Vicenta) - will continue vanc and cipro for [address] Yadav will contact CM to ensure outpatient antibiotics are set up. Wound dehiscence AKA in January 2020. Dehiscence on right side of wound with purulent discharge -see above -consult wound care, PT, OT Iron deficiency anemia -Hgb 10.4 > 8.7 -Blood work in February suggested iron deficiency -Continue ferrous sulfate home med -Continue to monitor Constipation -reports improved BM regularity on colace BID DMII -A1c 5.6 -SSI -continue home meds HTN -hydralazine prn -continue home meds Hx of CAD -prior MIs -aware, continue home meds Diet: HH - mechanical soft, glucerna, juvena DVT: lovenox PCP: TAMP Code: FULL Dispo: Discharge pending outpatient abx set up.
[2020-09-07] MEDS: metFORMIN 500 MG TAB PO SCH (08:51)
[2020-09-07] MEDS: Amlodipine 5 MG TAB PO SCH (08:51)
[2020-09-07] MEDS: Docusate 100 MG CAP PO SCH ×2 (08:52→20:46)
[2020-09-07] MEDS: Aspirin 81 mg Enteric Coated Tablet PO SCH (08:52)
[2020-09-07] MEDS: Enoxaparin Sodium 40 MG/0.4 ML SYRINGE SC SCH (08:52)
[2020-09-07] MEDS: Gabapentin 300 MG CAP PO SCH ×3 (08:53→20:55)
[2020-09-07] MEDS: Hydrochlorothiazide 25 MG TAB PO SCH (08:53)
[2020-09-07] MEDS: Ubidecarenone 50 MG CAP PO SCH (08:53)
[2020-09-07] MEDS: Lisinopril 20 MG TAB PO SCH (08:53)
--- NOTE | 2020-09-07 13:54 | PRG ---
DATE OF SERVICE: 09/07/2020 Mr. Camarena is as usual happy, alert self this morning. We are awaiting the results of an MRI of his femur to ensure there was no osteomyelitis. However, he feels fine, is having only minimal incisional discomfort. Job ID: [id number]
--- NOTE | 2020-09-07 14:26 | MRI ---
EXAM: RIGHT LOWER EXTREMITY MRI WITHOUT IV CONTRAST: 09/07/20 HISTORY: Cellulitis, history of diabetes mellitus. Prior right AK amputation. COMPARISON: 04/23/20. FINDINGS: Again noted are AK amputation changes. There is a large wound noted in the posterior amputation site with some packing material within a sinus tract extending at least 2 cm where it has a branching type appearance with some extension anteriorly and posteriorly. There is a small amount of fluid adjacent to the amputated tip of the femur. There is some minimal heterogeneous increased signal in the soft tissue medial and lateral and somewhat posterior to the distal femur. There is considerable improveme nt in the previously noted myositis of the vastus intermedius and vastus lateralis muscle. There is a small stable intramuscular lipoma. There appears to be decreased subcutaneous edema and fat strandin g. The previously noted large complicated appearing abscess is markedly decreased in size. No abnorma l marrow edema within the femur to suggest acute osteomyelitis. No evidence for a drainable abscess. IMPRESSION: Persistent open wound and draining tracts which has a somewhat branching appearance with a small amou nt of fluid immediately adjacent to the tip of the amputated femur but no evidence for a drainable fl uid collection. There is some persistent edematous change within the soft tissues adjacent to the dis cindy femur but overall appearance is definitely improved from the prior study. No evidence for drainag e abscess. No evidence for osteomyelitis. Continued follow-up evaluation. POS: RRE
[2020-09-07 15:14] LABS: Vancomycin, Trough 26.3 ug/mL
[2020-09-07] MEDS: Atorvastatin Calcium 40 MG TAB PO SCH (20:55)
--- NOTE | 2020-09-08 06:19 | PDOC.FM ---
- Subjective Subjective: Mr. Camarena has no complaints today. He says his son told him he will be going to rehab after this. - Objective Vital Signs & Weight: Vital Signs (12 hours) Temp Pulse Resp BP Pulse Ox 09/08/20 04:56 98 09/07/20 20:00 97.6 F 72 16 90/55 L 98 09/07/20 19:55 98 Weight Admit Weight 55.083 kg Weight 55.083 kg I&O: 09/06/20 09/07/20 09/08/20 06:59 06:59 06:59 Intake Total 1070 1070 1000 Output Total 925 450 550 Balance 145 620 450 Result Diagrams: 09/04/20 06:01 09/03/20 04:52 Phys Exam - Physical Examination Constitutional: NAD HEENT: moist MMs, sclera anicteric Neck: full ROM Respiratory: no wheezing, clear to auscultation bilateral Cardiovascular: RRR, no significant murmur Gastrointestinal: soft, non-tender, no distention, positive bowel sounds Musculoskeletal: no edema, pulses present R AKA Neurological: moves all 4 limbs Psychiatric: normal affect, A&O x 3 Dx/Plan (1) Cellulitis Code(s): L03.90 - CELLULITIS, UNSPECIFIED Status: Acute (2) Wound dehiscence Code(s): T81.30XA - DISRUPTION OF WOUND, UNSPECIFIED, INITIAL ENCOUNTER Status: Acute (3) CAD (coronary artery disease) Code(s): I25.10 - ATHSCL HEART DISEASE OF [place] CORONARY ARTERY W/O ANG PCTRS Status: Chronic (4) DMII (diabetes mellitus, type 2) Status: Chronic (5) Hypertension Code(s): I10 - ESSENTIAL (PRIMARY) HYPERTENSION Status: Chronic - Plan Plan: 74 yo M with history of R AKA presenting for pain and redness surrounding wound. Cellulitis 2/2 dehiscence of R AKA incision Erythematous and warm skin surrounding incision. Purulent drainage from R side of wound site. -WBC 15.7, lactic 1.2, procal 0.1, ESR 89, CRP 11.04 on admission. WBC improved to 12.8. -Received cefepime, vanc, and morphine in ED -femur XR: no signs of osteomyelitis -Continue vanc, rocephin discontinued on 09/05, started cipro -BCx neg -Wound Cx: MRSA, Escherichia hermanii, strep pyogenes -MRI negative for abscess or osteomyelitis. ESR >60, 74% sensitivity and 56% specificity. CRP >7.9, 49% sensitivity and 80% specificity. -Consult Gen Surg (Boni) - wound vac placed, CM set up outpatient wound vac -Consult ID (Vicenta) - will continue vanc and cipro for [address] Yadav will contact CM to ensure outpatient antibiotics are set up. -Home health nurse contacted nursing yesterday expressing concern for the cleanliness of patient's home and having a picc line in that setting. Wound dehiscence AKA in January 2020. Dehiscence on right side of wound with purulent discharge -see above -consult wound care, PT, OT Iron deficiency anemia -Hgb 10.4 > 8.7 -Blood work in February suggested iron deficiency -Continue ferrous sulfate home med -Continue to monitor Constipation -reports improved BM regularity on colace BID DMII -A1c 5.6 -SSI -continue home meds HTN -hydralazine prn -continue home meds Hx of CAD -prior MIs -aware, continue home meds Diet: HH - mechanical soft, glucerna, juvena DVT: lovenox PCP: TAMP Code: FULL Dispo: Discharge pending outpatient abx set up.
[2020-09-08] MEDS: Ciprofloxacin 500 MG TAB PO SCH ×2 (07:12→19:50)
[2020-09-08] MEDS: Lisinopril 20 MG TAB PO SCH (10:15)
[2020-09-08] MEDS: metFORMIN 500 MG TAB PO SCH (10:15)
[2020-09-08] MEDS: Ferrous Sulfate 325 MG TAB PO SCH (10:15)
[2020-09-08] MEDS: Aspirin 81 mg Enteric Coated Tablet PO SCH (10:15)
[2020-09-08] MEDS: Ubidecarenone 50 MG CAP PO SCH (10:15)
[2020-09-08] MEDS: Amlodipine 5 MG TAB PO SCH (10:15)
[2020-09-08] MEDS: Gabapentin 300 MG CAP PO SCH ×3 (10:15→21:10)
[2020-09-08] MEDS: Enoxaparin Sodium 40 MG/0.4 ML SYRINGE SC SCH (10:16)
[2020-09-08] MEDS: Hydrochlorothiazide 25 MG TAB PO SCH (10:16)
[2020-09-08] MEDS: Docusate 100 MG CAP PO SCH ×2 (10:16→21:06)
--- NOTE | 2020-09-08 13:33 | PRG ---
DATE OF SERVICE: I have examined the patient. I have discussed the case with Dr. Scooter King and agree with her assessment and plan. Mr. Camarena' MRI did not reveal osteomyelitis. We are still awaiting rehab placement for him. This morning, he is as usual very tearful, . He has no complaints and his pain is minimal. We will continue with his antibiotic coverage and we will await placement. We appreciate also the input from Dr. Yadav who has recommended we continue vanc and Cipro for a total of 2 weeks. Job ID: [id number]
[2020-09-08] MEDS: Vancomycin HCl 750 MG in Sodium Chloride 0.9% 250 ML 250 ML IVPB SCH (16:23)
--- NOTE | 2020-09-08 17:12 | SPC ---
Ultrasound-guidedleftupper extremity PICC placement: 09/08/2020 HISTORY: IV access requested for IV antibiotic therapy FINDINGS: Informed consent obtained prior to the procedure. Left antecubital fossa prepped and draped in normal sterile fashion. Skin overlying theleft basilicvein anesthetized with 1% buffered lidocaine. With direct sonographic g uidance, vascular access is obtained via the left basilicvein and an 0.018in wire was advanced to the cavoatrial junction. Intravascular length is calculated at 41 cm and of the PICC is cut according ly. Needle is removed and replaced with a peel-away sheath. The PICC was advanced over the wire. Wire and peel-away sheath were removed. The tip of the catheter overlies the cavoatrial junction. The port flushes well and the catheter is ready for use. Exposure data: 0.5 minutes of fluoroscopic time 1381 mGy per centimeter squared IMPRESSION: Successful sonographically and fluoroscopically guided placement of a leftupper extremity PICC.
[2020-09-08] MEDS: Atorvastatin Calcium 40 MG TAB PO SCH (21:10)
[2020-09-09] MEDS: Ciprofloxacin 500 MG TAB PO SCH ×2 (05:47→19:45)
--- NOTE | 2020-09-09 06:11 | PDOC.FM ---
- Subjective Subjective: Patient was sleeping soundly this morning. - Objective Vital Signs & Weight: Vital Signs (12 hours) Temp Pulse Resp BP Pulse Ox 09/08/20 19:39 98.0 F 57 L 16 100/55 L 96 09/08/20 19:30 96 Weight Admit Weight 55.083 kg Weight 55.083 kg I&O: 09/07/20 09/08/20 09/09/20 06:59 06:59 06:59 Intake Total 1070 1000 1050 Output Total 289 603 1242 Balance 620 450 -1 Result Diagrams: 09/04/20 06:01 09/03/20 04:52 Phys Exam - Physical Examination Constitutional: NAD HEENT: moist MMs Neck: no nodes, supple, full ROM Respiratory: no wheezing, clear to auscultation bilateral Cardiovascular: RRR, no significant murmur Gastrointestinal: soft, non-tender, no distention, positive bowel sounds Musculoskeletal: no edema, pulses present R AKA Neurological: non-focal, moves all 4 limbs Psychiatric: normal affect, A&O x 3 Dx/Plan (1) Cellulitis Code(s): L03.90 - CELLULITIS, UNSPECIFIED Status: Acute (2) Wound dehiscence Code(s): T81.30XA - DISRUPTION OF WOUND, UNSPECIFIED, INITIAL ENCOUNTER Status: Acute (3) CAD (coronary artery disease) Code(s): I25.10 - ATHSCL HEART DISEASE OF [place] CORONARY ARTERY W/O ANG PCTRS Status: Chronic (4) DMII (diabetes mellitus, type 2) Status: Chronic (5) Hypertension Code(s): I10 - ESSENTIAL (PRIMARY) HYPERTENSION Status: Chronic - Plan Plan: 74 yo M with history of R AKA presenting for pain and redness surrounding wound. Cellulitis 2/2 dehiscence of R AKA incision Erythematous and warm skin surrounding incision, purulent drainage from R side of wound site on admission. -WBC 15.7, lactic 1.2, procal 0.1, ESR 89, CRP 11.04 on admission. WBC improved to 12.8. -Received cefepime, vanc, and morphine in ED -femur XR: no signs of osteomyelitis -Continue vanc, rocephin discontinued on 09/05, started cipro -BCx neg -Wound Cx: MRSA, Escherichia hermanii, strep pyogenes -MRI negative for abscess or osteomyelitis. ESR >60, 74% sensitivity and 56% specificity. CRP >7.9, 49% sensitivity and 80% specificity. -Consult Gen Surg (Boni) - wound vac placed, CM set up outpatient wound vac -Consult ID (Vicenta) - Continue vanc and cipro until October 08. PICC line placed on 09/08. -Home health nurse contacted nursing expressing concern for the cleanliness of patient's home and having a picc line in that setting. Patient is intended to go to rehab, CM is working on approval. Wound dehiscence AKA in January 2020. Dehiscence on right side of wound with purulent discharge -see above -consult wound care, PT, OT Iron deficiency anemia -Hgb 10.4 > 8.7 -Blood work in February suggested iron deficiency -Continue ferrous sulfate home med -Continue to monitor Constipation -reports improved BM regularity on colace BID DMII -A1c 5.6 -SSI -continue home meds HTN -hydralazine prn -continue home meds Hx of CAD -prior MIs -aware, continue home meds Diet: HH - mechanical soft, glucerna, juvena DVT: lovenox PCP: TAMP Code: FULL Dispo: Discharge pending rehab approval.
[2020-09-09] MEDS: Docusate 100 MG CAP PO SCH ×2 (10:14→19:49)
[2020-09-09] MEDS: Ubidecarenone 50 MG CAP PO SCH (10:14)
[2020-09-09] MEDS: Lisinopril 20 MG TAB PO SCH (10:14)
[2020-09-09] MEDS: metFORMIN 500 MG TAB PO SCH (10:14)
[2020-09-09] MEDS: Aspirin 81 mg Enteric Coated Tablet PO SCH (10:15)
[2020-09-09] MEDS: Amlodipine 5 MG TAB PO SCH (10:15)
[2020-09-09] MEDS: Gabapentin 300 MG CAP PO SCH ×3 (10:15→19:45)
[2020-09-09] MEDS: Ferrous Sulfate 325 MG TAB PO SCH (10:15)
[2020-09-09] MEDS: Hydrochlorothiazide 25 MG TAB PO SCH (10:15)
[2020-09-09] MEDS: Enoxaparin Sodium 40 MG/0.4 ML SYRINGE SC SCH (10:15)
--- NOTE | 2020-09-09 14:23 | PRG ---
DATE OF SERVICE: Placement had been made and Mr. Camarena will be transferred for long-term care. Job ID: [id number]
[2020-09-09] MEDS: Vancomycin HCl 750 MG in Sodium Chloride 0.9% 250 ML 250 ML IVPB SCH (16:11)
[2020-09-09 19:08] LABS: SARS-CoV-2 MS2 Positive; SARS-CoV-2 N Gene Negative; SARS-CoV-2 S Gene Negative; SARS-CoV-2 by NAA Not Detected (NotDetected); SARS-CoV-2 orf1ab Negative
[2020-09-09] MEDS: Atorvastatin Calcium 40 MG TAB PO SCH (19:45)
[2020-09-10] MEDS: Ciprofloxacin 500 MG TAB PO SCH (05:32)
--- NOTE | 2020-09-10 06:32 | PDOC.FM ---
- Subjective Subjective: Mr. Camarena has no complaints today. He is thankful for the care he has received. - Objective Vital Signs & Weight: Vital Signs (12 hours) Temp Pulse Resp BP Pulse Ox 09/09/20 19:55 97.6 F 64 12 97/53 L 96 Weight Admit Weight 55.083 kg Weight 55.083 kg I&O: 09/08/20 09/09/20 09/10/20 06:59 06:59 06:59 Intake Total 1000 1050 1360 Output Total 550 1351 325 Balance 450 -301 1035 Result Diagrams: 09/04/20 06:01 09/03/20 04:52 Phys Exam - Physical Examination Constitutional: NAD HEENT: moist MMs, sclera anicteric Neck: no nodes, supple, full ROM Respiratory: no wheezing, no rales, no rhonchi, clear to auscultation bilateral Cardiovascular: RRR, no significant murmur Gastrointestinal: soft, non-tender, no distention, positive bowel sounds Musculoskeletal: no edema, pulses present Neurological: moves all 4 limbs R BKA, wound vac in place Psychiatric: normal affect, A&O x 3 Dx/Plan (1) Cellulitis Code(s): L03.90 - CELLULITIS, UNSPECIFIED Status: Acute (2) Wound dehiscence Code(s): T81.30XA - DISRUPTION OF WOUND, UNSPECIFIED, INITIAL ENCOUNTER Status: Acute (3) CAD (coronary artery disease) Code(s): I25.10 - ATHSCL HEART DISEASE OF [place] CORONARY ARTERY W/O ANG PCTRS Status: Chronic (4) DMII (diabetes mellitus, type 2) Status: Chronic (5) Hypertension Code(s): I10 - ESSENTIAL (PRIMARY) HYPERTENSION Status: Chronic - Plan Plan: 74 yo M with history of R AKA presenting for pain and redness surrounding wound. Cellulitis 2/2 dehiscence of R AKA incision Erythematous and warm skin surrounding incision, purulent drainage from R side of wound site on admission. -WBC 15.7, lactic 1.2, procal 0.1, ESR 89, CRP 11.04 on admission. WBC improved to 12.8. -Received cefepime, vanc, and morphine in ED -femur XR: no signs of osteomyelitis -Continue vanc, rocephin discontinued on 10/11, started cipro -BCx neg -Wound Cx: MRSA, Escherichia hermanii, strep pyogenes -MRI negative for abscess or osteomyelitis. ESR >60, 74% sensitivity and 56% specificity. CRP >7.9, 49% sensitivity and 80% specificity. -Consult Gen Surg (Boni) - wound vac placed, CM set up outpatient wound vac -Consult ID (Vicenta) - Continue vanc and cipro until October 08. PICC line placed on 09/08. -[facility] placement approved. Wound dehiscence AKA in January 2020. Dehiscence on right side of wound with purulent discharge -see above -consult wound care, PT, OT Iron deficiency anemia -Hgb 10.4 > 8.7 -Blood work in February suggested iron deficiency -Continue ferrous sulfate home med -Continue to monitor Constipation -reports improved BM regularity on colace BID DMII -A1c 5.6 -SSI -continue home meds HTN -hydralazine prn -continue home meds Hx of CAD -prior MIs -aware, continue home meds Diet: HH - mechanical soft, glucerna, juvena DVT: lovenox PCP: ARIEL Code: FULL Dispo: Discharge today to [facility]. Patient had a negative COVID.
[2020-09-10 08:50] VITALS: TEMP 98.2
[2020-09-10] MEDS: Hydrochlorothiazide 25 MG TAB PO SCH (09:14)
[2020-09-10] MEDS: Gabapentin 300 MG CAP PO SCH (09:14)
[2020-09-10] MEDS: Lisinopril 20 MG TAB PO SCH (09:14)
[2020-09-10] MEDS: Docusate 100 MG CAP PO SCH (09:14)
[2020-09-10] MEDS: Ubidecarenone 50 MG CAP PO SCH (09:14)
[2020-09-10] MEDS: metFORMIN 500 MG TAB PO SCH (09:14)
[2020-09-10] MEDS: Aspirin 81 mg Enteric Coated Tablet PO SCH (09:15)
[2020-09-10] MEDS: Enoxaparin Sodium 40 MG/0.4 ML SYRINGE SC SCH (09:15)
[2020-09-10] MEDS: Amlodipine 5 MG TAB PO SCH (09:15)
[2020-09-10 09:18] VITALS: BP 119/63
--- NOTE | 2020-09-10 11:12 | PRG ---
DATE OF SERVICE: 09/10/2020 Mr. Camarena' transfer was late yesterday because he had not been checked for COVID. He was checked and is COVID with negative and is therefore discharged today for placement. He is in his usual, excellent mood, expressing no concerns. Job ID: [id number]
[2020-09-10 11:57] LABS: Vancomycin, Trough 22.4 ug/mL
--- NOTE | 2020-09-14 14:27 | PQF ---
CLINICAL DOCUMENTATION CLARIFICATION FORM: Dear : Moose Geller MD Date / Time: 09/14/2020 Please exercise your independent, professional judgment in responding to the clarification form. Clinical indicators are provided on the bottom of this form for your review Please check appropriate box(es): to clarify the source of infection [ ] Infection due to wound [ ] Infection due to stump [ ] Other diagnosis (Please specify if any) [ ] Unable to determine Physician Signature: Date/Time: For continuity of documentation, please document condition throughout progress notes and discharge summary. Thank You. 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 AKA. Cellulitis 2/2 dehiscence of R AKA incision H&P on 09/02 [x] He had a wound on his right AKA stump that is open about thumb size and penetrates towards the femur. Consult on 09/03 [x] Cultures obtained on 09/02/20 revealed gram negative rods, also gram positive rods Consult on 09/03 [x] Infected right AKA stump ED provider report on 09/02 Present Risk Factors Results and Location in Medical Record [x] Aged person 74yrs ED provider report on 09/02 [x] Right sided AKA in January Present Treatments Results and Location in Medical Record [x] Vancomycin Hcl 1gm IV Medication on 09/02 [x] Rocephin 1 gm IV Medication from 09/02 to 09/05 [ ] [ ] CDS/Machine Operator Slitter Technician Signature: AAS Phone #: Date/Time: 09/14/2020 This is a permanent part of the Medical Record [facility]
--- NOTE | 2020-09-19 20:05 | DIS ---
DATE OF ADMISSION: 09/02/2020 DATE OF DISCHARGE: 09/10/2020 RESIDENT: Scooter King MD ADMITTING ATTENDING: Guille العراقي MD DISCHARGE ATTENDING: Moose Maciel MD CONSULTATIONS: 1. PT and OT. 2. General Surgery, Dr. Plata. 3. Infectious Disease, Dr. Yadav. PROCEDURES: Femur x-ray showed no osteomyelitis. Lower extremity MRI showed no abscess, no osteo. PICC placement on September 08. PRIMARY DIAGNOSIS: Cellulitis secondary to dehiscence of right [id number] amputation incision and wound dehiscence. SECONDARY DIAGNOSES: 1. Iron-deficiency anemia. 2. Constipation. 3. Diabetes type 2. 4. Hypertension. 5. History of coronary artery disease. DISCHARGE MEDICATIONS: 1. Metformin 500 mg p.o. q.a.m. with meals. 2. Aspirin 81 mg p.o. daily. 3. Atorvastatin 40 mg p.o. at bedtime. 4. Gabapentin 300 mg p.o. t.i.d. 5. MiraLAX 17 g p.o. daily. 6. Coenzyme Q10 100 mg p.o. daily. 7. Hydrochlorothiazide 25 mg p.o. daily. 8. Lisinopril 20 mg p.o. daily. 9. Amlodipine 5 mg p.o. daily. 10. Ferrous sulfate 325 mg p.o. Sunday, Sunday, Sunday. 11. Cipro 500 mg p.o. b.i.d. 12. Vancomycin 750 mg IV. DISCONTINUED MEDICATIONS: 1. Tylenol Extra Strength 1000 mg p.o. q.6 hours p.r.n. 2. Zofran 4 mg p.o. q.6 hours p.r.n. 3. Seroquel 25 mg p.o. at bedtime. 4. Flomax 0.4 mg p.o. b.i.d. 5. Vancomycin 500 mg IV. HISTORY OF PRESENT ILLNESS AND HOSPITAL COURSE: Mr. 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 The patient reports cramping, pulsating pain in his right leg, starting the day before admission. The pain increased the morning of admission and was momentarily relieved by placing pressure on the wound. While in the ED waiting room, the wound began bleeding onto the floor. The patient denied fever, chills, nausea, vomiting, shortness of breath, or chest pain. He does have a home health nurse who comes weekly to care for his wound. The patient received vanc, cefepime, morphine, and Zofran in the ED. On exam, right lower extremity was found to be erythematous and warm on the skin surrounding his right AKA incision. There is purulent drainage from the right side of the wound site. White blood cell count was 15.7, lactic acid was 1.2, procal 0.1, ESR 89, and CRP 11. Femur x-ray revealed no signs of osteomyelitis. The patient was continued on vanc and Rocephin on admission. Rocephin was later discontinued. Wound culture resulted in MRSA, Escherichia hermannii, and Streptococcus pyogenes, and Cipro was initiated. Blood cultures were negative. MRI was negative for abscess or osteomyelitis. Dr. Plata, the general surgeon, who performed the patient's AKA was consulted and a wound VAC was placed. Dr. Yadav of Infectious Disease was consulted. He instructed the patient to continue vanc and Cipro until October 08. A PICC line was placed on September 08 to facilitate this. The patient was improved for placement at [facility] to finish all his antibiotic course. The patient was previously living with son, Jermaine, and receiving help from the home health nurse. During hospitalization, home health called the hospital and expressed concern at the cleanliness of the patient's home. The patient's other son expressed concern that his brother may not be caring for his father properly. The patient was discharged in a stable condition to continue receiving antibiotics until October 08 at [facility]. DISCHARGE INSTRUCTIONS: 1. Location: [facility]. 2. Diet: Carb control. 3. Activity: As tolerated. 4. Followup: With Dr. Plata in 2 to 3 weeks. Job ID: [id number]
== END 2020-09-10 12:17 | DRG 863 ==
LOC: ERS 11:10 → ONC 18:43
PROVIDERS: ADMIT Student in an Organized Health Care Education/Training Program; ATTEND Student in an Organized Health Care Education/Training Program
PROC: 02HV33Z Insertion of Infusion Device into Superior Vena Cava, Percutaneous Approach (ICD-10-PCS; principal; 2020-09-08)
PROC: B548ZZA Ultrasonography of Superior Vena Cava, Guidance (ICD-10-PCS; 2020-09-08)
PROC: B5181ZA Fluoroscopy of Superior Vena Cava using Low Osmolar Contrast, Guidance (ICD-10-PCS; 2020-09-08)
DX: T81.41XA Infection following a procedure, superficial incisional surgical site, initial encounter (principal); L03.115 Cellulitis of right lower limb; T81.31XA Disruption of external operation (surgical) wound, not elsewhere classified, initial encounter; I25.10 Atherosclerotic heart disease of native coronary artery without angina pectoris; N18.30 Chronic kidney disease, stage 3 unspecified; D50.9 Iron deficiency anemia, unspecified; G62.9 Polyneuropathy, unspecified; Z20.828 Contact with and (suspected) exposure to other viral communicable diseases; I12.9 Hypertensive chronic kidney disease with stage 1 through stage 4 chronic kidney disease, or unspecified chronic kidney disease; K59.00 Constipation, unspecified; I25.2 Old myocardial infarction; Z79.84 Long term (current) use of oral hypoglycemic drugs; Z79.899 Other long term (current) drug therapy; Z79.82 Long term (current) use of aspirin; Z86.73 Personal history of transient ischemic attack (TIA), and cerebral infarction without residual deficits; Z89.611 Acquired absence of right leg above knee; Z90.49 Acquired absence of other specified parts of digestive tract
CPT/HCPCS: 36415; 36416; 36569; 80048; 80053; 80202; 83036; 83605; 84145; 85025; 85652; 86140; 87040; 87070; 87077; 87186; 87205; 87635; 90471; 90662; 96365; 96375; G0008; J0692; J0696; J1644; J1650; J2270; J2405; J3370; J3490; J7050; U0003

== ENCOUNTER 2020-09-15 11:15 | Emergency (ER) | payer MEDICARE, MEDICAID ==
--- NOTE | 2020-09-15 15:32 | SPC ---
Left upper extremity PICC placement sonographic guided HISTORY: Osteomyelitis. FINDINGS: After explaining the procedure and answering all questions, the left upper extremity was pr epped and draped in usual sterile fashion. Sonographic evaluation of the upper arm shows the cephalic vein to be patent. The basilic vein at the level of the proximal humerus was incompletely co mpressible. Sterile technique, buffered local anesthesia, sonographic guidance, and a 22-gauge needle were used t o carefully access the left cephalic vein. Standard technique was used to place a 5 [place] single lumen PICC so that the tip lies at the level of the cavoatrial junction. Catheter was flushed and sec ured externally. Patient tolerated the procedure well and was returned in unchanged condition. IMPRESSION : Left upper extremity PICC is ready for use. Partially occlusive thrombus within the basilic vein of the left upper arm.
== END 2020-09-15 16:27 ==
LOC: ERS 11:15
DX: Z45.2 Encounter for adjustment and management of vascular access device (principal); E11.9 Type 2 diabetes mellitus without complications; I10 Essential (primary) hypertension; I25.2 Old myocardial infarction; Z79.899 Other long term (current) drug therapy; Z79.84 Long term (current) use of oral hypoglycemic drugs; Z79.82 Long term (current) use of aspirin
CPT/HCPCS: 36569; C1751; 99283; J1644

== ENCOUNTER 2022-12-21 08:07 | Inpatient (IN) | payer MEDICARE, MEDICAID ==
[2022-12-21] MEDS ORDERED: Cefepime 2 GM in Sodium Chloride 0.9% 100 ML IVPB SCH (10:45)
[2022-12-21] MEDS ORDERED: Vancomycin 1.5 GRAM/300 ML BAG 1.5 GM in Premix Bag 1 BAG IVPB SCH (10:45)
[2022-12-21] MEDS ORDERED: Cefepime 2 GM VIAL ONE (10:58)
[2022-12-21 11:03] LABS: #Eosinphils 0.4 thou/uL (0.0-0.7); #Lymphocytes 1.1 thou/uL (1.20-3.40); #Monocytes 0.4 thou/uL (0.11-0.59); #Neutrophils 10.7 thou/uL (1.40-6.50); %Basophils 0.4 % (0.0-1.0); %Eosinophils 3.2 % (0.0-10.0); %Lymphocytes 8.3 % (21.0-51.0); %Monocytes 3.1 % (0.0-10.0); %Neutrophils 85.1 % (42.0-75.0); Hemoglobin 11.3 g/dL (14.0-18.0); Mean Corpuscular HGB CONC 32.7 g/dL (32.0-36.0); Mean Corpuscular Hemoglobin 28.3 pg (27.0-31.0); Mean Corpuscular Volume 86.5 fl (78.0-98.0); Mean Platelet Volume 8.5 fL (7.4-10.4); Platelet Count 434 10x3/uL (130-400); RBC Distribution Width 12.7 % (11.5-14.5); Red Blood Cell (RBC) Count 4.01 mill/uL (4.70-6.10); White Blood Cell (WBC) Count 12.6 10x3/uL (4.8-10.8)
[2022-12-21] MEDS ORDERED: Clindamycin/D5W 900 mg/50 ml Premix Bag ONE (11:27)
[2022-12-21] MEDS ORDERED: Morphine 4 MG/ML VIAL ONE (11:27)
[2022-12-21 11:34] LABS: ALT (SGPT) 10 U/L (8-55); AST (SGOT) 21 U/L (5-34); Albumin 2.7 g/dL (3.4-4.8); Alkaline Phosphatase 106 U/L (40-110); Anion Gap 13 mmol/L (10-20); BUN (Urea Nitrogen) 23 mg/dL (8.4-25.7); Bilirubin, Total 0.3 mg/dL (0.2-1.2); Calc. Creatinine Clearance 0 mL/min (70-130); Calcium 8.7 mg/dL (7.8-10.44); Carbon Dioxide 24 mmol/L (23-31); Chloride 98 mmol/L (98-107); Estimated GFR 88; Globulin 4.6 g/dL (2.4-3.5); Glucose 90 mg/dL (83-110); Potassium 4.6 mmol/L (3.5-5.1); Protein, Total 7.3 g/dL (5.8-8.1); Sodium 130 mmol/L (136-145)
[2022-12-21] MEDS ORDERED: Ondansetron PF 4 MG/2 ML Vial ONE (13:14)
[2022-12-21] MEDS ORDERED: Dextrose 5% in Water 1,000 ML IV PRN (14:54)
[2022-12-21] MEDS ORDERED: Dextrose 50% Abboject 50 ML SYRINGE SLOW IVP PRN (14:54)
[2022-12-21] MEDS ORDERED: Ondansetron ODT 4 MG TAB PO PRN (14:54)
[2022-12-21] MEDS ORDERED: HumaLOG 300 UNITS/3 ML VIAL SC PRN (15:02)
[2022-12-21] MEDS ORDERED: Morphine 2 MG/ML VIAL ONE (15:34)
[2022-12-21] MEDS ORDERED: Lactated Ringer's 1,000 ML IV SCH (15:45)
[2022-12-21] MEDS: Morphine 2 MG/ML VIAL SLOW IVP PRN (15:48)
[2022-12-21 16:00] LABS: Cardiac Risk 2.5 (Less than 4.5)
[2022-12-21 16:15] LABS: SARS-CoV-2 NAA Rapid Test Not Detected (NotDetected)
[2022-12-21 16:37] LABS: Hemoglobin A1c 6.6 % (4.0-6.0)
[2022-12-21 19:12] VITALS: BMI 18.4
[2022-12-21] MEDS ORDERED: Acetaminophen 325 MG TAB PO PRN (19:43)
[2022-12-21] MEDS: QUEtiapine 25 MG TAB PO SCH (20:41)
[2022-12-21] MEDS: Cefepime 2 GM in Sodium Chloride 0.9% 100 ML IVPB SCH (23:19)
[2022-12-22] MEDS: Morphine 2 MG/ML VIAL SLOW IVP PRN ×5 (02:35→23:14)
[2022-12-22 06:54] LABS: #Basophils 0.1 thou/uL (0.0-0.2); #Eosinphils 0.9 thou/uL (0.0-0.7); #Lymphocytes 1.4 thou/uL (1.20-3.40); #Monocytes 0.6 thou/uL (0.11-0.59); #Neutrophils 7.2 thou/uL (1.40-6.50); %Basophils 0.7 % (0.0-1.0); %Eosinophils 8.5 % (0.0-10.0); %Monocytes 5.8 % (0.0-10.0); %Neutrophils 71.1 % (42.0-75.0); Hemoglobin 10.1 g/dL (14.0-18.0); Mean Corpuscular HGB CONC 33.1 g/dL (32.0-36.0); Mean Corpuscular Volume 87.5 fl (78.0-98.0); Mean Platelet Volume 8.3 fL (7.4-10.4); Platelet Count 384 10x3/uL (130-400); RBC Distribution Width 12.8 % (11.5-14.5); Red Blood Cell (RBC) Count 3.49 mill/uL (4.70-6.10); White Blood Cell (WBC) Count 10.1 10x3/uL (4.8-10.8)
[2022-12-22 07:13] LABS: Anion Gap 11 mmol/L (10-20); BUN (Urea Nitrogen) 19 mg/dL (8.4-25.7); Calc. Creatinine Clearance 45 mL/min (70-130); Calcium 8.4 mg/dL (7.8-10.44); Carbon Dioxide 23 mmol/L (23-31); Chloride 104 mmol/L (98-107); Estimated GFR 81; Glucose 73 mg/dL (83-110); Potassium 4.2 mmol/L (3.5-5.1); Sodium 134 mmol/L (136-145)
[2022-12-22] MEDS ORDERED: FLU VACC QS2022-23(65YR UP)/PF 240 MCG/0.7 ML SYRINGE IM ONE (09:00)
[2022-12-22] MEDS: Aspirin 81 mg Enteric Coated Tablet PO SCH (12:22)
[2022-12-22] MEDS ORDERED: Dextrose 5%-Lactated Ringers 1,000 ML IV SCH (12:30)
[2022-12-22] MEDS: Cefepime 2 GM in Sodium Chloride 0.9% 100 ML IVPB SCH ×2 (12:34→23:13)
[2022-12-22] MEDS: Vancomycin 1 GM in Premix Bag 1 BAG IVPB SCH (14:02)
[2022-12-22] MEDS ORDERED: Midazolam HCl 2 mg/2 ml Vial ONE (15:49)
[2022-12-22] MEDS ORDERED: Lidocaine 1% PF 5 ML VIAL ONE (16:30)
[2022-12-22] MEDS ORDERED: PROPOFOL 200 MG/20 ML VIAL ONE (16:30)
[2022-12-22] MEDS ORDERED: ePHEDrine 50 MG/ML VIAL ONE (16:30)
[2022-12-22] MEDS ORDERED: Ondansetron PF 4 MG/2 ML Vial ONE (16:30)
[2022-12-22] MEDS ORDERED: Ondansetron HCl/PF 4 MG/2 ML Vial IVP PRN (17:08)
[2022-12-22] MEDS ORDERED: Promethazine HCl 25 MG/ML VIAL IM PRN (17:08)
[2022-12-22] MEDS: Atorvastatin Calcium 40 MG TAB PO SCH (20:04)
[2022-12-22] MEDS: QUEtiapine 25 MG TAB PO SCH (20:04)
[2022-12-23 05:29] LABS: #Basophils 0.1 thou/uL (0.0-0.2); #Eosinphils 0.8 thou/uL (0.0-0.7); #Lymphocytes 0.9 thou/uL (1.20-3.40); #Monocytes 0.5 thou/uL (0.11-0.59); #Neutrophils 7.9 thou/uL (1.40-6.50); %Basophils 0.8 % (0.0-1.0); %Eosinophils 7.5 % (0.0-10.0); %Lymphocytes 9.3 % (21.0-51.0); %Monocytes 4.8 % (0.0-10.0); %Neutrophils 77.7 % (42.0-75.0); Hemoglobin 10.4 g/dL (14.0-18.0); Mean Corpuscular HGB CONC 33.1 g/dL (32.0-36.0); Mean Corpuscular Hemoglobin 28.8 pg (27.0-31.0); Mean Platelet Volume 8.2 fL (7.4-10.4); Platelet Count 355 10x3/uL (130-400); RBC Distribution Width 12.8 % (11.5-14.5); Red Blood Cell (RBC) Count 3.63 mill/uL (4.70-6.10); White Blood Cell (WBC) Count 10.1 10x3/uL (4.8-10.8)
[2022-12-23 05:47] LABS: Anion Gap 10 mmol/L (10-20); BUN (Urea Nitrogen) 15 mg/dL (8.4-25.7); Calc. Creatinine Clearance 51 mL/min (70-130); Calcium 8.5 mg/dL (7.8-10.44); Carbon Dioxide 23 mmol/L (23-31); Chloride 103 mmol/L (98-107); Estimated GFR 90; Glucose 79 mg/dL (83-110); Potassium 4.2 mmol/L (3.5-5.1); Sodium 132 mmol/L (136-145)
[2022-12-23] MEDS: Morphine 2 MG/ML VIAL SLOW IVP PRN (10:02)
[2022-12-23] MEDS ORDERED: Fentanyl 100 MCG/2 ML VIAL SLOW IVP SCH (12:00)
[2022-12-23 12:34] LABS: Vancomycin, Trough 19.5 ug/mL
[2022-12-23] MEDS: Cefepime 2 GM in Sodium Chloride 0.9% 100 ML IVPB SCH (12:58)
[2022-12-23] MEDS: Aspirin 81 mg Enteric Coated Tablet PO SCH (13:03)
[2022-12-23] MEDS: Haloperidol Lactate 5 MG/ML VIAL SLOW IVP SCH ×2 (13:55→15:53)
[2022-12-23] MEDS: Vancomycin 1 GM in Premix Bag 1 BAG IVPB SCH (14:31)
[2022-12-23] MEDS ORDERED: Haloperidol Lactate 5 MG/ML VIAL SLOW IVP SCH ×2 (16:00→22:15)
[2022-12-23] MEDS: QUEtiapine 25 MG TAB PO SCH (21:01)
[2022-12-23] MEDS: Atorvastatin Calcium 40 MG TAB PO SCH (21:01)
[2022-12-23] MEDS: Cefepime 1 GM in Sodium Chloride 0.9% 100 ML IVPB SCH (23:24)
[2022-12-24] MEDS: Haloperidol Lactate 5 MG/ML VIAL IM SCH (01:01)
[2022-12-24 06:47] LABS: #Eosinphils 0.2 thou/uL (0.0-0.7); #Lymphocytes 1.2 thou/uL (1.20-3.40); #Neutrophils 13.9 thou/uL (1.40-6.50); %Basophils 0.1 % (0.0-1.0); %Eosinophils 1.2 % (0.0-10.0); %Lymphocytes 7.6 % (21.0-51.0); %Monocytes 6.1 % (0.0-10.0); %Neutrophils 85.1 % (42.0-75.0); Mean Corpuscular HGB CONC 32.3 g/dL (32.0-36.0); Mean Corpuscular Hemoglobin 28.3 pg (27.0-31.0); Mean Corpuscular Volume 87.6 fl (78.0-98.0); Platelet Count 275 10x3/uL (130-400); RBC Distribution Width 12.9 % (11.5-14.5); White Blood Cell (WBC) Count 16.3 10x3/uL (4.8-10.8)
[2022-12-24 07:10] LABS: Anion Gap 13 mmol/L (10-20); BUN (Urea Nitrogen) 16 mg/dL (8.4-25.7); Calc. Creatinine Clearance 51 mL/min (70-130); Calcium 8.8 mg/dL (7.8-10.44); Carbon Dioxide 21 mmol/L (23-31); Chloride 101 mmol/L (98-107); Estimated GFR 90; Glucose 87 mg/dL (83-110); Potassium 4.2 mmol/L (3.5-5.1); Sodium 131 mmol/L (136-145)
[2022-12-24] MEDS: Aspirin 81 mg Enteric Coated Tablet PO SCH (07:19)
[2022-12-24] MEDS: Cefepime 1 GM in Sodium Chloride 0.9% 100 ML IVPB SCH ×2 (11:04→23:06)
[2022-12-24 12:16] LABS: Vancomycin, Random 18.3 ug/mL (See Comment)
[2022-12-24] MEDS: Morphine 2 MG/ML VIAL SLOW IVP PRN ×3 (12:40→21:20)
[2022-12-24] MEDS: Vancomycin 1 GM in Premix Bag 1 BAG IVPB SCH (12:42)
[2022-12-24] MEDS: Dextrose 5%-Lactated Ringers 1,000 ML IV SCH (16:53)
[2022-12-24] MEDS: Lisinopril 10 MG TAB PO SCH (21:26)
[2022-12-24] MEDS: Atorvastatin Calcium 40 MG TAB PO SCH (21:27)
[2022-12-24] MEDS: QUEtiapine 25 MG TAB PO SCH (21:27)
[2022-12-24] MEDS: hydrALAZINE 20 MG/ML VIAL SLOW IVP PRN (21:34)
[2022-12-25] MEDS: Haloperidol Lactate 5 MG/ML VIAL IM SCH (01:00)
[2022-12-25] MEDS: Morphine 2 MG/ML VIAL SLOW IVP PRN (01:23)
[2022-12-25] MEDS: Dextrose 5%-Lactated Ringers 1,000 ML IV SCH ×3 (02:23→18:25)
[2022-12-25 06:25] LABS: #Eosinphils 0.6 thou/uL (0.0-0.7); #Lymphocytes 1.2 thou/uL (1.20-3.40); #Monocytes 0.9 thou/uL (0.11-0.59); #Neutrophils 13.8 thou/uL (1.40-6.50); %Basophils 0.2 % (0.0-1.0); %Eosinophils 3.4 % (0.0-10.0); %Lymphocytes 7.2 % (21.0-51.0); %Monocytes 5.3 % (0.0-10.0); Hemoglobin 10.6 g/dL (14.0-18.0); Mean Corpuscular HGB CONC 32.2 g/dL (32.0-36.0); Mean Corpuscular Hemoglobin 28.3 pg (27.0-31.0); Mean Corpuscular Volume 87.6 fl (78.0-98.0); Mean Platelet Volume 8.2 fL (7.4-10.4); Platelet Count 348 10x3/uL (130-400); RBC Distribution Width 12.9 % (11.5-14.5); Red Blood Cell (RBC) Count 3.74 mill/uL (4.70-6.10); White Blood Cell (WBC) Count 16.4 10x3/uL (4.8-10.8)
[2022-12-25 06:56] LABS: Anion Gap 12 mmol/L (10-20); BUN (Urea Nitrogen) 15 mg/dL (8.4-25.7); Calc. Creatinine Clearance 56 mL/min (70-130); Calcium 8.5 mg/dL (7.8-10.44); Carbon Dioxide 23 mmol/L (23-31); Chloride 102 mmol/L (98-107); Estimated GFR 93; Glucose 147 mg/dL (83-110); Potassium 3.7 mmol/L (3.5-5.1); Sodium 133 mmol/L (136-145)
[2022-12-25] MEDS ORDERED: Iopamidol 370 76% 50 ML VIAL FS ONE (08:26)
[2022-12-25] MEDS ORDERED: Lidocaine 1% (PF) 30 ML VIAL ONE (11:46)
[2022-12-25] MEDS ORDERED: Heparin 10,000 UNITS/ 10 ML VIAL ONE (11:46)
[2022-12-25] MEDS: Aspirin 81 mg Enteric Coated Tablet PO SCH (12:05)
[2022-12-25] MEDS ORDERED: FENTANYL 50 MCG/ML 1 ML VIAL ONE (12:44)
[2022-12-25] MEDS ORDERED: hydrALAZINE 20 MG/ML VIAL ONE (14:17)
[2022-12-25] MEDS: hydrALAZINE 20 MG/ML VIAL SLOW IVP PRN (14:22)
[2022-12-25] MEDS ORDERED: Protamine Sulfate 50 MG/5 ML VIAL ONE (14:27)
[2022-12-25] MEDS ORDERED: Clopidogrel Bisulfate 75 MG TAB PO SCH (15:30)
[2022-12-25] MEDS: Vancomycin 1 GM in Premix Bag 1 BAG IVPB SCH (17:28)
[2022-12-25] MEDS ORDERED: Cefepime 1 GM in Sodium Chloride 0.9% 100 ML IVPB SCH (18:00)
[2022-12-25] MEDS: Cefepime 1 GM in Sodium Chloride 0.9% 100 ML IVPB SCH (18:16)
[2022-12-25] MEDS: Atorvastatin Calcium 40 MG TAB PO SCH (20:05)
[2022-12-25] MEDS: Lisinopril 10 MG TAB PO SCH (20:05)
[2022-12-25] MEDS: QUEtiapine 25 MG TAB PO SCH (20:05)
[2022-12-26] MEDS: Morphine 2 MG/ML VIAL SLOW IVP PRN ×3 (00:54→16:54)
[2022-12-26] MEDS: Dextrose 5%-Lactated Ringers 1,000 ML IV SCH ×2 (00:55→05:13)
[2022-12-26] MEDS ORDERED: Ziprasidone 20 MG VIAL IM SCH (01:45)
[2022-12-26] MEDS ORDERED: Sterile Water 10 ML VIAL FS PRN (01:45)
[2022-12-26 06:26] LABS: #Eosinphils 0.4 thou/uL (0.0-0.7); #Lymphocytes 0.8 thou/uL (1.20-3.40); #Monocytes 0.6 thou/uL (0.11-0.59); #Neutrophils 10.2 thou/uL (1.40-6.50); %Basophils 0.1 % (0.0-1.0); %Eosinophils 3.1 % (0.0-10.0); %Lymphocytes 6.5 % (21.0-51.0); %Monocytes 4.6 % (0.0-10.0); %Neutrophils 85.7 % (42.0-75.0); Hemoglobin 10.2 g/dL (14.0-18.0); Mean Corpuscular HGB CONC 33.7 g/dL (32.0-36.0); Mean Corpuscular Hemoglobin 29.8 pg (27.0-31.0); Mean Corpuscular Volume 88.6 fl (78.0-98.0); Mean Platelet Volume 8.5 fL (7.4-10.4); Platelet Count 335 10x3/uL (130-400); RBC Distribution Width 12.9 % (11.5-14.5); Red Blood Cell (RBC) Count 3.41 mill/uL (4.70-6.10); White Blood Cell (WBC) Count 11.9 10x3/uL (4.8-10.8)
[2022-12-26 06:48] LABS: Anion Gap 9 mmol/L (10-20); BUN (Urea Nitrogen) 13 mg/dL (8.4-25.7); Calc. Creatinine Clearance 54 mL/min (70-130); Calcium 8.4 mg/dL (7.8-10.44); Carbon Dioxide 26 mmol/L (23-31); Chloride 103 mmol/L (98-107); Estimated GFR 92; Glucose 150 mg/dL (83-110); Potassium 3.5 mmol/L (3.5-5.1); Sodium 134 mmol/L (136-145)
[2022-12-26] MEDS: Aspirin 81 mg Enteric Coated Tablet PO SCH (07:54)
[2022-12-26] MEDS: Clopidogrel Bisulfate 75 MG TAB PO SCH (07:54)
[2022-12-26] MEDS: Cefepime 1 GM in Sodium Chloride 0.9% 100 ML IVPB SCH ×2 (08:40→20:42)
[2022-12-26 12:25] LABS: Vancomycin, Trough 19.4 ug/mL
[2022-12-26] MEDS: Vancomycin 1 GM in Premix Bag 1 BAG IVPB SCH (12:58)
[2022-12-26] MEDS: QUEtiapine 25 MG TAB PO SCH (20:43)
[2022-12-26] MEDS: Lisinopril 10 MG TAB PO SCH (20:43)
[2022-12-26] MEDS: Atorvastatin Calcium 40 MG TAB PO SCH (20:43)
[2022-12-27] MEDS: Cefepime 1 GM in Sodium Chloride 0.9% 100 ML IVPB SCH ×2 (07:43→20:03)
[2022-12-27] MEDS: Aspirin 81 mg Enteric Coated Tablet PO SCH (07:44)
[2022-12-27] MEDS: Clopidogrel Bisulfate 75 MG TAB PO SCH (07:44)
[2022-12-27] MEDS ORDERED: Sodium Chloride 0.9% 1,000 ML IV SCH (08:00)
[2022-12-27] MEDS ORDERED: Ketamine 50 MG/ML (10ML VIAL) ONE (08:48)
[2022-12-27] MEDS ORDERED: fentaNYL PF 100 MCG/2 ML SYRINGE ONE (08:53)
[2022-12-27] MEDS ORDERED: PHENYLEPHRINE-NS 100 MCG/ML 10 ML SYRINGE ONE (09:03)
[2022-12-27] MEDS ORDERED: PROPOFOL 200 MG/20 ML VIAL ONE (09:03)
[2022-12-27] MEDS ORDERED: Acetaminophen 500 MG TAB PO PRN (09:10)
[2022-12-27] MEDS ORDERED: traMADol HCl 50 MG TAB PO PRN (09:10)
[2022-12-27] MEDS ORDERED: Morphine 2 MG/ML VIAL SLOW IVP PRN (09:12)
[2022-12-27] MEDS ORDERED: Ketorolac Tromethamine 30 MG/ML VIAL IVP SCH (09:15)
[2022-12-27] MEDS ORDERED: Acetaminophen 500 MG TAB PO SCH (09:15)
[2022-12-27 10:49] LABS: Hemoglobin 9.1 g/dL (14.0-18.0); Mean Corpuscular HGB CONC 32.3 g/dL (32.0-36.0); Mean Corpuscular Hemoglobin 28.5 pg (27.0-31.0); Mean Corpuscular Volume 88.4 fl (78.0-98.0); Mean Platelet Volume 8.4 fL (7.4-10.4); Platelet Count 371 10x3/uL (130-400); RBC Distribution Width 12.7 % (11.5-14.5); Red Blood Cell (RBC) Count 3.18 mill/uL (4.70-6.10); White Blood Cell (WBC) Count 22.7 10x3/uL (4.8-10.8)
[2022-12-27] MEDS ORDERED: Ketorolac Tromethamine 30 MG/ML VIAL ONE (11:00)
[2022-12-27 11:02] LABS: Anion Gap 11 mmol/L (10-20); BUN (Urea Nitrogen) 14 mg/dL (8.4-25.7); Calc. Creatinine Clearance 52 mL/min (70-130); Calcium 8.1 mg/dL (7.8-10.44); Carbon Dioxide 24 mmol/L (23-31); Chloride 104 mmol/L (98-107); Estimated GFR 91; Glucose 82 mg/dL (83-110); Potassium 3.6 mmol/L (3.5-5.1); Sodium 135 mmol/L (136-145)
[2022-12-27] MEDS: Dextrose 5%-Lactated Ringers 1,000 ML IV SCH (11:31)
[2022-12-27 12:09] LABS: Band 21 % (5-11); Eosinophils 1 % (0-10); Lymphocytes 6 % (21-51); MDiff Complete? YES; Neutrophil 71 % (42-75); Polychromasia SLIGHT = 2-3 cells (100X) (0-2/hpf); Reactive Lymphocytes 1 % (0-10)
[2022-12-27] MEDS: Vancomycin 1 GM in Premix Bag 1 BAG IVPB SCH (12:30)
[2022-12-27] MEDS: Gabapentin 100 MG CAP PO SCH ×2 (14:03→20:04)
[2022-12-27] MEDS ORDERED: Gabapentin 300 MG CAP PO SCH (15:00)
[2022-12-27] MEDS: Morphine 4 MG/ML VIAL SLOW IVP PRN ×2 (15:43→21:38)
[2022-12-27] MEDS: Atorvastatin Calcium 40 MG TAB PO SCH (20:04)
[2022-12-27] MEDS: Lisinopril 5 MG TAB PO SCH (20:04)
[2022-12-27] MEDS: QUEtiapine 25 MG TAB PO SCH (20:05)
[2022-12-27] MEDS ORDERED: Lisinopril 10 MG TAB PO SCH (21:00)
[2022-12-28] MEDS: Dextrose 5%-Lactated Ringers 1,000 ML IV SCH ×2 (03:47→12:46)
[2022-12-28] MEDS: Morphine 4 MG/ML VIAL SLOW IVP PRN ×2 (05:31→11:09)
[2022-12-28 08:10] LABS: #Eosinphils 0.5 thou/uL (0.0-0.7); #Lymphocytes 1.1 thou/uL (1.20-3.40); #Monocytes 0.9 thou/uL (0.11-0.59); #Neutrophils 16.2 thou/uL (1.40-6.50); %Basophils 0.1 % (0.0-1.0); %Eosinophils 2.8 % (0.0-10.0); %Lymphocytes 5.7 % (21.0-51.0); %Neutrophils 86.5 % (42.0-75.0); Hemoglobin 8.3 g/dL (14.0-18.0); Mean Corpuscular HGB CONC 32.3 g/dL (32.0-36.0); Mean Corpuscular Hemoglobin 28.9 pg (27.0-31.0); Mean Corpuscular Volume 89.2 fl (78.0-98.0); Mean Platelet Volume 8.5 fL (7.4-10.4); Platelet Count 314 10x3/uL (130-400); RBC Distribution Width 12.8 % (11.5-14.5); Red Blood Cell (RBC) Count 2.87 mill/uL (4.70-6.10); White Blood Cell (WBC) Count 18.7 10x3/uL (4.8-10.8)
[2022-12-28 08:30] LABS: Anion Gap 11 mmol/L (10-20); BUN (Urea Nitrogen) 18 mg/dL (8.4-25.7); Calc. Creatinine Clearance 44 mL/min (70-130); Carbon Dioxide 26 mmol/L (23-31); Chloride 104 mmol/L (98-107); Estimated GFR 79; Glucose 101 mg/dL (83-110); Potassium 3.5 mmol/L (3.5-5.1); Sodium 137 mmol/L (136-145)
[2022-12-28] MEDS: Cefepime 1 GM in Sodium Chloride 0.9% 100 ML IVPB SCH (08:52)
[2022-12-28] MEDS: Clopidogrel Bisulfate 75 MG TAB PO SCH (08:53)
[2022-12-28] MEDS: Aspirin 81 mg Enteric Coated Tablet PO SCH (08:53)
[2022-12-28] MEDS: Gabapentin 100 MG CAP PO SCH ×3 (08:53→20:01)
[2022-12-28] MEDS ORDERED: Scopolamine 1.5 mg/72 hour Patch TD SCH (11:00)
[2022-12-28] MEDS: Atorvastatin Calcium 40 MG TAB PO SCH (20:01)
[2022-12-28] MEDS: Lisinopril 5 MG TAB PO SCH (20:01)
[2022-12-28] MEDS: QUEtiapine 25 MG TAB PO SCH (20:01)
[2022-12-29] MEDS: Dextrose 5%-Lactated Ringers 1,000 ML IV SCH (03:24)
[2022-12-29 07:00] LABS: Hemoglobin 8.3 g/dL (14.0-18.0); Mean Corpuscular Hemoglobin 28.7 pg (27.0-31.0); Mean Corpuscular Volume 89.6 fl (78.0-98.0); Mean Platelet Volume 8.5 fL (7.4-10.4); Platelet Count 297 10x3/uL (130-400); RBC Distribution Width 12.8 % (11.5-14.5); White Blood Cell (WBC) Count 17.6 10x3/uL (4.8-10.8)
[2022-12-29 08:34] LABS: #Eosinphils 0.7 thou/uL (0.0-0.7); #Monocytes 0.9 thou/uL (0.11-0.59); %Basophils 0.2 % (0.0-1.0); %Eosinophils 3.8 % (0.0-10.0); %Lymphocytes 5.5 % (21.0-51.0); %Monocytes 5.4 % (0.0-10.0); %Neutrophils 85.1 % (42.0-75.0); Band 2 % (5-11); Eosinophils 4 % (0-10); Lymphocytes 4 % (21-51); MDiff Complete? YES; Monocytes 5 % (0-10); Neutrophil 85 % (42-75); RBC Morphology Normal
[2022-12-29] MEDS: Aspirin 81 mg Enteric Coated Tablet PO SCH (08:50)
[2022-12-29] MEDS: Clopidogrel Bisulfate 75 MG TAB PO SCH (08:50)
[2022-12-29] MEDS: Gabapentin 100 MG CAP PO SCH ×2 (08:51→12:48)
[2022-12-29 09:52] LABS: Anion Gap 14 mmol/L (10-20); BUN (Urea Nitrogen) 18 mg/dL (8.4-25.7); Calc. Creatinine Clearance 46 mL/min (70-130); Calcium 7.9 mg/dL (7.8-10.44); Carbon Dioxide 21 mmol/L (23-31); Chloride 107 mmol/L (98-107); Estimated GFR 83; Glucose 101 mg/dL (83-110); Potassium 4.5 mmol/L (3.5-5.1); Sodium 137 mmol/L (136-145)
[2022-12-29 14:42] VITALS: BP 114/65; TEMP 98.9
== END 2022-12-29 16:25 | disposition hospice, inpatient (51) | DRG 239 ==
LOC: ERS 08:07 → ERHOLD 14:22 → T4-B 19:22
PROVIDERS: ADMIT Student in an Organized Health Care Education/Training Program; ATTEND Family Medicine
PROC: 0Y6N0Z9 Detachment at Left Foot, Partial 1st Ray, Open Approach (ICD-10-PCS; 2022-12-22)
PROC: 0Y6N0ZB Detachment at Left Foot, Partial 2nd Ray, Open Approach (ICD-10-PCS; 2022-12-22)
PROC: 0Y6N0ZC Detachment at Left Foot, Partial 3rd Ray, Open Approach (ICD-10-PCS; 2022-12-22)
PROC: 047N3ZZ Dilation of Left Popliteal Artery, Percutaneous Approach (ICD-10-PCS; 2022-12-25)
PROC: B41G1ZZ Fluoroscopy of Left Lower Extremity Arteries using Low Osmolar Contrast (ICD-10-PCS; 2022-12-25)
PROC: 0Y6J0Z1 Detachment at Left Lower Leg, High, Open Approach (ICD-10-PCS; principal; 2022-12-27)
DX: E11.52 Type 2 diabetes mellitus with diabetic peripheral angiopathy with gangrene (principal); Z66 Do not resuscitate; Z51.5 Encounter for palliative care; Z20.822 Contact with and (suspected) exposure to COVID-19; G93.41 Metabolic encephalopathy; E44.0 Moderate protein-calorie malnutrition; T76.01XA Adult neglect or abandonment, suspected, initial encounter; Z68.1 Body mass index [BMI] 19.9 or less, adult; F03.911 Unspecified dementia, unspecified severity, with agitation; F05 Delirium due to known physiological condition; E88.09 Other disorders of plasma-protein metabolism, not elsewhere classified; I10 Essential (primary) hypertension; Z86.73 Personal history of transient ischemic attack (TIA), and cerebral infarction without residual deficits; I25.2 Old myocardial infarction; Z89.611 Acquired absence of right leg above knee
CPT/HCPCS: 36415; 36416; 37224; 37228; 70450; 75625; 75710; 75736; 80048; 80053; 80061; 80202; 83036; 83605; 84145; 85025; 85347; 85652; 86140; 87040; 87811; 88305; 88307; 88311; 96365; 96366; 96367; 96375; 97139; C1760; C1769; C1887; J0360; J0692; J1630; J1644; J1650; J1885; J2001; J2250; J2270; J2272; J2405; J2704; J2720; J3010; J3370; J3370-JW; J3486; J3490; J7050; Q9967; U0002